=== PATIENT | male | born 1965 | race African-American/Black ===

== ENCOUNTER 2020-06-26 02:18 | Emergency (ER) | payer MEDICAID, SELFPAY ==
[2020-06-26 03:14] VITALS: BP 166/95; PULSE 70; RESP 17; TEMP 37.1; O2SAT 98; BMI 26.0
[2020-06-26 03:28] VITALS: BP 166/95; PULSE 70; RESP 17; TEMP 37.1; O2SAT 98
[2020-06-26 03:31] LABS: Amphetamine Screen Urine Not Detected (Not Detect); Barbiturates, Urine Not Detected (Not Detect); Benzodiazepines Screen Urine Not Detected (Not Detect); Cannabinoid Screen Urine POSITIVE (Not Detect); Cocaine Screen Urine POSITIVE (Not Detect); Opiate Screen Urine Not Detected (Not Detect); Phencyclidine Screen Urine Not Detected (Not Detect)
--- NOTE | 2020-06-26 05:47 | PC.NURSE ---
JONG faxed and called. JONG stated PT would be seen later this morning.
[2020-06-26 06:00] VITALS: RESP 16
--- NOTE | 2020-06-26 06:38 | ED_ITS ---
HPI - Psych General Chief Complaint: Psychiatric Symptoms Stated Complaint: SI/HI Time Seen by Provider: 06/26/20 05:25 Source: patient Mode of arrival: ambulatory History of Present Illness HPI Narrative: This is a 54-year-old male who presents with complaints of depression, polysubstance use, and generalize suicidal ideation with reported prior admissions for depression and made a suicide attempt approximately 4 years ago via substance overdose. Today he states he is very depressed about his current status as being homeless and dependent on drugs and is requesting detox. Related Data Home Medications Medication Instructions Recorded Confirmed gabapentin 800 mg PO TID 06/26/20 06/26/20 lurasidone [Latuda] 40 mg PO DAILY 06/26/20 06/26/20 naltrexone 50 mg PO DAILY 06/26/20 06/26/20 tamsulosin 0.8 mg PO BEDTIME 06/26/20 06/26/20 terbinafine HCl 250 mg PO DAILY 06/26/20 06/26/20 Allergies Allergy/AdvReac Type Severity Reaction Status Date / Time bee pollen [BEE STINGS] Allergy Unknown ANAPHYLAXIS Unverified 02/08/20 18:27 Review of Systems Review of Systems: Pertinent positives and negatives as stated in HPI and 10 point review of systems is otherwise negative. [facility] Past Medical History Source: nursing notes reviewed Social History Social History Alcohol intake: current Alcohol intake frequency: 3 or more drinks per day Alcohol type: hard liquor Smoking Status: Current every day smoker Smoked in Last 30 Days: Yes Use of substances other than those prescribed or required for medical reasons: Yes Substance Use Type: Crack/Cocaine and Marijuana Substance Use Frequency: Daily Last Used Substance: Hours (ago) Any prior treatment program specific to substance use: Yes Advance Directives: No Physical Exam Vital Signs: Vital Signs: Last Vital Signs Temp 98.8 F 06/26/20 03:28 Pulse 70 06/26/20 03:28 Resp 16 06/26/20 06:00 BP 166/95 H 06/26/20 03:28 Pulse Ox 98 06/26/20 03:28 Body Mass Index 26.0 VITAL SIGNS: Reviewed. GENERAL: Well developed, well nourished, in no acute distress. NECK: Supple, no adenopathy LUNGS: Normal breath sounds. No adventitious sounds or accessory muscle use. SpO2<98> CARDIOVASCULAR: Regular rate and rhythm without noted murmurs ABDOMEN: Soft, non-tender, non-distended with bowel sounds. NEUROLOGIC: Alert and oriented x 4. PSYCH: Depressed affect, logical thought process Course Course Course Narrative: This is a 54-year-old male with history and clinical presentation consistent with polysubstance use and depression with generalized suicidal ideation without plan. Patient is seeking detox. MDM - Psych Restraints Face to Face Assessment: Face to Face Assessment: Current Situation: After assessment of the patient, a review of the pertinent medical record and a discussion with nursing staff, I feel the patient requires a restrain intervention. Reaction To: [] Medical Condition: [] Behavioral State: [] Continued Need: [] Lab Data Labs: Lab Results 06/26/20 Range/Units 03:01 Urine Opiates Screen Not Detected (Not Detect) Ur Barbiturates Screen Not Detected (Not Detect) Ur Phencyclidine Scrn Not Detected (Not Detect) Ur Amphetamines Screen Not Detected (Not Detect) U Benzodiazepines Scrn Not Detected (Not Detect) Urine Cocaine Screen POSITIVE H (Not Detect) U Marijuana (THC) Screen POSITIVE H (Not Detect) Discharge Plan Discharge Prescriptions: No Action naltrexone 50 mg Tablet 50 mg PO DAILY RF: 0 terbinafine HCl 250 mg Tablet 250 mg PO DAILY RF: 0 tamsulosin 0.4 mg Capsule 0.8 mg PO BEDTIME RF: 0 gabapentin 800 mg Tablet 800 mg PO TID RF: 0 Latuda 40 mg Tablet 40 mg PO DAILY RF: 0
--- NOTE | 2020-06-26 08:00 | PC.NURSE ---
PT RESTING ON BED. AWAITING BHN CONSULT. REQUESTING MOTRIN FOR H/A
[2020-06-26] MEDS: Lurasidone HCl 40 MG TABLET PO (08:54)
[2020-06-26] MEDS: Naltrexone HCl 50 MG TABLET PO (08:54)
[2020-06-26] MEDS: Ibuprofen 600 MG TABLET PO (08:54)
[2020-06-26] MEDS: Gabapentin 400 MG CAPSULE 800 MG PO ×2 (08:54→14:34)
[2020-06-26 09:38] VITALS: BP 144/80; PULSE 64; TEMP 36.9; O2SAT 100
[2020-06-26 11:25] LABS: COVID-19 Test Negative (Negative)
--- NOTE | 2020-06-26 11:50 | MHC.RECOVSUP ---
Recovery Support note: This leader writer is assisting with EATS placement for this patient. Patient was discharged from [facility] on 06/20 and reports that he does not want to go there for treatment. Patient is requesting to go to [facility] in [place]. Patient information has been faxed to [phone] for review.
--- NOTE | 2020-06-26 12:29 | MHC.RECOVSUP ---
? Reason for consult: Continuity of Care o Current location: [facility] o Identified substance use concern: - Withdrawal - Seeking ATS (detox) - Support ? Intervention: o ATS bed search started/completed/in process o Harm reduction discussion ? Plan: o Bed search in progress to o Follow up tomorrow o Patient awaiting crisis evaluation o Patient to follow up with [facility] after discharge ? Additional information:Pt. seeking eats bed and waiting for exceptance into [facility].
[2020-06-26] MEDS: Acetaminophen 325 MG TABLET 650 MG PO (13:47)
--- NOTE | 2020-06-26 13:58 | MHC.CARE ---
Patient is a 54 year-old man who self-presented to [facility] ED at roughly 2:00 am, reported that he was seeking detox from alcohol and having suicidal thoughts. Today the CARE Team spoke with patient several times while he was in the Emergency Room to discuss his needs and concerns regarding his safety. He stated that he feels hopeless, at times suicidal due to his situation being chronically homeless, struggling with addiction and depression. 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 In terms of patient?s drinking pattern, he said a fifth of whiskey can last two to three days and he finished a bottle just before coming to the hospital. At this time patient denied having a plan or intention of ending his life, said he feels better knowing treatment is available today. He reported having no history of attempts to end his life though acknowledged that his behavior is self-destructive. Patient is determined to not need an inpatient psychiatric admission, is encouraged to engage in outpatient services for mental health and substance use treatment.
--- NOTE | 2020-06-26 14:59 | PC.NURSE ---
Report received. Pt sleeping in bed at current, no signs of distress, respirations even and unlabored.
--- NOTE | 2020-06-26 15:41 | MHC.RECOVSUP ---
Recovery Support note: Patient has been accepted to [facility] for EATS admission at 1999. CARE Team will arrange transportation for patient.
--- NOTE | 2020-06-26 15:56 | MHC.RECOVSUP ---
Transportation note: Taxi has been scheduled for 1899. Taxi voucher printed to pod and will be given to patient upon discharge. RN aware of plan.
--- NOTE | 2020-06-26 16:54 | PC.NURSE ---
Pt asleep at current. No signs of distress. Respirations even and unlabored.
== END 2020-06-26 19:03 | disposition home or self-care (01) ==
PROVIDERS: Emergency Provider Student in an Organized Health Care Education/Training Program; PCP Psychiatry & Neurology Neurology
DX: F19.10 Other psychoactive substance abuse, uncomplicated (principal); F32.9 Major depressive disorder, single episode, unspecified; R45.851 Suicidal ideations; Z20.822 Contact with and (suspected) exposure to COVID-19; F10.10 Alcohol abuse, uncomplicated; F17.200 Nicotine dependence, unspecified, uncomplicated; Z91.5 Personal history of self-harm; Z59.0 Homelessness
CPT/HCPCS: 36415; 80307; 87635; 99284

== ENCOUNTER 2020-08-17 14:40 | Emergency (ER) | payer MEDICAID, SELFPAY ==
--- NOTE | ~2020-08-17 | CT_ITS ---
EXAMINATION: CT ABDOMEN AND PELVIS WITH CONTRAST CLINICAL INFORMATION: Periumbilical pain COMPARISON: Scrotal ultrasound earlier the same day TECHNIQUE: Multidetector volumetric images were obtained from the superior aspect of the liver through the pubic symphysis following administration 85 mL of Omnipaque 350 intravenous contrast. Sagittal and coronal reformatted images were obtained on the technologist's workstation. Oral contrast: No This CT examination was performed using dose optimization techniques as appropriate, variously including the following: *Automated exposure control *Adjustment of mA and/or kV according to patient size (this includes techniques or standardized protocols for targeted exams where dose is matched to indication/reason for exam; i.e. extremities or head) *Use of iterative reconstruction technique DLP: 839 mGy-cm FINDINGS: LUNG BASES: Streaky opacity at the lung bases, likely atelectasis. There is an 8 mm soft tissue nodule in the epicardial fat adjacent the right heart border. LIVER, GALLBLADDER, AND BILIARY TREE: There is an ill-defined 9 mm lesion posteriorly in the right lobe of the liver. Portal veins enhance normally. Gallbladder collapsed. No biliary ductal dilatation. PANCREAS: Normal. SPLEEN: There is some heterogeneous enhancement but no focal lesion seen.. ADRENAL GLANDS: Unremarkable. KIDNEYS AND URETERS: The kidneys are normal in size, shape, and attenuation. No hydronephrosis, hydroureter, or calculi seen. No perinephric stranding. BLADDER: Unremarkable. GASTROINTESTINAL TRACT: The small and large bowel are unremarkable. The appendix is unremarkable. ABDOMINAL WALL: No significant hernia is appreciated. LYMPH NODES: Normal. VASCULAR: Unremarkable. PELVIC VISCERA: The prostate and seminal vesicles are unremarkable. OSSEOUS STRUCTURES: Degenerative changes of the thoracolumbar spine. No acute or suspicious osseous abnormality. CT/CT abdomen pelvis w con IMPRESSION: No acute CT findings. Normal appendix. There is an ill-defined 9 mm lesion posteriorly in the right lobe of liver of uncertain etiology or clinical significance. This does not have the expected appearance of a cyst. Consider definitive evaluation with contrast-enhanced liver MRI as clinically indicated, particularly if there is concern for metastatic disease, for example a known primary malignancy.
--- NOTE | ~2020-08-17 | US_ITS ---
EXAMINATION: US SCROTUM CLINICAL INFORMATION: Left testicular pain. COMPARISON: None TECHNIQUE: A sonogram of the scrotum was performed assessing beltran-scale appearance and color Doppler flow. Spectral Doppler analysis of the arterial and venous flow were performed in the testes bilaterally. FINDINGS: RIGHT: Right testicle measures 3.9 x 2.2 x 3.2 cm, volume 13.6 mL. No focal testicular parenchymal lesions are visualized. Spectral Doppler analysis of the arterial and venous flow is increased, but symmetric with the left, in the right testis. Right epididymal head is normal in size. Small cysts are present in the head of the right epididymis the largest measuring 4 x 4 by 5 mm. No right hydrocele or varicocele is seen. Right epididymal Doppler flow is normal. LEFT: Left testicle measures 3.4 x 1.8 x 2.7 cm, volume 8.7 mL. No focal testicular parenchymal lesions are visualized. Spectral Doppler analysis of the arterial and venous flow is increased, but symmetric with the right, in the left testis. Left epididymal head is normal in size. No left hydrocele is seen. A left varicocele is present with veins measuring up to 3 mm in size. Left epididymal Doppler flow is normal. US/US scrotum IMPRESSION: 1. Slightly increased symmetric flow in both testes of questionable significance. 2. Left-sided varicocele is present 3. Small cysts are noted in the head of the right epididymis
[2020-08-17 14:44] VITALS: BP 151/81; PULSE 75; RESP 18; TEMP 37; O2SAT 98; BMI 32.5
[2020-08-17 15:16] LABS: Glucose Urine UA NEG (NEG); Leukocyte Esterase Urine NEG (NEG); Nitrite Urine NEG (NEG); PH 5.5 (5.0-8.0); Specific Gravity - Urine >= 1.030 (1.005-1.025); Urine Blood NEG (NEG); Urine Ketones 5 MG/DL (NEG); Urine Protein NEG (NEG-TRACE)
[2020-08-17 15:22] LABS: Appearance Urine CLEAR; Color Urine YELLOW
--- NOTE | 2020-08-17 16:06 | ED_ITS ---
HPI - Male Genitourinary General Chief complaint: Abdominal Pain Stated complaint: pain from belly button to penis Time Seen by Provider: 08/17/20 15:51 Source: patient Mode of arrival: ambulatory Limitations: no limitations History of Present Illness HPI Narrative: Patient comes to the Emergency room complaining of left testicular pain. Patient states it started this morning. Patient denies trauma. Patient states that sometimes when he urinates he feels a pulling sensation from his umbilicus down to his left testicle. Patient states that 6 months to about a year ago he had epididymitis, and it is a similar pain that he is feeling now. Patient states that he does not have a sexual partner and therefore he is not concerned about having a sexually transmitted disease. Patient states that the discomfort in his abdomen is very minimal, most of the discomfort is in the left testicular area. Patient denies vomiting or diarrhea, no fever chills, no hematuria, no dysuria MD Complaint: testicle pain Related Data Home Medications Medication Instructions Recorded Confirmed gabapentin 800 mg PO TID 06/26/20 06/26/20 lurasidone [Latuda] 40 mg PO DAILY 06/26/20 06/26/20 naltrexone 50 mg PO DAILY 06/26/20 06/26/20 tamsulosin 0.8 mg PO BEDTIME 06/26/20 06/26/20 terbinafine HCl 250 mg PO DAILY 06/26/20 06/26/20 Allergies Allergy/AdvReac Type Severity Reaction Status Date / Time bee pollen [BEE STINGS] Allergy Unknown ANAPHYLAXIS Verified 08/17/20 14:43 Review of Systems Review of Systems: Constitutional : No Weight loss, No Fever, No Chills, No Night Sweats, No Fatigue, No Malaise ENT/Mouth : No Hearing loss, No Ear Pain, No Nasal Congestion, No Sinus Pain, No Hoarseness, No sore throat, No Rhinorrhea, No Swallowing Difficulty Eyes: No Eye Pain, No Swelling, No Redness, No Foreign Body, No Discharge, No Vision Changes Cardiovascular : No Chest Pain, No SOB, No Dyspnea on Exertion, No Orthopnea, No Edema, No Palpitations Respiratory : No Cough, No Sputum, No Wheezing, No Smoke Exposure, No Dyspnea Gastrointestinal : No Nausea, No Vomiting, No Diarrhea, No Constipation, No abdominal Pain, No Hematochezia, No Melena Genitourinary : No Dysuria, No Urinary Frequency, No Hematuria, No Urinary Incontinence, No Urgency, No Flank Pain, No Urinary Flow Changes, No Hesitancy, complaining of left testicular pain, worse with urination, has a pulling sensation from his umbilicus towards the left testicle, no flank pain Musculoskeletal : No joint pain, No Myalgias, No Joint Swelling Skin : No Skin Lesions, No rash Neuro : No Weakness, No Numbness, No Paresthesias, No Loss of Consciousness, No Dizziness, No Headache Psych : No Anxiety/Panic, No Depression, No SI/HI/AH/VH, No Social Issues, Heme/Lymph: No Bruising, No Bleeding,No Lymphadenopathy Endocrine : No Polyuria, No Polydipsia, No Temperature Intolerance PMFSH Past Medical History Medical History Epididymitis Social History Social History Alcohol intake: current Alcohol intake frequency: 3 or more drinks per day Alcohol type: hard liquor Smoking Status: Current every day smoker Substance Use Type: Crack/Cocaine and Marijuana Advance Directives: No Advance Directives Information Provided: No Physical Exam Vital Signs: Vital Signs: Last Vital Signs Temp 98.0 F 08/17/20 20:20 Pulse 50 08/17/20 20:20 Resp 19 08/17/20 20:20 BP 163/84 H 08/17/20 20:20 Pulse Ox 100 08/17/20 20:20 Body Mass Index 32.5 Appearance: Alert. Oriented X3. No acute distress. Eyes: Pupils equal, round and reactive to light. ENT: Pharynx normal. Neck: Normal inspection. Neck supple. No lymph nodes noted. No crepitus CVS: Normal heart rate and rhythm. Pulses normal. Normal S1 and S2 Respiratory: No respiratory distress. Breath sounds normal. No Wheezing. No ral es Abdomen: Soft and nontender. No rigidity. No distention. No periumbilical or suprapubic pain on deep palpation. : No penile discharge, pain to palpation on the left testicle, mild discomfort on the right testicle Skin: Skin warm and dry. Normal skin color. Normal skin turgor. Extremities: No lower extremity edema. No lower extremity edema. No Lacerations. No Rash Neuro: Oriented X 3. No motor deficit. No sensory deficit. Moving all extermities. No slurred speech. Course Course Course Narrative: I discussed the labs and imaging with the patient, patient aware of the varicocele diagnosis. Patient states that he is well aware that he has had a 1 cm mass in his liver, states it has been there for over 10 years. Patient instructed to follow-up with urology [facility] - Male Genitourinary Lab Data Result diagrams: 08/17/20 19:31 08/17/20 19:31 Labs: Lab Results 08/17/20 08/17/20 08/17/20 Range/Units 15:00 19:31 19:31 WBC 5.0 (4.8-10.8) X10*3/uL RBC 4.43 L (4.60-5.80) X10*6/uL Hgb 12.5 L (14.0-18.0) g/dl Hct 37.9 L (42-52) % MCV 85.6 (80-98) fL MCH 28.2 (27.0-33.0) pg MCHC 33.0 (31.0-36.0) g/dl RDW 15.5 (11.0-16.0) % Plt Count 220 (160-400) X10*3/uL MPV 9.1 L (9.4-12.4) fL Immature Gran % (Auto) 0.8 H (0.0-0.4) % Neut % (Auto) 38.4 L (45-73) % Lymph % (Auto) 51.4 H (20-40) % [place] % (Auto) 8.0 (2-11) % Eos % (Auto) 1.2 (0-4) % Baso % (Auto) 0.2 (0-2) % Lymph # (Auto) 2.6 (1.2-4.9) X10*3/uL [place] # (Auto) 0.4 (0.1-1.2) X10*3/uL Eos # (Auto) 0.1 (0.0-0.4) X10*3/uL Baso # (Auto) 0.0 (0.0-0.2) X10*3/uL Abs Immat Gran (auto) 0.04 H (0.00-0.03) X10*3/uL Absolute Neuts (auto) 1.9 L (2.0-8.3) X10*3/uL Absolute Nucleated RBC 0.000 (0.0-0.012) X10*3/uL Nucleated RBC % (auto) 0.0 (0.0-0.2) /100WBC Sodium 139 (135-145) mmol/L Potassium 3.8 (3.3-5.1) mmol/L Chloride 106 (96-108) mmol/L Carbon Dioxide 24 (22-29) mmol/L Anion Gap 13 (12-20) BUN 13 (9-16) mg/dL Creatinine 1.22 (0.5-1.4) mg/dL Estim Creat Clear Calc 88.2 Estimated GFR > 60 Random Glucose 88 (60-115) mg/dL Calcium 8.8 (8.4-10.2) mg/dL Urine Color YELLOW Urine Appearance CLEAR Urine pH 5.5 (5.0-8.0) Ur Specific [place] >= 1.030 H (1.005-1.025) Urine Protein NEG (NEG-TRACE) MG/DL Urine Glucose (UA) NEG (NEG) MG/DL Urine Ketones 5 (NEG) MG/DL Urine Blood NEG (NEG) Urine Nitrite NEG (NEG) Ur Leukocyte Esterase NEG (NEG) Imaging Data CT scan - abdomen: Radiologist's impression: FINDINGS: LUNG BASES: Streaky opacity at the lung bases, likely atelectasis. There is an 8 mm soft tissue nodule in the epicardial fat adjacent the right heart border. LIVER, GALLBLADDER, AND BILIARY TREE: There is an ill-defined 9 mm lesion posteriorly in the right lobe of the liver. Portal veins enhance normally. Gallbladder collapsed. No biliary ductal dilatation. PANCREAS: Normal. SPLEEN: There is some heterogeneous enhancement but no focal lesion seen.. ADRENAL GLANDS: Unremarkable. KIDNEYS AND URETERS: The kidneys are normal in size, shape, and attenuation. No hydronephrosis, hydroureter, or calculi seen. No perinephric stranding. BLADDER: Unremarkable. GASTROINTESTINAL TRACT: The small and large bowel are unremarkable. The appendix is unremarkable. ABDOMINAL WALL: No significant hernia is appreciated. LYMPH NODES: Normal. VASCULAR: Unremarkable. PELVIC VISCERA: The prostate and seminal vesicles are unremarkable. OSSEOUS STRUCTURES: Degenerative changes of the thoracolumbar spine. No acute or suspicious osseous abnormality. CT/CT abdomen pelvis w con IMPRESSION: No acute CT findings. Normal appendix. There is an ill-defined 9 mm lesion posteriorly in the right lobe of liver of uncertain etiology or clinical significance. This does not have the expected appearance of a cyst. Consider definitive evaluation with contrast-enhanced liver MRI as clinically indicated, particularly if there is concern for metastatic disease, for example a known primary malignancy. Scrotum ultrasound: Radiologist's impression: [address] [id number] ReportSigned Patient: Tea DominguezR#: [id number]: 1965Acct:[id number]/Sex: 54 / MADM Date: 08/17/20Loc: [address]: Ordering Physician: ISAAC JUAREZ MD Date of Service: 08/17/20 Procedure(s): US scrotum Accession Number(s): [id number] cc: ISAAC JUAREZ MD~ EXAMINATION: US SCROTUM CLINICAL INFORMATION: Left testicular pain. COMPARISON: None TECHNIQUE: A sonogram of the scrotum was performed assessing beltran-scale appearance and color Doppler flow. Spectral Doppler analysis of the arterial and venous flow were performed in the testes bilaterally. FINDINGS: RIGHT: Right testicle measures 3.9 x 2.2 x 3.2 cm, volume 13.6 mL. No focal testicular parenchymal lesions are visualized. Spectral Doppler analysis of the arterial and venous flow is increased, but symmetric with the left, in the right testis. Right epididymal head is normal in size. Small cysts are present in the head of the right epididymis the largest measuring 4 x 4 by 5 mm. No right hydrocele or varicocele is seen. Right epididymal Doppler flow is normal. LEFT: Left testicle measures 3.4 x 1.8 x 2.7 cm, volume 8.7 mL. No focal testicular parenchymal lesions are visualized. Spectral Doppler analysis of the arterial and venous flow is increased, but symmetric with the right, in the left testis. Left epididymal head is normal in size. No left hydrocele is seen. A left varicocele is present with veins measuring up to 3 mm in size. Left epididymal Doppler flow is normal. US/US scrotum IMPRESSION: 1. Slightly increased symmetric flow in both testes of questionable significance. 2. Left-sided varicocele is present 3. Small cysts are noted in the head of the right epididymis Discharge Plan Discharge Clinical Impression: Left varicocele Patient Disposition: Home, Self-Care Instructions: Testicle Pain (ED), Varicocele (ED) Additional Instructions: Please call Urology to schedule an appointment. Please follow-up with your primary care physician tomorrow. If you have any worsening or new symptoms, please return to the emergency room or call 911 Prescriptions: No Action naltrexone 50 mg Tablet 50 mg PO DAILY RF: 0 terbinafine HCl 250 mg Tablet 250 mg PO DAILY RF: 0 tamsulosin 0.4 mg Capsule 0.8 mg PO BEDTIME RF: 0 gabapentin 800 mg Tablet 800 mg PO TID RF: 0 Latuda 40 mg Tablet 40 mg PO DAILY RF: 0 Referrals: Surendra Young MD [Physician] - 2 days
--- NOTE | 2020-08-17 16:21 | PC.NURSE ---
u/s at bedside at this time
[2020-08-17 17:51] VITALS: BP 160/90; PULSE 65; RESP 16; O2SAT 98
[2020-08-17 19:35] LABS: MANUAL DIFF FLAG NO
--- NOTE | 2020-08-17 19:36 | PC.NURSE ---
IV INSERTED W/O DIFFICULTY, SITE INTACT. PT STATES LIOR BEEN WAITING FOR A LONG TIME . PT AWAITING FOR CT.
[2020-08-17 19:37] LABS: Basophils Percent Auto 0.2 % (0-2); Eosinophils Absolute Auto 0.1 X10*3/uL (0.0-0.4); Eosinophils Percent Auto 1.2 % (0-4); Hematocrit 37.9 % (42-52); Hemoglobin 12.5 g/dl (14.0-18.0); Imm Gran Abs Auto 0.04 X10*3/uL (0.00-0.03); Imm Gran Pct Auto 0.8 % (0.0-0.4); Lymphocytes Absolute Auto 2.6 X10*3/uL (1.2-4.9); Lymphocytes Percent Auto 51.4 % (20-40); Mean Corpuscular Hemoglobin 28.2 pg (27.0-33.0); Mean Corpuscular Volume 85.6 fL (80-98); Mean Platelet Volume 9.1 fL (9.4-12.4); Monocytes Absolute Auto 0.4 X10*3/uL (0.1-1.2); Neutrophils Absolute Auto 1.9 X10*3/uL (2.0-8.3); Neutrophils Percent Auto 38.4 % (45-73); Platelet Count 220 X10*3/uL (160-400); Red Blood Count 4.43 X10*6/uL (4.60-5.80); Red Cell Distribution Width 15.5 % (11.0-16.0)
[2020-08-17 19:59] LABS: Anion Gap 13 (12-20); Blood Urea Nitrogen 13 mg/dL (9-16); Calcium 8.8 mg/dL (8.4-10.2); Carbon Dioxide 24 mmol/L (22-29); Chloride 106 mmol/L (96-108); Creatinine Clr Calc Pharmacy 88.2; Estimated Glomerular Filt Rate > 60; Glucose Random 88 mg/dL (60-115); Potassium 3.8 mmol/L (3.3-5.1); Sodium 139 mmol/L (135-145)
[2020-08-17] MEDS: iohexoL 350 MG/ML 75 ML INFUS..BTL IV (20:14)
[2020-08-17 20:20] VITALS: BP 163/84; PULSE 50; RESP 19; TEMP 36.7; O2SAT 100
[2020-08-18 13:13] LABS: CT PCR NOT DETECTED (Not Detect.); NG PCR NOT DETECTED (Not Detect.)
== END 2020-08-17 21:36 | disposition home or self-care (01) ==
PROVIDERS: Emergency Provider Emergency Medicine
DX: I86.1 Scrotal varices (principal); N50.3 Cyst of epididymis; N50.812 Left testicular pain; F14.90 Cocaine use, unspecified, uncomplicated; F12.90 Cannabis use, unspecified, uncomplicated
CPT/HCPCS: 36415; 74177; 76870; 80048; 81003; 85025; 87491; 87591; 99284; Q9967

== ENCOUNTER 2021-01-09 12:07 | Emergency (ER) | payer MEDICAID, SELFPAY ==
[2021-01-09 12:16] VITALS: BP 148/82; BP 162/90; PULSE 61; PULSE 64; RESP 18; TEMP 36.2; O2SAT 97; O2SAT 98; BMI 30.5
--- NOTE | 2021-01-09 12:27 | ECG_ITS ---
Test Reason : MEDCLEARNCE Blood Pressure : / mmHG Vent. Rate : 057 BPM Atrial Rate : 057 BPM P-R Int : 180 ms QRS Dur : 118 ms QT Int : 456 ms P-R-T Axes : 062 074 044 degrees QTc Int : 443 ms Sinus bradycardia Left ventricular hypertrophy with QRS widening Abnormal ECG No previous ECGs available Referred By: Fawn Nassar Electronically Signed By:MARQUITA DYER
--- NOTE | 2021-01-09 13:04 | PHA.MEDREC ---
Pharmacy Consult ? Medication Reconciliation Pharmacy has completed the medication reconciliation. Patient kept falling asleep and not answering questions regarding home meds in ED, med rec done from claim history
[2021-01-09 13:08] LABS: MANUAL DIFF FLAG NO
[2021-01-09 13:09] LABS: Basophils Percent Auto 0.3 % (0-2); Eosinophils Percent Auto 0.5 % (0-4); Hematocrit 39.1 % (42-52); Imm Gran Abs Auto 0.06 X10*3/uL (0.00-0.03); Imm Gran Pct Auto 0.8 % (0.0-0.4); Lymphocytes Absolute Auto 2.5 X10*3/uL (1.2-4.9); Mean Corpuscular HGB Conc 33.2 g/dl (31.0-36.0); Mean Corpuscular Hemoglobin 28.9 pg (27.0-33.0); Mean Corpuscular Volume 86.9 fL (80-98); Mean Platelet Volume 9.3 fL (9.4-12.4); Monocytes Absolute Auto 0.6 X10*3/uL (0.1-1.2); Monocytes Percent Auto 7.6 % (2-11); Neutrophils Absolute Auto 4.3 X10*3/uL (2.0-8.3); Neutrophils Percent Auto 57.8 % (45-73); Platelet Count 331 X10*3/uL (160-400); Red Cell Distribution Width 14.8 % (11.0-16.0); White Blood Count 7.5 X10*3/uL (4.8-10.8)
[2021-01-09 13:17] LABS: INTERNATIONAL NORM RATIO 1.2 (0.9-1.1); Prothrombin Time 13.5 SEC (9.9-13.0)
[2021-01-09 13:17] LABS: Glucose Urine UA NEG (NEG); Leukocyte Esterase Urine NEG (NEG); Nitrite Urine NEG (NEG); Specific Gravity - Urine >= 1.030 (1.005-1.025); UACC Culture Trigger NO; Urine Blood NEG (NEG); Urine Ketones NEG (NEG); Urine Protein 1+ MG/DL (NEG-TRACE)
[2021-01-09 13:19] LABS: Appearance Urine HAZY; Color Urine YELLOW
[2021-01-09 13:31] LABS: COVID-19 Test Negative (Negative)
[2021-01-09 13:33] LABS: Squamous Epithelial Cell Urine 1+ /LPF
[2021-01-09 13:34] LABS: Amorphous Sediment Urine 1+ /LPF; Mucus Urine 1+ /LPF; Sperm Urine NOTED
[2021-01-09 13:37] LABS: Ethanol 55 mg/dL
[2021-01-09 13:39] LABS: Amphetamine Screen Urine Not Detected (Not Detect); Barbiturates, Urine Not Detected (Not Detect); Benzodiazepines Screen Urine Not Detected (Not Detect); Cannabinoid Screen Urine POSITIVE (Not Detect); Cocaine Screen Urine POSITIVE (Not Detect); Fentanyl, urine POSITIVE (Not Detect); Opiate Screen Urine Not Detected (Not Detect); Phencyclidine Screen Urine Not Detected (Not Detect)
[2021-01-09 13:42] LABS: Acetaminophen LAB < 1 mcg/mL (<30); Alanine Aminotransferase 33 U/L (0-40); Albumin Level 4.2 g/dL (3.5-5.0); Alkaline Phosphatase 78 U/L (39-117); Anion Gap 16 (12-20); Aspartate Amino Transferase 31 U/L (5-37); Blood Urea Nitrogen 13 mg/dL (9-16); Calcium 8.9 mg/dL (8.4-10.2); Carbon Dioxide 20 mmol/L (22-29); Chloride 107 mmol/L (96-108); Creatinine Clr Calc Pharmacy 99.2; Estimated Glomerular Filt Rate > 60; Glucose Random 72 mg/dL (60-115); Lipase 22 U/L (8-78); Potassium 3.7 mmol/L (3.3-5.1); Salicylate < 5.0 mg/dL (15-30); Sodium 139 mmol/L (135-145); Total Protein 7.6 g/dL (6.5-8.0)
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
--- NOTE | 2021-01-09 15:29 | ECG_ITS ---
Test Reason : QRS Blood Pressure : / mmHG Vent. Rate : 057 BPM Atrial Rate : 057 BPM P-R Int : 182 ms QRS Dur : 114 ms QT Int : 448 ms P-R-T Axes : 027 074 043 degrees QTc Int : 436 ms Sinus bradycardia Minimal voltage criteria for LVH, may be normal variant Borderline ECG When compared with ECG of 09-JAN-2021 15:01, No significant change was found Referred By: Fawn Nassar Electronically Signed By:MARQUITA DYER
[2021-01-09 16:00] VITALS: BP 158/92; PULSE 50; RESP 16; TEMP 36.5; O2SAT 98
[2021-01-09] MEDS: Sodium Bicarbonate 8.4% 50 MEQ/50 ML VIAL IVPUSH (17:01)
--- NOTE | 2021-01-09 18:10 | MHC.RECOVSUP ---
? Reason for consult Recovery Support o Current location: ED8 o Identified substance use concern: Alcohol - Withdrawal - Seeking ATS (detox) - Support ? Intervention: o Community resources provided o Harm reduction discussion ? Plan: o Patient to follow up with [facility] after discharge ? Additional information: Patient is looking to go to detox There was no beds at the present moment.. Patient will be held till the morning..
--- NOTE | 2021-01-09 18:28 | MHC.CARE ---
Pt with recovery team there is no detox beds currently available. Pt will remain in the ED until tomorrow to meet with the Recovery team.
--- NOTE | 2021-01-09 23:17 | MHC.CARE ---
Pt was evaluated by Mariah, disposition was for detox/ current providers. He is cleared by psych does not require crisis. He is seeking detox at this time.
[2021-01-10 05:06] VITALS: BP 153/99; PULSE 57; RESP 16; TEMP 36.2; O2SAT 99
--- NOTE | 2021-01-10 06:20 | PC.NURSE ---
Patient slept through the night, VS at baseline, alert and oriented x 4, out of room x 3 for bathroom use, hydrating well, appetite great, elimination intact, behavior appropriate, me d compliant, patient's disposition is detox bed search and recovery agent is working on it, will continue to monitor.
--- NOTE | 2021-01-10 08:05 | PC.NURSE ---
patient appears in no distress, awaits placement in detox today, appears to remain at rest
--- NOTE | 2021-01-10 08:40 | MHC.RECOVRN ---
T/w met with pt in [facility] to continue ATS bedsearch. Pt reports alcohol use 1/5 of whiskey daily as well as cocaine, IN and INH, $300-$400 daily x 4 days. Pt denies use of other substances, including opiates. Prior to this, last use in May 2020. Pt willing to go to any ATS other than [facility]. Pt states I almost there last summer. I was bleeding on the inside and they had me wait to go to the hospital. T/w will send referrals. Will continue to follow.
[2021-01-10 13:18] VITALS: BP 153/99; PULSE 57
[2021-01-10] MEDS: amLODIPine Besylate 5 MG TABLET PO (13:18)
[2021-01-10] MEDS: Lurasidone HCl 40 MG TABLET PO (13:18)
--- NOTE | 2021-01-10 13:32 | MHC.RECOVRN ---
Bedsearch exhausted. No beds available. Pt given phone numbers of ATS facilities to follow up regarding referrals. Pt not currently exhibiting withdrawal symptoms; pt states I'm not in withdrawal. Pt reported desire to go to respite, however, does not want to deal with [facility]. Pt requested and t/w provided [facility] phone number. Discussed with CARE Team.
[2021-01-10 14:43] VITALS: BP 153/53; PULSE 50; RESP 14; TEMP 36.6; O2SAT 96
[2021-01-10] MEDS: Nicotine Polacrilex 2 MG GUM BUCCAL (14:45)
[2021-01-10] MEDS: Gabapentin 400 MG CAPSULE 800 MG PO (14:45)
== END 2021-01-10 15:00 | disposition home or self-care (01) ==
PROVIDERS: Physician Assistant Medical; Emergency Provider Internal Medicine
DX: F43.20 Adjustment disorder, unspecified (principal); F32.9 Major depressive disorder, single episode, unspecified; F41.9 Anxiety disorder, unspecified; R00.1 Bradycardia, unspecified; F10.10 Alcohol abuse, uncomplicated; Y90.2 Blood alcohol level of 40-59 mg/100 ml; I10 Essential (primary) hypertension; Z20.822 Contact with and (suspected) exposure to COVID-19; F14.10 Cocaine abuse, uncomplicated; F12.10 Cannabis abuse, uncomplicated; F19.10 Other psychoactive substance abuse, uncomplicated; Z59.0 Homelessness
CPT/HCPCS: 36415; 80053; 80143; 80179; 80307; 81001; 82077; 82550; 83690; 83735; 85025; 85610; 87635; 93005; 99285

== ENCOUNTER 2021-03-02 16:05 | Emergency (ER) | payer MEDICAID, SELFPAY ==
[2021-03-02 16:08] VITALS: BP 140/78; O2SAT 98
[2021-03-02 16:12] VITALS: BP 146/74; PULSE 52; RESP 16; TEMP 36.6; O2SAT 99; BMI 24.4
--- NOTE | 2021-03-02 16:40 | ED_ITS ---
HPI - General Adult General Chief complaint: ETOH/Substance Use Stated complaint: ETOH AND DRUG USE 2 HOURS AGO PER EMS Time Seen by Provider: 03/02/21 16:29 Source: patient Mode of arrival: EMS Limitations: no limitations History of Present Illness HPI narrative: 55-year-old male who presents emergency department for evaluation for detox from cocaine use. Patient states that for the past 3 days he has been using cocaine. He states he has been using ED to 100 dollars per day. He states that he uses it intranasally and smokes crack cocaine as well. He states that he has been drinking alcohol as well. He drinks anywhere from 4-6 beers per day. He states that he last drank and last used cocaine just prior to coming to the emergency department. The patient states that he wants to get help with his substance use disorder. He denied fever, chills, chest pain, shortness of breath, nausea, vomiting, abdominal pain, changes bowel movements, frequency, urgency or dysuria. Related Data Home Medications Medication Instructions Recorded Confirmed amlodipine 5 mg tablet 1 tab PO DAILY 01/09/21 01/09/21 chlorthalidone 25 mg tablet 1 tab PO DAILY 01/09/21 01/09/21 gabapentin 400 mg capsule 2 cap PO TID 01/09/21 01/09/21 lurasidone 40 mg tablet (Latuda) 1 tab PO DAILY 01/09/21 01/09/21 melatonin 3 mg tablet 1 tab PO BEDTIME 01/09/21 01/09/21 mirtazapine 15 mg tablet 1 tab PO BEDTIME 01/09/21 01/09/21 pantoprazole 40 mg tablet,delayed 1 tab PO DAILY@0630 01/09/21 01/09/21 release tamsulosin 0.4 mg capsule 2 cap PO BEDTIME 01/09/21 01/09/21 Allergies Allergy/AdvReac Type Severity Reaction Status Date / Time bee pollen [BEE STINGS] Allergy Unknown ANAPHYLAXIS Verified 08/17/20 14:43 Review of Systems Review of Systems: Yes all other systems are reviewed and are negative [facility] Past Medical History [facility] Narrative: Past medical history: Epididymitis. Past surgical history: None. Social history: The patient does smoke 1 pack of cigarettes per day times many years. He states that he drinks alcohol daily, he last drank just prior to coming to the emergency department. The patient states that he has been bingeing on cocaine over the past 3 days, he smokes crack cocaine and uses intranasal cocaine. Medical History Epididymitis Social History Social History Alcohol intake: current Alcohol intake frequency: 3 or more drinks per day Alcohol type: hard liquor Use of substances other than those prescribed or required for medical reasons: Yes Substance Use Type: Crack/Cocaine Advance Directives: No Advance Directives Information Provided: Yes Physical Exam Vital Signs: Vital Signs: Last Vital Signs Temp 98.3 F 03/02/21 18:09 Pulse 48 L 03/02/21 18:09 Resp 16 03/02/21 18:09 BP 133/72 03/02/21 18:09 Pulse Ox 98 03/02/21 18:09 Body Mass Index 24.4 Const: Other: The patient is somnolent and arousable, he falls asleep if not sitting upright. Patient does answer questions appropriately. Orientation/consciousness: oriented to person HENMT: Head: Yes normal to inspection, Yes normocephalic and Yes atraumatic Ears: external ears normal General nose exam: Normal external nose present Face and sinus: Yes normal facial exam Mouth: Normal oral and palatal mucosa present Throat: Yes posterior oropharynx normal Eyes: General: appearance normal, both eyes and all related structures Pupils: Equal, round and reactive pupils present Neck: Neck: Yes normal visual inspection, Yes no lymphadenopathy, Yes trachea midline and Yes supple Chest: Chest palpation & inspection: normal inspection of the chest and normal palpation of entire chest wall Resp: Effort & Inspection: normal respiratory effort and able to speak in c omplete sentences Auscultation: clear to auscultation bilaterally Cardio: Rate: regular rate Rhythm: regular rhythm Heart sounds: S1 normal heart sound present, S2 normal heart sound present and no murmurs GI: Inspection: Yes normal to inspection Palpation (GI): Soft to palpation, nontender and no guarding Auscultation: normal bowel sounds : General: Yes no CVA tenderness Back/Spine/Pelvis: Back: no CVA tenderness Skin: General skin exam: no rashes or lesions noted Neuro: General: oriented to person Cranial nerves: Yes CN's II-XII intact bilaterally and Yes Equal, round and reactive pupils present Cognition (Neuro): normal cognition Motor exam (neuro): 5/5 motor strength present throughout Extrem: General: Yes normal to inspection Psych: Appearance: grossly normal Speech and movement: Normal speech and movement present Affect: normal affect Attitude: cooperative Thought process: Normal thought process present Thought content: Normal thought content present Course Course Course Narrative: 55-year-old male who presents emergency department requesting detox evaluation for cocaine and alcohol use disorder. Patient states he has been bingeing on intranasal and crack cocaine for 3 days. He has also been drinking alcohol. He states the last use crack cocaine and last drink alcohol just prior to coming to the emergency department. Patient denied being ill in any other way. On initial presentation is vital signs were stable. He is somnolent but he is able answer questions appropriately. A did order a l aboratory evaluation on the patient. The patient somnolence is most likely secondary to intoxication and lack of sleep from using cocaine for 3 days. 2114: Patient's laboratory evaluation was unremarkable. Alcohol is below detectable limits. The patient is not given us a urinalysis for tox screen. At this time, the patient is medically cleared for evaluation for placement into detox. We will consult the care team and a community living coach service to see if they can help the patient get in to a detox program. If these services are unavailable this evening the patient will be discharged with a list of detox is that he can contact. Medical Decision Making Lab Data Result diagrams: 03/02/21 17:41 03/02/21 17:41 Labs: Lab Results 03/02/21 03/02/21 03/02/21 Range/Units 17:41 17:41 17:41 WBC 7.0 (4.8-10.8) X10*3/uL RBC 5.09 (4.60-5.80) X10*6/uL Hgb 15.0 (14.0-18.0) g/dl Hct 44.5 (42-52) % MCV 87.4 (80-98) fL MCH 29.5 (27.0-33.0) pg MCHC 33.7 (31.0-36.0) g/dl RDW 13.9 (11.0-16.0) % Plt Count 338 (160-400) X10*3/uL MPV 8.8 L (9.4-12.4) fL Immature Gran % (Auto) 0.9 H (0.0-0.4) % Neut % (Auto) 55.5 (45-73) % Lymph % (Auto) 33.0 (20-40) % [place] % (Auto) 8.3 (2-11) % Eos % (Auto) 2.0 (0-4) % Baso % (Auto) 0.3 (0-2) % Lymph # (Auto) 2.3 (1.2-4.9) X10*3/uL [place] # (Auto) 0.6 (0.1-1.2) X10*3/uL Eos # (Auto) 0.1 (0.0-0.4) X10*3/uL Baso # (Auto) 0.0 (0.0-0.2) X10*3/uL Abs Immat Gran (auto) 0.06 H (0.00-0.03) X10*3/uL Absolute Neuts (auto) 3.9 (2.0-8.3) X10*3/uL Absolute Nucleated RBC 0.000 (0.0-0.012) X10*3/uL Nucleated RBC % (auto) 0.0 (0.0-0.2) /100WBC Sodium 140 (135-145) mmol/L Potassium 4.1 (3.3-5.1) mmol/L Chloride 103 (96-108) mmol/L Carbon Dioxide 29 (22-29) mmol/L Anion Gap 12 (12-20) BUN 13 (9-16) mg/dL Creatinine 1.14 (0.5-1.4) mg/dL Estim Creat Clear Calc 80.3 Estimated GFR > 60 Random Glucose 98 D (60-115) mg/dL Calcium 9.4 (8.4-10.2) mg/dL Total Bilirubin 0.8 (0.0-1.0) mg/dL AST 40 H (5-37) U/L ALT 31 (0-40) U/L Alkaline Phosphatase 77 (39-117) U/L Total Protein 7.7 (6.5-8.0) g/dL Albumin 4.3 (3.5-5.0) g/dL Ethyl Alcohol < 10 mg/dL Discharge Plan Discharge Clinical Impression: Cocaine use disorder Patient Disposition: Home, Self-Care Instructions: Cocaine Abuse (ED) Additional Instructions: Please contact the a detox programs on the list that we gave you to see if you get help with your cocaine use disorder. Prescriptions: No Action gabapentin 400 mg capsule 2 cap PO TID RF: 0 melatonin 3 mg tablet 1 tab PO BEDTIME RF: 0 chlorthalidone 25 mg tablet 1 tab PO DAILY RF: 0 amlodipine 5 mg tablet 1 tab PO DAILY RF: 0 pantoprazole 40 mg tablet,delayed release (DR/EC) 1 tab PO DAILY@0630 RF: 0 mirtazapine 15 mg tablet 1 tab PO BEDTIME RF: 0 Latuda 40 mg tablet 1 tab PO DAILY RF: 0 tamsulosin 0.4 mg capsule 2 cap PO BEDTIME RF: 0
[2021-03-02 17:49] LABS: MANUAL DIFF FLAG NO
[2021-03-02 17:54] LABS: Basophils Percent Auto 0.3 % (0-2); Eosinophils Absolute Auto 0.1 X10*3/uL (0.0-0.4); Hematocrit 44.5 % (42-52); Imm Gran Abs Auto 0.06 X10*3/uL (0.00-0.03); Imm Gran Pct Auto 0.9 % (0.0-0.4); Lymphocytes Absolute Auto 2.3 X10*3/uL (1.2-4.9); Mean Corpuscular HGB Conc 33.7 g/dl (31.0-36.0); Mean Corpuscular Hemoglobin 29.5 pg (27.0-33.0); Mean Corpuscular Volume 87.4 fL (80-98); Mean Platelet Volume 8.8 fL (9.4-12.4); Monocytes Absolute Auto 0.6 X10*3/uL (0.1-1.2); Monocytes Percent Auto 8.3 % (2-11); Neutrophils Absolute Auto 3.9 X10*3/uL (2.0-8.3); Neutrophils Percent Auto 55.5 % (45-73); Platelet Count 338 X10*3/uL (160-400); Red Blood Count 5.09 X10*6/uL (4.60-5.80); Red Cell Distribution Width 13.9 % (11.0-16.0)
[2021-03-02 18:09] VITALS: BP 133/72; PULSE 48; RESP 16; TEMP 36.8; O2SAT 98
[2021-03-02 18:10] LABS: Ethanol < 10 mg/dL
[2021-03-02 18:14] LABS: Alanine Aminotransferase 31 U/L (0-40); Albumin Level 4.3 g/dL (3.5-5.0); Alkaline Phosphatase 77 U/L (39-117); Anion Gap 12 (12-20); Aspartate Amino Transferase 40 U/L (5-37); Bilirubin Total 0.8 mg/dL (0.0-1.0); Blood Urea Nitrogen 13 mg/dL (9-16); Calcium 9.4 mg/dL (8.4-10.2); Carbon Dioxide 29 mmol/L (22-29); Chloride 103 mmol/L (96-108); Creatinine Clr Calc Pharmacy 80.3; Estimated Glomerular Filt Rate > 60; Glucose Random 98 mg/dL (60-115); Potassium 4.1 mmol/L (3.3-5.1); Sodium 140 mmol/L (135-145); Total Protein 7.7 g/dL (6.5-8.0)
--- NOTE | 2021-03-02 18:50 | MHC.RECOVSUP ---
? Reason for consult Recovery Support o Current location: [facility] o Identified substance use concern: alcohol - Seeking ATS (detox) - Support ? Intervention: <del>o</del> <del>ATS</del> <del>bed</del> <del>search</del> <del>started/completed/in</del> <del>process</del> <del>o</del> <del>MAT</del> <del>started</del> <del>or</del> <del>to</del> <del>be</del> <del>started</del> <del>o</del> <del>Community</del> <del>resources</del> <del>provided</del> <del>o</del> <del>Harm</del> <del>reduction</del> <del>discussion</del> ? Plan: <del>o</del> <del>Referral</del> <del>to</del> <del>[facility]</del> <del>o</del> <del>Bed</del> <del>search</del> <del>in</del> <del>progress</del> <del>to</del> <del>o</del> <del>Follow</del> <del>up</del> <del>tomorrow</del> <del>o</del> <del>Patient</del> <del>awaiting</del> <del>crisis</del> <del>evaluation</del> <del>o</del> <del>Patient</del> <del>to</del> <del>follow</del> <del>up</del> <del>with</del> <del>[facility]</del> <del>after</del> <del>discharge</del> ? Additional information: Could not get a word out of Patient
[2021-03-02 22:00] VITALS: BP 154/82; PULSE 65; RESP 18; TEMP 37; O2SAT 97
--- NOTE | 2021-03-02 22:45 | MHC.CARE ---
CARE team consult received. Attempted to meet with pt. He briefly opened his eyes, then closed them again and wouldn't respond to this marketing copywriter. List of detox facilities left on pt's lap.
--- NOTE | 2021-03-02 23:10 | PC.NURSE ---
pt has been sleeping and is arrousable. pt states he is homeless and has been [place] lot [place] the [place]. pt given a paper on shelters and detox programs. pt has also been given a sandwhich and offered his food to go with. pt has his belongings and states when he leaves he will call for a ambulance to bring him to another hospital. pt never mentioned s1 or h1 during his stay, once papers were given to the pt he then says he wants to see a doctor for feeling s1 due to sleeping in the park. dr cedillo made aware of this and pt is discharge on orders.
--- NOTE | 2021-03-02 23:17 | PC.NURSE ---
pt has been offered food on discharge. pt states he is homeless and has been sleeping in the park. pt doestn want to leave and is now states s1 and h1. provider made aware, pt has been seen by care team. this rn called and spoke with mann from the care team and she states pt is not s1 or h1, pt is homeless and needs to seek detox. pt has been given papers for homeless shelters, detox facilities. and food.
--- NOTE | 2021-03-03 09:20 | MHC.CARE ---
CARE Team requested to assist Pt in the waiting room who was cleared for discharge. Pt reporting he was told he would be provided transportation. Pt provided LYFT to [facility] as Pt reports limited bus availability in this area due to the holiday.
== END 2021-03-02 23:22 | disposition home or self-care (01) ==
PROVIDERS: Emergency Medicine Emergency Medical Services; Emergency Provider Emergency Medicine
DX: F14.90 Cocaine use, unspecified, uncomplicated (principal); F17.210 Nicotine dependence, cigarettes, uncomplicated; Z72.89 Other problems related to lifestyle
CPT/HCPCS: 36415; 80053; 82077; 85025; 99283; 99284

== ENCOUNTER 2021-03-03 09:48 | Emergency (ER) | payer MEDICAID, SELFPAY ==
[2021-03-03 09:53] VITALS: BP 160/103; PULSE 59; RESP 16; TEMP 37.1; O2SAT 100; BMI 24.4
[2021-03-03 10:39] LABS: MANUAL DIFF FLAG NO
--- NOTE | 2021-03-03 10:40 | ED.PSYCH ---
HPI - Psych General Chief Complaint: Psychiatric Symptoms Stated Complaint: crisis Time Seen by Provider: 03/03/21 10:00 Source: patient and EMS Mode of arrival: EMS Limitations: no limitations History of Present Illness HPI Narrative: 55-year-old male coming from [facility] with past medical history of bipolar disease, schizophrenia here with complaints of suicidal thoughts a plan to overdose on his medications. No physical complaints. Hearing voices telling him to kill himself. Occasionally drinks alcohol, uses cocaine and marijuana. Related Data Home Medications Medication Instructions Recorded Confirmed lurasidone 40 mg tablet (Latuda) 1 tab PO DAILY 01/09/21 03/03/21 mirtazapine 15 mg tablet 1 tab PO BEDTIME 01/09/21 03/03/21 gabapentin 800 mg tablet 1 tab PO TID 03/03/21 03/03/21 melatonin 5 mg tablet 1 tab PO BEDTIME 03/03/21 03/03/21 Allergies Allergy/AdvReac Type Severity Reaction Status Date / Time bee pollen [BEE STINGS] Allergy Unknown ANAPHYLAXIS Verified 08/17/20 14:43 Review of Systems Review of Systems: Yes all other systems are reviewed and are negative Constitutional: Constitutional: Reports no additional constitutional complaints, Denies body ache(s), Denies chills, Denies fever(s), Denies headache(s) and Denies weakness Eyes: Eyes: Reports no additional eye complaints and Denies change in vision ENT: Reports system reviewed and no additional complaints, except as documented, Denies dizziness, Denies headache(s), Denies nasal congestion, Denies nasal discharge and Denies neck pain Cardiovascular: Cardiovascular: Reports no additional cardiovascular complaints, Denies chest pain, Denies leg edema and Denies dyspnea Respiratory: Respiratory: Reports no additional respiratory complaints, Denies cough and Denies dyspnea Gastrointestinal: Gastrointestinal: Reports no additional gastrointestinal complaints, Denies abdominal pain, Denies diarrhea, Denies nausea and Denies vomiting Genitourinary: Genitourinary: Denies urinary incontinence Musculoskeletal: Musculoskeletal: Reports no additional musculoskeletal complaints, Denies back pain, Denies arthralgias, Denies joint swelling, Denies neck pain, Denies numbness and Denies tingling Integumentary/Breasts: Skin/Breast: Reports system reviewed and no additional complaints, except as docu and Denies rash Neurologic: Reports system reviewed and no additional complaints, except as documented, Denies Abnormal speech present, Denies dizziness, Denies headache(s), Denies numbness, Denies tingling and Denies weakness Psychiatric: Psychiatric: Denies anxiety, Denies depression, Denies homicidal ideation and Reports suicidal ideation Comments: +hearing voices [facility] Past Medical History Attestation statement: The following information was validated with the patient. Source: old records reviewed and nursing notes reviewed Medical History Epididymitis Social History Social History Alcohol intake: current Alcohol intake frequency: 3 or more drinks per day Alcohol type: hard liquor Patient Tobacco Use Status: Current someday Tobacco user Use of substances other than those prescribed or required for medical reasons: Yes Substance Use Type: Crack/Cocaine Advance Directives: No Advance Directives Information Provided: No Physical Exam Vital Signs: Vital Signs: Last Vital Signs Temp 98.7 F 03/03/21 09:53 Pulse 59 03/03/21 09:53 Resp 16 03/03/21 09:53 BP 160/103 H 03/03/21 09:53 Pulse Ox 100 03/03/21 09:53 Body Mass Index 24.4 Const: General: cooperative, healthy appearing, comfortable and no acute distress Orientation/consciousness: patient oriented x3 Limitations: no limitations HENMT: Head: Yes normal to inspection Ears: hearing grossly normal bilaterally General nose exam: Normal external nose present Face and sinus: Yes normal facial exam Mouth: Normal oral and palatal mucosa present Throat: Yes posterior oropharynx normal Eyes: General: appearance normal, both eyes and all related structures Pupils: Equal, round and reactive pupils present Neck: Neck: Yes normal visual inspection Chest: Chest palpation & inspection: normal inspection of the chest Resp: Effort & Inspection: normal respiratory effort Auscultation: clear to auscultation bilaterally Cardio: Rate: regular rate Rhythm: regular rhythm Peripheral pulses: Peripheral pulses 2+ throughout GI: Inspection: Yes normal to inspection Palpation (GI): Soft to palpation and nontender Auscultation: normal bowel sounds Back/Spine/Pelvis: Thoracic/Lumbar Spine: thoracic and lumbar spine normal to inspection Skin: General skin exam: no rashes or lesions noted Neuro: General: patient oriented x3, no focal motor deficits and normal sensation to monofilament Cranial nerves: Yes Equal, round and reactive pupils present Cognition (Neuro): normal cognition Speech: No Abnormal speech present Gait exam (Neuro): Normal gait present Motor exam (neuro): 5/5 motor strength present throughout Extrem: General: Yes normal to inspection, Yes no pedal edema and Yes no calf tenderness Course Course Course Narrative: 55-year-old male here with suicidal thoughts with plan to overdose on his medications. Will check labs, drug screen, .COVID screen No concern for acute ingestion or trauma.. Will need crisis evaluation. 1730-Seem by care team. Plan for Eats Bed Search MDM - Psych Medical Records Attestation: I reviewed the patient's medical records. Lab Data Attestation: I reviewed the patient's lab results. Result diagrams: 03/03/21 10:30 03/03/21 10:30 Labs: Lab Results 03/03/21 03/03/21 03/03/21 Range/Units 10:22 10:22 10:30 WBC 6.0 (4.8-10.8) X10*3/uL RBC 5.39 (4.60-5.80) X10*6/uL Hgb 15.8 (14.0-18.0) g/dl Hct 47.6 (42-52) % MCV 88.3 (80-98) fL MCH 29.3 (27.0-33.0) pg MCHC 33.2 (31.0-36.0) g/dl RDW 14.4 (11.0-16.0) % Plt Count 319 (160-400) X10*3/uL MPV 8.7 L (9.4-12.4) fL Immature Gran % (Auto) 1.2 H (0.0-0.4) % Neut % (Auto) 49.1 (45-73) % Lymph % (Auto) 41.2 H (20-40) % [place] % (Auto) 6.3 (2-11) % Eos % (Auto) 2.0 (0-4) % Baso % (Auto) 0.2 (0-2) % Lymph # (Auto) 2.5 (1.2-4.9) X10*3/uL [place] # (Auto) 0.4 (0.1-1.2) X10*3/uL Eos # (Auto) 0.1 (0.0-0.4) X10*3/uL Baso # (Auto) 0.0 (0.0-0.2) X10*3/uL Abs Immat Gran (auto) 0.07 H (0.00-0.03) X10*3/uL Absolute Neuts (auto) 2.9 (2.0-8.3) X10*3/uL Absolute Nucleated RBC 0.000 (0.0-0.012) X10*3/uL Nucleated RBC % (auto) 0.0 (0.0-0.2) /100WBC Sodium (135-145) mmol/L Potassium (3.3-5.1) mmol/L Chloride (96-108) mmol/L Carbon Dioxide (22-29) mmol/L Anion Gap (12-20) BUN (9-16) mg/dL Creatinine (0.5-1.4) mg/dL Estim Creat Clear Calc Estimated GFR Random Glucose (60-115) mg/dL Calcium (8.4-10.2) mg/dL Total Bilirubin (0.0-1.0) mg/dL Direct Bilirubin (0.0-0.5) mg/dL AST (5-37) U/L ALT (0-40) U/L Alkaline Phosphatase (39-117) U/L Total Protein (6.5-8.0) g/dL Albumin (3.5-5.0) g/dL Urine Opiates Screen Not Detected (Not Detect) Urine Fentanyl Screen Not Detected (Not Detect) Ur Barbiturates Screen Not Detected (Not Detect) Ur Phencyclidine Scrn Not Detected (Not Detect) Ur Amphetamines Screen Not Detected (Not Detect) U Benzodiazepines Scrn Not Detected (Not Detect) Urine Cocaine Screen POSITIVE H (Not Detect) U Marijuana (THC) Screen POSITIVE H (Not Detect) Ethyl Alcohol mg/dL COVID-19 ([place]) Negative (Negative) COVID-19 Clin Com See Note 03/03/21 03/03/21 Range/Units 10:30 10:30 WBC (4.8-10.8) X10*3/uL RBC (4.60-5.80) X10*6/uL Hgb (14.0-18.0) g/dl Hct (42-52) % MCV (80-98) fL MCH (27.0-33.0) pg MCHC (31.0-36.0) g/dl RDW (11.0-16.0) % Plt Count (160-400) X10*3/uL MPV (9.4-12.4) fL Immature Gran % (Auto) (0.0-0.4) % Neut % (Auto) (45-73) % Lymph % (Auto) (20-40) % [place] % (Auto) (2-11) % Eos % (Auto) (0-4) % Baso % (Auto) (0-2) % Lymph # (Auto) (1.2-4.9) X10*3/uL [place] # (Auto) (0.1-1.2) X10*3/uL Eos # (Auto) (0.0-0.4) X10*3/uL Baso # (Auto) (0.0-0.2) X10*3/uL Abs Immat Gran (auto) (0.00-0.03) X10*3/uL Absolute Neuts (auto) (2.0-8.3) X10*3/uL Absolute Nucleated RBC (0.0-0.012) X10*3/uL Nucleated RBC % (auto) (0.0-0.2) /100WBC Sodium 140 (135-145) mmol/L Potassium 4.9 (3.3-5.1) mmol/L Chloride 105 (96-108) mmol/L Carbon Dioxide 26 (22-29) mmol/L Anion Gap 14 (12-20) BUN 9 (9-16) mg/dL Creatinine 1.10 (0.5-1.4) mg/dL Estim Creat Clear Calc 83.2 Estimated GFR > 60 Random Glucose 94 (60-115) mg/dL Calcium 9.5 (8.4-10.2) mg/dL Total Bilirubin 1.3 H (0.0-1.0) mg/dL Direct Bilirubin 0.4 (0.0-0.5) mg/dL AST 37 (5-37) U/L ALT 34 (0-40) U/L Alkaline Phosphatase 79 (39-117) U/L Total Protein 8.4 H (6.5-8.0) g/dL Albumin 4.5 (3.5-5.0) g/dL Urine Opiates Screen (Not Detect) Urine Fentanyl Screen (Not Detect) Ur Barbiturates Screen (Not Detect) Ur Phencyclidine Scrn (Not Detect) Ur Amphetamines Screen (Not Detect) U Benzodiazepines Scrn (Not Detect) Urine Cocaine Screen (Not Detect) U Marijuana (THC) Screen (Not Detect) Ethyl Alcohol < 10 mg/dL COVID-19 ([place]) (Negative) COVID-19 Clin Com Discharge Plan Discharge Clinical Impression: Chronic schizophrenia, Alcohol abuse, Cocaine abuse Prescriptions: No Action mirtazapine 15 mg tablet 1 tab PO BEDTIME RF: 0 Latuda 40 mg tablet 1 tab PO DAILY RF: 0 gabapentin 800 mg tablet 1 tab PO TID RF: 0 melatonin 5 mg tablet 1 tab PO BEDTIME RF: 0
[2021-03-03 10:44] LABS: Basophils Percent Auto 0.2 % (0-2); Eosinophils Absolute Auto 0.1 X10*3/uL (0.0-0.4); Hematocrit 47.6 % (42-52); Hemoglobin 15.8 g/dl (14.0-18.0); Imm Gran Abs Auto 0.07 X10*3/uL (0.00-0.03); Imm Gran Pct Auto 1.2 % (0.0-0.4); Lymphocytes Absolute Auto 2.5 X10*3/uL (1.2-4.9); Lymphocytes Percent Auto 41.2 % (20-40); Mean Corpuscular HGB Conc 33.2 g/dl (31.0-36.0); Mean Corpuscular Hemoglobin 29.3 pg (27.0-33.0); Mean Corpuscular Volume 88.3 fL (80-98); Mean Platelet Volume 8.7 fL (9.4-12.4); Monocytes Absolute Auto 0.4 X10*3/uL (0.1-1.2); Monocytes Percent Auto 6.3 % (2-11); Neutrophils Absolute Auto 2.9 X10*3/uL (2.0-8.3); Neutrophils Percent Auto 49.1 % (45-73); Platelet Count 319 X10*3/uL (160-400); Red Blood Count 5.39 X10*6/uL (4.60-5.80); Red Cell Distribution Width 14.4 % (11.0-16.0)
[2021-03-03 10:57] LABS: COVID-19 Test Negative (Negative)
[2021-03-03 10:59] LABS: Ethanol < 10 mg/dL
[2021-03-03 11:02] LABS: Amphetamine Screen Urine Not Detected (Not Detect); Barbiturates, Urine Not Detected (Not Detect); Benzodiazepines Screen Urine Not Detected (Not Detect); Cannabinoid Screen Urine POSITIVE (Not Detect); Cocaine Screen Urine POSITIVE (Not Detect); Fentanyl, urine Not Detected (Not Detect); Opiate Screen Urine Not Detected (Not Detect); Phencyclidine Screen Urine Not Detected (Not Detect)
[2021-03-03 11:05] LABS: Alanine Aminotransferase 34 U/L (0-40); Albumin Level 4.5 g/dL (3.5-5.0); Alkaline Phosphatase 79 U/L (39-117); Anion Gap 14 (12-20); Aspartate Amino Transferase 37 U/L (5-37); Bilirubin Direct 0.4 mg/dL (0.0-0.5); Bilirubin Total 1.3 mg/dL (0.0-1.0); Blood Urea Nitrogen 9 mg/dL (9-16); Calcium 9.5 mg/dL (8.4-10.2); Carbon Dioxide 26 mmol/L (22-29); Chloride 105 mmol/L (96-108); Creatinine Clr Calc Pharmacy 83.2; Estimated Glomerular Filt Rate > 60; Glucose Random 94 mg/dL (60-115); Potassium 4.9 mmol/L (3.3-5.1); Sodium 140 mmol/L (135-145); Total Protein 8.4 g/dL (6.5-8.0)
--- NOTE | 2021-03-03 11:41 | PHA.MEDREC ---
Pharmacy Consult ? Medication Reconciliation Pharmacy has completed the medication reconciliation. Patient reports the only medications he takes is gabapentin, lutada, melatonin, and mirtazapine. Report he does not take BP medicaitons or pantoprazole. Amlodipine, chlorthalidone and pantoprazole were last filled on 01/21/2021. Billie Marin, ShiraD
--- NOTE | 2021-03-03 13:26 | PC.NURSE ---
pt ate all of lunch, ambulating to [facility] to return tray w steady gait, appears calm and cooepartive att.
[2021-03-03] MEDS: Acetaminophen 325 MG TABLET 650 MG PO (18:03)
[2021-03-03] MEDS: Cyclobenzaprine HCl 10 MG TABLET PO (18:03)
--- NOTE | 2021-03-03 18:16 | MHC.RECOVSUP ---
? Reason for consult:Recovery Support o?? Current location BH02? o?? Identified substance use concern ?Cocaine/Crack ?? Seeking ATS (detox) ? Intervention: o?? Community resources provided o?? Harm reduction discussion ? Plan: o?? Bed search in progress to o?? Follow up tomorrow? o?? Patient awaiting crisis evaluation o?? Patient to follow up with [facility] after discharge ? Additional information: Met with Pt. He stated that he wants to go to a dual diagnosis faculty.Feels that he needs to work on his mental health issues first.Spoke to the Care Team about what her wants.Care Team will start the process of seeking a dual diagnsis place. ?
--- NOTE | 2021-03-03 18:55 | MHC.CARE ---
CARE Team conducted an exhausted and unsuccessful dual-diagnosis bedsearch for pt calling the dual-diagnosis units at [facility], [facility], and [facility]. No dual diagnosis treatment beds were found. CARE Team will reassess in the morning.
[2021-03-03 19:30] VITALS: BP 111/75; PULSE 62; RESP 20; TEMP 36.9; O2SAT 99
[2021-03-03 23:39] VITALS: BP 140/74; PULSE 62; RESP 18; TEMP 36.5; O2SAT 99
[2021-03-04 05:39] VITALS: RESP 18
[2021-03-04] MEDS: Cyclobenzaprine HCl 10 MG TABLET PO ×2 (05:56→10:22)
--- NOTE | 2021-03-04 06:29 | PC.NURSE ---
Patient slept through the night, out of room 3 times, patient requested for flexril for muscle spasm, provider notified/ordered Flexril 10 mg/administered as ordered, VSS, behavior appropriate, medication compliant. patient got seen by care team no disposition at this time, patient revaluated by care team in the morning possible detox bed search, will continue to monitor.
--- NOTE | 2021-03-04 07:19 | PC.NURSE ---
patient appears to remain asleep at present with even unlabored breaths patient appears in no distress
[2021-03-04 08:27] VITALS: BP 163/90; PULSE 66; RESP 17; TEMP 36.7; O2SAT 99
[2021-03-04 10:23] VITALS: BP 163/90; PULSE 66
[2021-03-04] MEDS: Gabapentin 400 MG CAPSULE 800 MG PO (10:23)
[2021-03-04] MEDS: hydroCHLOROthiazide 25 MG TABLET PO (10:23)
[2021-03-04] MEDS: amLODIPine Besylate 5 MG TABLET PO (10:23)
[2021-03-04] MEDS: Lurasidone HCl 40 MG TABLET PO (10:55)
--- NOTE | 2021-03-04 13:17 | MHC.CARE ---
CARE Team meets with patient for follow up. Pt is known to this junior technical writer, and he has been utilizing this and other local EDs with increasing frequency. He identifies that this is because he is now homeless, having left the place he was staying due to disagreements with roommates. Pt states that for the past couple of weeks he has been staying on the streets, drinking daily and using cocaine and marijuana. Pt states that main issue he is currently having is housing. He also identifies that he would like to be in a terminal gauger supervisor substance use program. Pt denies SI/HI. He identifies that he has struggled in programs in the past due to disagreements with peers. Pt identifies that he would be safe in a detox program and at the living room. Pt has a hx of making SI statements that he later retracts. Pt states that he is taking psych meds and does not need any med changes. Pt does not meet criteria for inpt level of care, and he is not able to identify any goals for admission. There are no detox beds available today. CARE Team secures pt overnight at the living room in [place]. Pt agrees with this plan. Plan discussed with Dr. Richardson, who agrees to d/c pt to the living room.
== END 2021-03-04 14:32 | disposition other institution (70) ==
PROVIDERS: Nurse Practitioner Family; Emergency Provider Emergency Medicine; PCP Internal Medicine
DX: F20.9 Schizophrenia, unspecified (principal); F10.10 Alcohol abuse, uncomplicated; F14.10 Cocaine abuse, uncomplicated; Z79.899 Other long term (current) drug therapy; Z20.822 Contact with and (suspected) exposure to COVID-19
CPT/HCPCS: 36415; 80048; 80076; 80307; 82077; 85025; 87635; 99285

== ENCOUNTER 2021-03-18 03:15 | Emergency (ER) | payer MEDICAID, SELFPAY ==
--- NOTE | ~2021-03-18 | XR_ITS ---
EXAMINATION: XR CHEST CLINICAL INFORMATION: Cough COMPARISON: None TECHNIQUE: Frontal view of the chest was obtained. FINDINGS: The lungs are clear with no focal consolidation. No evidence of pneumothorax, pulmonary edema, or pleural effusions. The cardiomediastinal contour is unremarkable. No acute osseous findings are seen. XR/XR chest 1V IMPRESSION: No acute cardiopulmonary findings.
--- NOTE | ~2021-03-18 | XR_ITS ---
EXAMINATION: XR HIP, LEFT CLINICAL INFORMATION: Pain COMPARISON: None TECHNIQUE: Two views of the left hip. FINDINGS: Alignment across the hips is anatomic with mild degenerative change bilaterally. No acute fracture is seen. Sacroiliac joints and pubic symphysis are intact. XR/XR hip LT min 2V IMPRESSION: No acute findings identified.
[2021-03-18 03:23] VITALS: BP 150/82; BP 158/89; PULSE 69; PULSE 81; RESP 18; TEMP 37; O2SAT 96; O2SAT 98; BMI 37.0
--- NOTE | 2021-03-18 03:42 | ED_ITS ---
HPI - Back Pain/Injury General Chief Complaint: Back Pain/Injury Stated Complaint: lower back pain x3 days Time Seen by Provider: 03/18/21 03:33 Source: patient and EMS Mode of arrival: EMS Limitations: no limitations History of Present Illness HPI Narrative: Patient comes emergency room complaining of back pain that is worse with coughing. Patient denies fever chills. Patient also complaining of left hip pain. Patient states that he is homeless, has been using alcohol, cocaine and heroin. Patient states he snorts, does not do any IV drugs. Patient has been sleeping in hallways on the floor which have been exacerbating his back pain. Patient denies any fall, no injuries Related Data Home Medications Medication Instructions Recorded Confirmed lurasidone 40 mg tablet (Latuda) 1 tab PO DAILY 01/09/21 03/03/21 mirtazapine 15 mg tablet 1 tab PO BEDTIME 01/09/21 03/03/21 amlodipine 5 mg tablet 1 tab PO DAILY 03/03/21 03/03/21 chlorthalidone 25 mg tablet 1 tab PO DAILY 03/03/21 03/03/21 gabapentin 800 mg tablet 1 tab PO TID 03/03/21 03/03/21 melatonin 5 mg tablet 1 tab PO BEDTIME 03/03/21 03/03/21 methocarbamol 500 mg tablet 1.5 tab PO TID PRN 03/03/21 03/03/21 Allergies Allergy/AdvReac Type Severity Reaction Status Date / Time bee pollen [BEE STINGS] Allergy Unknown ANAPHYLAXIS Verified 03/18/21 03:22 Review of Systems Review of Systems: Constitutional : No Weight loss, No Fever, No Chills, No Night Sweats, No Fatigue, No Malaise ENT/Mouth : No Hearing loss, No Ear Pain, No Nasal Congestion, No Sinus Pain, No Hoarseness, No sore throat, No Rhinorrhea, No Swallowing Difficulty Eyes: No Eye Pain, No Swelling, No Redness, No Foreign Body, No Discharge, No Vision Changes Cardiovascular : No Chest Pain, No SOB, No Dyspnea on Exertion, No Orthopnea, No Edema, No Palpitations Respiratory : Complaining of cough with some sputum, No Wheezing, No Smoke Exposure, No Dyspnea Gastrointestinal : No Nausea, No Vomiting, No Diarrhea, No Constipation, No abdominal Pain, No Hematochezia, No Melena Genitourinary : no irregular bleeding, No Dysuria, No Urinary Frequency, No Hematuria, No Urinary Incontinence, No Urgency, No Flank Pain, No Urinary Flow Changes, No Hesitancy Musculoskeletal : Complaining of back pain, complaining of left hip pain, atraumatic Skin : No Skin Lesions, No rash Neuro : No Weakness, No Numbness, No Paresthesias, No Loss of Consciousness, No Dizziness, No Headache Psych : No Anxiety/Panic, No Depression, No SI/HI/AH/VH, No Social Issues, Heme/Lymph: No Bruising, No Bleeding,No Lymphadenopathy Endocrine : No Polyuria, No Polydipsia, No Temperature Intolerance PMFSH Past Medical History Medical History Epididymitis Social History Social History Alcohol intake: unknown Patient Tobacco Use Status: Current someday Tobacco user Use of substances other than those prescribed or required for medical reasons: Yes Substance Use Type: Crack/Cocaine and Marijuana Substance Use Frequency: Occasionally Advance Directives: No Advance Directives Information Provided: Yes Physical Exam Vital Signs: Vital Signs: Last Vital Signs Temp 98.6 F 03/18/21 03:23 Pulse 69 03/18/21 03:23 Resp 18 03/18/21 03:23 BP 150/82 H 03/18/21 03:23 Pulse Ox 96 03/18/21 03:23 Body Mass Index 37.0 Const: Other: Appearance: Alert. Oriented X3. No acute distress. Eyes: Pupils equal, round and reactive to light. ENT: Pharynx normal. Neck: Normal inspection. Neck supple. No lymph nodes noted. No crepitus CVS: Normal heart rate and rhythm. Pulses normal. Normal S1 and S2 Respiratory: No respiratory distress. Breath sounds normal. No Wheezing. No rales Abdomen: Soft and nontender. No rigidity. No distention. Skin: Skin warm and dry. Normal skin color. Normal skin turgor. Extremities: No lower extremity edema. Pain exacerbated by straight leg raise test on the left side, No Lacerations. No Rash, no hip pain, no swelling, no erythema, no increased warmth Neuro: Oriented X 3. No motor deficit. No sensory deficit. Moving all exterm ities. No slurred speech. Course Course Course Narrative: Patient is a hard stick. Nurses tried multiple times but were unsuccessful. Patient declined to be poked anymore, ultrasound-guided access was offered, patient declined. Chest x-ray and hip x-ray unremarkable. Septic joint is not suspected. likely having viral bronchitis. Antibiotic not recommended at this time. MDM - Back Pain/Injury Lab Data Labs: Lab Results 03/18/21 Range/Units 04:08 COVID-19 ([place]) Negative (Negative) COVID-19 Clin Com See Note Discharge Plan Discharge Clinical Impression: Acute viral bronchitis, Chronic hip pain Patient Disposition: Home, Self-Care Instructions: Acute Bronchitis (ED) Additional Instructions: Please follow-up with your primary care physician tomorrow. If you have any worsening or new symptoms, please return to the emergency room or call 911 Prescriptions: No Action mirtazapine 15 mg tablet 1 tab PO BEDTIME RF: 0 Latuda 40 mg tablet 1 tab PO DAILY RF: 0 gabapentin 800 mg tablet 1 tab PO TID RF: 0 melatonin 5 mg tablet 1 tab PO BEDTIME RF: 0 methocarbamol 500 mg tablet 1.5 tab PO TID PRN (Reason: muscle spasm) RF: 0 chlorthalidone 25 mg tablet 1 tab PO DAILY RF: 0 amlodipine 5 mg tablet 1 tab PO DAILY RF: 0
--- NOTE | 2021-03-18 04:09 | PC.NURSE ---
UNABLE TO GET PATIENT LABS PATIENT A DIFFICULT STICK ,THIS PCT OFFER TO HAVE ANOTHER STAFF TO DRAW LABS ,PATIENT REFUSED SAID WE DON'T NEED LABS ,AND HE DOES NOT WANT HIS BLOOD TO BE DRAWN MD ESPINOSA AND ISMAEL ROMERO AWARE .
[2021-03-18 04:31] LABS: COVID-19 Test Negative (Negative); IDNOW Serial# 9DD0AD1C
[2021-03-18] MEDS: Acetaminophen 325 MG TABLET 650 MG PO (05:55)
== END 2021-03-18 05:57 | disposition home or self-care (01) ==
PROVIDERS: Emergency Provider Emergency Medicine
DX: J20.8 Acute bronchitis due to other specified organisms (principal); G89.29 Other chronic pain; M25.552 Pain in left hip; Z59.02 Unsheltered homelessness; F17.200 Nicotine dependence, unspecified, uncomplicated
CPT/HCPCS: 36415; 71045; 73502; 87635; 99283; 99284

== ENCOUNTER 2021-08-14 07:41 | Emergency (ER) | payer MEDICAID, SELFPAY ==
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
[2021-08-14 07:47] VITALS: BP 135/85; PULSE 64; RESP 16; TEMP 36.7; O2SAT 98; BMI 30.7
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
[2021-08-14 09:26] LABS: MANUAL DIFF FLAG NO
[2021-08-14 09:27] VITALS: BP 154/81; PULSE 53; RESP 16; O2SAT 97
[2021-08-14 09:28] LABS: Basophils Percent Auto 0.4 % (0-2); Eosinophils Absolute Auto 0.3 X10*3/uL (0.0-0.4); Eosinophils Percent Auto 4.6 % (0-4); Hematocrit 40.3 % (42.0-52.0); Hemoglobin 13.3 g/dl (14.0-18.0); Imm Gran Abs Auto 0.04 X10*3/uL (0.00-0.03); Imm Gran Pct Auto 0.5 % (0.0-0.4); Lymphocytes Absolute Auto 2.2 X10*3/uL (1.2-4.9); Lymphocytes Percent Auto 29.7 % (20-40); Mean Corpuscular Hemoglobin 29.1 pg (27.0-33.0); Mean Corpuscular Volume 88.2 fL (80.0-98.0); Mean Platelet Volume 8.7 fL (9.4-12.4); Monocytes Absolute Auto 0.5 X10*3/uL (0.1-1.2); Monocytes Percent Auto 6.2 % (2-11); Neutrophils Absolute Auto 4.3 x10*3/uL (2.0-8.3); Neutrophils Percent Auto 58.6 % (45-73); Platelet Count 293 X10*3/uL (160-400); Red Blood Count 4.57 X10*6/uL (4.60-5.80); Red Cell Distribution Width 14.9 % (11.0-16.0); White Blood Count 7.4 X10*3/uL (4.8-10.8)
[2021-08-14 09:44] LABS: Ethanol < 10 mg/dL
[2021-08-14 09:45] LABS: Appearance Urine HAZY; Color Urine YELLOW; Glucose Urine UA NEG (NEG); Leukocyte Esterase Urine NEG (NEG); Nitrite Urine NEG (NEG); Specific Gravity - Urine >= 1.030 (1.005-1.025); UACC Culture Trigger NO; Urine Blood TRACE (NEG); Urine Ketones 40 MG/DL (NEG); Urine Protein 2+ MG/DL (NEG-TRACE)
[2021-08-14 09:50] LABS: Alanine Aminotransferase 39 U/L (0-40); Albumin Level 4.3 g/dL (3.5-5.0); Alkaline Phosphatase 81 U/L (39-117); Anion Gap 12 (12-20); Aspartate Amino Transferase 48 U/L (5-37); Bilirubin Direct 0.5 mg/dL (0.0-0.5); Bilirubin Total 1.3 mg/dL (0.0-1.0); Blood Urea Nitrogen 15 mg/dL (9-16); COVID-19 Test Negative (Negative); Calcium 9.6 mg/dL (8.4-10.2); Carbon Dioxide 28 mmol/L (22-29); Chloride 103 mmol/L (96-108); Creatinine Clr Calc Pharmacy 82.2; Estimated Glomerular Filt Rate 59; Glucose Random 69 mg/dL (60-115); Lipase 25 U/L (8-78); Potassium 3.3 mmol/L (3.3-5.1); Sodium 140 mmol/L (135-145); Total Protein 7.8 g/dL (6.5-8.0)
[2021-08-14 09:57] LABS: RBC Urine 0 /HPF (0); Squamous Epithelial Cell Urine 1+ /LPF
[2021-08-14 10:00] LABS: Amphetamine Screen Urine Not Detected (Not Detect); Barbiturates, Urine Not Detected (Not Detect); Benzodiazepines Screen Urine Not Detected (Not Detect); Cannabinoid Screen Urine POSITIVE (Not Detect); Cocaine Screen Urine POSITIVE (Not Detect); Fentanyl, urine Not Detected (Not Detect); Opiate Screen Urine Not Detected (Not Detect); Phencyclidine Screen Urine Not Detected (Not Detect)
[2021-08-14 10:01] LABS: Amorphous Sediment Urine 1+ /LPF; Mucus Urine 2+ /LPF
--- NOTE | 2021-08-14 11:08 | PC.NURSE ---
Pt cooperative with changeover at arrival. has had sitter since then as well. denies SI for this RN at arrival. no tremors. falls asleep shortly after interventions. meds held with MD varela.
[2021-08-14 12:16] VITALS: BP 150/98; PULSE 50; RESP 16; TEMP 36.6; O2SAT 96
--- NOTE | 2021-08-14 12:29 | PC.NURSE ---
awaits [facility] human capital consultant. Sleeping. sitter at bedside.
--- NOTE | 2021-08-14 13:41 | PC.NURSE ---
rn to rn with michael in POD.
[2021-08-14 16:54] VITALS: BP 148/80; PULSE 48; RESP 16; TEMP 36.9; O2SAT 95
--- NOTE | 2021-08-14 16:56 | PC.NURSE ---
Pt minimally able to participate in psych eval. Per CARE team staff, pt exceedingly sleepy. Pt rousable to speech. Plan for re-eval when pt is more alert.
[2021-08-15 04:51] VITALS: BP 181/97; PULSE 60; RESP 20; TEMP 37.3; O2SAT 95
--- NOTE | 2021-08-15 06:31 | PC.NURSE ---
Patient slept most part of night and whole evening, no distress observed/reported, BP 181/97 @ 0451, per patient he is off his medication for over three weeks including his amlodipine, med rec completed/pending provider's approval, patient was briefly assessed by care team pending disposition, behavior appropriate and non concerning at this time, will continue to monitor.
[2021-08-15] MEDS: chlordiazePOXIDE HCl 25 MG CAPSULE 50 MG PO (08:53)
[2021-08-15] MEDS: Ondansetron ODT 4 MG TAB.RAPDIS TRANSLINGU (08:53)
[2021-08-15 09:02] VITALS: BP 180/96; PULSE 53; RESP 16; O2SAT 97
--- NOTE | 2021-08-15 09:18 | PC.NURSE ---
Pt medicated with librium and zofran per jul. CI 4. Pt reports last drink 2 days ago. VSS.
--- NOTE | 2021-08-15 09:22 | PC.NURSE ---
Pt noted to be actively vomiting. Emesis bag provided.
[2021-08-15] MEDS: ondansetron HCL 4 MG/2 ML VIAL IVPUSH (09:42)
--- NOTE | 2021-08-15 09:42 | PC.NURSE ---
Pt medicated in right Vastus lateralus with zofran IM for persistent nausea/vomiting. This was done per Dr. Richardson as she could only order IV and not IM.
--- NOTE | 2021-08-15 09:59 | MHC.CARE ---
Pt assessed by the CARE Team - Pt is denying SI/AH/VH. Pt advocating for substance use treatment. Plan for Pt to meet with the recovery team for treatment options and recommendations.
--- NOTE | 2021-08-15 12:02 | MHC.RECOVSUP ---
Recovery Support note: Patient accepted to [facility] [place]. Medications sent to [facility]. [facility] approved override due to medications being lost. [facility] confirms that the override went through. Patient to be transported to [facility] and then to [facility] via [facility]. Discussed case with ED and CARE Team. Clothing for patient provided.
== END 2021-08-15 12:47 | disposition other institution (70) ==
PROVIDERS: Emergency Provider Emergency Medicine
DX: F32.A Depression, unspecified (principal); F14.10 Cocaine abuse, uncomplicated; Z20.822 Contact with and (suspected) exposure to COVID-19; R11.2 Nausea with vomiting, unspecified; F41.9 Anxiety disorder, unspecified; R45.851 Suicidal ideations; F17.200 Nicotine dependence, unspecified, uncomplicated; F12.90 Cannabis use, unspecified, uncomplicated; Z79.899 Other long term (current) drug therapy
CPT/HCPCS: 74176; 80048; 80076; 80307; 81001; 82077; 83690; 85025; 87086; 87635; 96374; 99285; J2405

== ENCOUNTER 2022-01-14 01:32 | Emergency (ER) | payer MEDICAID, SELFPAY ==
[2022-01-14 01:43] VITALS: BP 159/85; PULSE 68; RESP 17; TEMP 36.8; O2SAT 95; BMI 32.5
[2022-01-14 01:57] LABS: Hematocrit 38.2 % (42.0-52.0); Hemoglobin 12.9 g/dl (14.0-18.0); Mean Corpuscular HGB Conc 33.8 g/dl (31.0-36.0); Mean Corpuscular Hemoglobin 28.8 pg (27.0-33.0); Mean Corpuscular Volume 85.3 fL (80.0-98.0); Platelet Count 287 X10*3/uL (160-400); Red Blood Count 4.48 X10*6/uL (4.60-5.80); Red Cell Distribution Width 16.2 % (11.0-16.0); White Blood Count 6.9 X10*3/uL (4.8-10.8)
--- NOTE | 2022-01-14 02:08 | ED.PSYCH ---
HPI - Psych General Chief Complaint: Psychiatric Symptoms Stated Complaint: SI/HI Time Seen by Provider: 01/14/22 02:03 Source: patient Mode of arrival: ambulatory Limitations: no limitations History of Present Illness HPI Narrative: Patient comes to the emergency room complaining of suicidal ideation, substance abuse. Patient states that last week, patient used marijuana which was laced with fentanyl and overdosed accidentally. Patient states that he was clean for 5 months prior. Patient states that he is very upset about this recent relapse. Patient has vague suicidal ideation. No homicidal ideation. Patient states he [facility], now he is homeless Related Data Home Medications Medication Instructions Recorded Confirmed amlodipine 5 mg tablet 1 tab PO DAILY 01/14/22 01/14/22 chlorthalidone 25 mg tablet 1 tab PO DAILY 01/14/22 01/14/22 finasteride 5 mg tablet 1 tab PO DAILY 01/14/22 01/14/22 gabapentin 800 mg tablet 1 tab PO TID 01/14/22 01/14/22 hydroxyzine pamoate 50 mg capsule 1 cap PO TID 01/14/22 01/14/22 lurasidone 80 mg tablet (Latuda) 1 tab PO BEDTIME 01/14/22 01/14/22 mirtazapine 30 mg tablet 1 tab PO BEDTIME 01/14/22 01/14/22 nllgreqrnqsv-fyxsklvw-pviy 1 tab PO DAILY 01/14/22 01/14/22 fumarate 7.5 mg-folic acid 400 mcg tablet naltrexone 50 mg tablet 1 tab PO DAILY 01/14/22 01/14/22 tamsulosin 0.4 mg capsule 2 cap PO DAILY 01/14/22 01/14/22 Allergies Allergy/AdvReac Type Severity Reaction Status Date / Time bee pollen [BEE STINGS] Allergy Unknown ANAPHYLAXIS Verified 03/18/21 03:22 Review of Systems Review of Systems: Constitutional : No Weight loss, No Fever, No Chills, No Night Sweats, No Fatigue, No Malaise ENT/Mouth : No Hearing loss, No Ear Pain, No Nasal Congestion, No Sinus Pain, No Hoarseness, No sore throat, No Rhinorrhea, No Swallowing Difficulty Eyes: No Eye Pain, No Swelling, No Redness, No Foreign Body, No Discharge, No Vision Changes Cardiovascular : No Chest Pain, No SOB, No Dyspnea on Exertion, No Orthopnea, No Edema, No Palpitations Respiratory : No Cough, No Sputum, No Wheezing, No Smoke Exposure, No Dyspnea Gastrointestinal : No Nausea, No Vomiting, No Diarrhea, No Constipation, No abdominal Pain, No Hematochezia, No Melena Genitourinary : no irregular bleeding, No Dysuria, No Urinary Frequency, No Hematuria, No Urinary Incontinence, No Urgency, No Flank Pain, No Urinary Flow Changes, No Hesitancy Musculoskeletal : No joint pain, No Myalgias, No Joint Swelling Skin : No Skin Lesions, No rash Neuro : No Weakness, No Numbness, No Paresthesias, No Loss of Consciousness, No Dizziness, No Headache Psych : No Anxiety/Panic, complaining of depression, vague suicidal ideation, no homicidal ideation, complaining of substance abuse Heme/Lymph: No Bruising, No Bleeding,No Lymphadenopathy Endocrine : No Polyuria, No Polydipsia, No Temperature Intolerance PMFSH Past Medical History Medical History Depression Epididymitis Social History Social History (Updated 08/14/21 @ 09:07 by Nano Richardson DO) Alcohol intake: current Alcohol intake frequency: 3 or more drinks per day Alcohol type: hard liquor Patient Tobacco Use Status: Never used Tobacco Substance Use Type: Crack/Cocaine and Marijuana Advance Directives: No Advance Directives Information Provided: Yes Physical Exam Vital Signs: Vital Signs: Last Vital Signs Temp 98.3 F 01/14/22 01:43 Pulse 68 01/14/22 01:43 Resp 17 01/14/22 01:43 BP 159/85 H 01/14/22 01:43 Pulse Ox 95 01/14/22 01:43 O2 Del Method 01/14/22 01:43 BMI result Body Mass Index 32.5 Const: Other: Appearance: Alert. Oriented X3. No acute distress. Eyes: Pupils equal, round and reactive to light. ENT: Pharynx normal. Neck: Normal inspection. Neck supple. No lymph nodes noted. No crepitus CVS: Normal heart rate and rhythm. Pulses normal. Normal S1 and S2 Respiratory: No respiratory distress. Breath sounds normal. No Wheezing. No rales Abdomen: Soft and nontender. No rigidity. No distention. Skin: Skin warm and dry. Normal skin color. Normal skin turgor. Extremities: No lower extremity edema. No Lacerations. No Rash Neuro: Oriented X 3. No motor deficit. No sensory deficit. Moving all extremities. No slurred speech. CN 2 through 12 grossly intact Psych: calm, cooperative, normal affect Course Course Course Narrative: Labs pending, normal affect,, cooperative. [facility] consult pending Physician observation started that to a.m. 6 cm: No events overnight. Vital stable, urinalysis shows a small amount of leukocyte esterase, small amount of white blood cell count, urine has some squamous epithelial cells, likely contaminant. Patient has no UTI symptoms. At this time, antibiotics not indicated., [facility] consult pending [facility] - Psych Lab Data Result diagrams: 01/14/22 01:47 01/14/22 01:47 Labs: Lab Results 01/14/22 01/14/22 01/14/22 Range/Units 01:47 01:47 01:47 WBC 6.9 (4.8-10.8) X10*3/uL RBC 4.48 L (4.60-5.80) X10*6/uL Hgb 12.9 L (14.0-18.0) g/dl Hct 38.2 L (42.0-52.0) % MCV 85.3 (80.0-98.0) fL MCH 28.8 (27.0-33.0) pg MCHC 33.8 (31.0-36.0) g/dl RDW 16.2 H (11.0-16.0) % Plt Count 287 (160-400) X10*3/uL MPV 9.0 L (9.4-12.4) fL Absolute Nucleated RBC 0.000 (0.0-0.012) X10*3/uL Nucleated RBC % (auto) 0.0 (0.0-0.2) /100WBC Sodium 139 (135-145) mmol/L Potassium 4.2 D (3.3-5.1) mmol/L Chloride 107 (96-108) mmol/L Carbon Dioxide 23 (22-29) mmol/L Anion Gap 13 (12-20) BUN 14 (9-16) mg/dL Creatinine 1.15 (0.5-1.4) mg/dL Estim Creat Clear Calc 91.4 Estimated GFR > 60 Random Glucose 81 (60-115) mg/dL Calcium 8.7 D (8.4-10.2) mg/dL Total Bilirubin 0.5 (0.0-1.0) mg/dL AST 36 (5-37) U/L ALT 32 (0-40) U/L Alkaline Phosphatase 74 (39-117) U/L Total Protein 7.4 (6.5-8.0) g/dL Albumin 4.1 (3.5-5.0) g/dL Urine Color Urine Appearance Urine pH (5.0-8.0) Ur Specific [place] (1.005-1.025) Urine Protein (Neg-Trace) mg/dL Urine Glucose (UA) (Negative) mg/dL Urine Ketones (Negative) mg/dL Urine Blood (Negative) Urine Nitrite (Negative) Ur Leukocyte Esterase (Negative) Urine RBC (0-2) /HPF Urine WBC (0-5) /HPF Ur Squamous Epith Cells (0-2) /HPF Urine Bacteria (None Seen) Hyaline Casts (0-2) /LPF Urine Opiates Screen (Not Detect) Urine Fentanyl Screen (Not Detect) Ur Barbiturates Screen (Not Detect) Ur Phencyclidine Scrn (Not Detect) Ur Amphetamines Screen (Not Detect) U Benzodiazepines Scrn (Not Detect) Urine Cocaine Screen (Not Detect) U Marijuana (THC) Screen (Not Detect) COVID-19 ([place]) Negative (Negative) COVID-19 Clin Com See Note 01/14/22 01/14/22 Range/Units 02:08 02:08 WBC (4.8-10.8) X10*3/uL RBC (4.60-5.80) X10*6/uL Hgb (14.0-18.0) g/dl Hct (42.0-52.0) % MCV (80.0-98.0) fL MCH (27.0-33.0) pg MCHC (31.0-36.0) g/dl RDW (11.0-16.0) % Plt Count (160-400) X10*3/uL MPV (9.4-12.4) fL Absolute Nucleated RBC (0.0-0.012) X10*3/uL Nucleated RBC % (auto) (0.0-0.2) /100WBC Sodium (135-145) mmol/L Potassium (3.3-5.1) mmol/L Chloride (96-108) mmol/L Carbon Dioxide (22-29) mmol/L Anion Gap (12-20) BUN (9-16) mg/dL Creatinine (0.5-1.4) mg/dL Estim Creat Clear Calc Estimated GFR Random Glucose (60-115) mg/dL Calcium (8.4-10.2) mg/dL Total Bilirubin (0.0-1.0) mg/dL AST (5-37) U/L ALT (0-40) U/L Alkaline Phosphatase (39-117) U/L Total Protein (6.5-8.0) g/dL Albumin (3.5-5.0) g/dL Urine Color Yellow Urine Appearance Clear Urine pH 6.5 (5.0-8.0) Ur Specific [place] 1.020 (1.005-1.025) Urine Protein Trace (Neg-Trace) mg/dL Urine Glucose (UA) Negative (Negative) mg/dL Urine Ketones Trace (Negative) mg/dL Urine Blood Negative (Negative) Urine Nitrite Negative (Negative) Ur Leukocyte Esterase Small (1+) H (Negative) Urine RBC 0-2 (0-2) /HPF Urine WBC 11-20 H (0-5) /HPF Ur Squamous Epith Cells 3-5 (0-2) /HPF Urine Bacteria None Seen (None Seen) Hyaline Casts 0-2 (0-2) /LPF Urine Opiates Screen Not Detected (Not Detect) Urine Fentanyl Screen POSITIVE H (Not Detect) Ur Barbiturates Screen Not Detected (Not Detect) Ur Phencyclidine Scrn Not Detected (Not Detect) Ur Amphetamines Screen Not Detected (Not Detect) U Benzodiazepines Scrn Not Detected (Not Detect) Urine Cocaine Screen POSITIVE H (Not Detect) U Marijuana (THC) Screen POSITIVE H (Not Detect) COVID-19 ([place]) (Negative) COVID-19 Clin Com Discharge Plan Discharge Clinical Impression: Substance abuse, Suicidal ideation Patient Disposition: Still a Patient Prescriptions: No Action naltrexone 50 mg tablet 1 tab PO DAILY hydroxyzine pamoate 50 mg capsule 1 cap PO TID chlorthalidone 25 mg tablet 1 tab PO DAILY amlodipine 5 mg tablet 1 tab PO DAILY tamsulosin 0.4 mg capsule 2 cap PO DAILY gabapentin 800 mg tablet 1 tab PO TID mirtazapine 30 mg tablet 1 tab PO BEDTIME finasteride 5 mg tablet 1 tab PO DAILY gojezmnn-geu-sxxu fum-folic ac 7.5 mg iron-400 mcg tablet 1 tab PO DAILY Latuda 80 mg tablet 1 tab PO BEDTIME
[2022-01-14 02:15] LABS: Alanine Aminotransferase 32 U/L (0-40); Albumin Level 4.1 g/dL (3.5-5.0); Alkaline Phosphatase 74 U/L (39-117); Anion Gap 13 (12-20); Aspartate Amino Transferase 36 U/L (5-37); Bilirubin Total 0.5 mg/dL (0.0-1.0); Blood Urea Nitrogen 14 mg/dL (9-16); Calcium 8.7 mg/dL (8.4-10.2); Carbon Dioxide 23 mmol/L (22-29); Chloride 107 mmol/L (96-108); Creatinine Clr Calc Pharmacy 91.4; Estimated Glomerular Filt Rate > 60; Glucose Random 81 mg/dL (60-115); Potassium 4.2 mmol/L (3.3-5.1); Sodium 139 mmol/L (135-145); Total Protein 7.4 g/dL (6.5-8.0)
[2022-01-14 02:21] LABS: Appearance Urine Clear; Color Urine Yellow; Glucose Urine UA Negative (Negative); Leukocyte Esterase Urine Small (1+) (Negative); Nitrite Urine Negative (Negative); PH 6.5 (5.0-8.0); Urine Blood Negative (Negative); Urine Ketones Trace mg/dL (Negative); Urine Protein Trace mg/dL (Neg-Trace)
[2022-01-14 02:26] LABS: Bacteria Urine None Seen (None Seen); Hyaline Casts Urine 0-2 /LPF (0-2); RBC Urine 0-2 /HPF (0-2); UACC CULT YES; UACC Culture Trigger YES
[2022-01-14 02:28] LABS: COVID-19 Test Negative (Negative)
[2022-01-14 02:33] LABS: Amphetamine Screen Urine Not Detected (Not Detect); Barbiturates, Urine Not Detected (Not Detect); Benzodiazepines Screen Urine Not Detected (Not Detect); Cannabinoid Screen Urine POSITIVE (Not Detect); Cocaine Screen Urine POSITIVE (Not Detect); Fentanyl, urine POSITIVE (Not Detect); Opiate Screen Urine Not Detected (Not Detect); Phencyclidine Screen Urine Not Detected (Not Detect)
--- NOTE | 2022-01-14 06:32 | PC.NURSE ---
Patient slept through the night, no distress observed/reported, behavior appropriate, med rec completed/pending provider's approval, [facility] referral completed/confirmed/pending ETA, will continue to monitor.
--- NOTE | 2022-01-14 07:29 | PC.NURSE ---
patient appears to remain at rest at present respirations are even and unlabored patient appears in no distress.
[2022-01-14] MEDS: Tamsulosin HCL 0.4 MG CAPSULE 0.8 MG PO (10:16)
[2022-01-14] MEDS: hydroCHLOROthiazide 25 MG TABLET PO (10:16)
[2022-01-14] MEDS: hydrOXYzine HCL 50 MG TABLET PO (10:16)
[2022-01-14] MEDS: Finasteride 5 MG TABLET PO (10:16)
[2022-01-14] MEDS: amLODIPine Besylate 5 MG TABLET PO (10:16)
[2022-01-14] MEDS: Gabapentin 400 MG CAPSULE 800 MG PO (10:17)
[2022-01-14] MEDS: Multivitamin TABLET 1 TAB PO (10:17)
[2022-01-14 10:40] VITALS: BP 166/88; PULSE 54; RESP 16; TEMP 36.9; O2SAT 98
--- NOTE | 2022-01-14 12:44 | MHC.CARE ---
Pt is a 56 year old male who presents to [facility] stating that he recently relapsed. He states that he has been sober for 5 1/2 months and had the urge to use. Pt reports he has been out of his medications for two weeks because he left them in [place] and is homeless. Pt states he is looking for housing. Poor sleep, poor appetite. Pt states he hears voices, denies any commands. Denies SI. Pt is seeking detox at this time and will be a detox search.
== END 2022-01-14 15:45 | disposition home or self-care (01) ==
PROVIDERS: Emergency Provider Emergency Medicine
DX: F33.1 Major depressive disorder, recurrent, moderate (principal); R45.851 Suicidal ideations; R45.850 Homicidal ideations; F12.10 Cannabis abuse, uncomplicated; F14.10 Cocaine abuse, uncomplicated; Z20.822 Contact with and (suspected) exposure to COVID-19; Z79.899 Other long term (current) drug therapy
CPT/HCPCS: 36415; 80053; 80307; 81001; 85027; 87086; 87635; 99284

== ENCOUNTER 2022-05-12 22:00 | Inpatient (IN) | payer OTHER, SELFPAY ==
--- OUTSIDE RECORDS SUMMARY | 2022-05-12 22:03 | XMS_ITS | Continuity of Care Document ---
:1965 Author Organization [facility] Address [address] [place] [address]- Care Team Providers Name Role Phone Laith Ly MD Primary Care Physician Encounter [facility] Date(s): 05/15/20 - 05/15/[address] [address]- Discharge Disposition: A-D/C Home Attending Physician: Darling Edwards DO Admitting Physician: Darling Edwards DO Referring Physician: Not on Staff, Referring MD Allergies, Adverse Reactions, Alerts Substance Reaction Severity Status Bee Stings Active Pollen Active Lactose Active Immunizations Given and Recorded Vaccine Date Status Refusal Reason tetanus/diphtheria/pertussis, acel(Tdap) 04/20/14 Given hepatitis B adult vaccine 04/20/14 Given hepatitis B adult vaccine1 02/17/07 Given hepatitis B adult vaccine2 01/17/07 Given influenza virus vaccine, inactivated3 04/05/13 Given influenza virus vaccine, inactivated 02/03/12 Given tetanus-diphtheria toxoids (Td)4 05/05/10 Given Influenza Vaccine (oldterm)5 05/05/10 Given pneumococcal 23-valent vaccine 04/29/10 Given Hepatitis A Adult Vaccine6 02/25/09 Given Hepatitis A Adult Vaccine7 02/17/07 Given 1Admin Note: [id number] Note: [id number] Note: [id number] Note: vis Admin Note: at [id number] Note: [id number] Note: [facility] Medications cloNIDine 0.1 mg oral tablet 0.2 mg, 2, tablet, By Mouth, 2 times a day, # 120 tablet, Refills 0, Tot. Refills 0, Maintenance, 11/21/19 11:29:00 EDT, Do Not Route Start Date: 11/21/19 Status: Ordereddivalproex sodium 500 mg oral enteric coated tablet = 500 mg, By Mouth, 2 times a day, # 60 capsule, 1 Refills, Maintenance, 11/21/19 11:29:00 EDT, Tablet Start Date: 11/21/19 Status: Orderedfamotidine 20 mg oral tablet 20 mg, 1, tablet, By Mouth, Daily, PRN, # 30 tablet, Refills 1, Tot. Refills 1, Maintenance, Dyspepsia, 11/21/19 11:29:00 EDT, Do Not Route Start Date: 11/21/19 Status: OrderedFlomax 0.4 mg oral capsule 0.8 mg, 2, capsule, By Mouth, Daily at bedtime, Refills 0, Maintenance, 04/17/20 12:59:00 EST, Partial fill upon patient request Start Date: 04/17/20 Status: Orderedgabapentin 800 mg oral tablet TAKE 1 TABLET BY MOUTH THREE TIMES A DAY Start Date: 04/17/20 Status: OrderedhydrOXYzine pamoate 50 mg oral capsule = 50 mg, By Mouth, Every 6 hours, PRN Anxiety, # 60 capsule, 1 Refills, Maintenance, 11/21/19 11:30:00 EDT, Capsule Start Date: 11/21/19 Status: OrderedLatuda 40 mg oral tablet 1 tablet = 40 mg, By Mouth, Daily, 0 Refills, Maintenance, 04/17/20 12:58:00 EST, Partial fill upon patient request Start Date: 04/17/20 Status: OrderedlevoFLOXacin 500 mg oral tablet 1 tablet = 500 mg, By Mouth, Every 24 hours, for 10 days, # 10 tablet, 0 Refills, Acute 05/25/20 11:58:00 EST, 05/15/20 11:58:00 EST, Tablet, [facility], Partial fill upon patient requestif the prescription is for a schedule II opioid d... Start Date: 05/15/20 Stop Date: 05/25/20 Status: Orderedmelatonin 10 mg oral capsule 1 capsule = 10 mg, By Mouth, Daily at bedtime, # 30 capsule, 1 Refills, Maintenance, 11/21/19 11:29:00 EDT, Capsule Start Date: 11/21/19 Status: OrderedMorPHINE Inj 4 mg, Injection, IV Push Slowly, Every 15 minutes for 3 doses/times, PRN for Pain , Moderate, and SBP greater than 100, Routine, 05/15/20 9:12:00 EST, Stop date Limited # of times Start Date: 05/15/20 Stop Date: 05/15/20 Status: Discontinuedpantoprazole 40 mg oral delayed release tablet 1 tablet = 40 mg, By Mouth, 2 times a day, # 60 tablet, 0 Refills, Maintenance, 04/19/20 20:27:00 EST, CR Tablet Start Date: 04/19/20 Status: OrderedRisperDAL 1 mg oral tablet 1 mg, 1, tablet, By Mouth, Daily at bedtime, # 30 tablet, Refills 0, Tot. Refills 0, Maintenance, 11/21/19 11:30:00 EDT, Do Not Route Start Date: 11/21/19 Status: OrderedSuboxone 8 mg-2 mg sublingual film 2 film, Sublingual, Daily, dissolve under the tongue, 0 Refills, Maintenance, 04/19/20 20:26:00 EST,Film, Partial fill upon patient request Start Date: 04/19/20 Status: Ordered Problem List Condition Effective Dates Status Health Status Informant Callus right 1st plantar metatarsal Active area(Confirmed) GERD without esophagitis(Confirmed) Active Hepatic hemangioma(Confirmed)1 Active Hyperglycemia(Confirmed) Active HTN (hypertension)(Confirmed) Active Tobacco user(Confirmed) Active 1see multiple scans )MRI) from incarceration system Vital Signs Most recent to oldest 1 2 3 [Reference Range]: Height 183 cm 183 cm (05/15/20 9:43 AM) (05/15/20 9:24 AM) Weight 86 kg 86 kg 86 kg (05/15/20 9:43 AM) (05/15/20 9:24 AM) (05/15/20 8:38 AM) Oxygen Saturation [94-100 100 % %] (05/15/20 12:41 PM) Pulse Rate [55-90 bpm] 72 bpm 72 bpm (05/15/20 8:38 AM) (05/15/20 8:24 AM) Body Mass Index 25.68 [18.5-24.99] *H* (05/15/20 9:43 AM) Blood Pressure 133/72 mm Hg 128/75 mm Hg 118/79 mm Hg [90-138/55-84 mm Hg] (05/15/20 12:41 PM) (05/15/20 9:43 AM) ( 8:38 AM) Respiratory Rate [16-30 16 br/min 20 br/min 22 br/mi n br/min] (05/15/20 12:41 PM) (05/15/20 10:10 AM) ( 0 9:43 AM) Temperature [96.8-100.4 98.7 DegF 98.3 DegF DegF] (05/15/20 9:14 AM) (05/15/20 8:38 AM) Mode of Delivery (Oxygen) Room air Room air Room a ir (05/15/20 12:41 PM) (05/15/20 9:43 AM) (05/15/20 8:38 AM) Blood pressure sites Arm, left Arm, right (05/15/20 9:43 AM) (05/15/20 8:38 AM) Temperature Route Oral Oral Oral (05/15/20 9:43 AM) (05/15/20 9:14 AM) (05/15/20 8:38 AM) Dry Weight 86 kg 86 kg 86 kg (05/15/20 9:43 AM) (05/15/20 9:24 AM) (05/15/20 8:38 AM) Weight Obtained Via Standing scale (05/15/20 8:38 AM) Dry Weight Obtained Via Standing scale (05/15/20 8:38 AM) Social History Social History Type Response Smoking Status 10 or more cigarettes (1/2 p ack or more)/day in last 30 days entered on: 12/17/18 Sex Male
--- OUTSIDE RECORDS SUMMARY | 2022-05-12 22:03 | XMS_ITS | Continuity of Care Document ---
:1965 Author Organization [facility] Address [address] [place] [id number]- Care Team Providers Name Role Phone Laith Ly Primary Care Physician Encounter [facility] Date(s): 05/17/19 - 05/17/[address] [address]- [facility] Encounter Diagnosis Psychiatric complaint (Final) - 05/17/19 Behavior concern (Final) - 05/17/19 Discharge Disposition: A-D/C Home Attending Physician: Emmett Figueroa MD Admitting Physician: Emmett Figueroa MD Referring Physician: Not on Staff, Referring MD [...] A Adult Vaccine7 02/17/07 Given 1Admin Note: [id number] Note: [id number] Note: [id number] Note: vis Admin Note: at [id number] Note: [id number] Note: [facility] Medications buPROPion 100 mg/12 hours (SR) oral tablet, extended release = 100 mg, By Mouth, Daily, # 30 tablet, 0 Refills, Maintenance, 12/22/18 12:35:21 EDT, SR Tablet Start Date: 12/22/18 Stop Date: 01/21/19 Status: OrderedEpiPen 2-Mg 0.3 mg injectable kit = 0.3 mg, Intramuscular, Once, # 1 application, 0 Refills, Soft Stop, 07/10/14 22:40:43 Start Date: 07/10/14 Status: Orderedfamotidine 10 mg oral tablet 1 tablet = 10 mg, By Mouth, 2 times a day, # 60 tablet, 0 Refills, Maintenance, 11/07/18 21:25:25 EDT, Tablet Start Date: 11/07/18 Status: OrderedFlomax 0.4 mg oral capsule 0.4 mg, By Mouth, Daily at bedtime, # 30 capsule, Refills 0, Tot. Refills 0, Maintenance, 12/22/18 12:35:09 EDT, Print Requisition Start Date: 12/22/18 Stop Date: 01/21/19 Status: Orderedfolic acid 1 mg oral tablet 1 mg, By Mouth, Daily, # 30 tablet, Refills 1, Tot. Refills 1, Maintenance, 01/17/18 11:12:15 EDT, Route to Pharmacy Electronically, [id number], [facility] [id number] ([facility]) Start Date: 01/17/18 Stop Date: 03/18/18 Status: Orderedmultivitamin Multiple Vitamins oral tablet 1 tablet, By Mouth, Daily, # 30 tablet, 1 Refills, Maintenance, 01/17/18 11:12:22 EDT, Tablet, 1 tablet By Mouth Daily,x30 days Start Date: 01/17/18 Stop Date: 03/18/18 Status: OrderedNeurontin 800 mg oral tablet 1 tablet = 800 mg, By Mouth, 3 times a day, # 90 tablet, 1 Refills, Maintenance, 12/22/18 12:35:00 EDT, Tablet Start Date: 12/22/18 Stop Date: 02/20/19 Status: Ordered Problem List Condition Effective Dates Status Health Status Informant Callus right 1st plantar metatarsal Active area(Confirmed) Hepatic hemangioma(Confirmed)1 Active Hyperglycemia(Confirmed) Active Tobacco user(Confirmed) Active 1see multiple scans )MRI) from [facility] Vital Signs Most recent to oldest 1 2 3 [Reference Range]: Oxygen Saturation [94-100 %] 100 % 99 % 100 % (05/17/19 6:29 AM) (05/17/19 5:58 AM) (05/17/19 3:34 AM) Pulse Rate [55-90 bpm] 46 bpm 1 48 bpm 64 bpm *L* *L* (05/17/19 3:34 A M) (05/17/19 6:29 AM) (05/17/19 5:58 AM) Blood Pressure [90-138/55-84 127/68 mm Hg 107/58 mm Hg 94/ 46 mm Hg mm Hg] (05/17/19 6:29 AM) (05/17/19 5:58 AM) (05/17/19 3:34 AM) Respiratory Rate [16-30 16 br/min 16 br/min 16 br/mi n br/min] (05/17/19 6:29 AM) (05/17/19 5:58 AM) (05/17/19 3:34 AM) Temperature [96.8-100.4 97.4 DegF 97.5 DegF DegF] (05/17/19 6:29 AM) (05/17/19 3:34 AM) Mode of Delivery (Oxygen) Room air Room air Room a ir (05/17/19 6:29 AM) (05/17/19 5:58 AM) (05/17/19 3:34 AM) Blood pressure sites Arm, left Arm, left Arm, left (05/17/19 6:29 AM) (05/17/19 5:58 AM) (05/17/19 3:34 AM) Temperature Route Oral Oral (05/17/19 6:29 AM) (05/17/19 3:34 AM) 1Result Comment: pt normal HR runs low as well as his BP RN is aware Social History Social History Type Response Smoking Status 10 or more cigarettes (1/2 p ack or more)/day in last 30 days entered on: 12/17/18 Sex
--- OUTSIDE RECORDS SUMMARY | 2022-05-12 22:03 | XMS_ITS | Continuity of Care Document ---
:1965 Author Organization [facility] Address [address] [place] [address]- Care Team Providers Name Role Phone Not on Staff, PCP Primary Care Physician Unavailable [place] [facility] [place] 07/20/19 - 07/24/[address] [address]- [facility] Discharge Disposition: A-D/C Home Attending Physician: Priscilla MICHAEL, Julio Kaur Admitting Physician: Celso Nettles MD Referring Physician: Not on Staff, Referring [...] A Adult Vaccine7 02/17/07 Given 1Admin Note: [id number] Note: [id number] Note: [id number] Note: vis Admin Note: at [id number] Note: [id number] Note: [facility] Medications cloNIDine 0.2 mg oral tablet 0.2 mg, 1, tablet, By Mouth, 2 times a day, TAKE 1 TABLET BY MOUTH TWICE A DAY, # 60 tablet, Refills0, Tot. Refills 0, 05/28/19 19:14:00 EST, Route to Pharmacy Electronically, [facility]/pharmacy #[id number], 183,cm, 05/27/19 17:00:00 EST, Height, 90, kg, ... Start Date: 05/28/19 Status: Ordereddivalproex sodium 500 mg oral enteric coated tablet 1 tablet = 500 mg, By Mouth, 3 times a day, TAKE 1 TABLET BY MOUTH THREE TIMES A DAY, # 30 tablet, 0Refills, 05/28/19 19:12:00 EST, [facility]/pharmacy #[id number], 183, cm, 05/27/19 17:00:00 EST, Height, 90, kg, 05/27/19 17:00:00 EST, Dry Weight Start Date: 05/28/19 Status: OrderedEpiPen 2-Mg 0.3 mg injectable kit = 0.3 mg, Intramuscular, Once, # 1 application, 0 Refills, Soft Stop, 07/10/14 22:40:43 Start Date: 07/10/14 Status: Orderedfolic acid 1 mg oral tablet 1 mg, By Mouth, Daily, # 30 tablet, Refills 1, Tot. Refills 1, Maintenance, 01/17/18 11:12:15 EDT, Route to Pharmacy Electronically, [id number], [facility] [id number] ([facility] 82) Start Date: 01/17/18 Stop Date: 03/18/18 Status: Orderedgabapentin 800 mg oral tablet 1 tablet = 800 mg, By Mouth, 3 times a day, TAKE 1 TABLET BY MOUTH THREE TIMES A DAY, # 90 tablet, 0Refills, 05/28/19 19:13:00 EST, [facility]/pharmacy #[id number], 183, cm, 05/27/19 17:00:00 EST, Height, 90, kg, 05/27/19 17:00:00 EST, Dry Weight Start Date: 05/28/19 Status: OrderedLatuda 20 mg oral tablet 1 tablet = 20 mg, By Mouth, Daily, # 30 tablet, 0 Refills, Maintenance, 05/27/19 19:17:00 EST, Tablet, [facility]/pharmacy #[id number], 183, cm, 05/27/19 17:00:00 EST, Height, 90, kg, 05/27/19 17:00:00 EST, Dry Weight Start Date: 05/27/19 Status: Orderedlidocaine 4% topical film 1 patch, Topically, 3 times a day, # 15 each, 0 Refills, Maintenance, 06/23/19 21:05:00 EST, [facility]/pharmacy #[id number], 1 patch Topically 3 times a day, 183, cm, 05/27/19 17:00:00 EST, Height, 90, kg, 05/27/19 17:00:00 EST, Dry Weight Start Date: 06/23/19 Status: Orderedmultivitamin Multiple Vitamins oral tablet 1 tablet, By Mouth, Daily, # 30 tablet, 1 Refills, Maintenance, 01/17/18 11:12:22 EDT, Tablet, 1 tablet By Mouth Daily,x30 days Start Date: 01/17/18 Stop Date: 03/18/18 Status: OrderedProtonix 40 mg oral delayed release tablet 1 tablet = 40 mg, By Mouth, Daily, # 30 tablet, 0 Refills, Maintenance, 07/23/19 11:45:00 EST, CR Tablet, 190, cm, 07/23/19 10:51:00 EST, Height, 86.2, kg, 07/20/19 22:55:00 EST, Dry Weight Start Date: 07/23/19 Stop Date: 08/22/19 Status: OrderedSuboxone 8 mg-2 mg sublingual film 2 film, Sublingual, Daily, dissolve under the tongue MAssPAT reviewed, # 28 each, 0 Refills, Maintenance, 07/05/19 13:21:00 EST, Film, [id number], 07/06/19 Start Date: 07/05/19 Stop Date: 07/19/19 Status: Orderedtamsulosin 0.4 mg oral capsule 0.8 mg, 2, capsule, By Mouth, Daily at bedtime, TAKE 2 CAPSULES BY MOUTH AT BEDTIME, # 60 capsule, Refills 0, Tot. Refills 0, 05/28/19 19:14:00 EST, Route to Pharmacy Electronically, [facility]/pharmacy #[id number], 183, cm, 05/27/19 17:00:00 EST, Height, 90, kg,... Start Date: 05/28/19 Status: Orderedterbinafine 250 mg oral tablet 1 tablet = 250 mg, By Mouth, Daily, TAKE 1 TABLET BY MOUTH EVERY DAY, # 30 tablet, 0 Refills, 05/28/19 19:13:00 EST, [facility]/pharmacy #[id number], 183, cm, 05/27/19 17:00:00 EST, Height, 90, kg, 05/27/19 17:00:00 EST, Dry Weight Start Date: 05/28/19 Status: Ordered Problem List Condition Effective Dates Status Health Status Informant Callus right 1st plantar metatarsal Active area(Confirmed) Hepatic hemangioma(Confirmed)1 Active Hyperglycemia(Confirmed) Active Tobacco user(Confirmed) Active 1see multiple scans )MRI) from incarceration system Procedures Procedure Date Related Diagnosis Body Site Status Colonoscopy 07/22/19 Completed Results Radiology Reports Exam Date Time Procedure Performing Provider Status 07/22/19 4:25 PM XR Hip Comp 2 Views Right Yari Frye; Auth (Verified) Notes:(XR Hip Comp 2 Views Right) Reason For Exam: PainRESULT: Hip Comp 2 Views Right Hip Comp 2 Views Right Refer to EMR; Reason: Pain; Clinical Question(s): Arthritis; Hx of Present Illness: Pt was at Detox sent here reports he is having dark black stools x 2 days with epigastric pain and pain from upper part of his stomach. Pt was seen here last week , had an Endoscopy, was told he has bleeding ulcers.; Other Objective Findings: Pt is falling asleep during assessment in chair have to nick COMPARISON: 07/10/2014 and 06/13/2013. FINDINGS: No fracture or dislocation. Well preserved joint space. Normal femoral head contour without evidence of AVN. Normal soft tissues. IMPRESSION: Normal. WSN: [id number] Dictated By: Connie Blum MD Dictated Date/Time: 07/22/19 4:32 pm Reviewed By: Connie Blum MD Signed By: Connie Blum MD Signed Date/Time: 07/22/19 4:32 pm Transcribed By: CORBY Transcribed Date/Time: 07/22/19 4:32 pm Exam Date Time Procedure Performing Provider Status 07/20/19 5:58 PM Abdomen AP Rakel Lucas; Auth (Verified) Notes:(Abdomen AP) Reason For Exam: DistentionRESULT: XR Abdomen AP XR Abdomen AP Refer to EMR; Reason: Distention; Clinical Question(s): Obstruction; Free Air; Special Instructions:Upright; Hx of Present Illness: Pt was at Detox sent here reports he is having dark black stools x 2days with epigastric pain and pain from upper part of his stomach. Pt was seen here last week , had an Endoscopy, was told he has bleeding ulcers.; Other Objective Findings: Pt is fallin COMPARISON: 04/29/2010. FINDINGS: No free air. Normal bowel gas pattern. No abnormal stool retention. No abnormal calcifications. No acute bony abnormalities. IMPRESSION: Nonspecific nonobstructive bowel gas pattern. No free air. WSN: [id number] Dictated By: Herbert Hooks MD Dictated Date/Time: 07/20/19 6:04 pm Reviewed By: Herbert Hooks MD Signed By: Herbert Hooks MD Signed Date/Time: 07/20/19 6:04 pm Transcribed By: CORBY Transcribed Date/Time: 07/20/19 6:03 pm Vital Signs Most recent to oldest [Reference 1 2 3 Range]: Height 190 cm 190 cm 190 cm (07/24/19 11:10 AM) (07/24/19 6:54 AM) (07/24/19 3:14 AM) Weight 86.2 kg (07/20/19 10:55 PM) Oxygen Saturation [94-100 %] 100 % 100 % 99 % (07/24/19 11:10 AM) (07/24/19 6:54 AM) (07/24/19 3:14 AM) Pulse Rate [55-90 bpm] 50 bpm 50 bpm 51 bpm *L* *L* *L* (07/24/19 11:10 AM) (07/24/19 6:54 AM) (07/24/19 3:14 AM) Body Mass Index [18.5-24.99] 23.88 (07/20/19 10:55 PM) Blood Pressure [90-138/55-84 mm 93/50 mm Hg 109/69 mm Hg 118/57 mm Hg Hg] (07/24/19 11:10 AM) (07/24/19 6:54 AM) (07/24/19 3:14 AM) Respiratory Rate [16-30 br/min] 18 br/min 18 br/min 18 br/min (07/24/19 11:10 AM) (07/24/19 8:49 AM) (07/24/19 8:08 AM) Temperature [96.8-100.4 DegF] 97.6 DegF 97.8 DegF 98 .3 DegF (07/24/19 11:10 AM) (07/24/19 6:54 AM) (07/24/19 3:14 AM) Mode of Delivery (Oxygen) Room air Room air Room a ir (07/24/19 11:10 AM) (07/24/19 6:54 AM) (07/24/19 3:14 AM) Blood pressure sites Arm, right Arm, right Arm, left (07/24/19 11:10 AM) (07/24/19 6:54 AM) (07/24/19 3:14 AM) Temperature Route Oral Oral Oral (07/24/19 11:10 AM) (07/24/19 6:54 AM) (07/24/19 3:14 AM) Dry Weight 86.2 kg (07/20/19 10:55 PM) Social History Social History Type Response Smoking Status 10 or more cigarettes (1/2 p ack or more)/day in last 30 days entered on: 12/17/18 Sex
--- OUTSIDE RECORDS SUMMARY | 2022-05-12 22:03 | XMS_ITS | Continuity of Care Document ---
:1965 Author Organization [facility] Address [address] [place] [id number]- Care Team Providers Name Role Phone Aliyah MICHAEL, Laith Gillette Primary Care Physician Encounter [facility] Date(s): 11/26/19 - 11/27/[address] [address]- [facility] Encounter Diagnosis Opioid overdose (Final) - 11/26/19 Discharge Disposition: A-D/C Home Attending Physician: Yahir Encinas MD Admitting Physician: Yahir Encinas MD Referring Physician: Not on Staff, Referring [...] A Adult Vaccine7 02/17/07 Given 1Admin Note: [id number] Note: CFOF8Xrolv Note: [id number] Note: vis Admin Note: at [id number] Note: [id number] Note: [facility] Medications cloNIDine 0.1 mg oral [...] 11:29:00 EDT, Tablet Start Date: 11/21/19 Status: OrderedEpiPen 2-Mg 0.3 mg injectable kit = 0.3 mg, Intramuscular, Once, # 1 application, 0 Refills, Soft Stop, 07/10/14 22:40:43 Start Date: 07/10/14 Status: Orderedfamotidine 20 mg oral tablet 20 mg, 1, tablet, By Mouth, Daily, PRN, # 30 tablet, Refills 1, Tot. Refills 1, Maintenance, Dyspepsia, 11/21/19 11:29:00 EDT, Do Not Route Start Date: 11/21/19 Status: OrderedhydrOXYzine pamoate 50 mg oral capsule = 50 mg, By Mouth, Every 6 hours, PRN Anxiety, # 60 capsule, 1 Refills, Maintenance, 11/21/19 11:30:00 EDT, Capsule Start Date: 11/21/19 Status: Orderedmelatonin 10 mg oral capsule 1 capsule = 10 mg, By Mouth, Daily at bedtime, # 30 capsule, 1 Refills, Maintenance, 11/21/19 11:29:00 EDT, Capsule Start Date: 11/21/19 Status: Orderedmelatonin 3 mg oral tablet 3 tablet = 9 mg, By Mouth, Daily at bedtime, PRN for insomnia, for 14 days, # 42 tablet, 0 Refills, Acute 12/11/19 12:10:00 EDT, 11/27/19 12:10:00 EDT, Tablet, [facility] Start Date: 11/27/19 Stop Date: 12/11/19 Status: OrderedNarcan 4 mg/0.1 mL nasal spray = 4 mg, Nares, Both, Once, # 2 each, 0 Refills, Soft Stop, 11/26/19 16:31:00 EDT Start Date: 11/26/19 Status: OrderedRisperDAL 1 mg oral tablet 1 mg, 1, tablet, By Mouth, Daily, # 14 tablet, Refills 0, Tot. Refills 0, Maintenance, 11/27/19 12:09:00 EDT, Route to Pharmacy Electronically, [facility] Start Date: 11/27/19 Stop Date: 12/11/19 Status: OrderedRisperDAL 1 mg oral tablet 1 mg, 1, tablet, By Mouth, Daily at bedtime, # 30 tablet, Refills 0, Tot. Refills 0, Maintenance, 11/21/19 11:30:00 EDT, Do Not Route Start Date: 11/21/19 Status: OrderedSuboxone 8 mg-2 mg sublingual film 2 film, Sublingual, Daily, dissolve under the tongue MAssPAT reviewed, # 28 each, 0 Refills, Maintenance, 07/05/19 13:21:00 EST, Film, [id number], 07/06/19 Start Date: 07/05/19 Stop Date: 07/19/19 Status: OrderedVitamin D2 2000 intl units oral capsule 1 capsule = 2,000 International_Units, By Mouth, Daily, with food, # 60 capsule, 0 Refills, Maintenance, 11/13/19 1:45:00 EDT, Capsule Start Date: 11/13/19 Status: Ordered Problem List Condition Effective Dates Status Health Status Informant Callus right 1st plantar metatarsal Active area(Confirmed) GERD without esophagitis(Confirmed) Active Hepatic hemangioma(Confirmed)1 Active Hyperglycemia(Confirmed) Active HTN (hypertension)(Confirmed) Active Tobacco user(Confirmed) Active 1see multiple scans )MRI) from incarceration system Vital Signs Most recent to oldest [Reference 1 2 3 Range]: Oxygen Saturation [94-100 %] 100 % 98 % 99 % (11/27/19 9:37 AM) (11/27/19 12:17 AM) (11/26/19 9:50 PM) Pulse Rate [55-90 bpm] 59 bpm 88 bpm 64 bpm (11/27/19 9:37 AM) (11/27/19 12:17 AM) (11/26/19 9:50 PM) Blood Pressure [90-138/55-84 mm 145/91 mm Hg 130/72 mm Hg 153/90 mm Hg Hg] *H* (11/27/19 12:17 AM) *H* (11/27/19 9:37 AM) (11/26/19 9:50 PM ) Respiratory Rate [16-30 br/min] 17 br/min 22 br/min 20 br/min (11/27/19 12:17 AM) (11/26/19 9:50 PM) (11/26/19 3:03 PM) Temperature [96.8-100.4 DegF] 98.4 DegF 98.0 DegF 98 .4 DegF (11/27/19 9:37 AM) (11/26/19 9:50 PM) (11/26/19 6:15 A M) Mode of Delivery (Oxygen) Room air Room air Room a ir (11/27/19 9:37 AM) (11/26/19 9:50 PM) (11/26/19 3:03 P M) Blood pressure sites Arm, left Arm, right Arm, left (11/27/19 9:37 AM) (11/26/19 9:50 PM) (11/26/19 3:06 P M) Temperature Route Oral Oral Oral (11/27/19 9:37 AM) (11/26/19 9:50 PM) (11/26/19 6:15 A M) Social History Social History Type Response Smoking Status 10 or more cigarettes (1/2 p ack or more)/day in last 30 days entered on: 12/17/18 Sex
--- OUTSIDE RECORDS SUMMARY | 2022-05-12 22:03 | XMS_ITS | Continuity of Care Document ---
:1965 Author Organization [facility] Address [address] [place] [address]- Care Team Providers Name Role Phone Aliyah MICHAEL, Laith Gillette Primary Care Physician Encounter [facility] [place] Date(s): 07/26/21 - 07/30/[address] [address]- Encounter Diagnosis Cocaine use (Final) - 07/26/21 Suicidal ideation (Final) - 07/26/21 Homicidal ideation (Final) - 07/26/21 Alcohol use (Final) - 07/26/21 Marijuana use (Final) - 07/26/21 Abnormal EKG (Final) - 07/26/21 Discharge Disposition: Disch/Trans to IP Rehab or unit w/in Hos Attending Physician: Gabbi Colbert MD Admitting Physician: Chucho Mahan MD Referring Physician: Not on Staff, Referring MD Allergies, Adverse Reactions, Alerts Substance Reaction Severity Status Bee Stings Active Pollen Active Lactose Active Immunizations Given and Recorded Vaccine Date Status Refusal Reason SARS-CoV-2 (COVID-19) Ad26 vaccine 08/22/20 Recorded tetanus/diphtheria/pertussis, acel(Tdap) 04/20/14 Given hepatitis B adult vaccine 04/20/14 Given hepatitis B adult vaccine1 02/17/07 Given hepatitis B adult vaccine2 01/17/07 Given influenza virus vaccine, inactivated3 04/05/13 Given influenza virus vaccine, inactivated 02/03/12 Given tetanus-diphtheria toxoids (Td)4 05/05/10 Given Influenza Vaccine (oldterm)5 05/05/10 Given pneumococcal 23-valent vaccine 04/29/10 Given Hepatitis A Adult Vaccine6 02/25/09 Given Hepatitis A Adult Vaccine7 9/27/07 Given 1Admin Note: [id number] Note: [id number] Note: QAHL1Bmngl Note: vis Admin Note: at [id number] Note: [id number] Note: [facility] Medications amLODIPine 5 mg oral tablet 1 tablet = 5 mg, By Mouth, Daily, # 30 tablet, 0 Refills, Maintenance, 07/29/21 15:13:00 EST, Tablet, [facility], Partial fill upon patient request if the prescription is for a schedule II opioid drug., 188, cm, 07/29/21 14:26:00 EST, He... Start Date: 07/29/21 Status: OrderedFlomax 0.4 mg oral capsule 0.8 mg, 2, capsule, By Mouth, Daily at bedtime, # 60 capsule, Refills 0, Tot. Refills 0, Maintenance, 07/29/21 15:25:00 EST, Route to Pharmacy Electronically, [facility], Partial fill upon patient request if the prescription is for a denice... Start Date: 07/29/21 Stop Date: 08/28/21 Status: Orderedfolic acid 1 mg oral tablet 1 mg, 1, tablet, By Mouth, Daily, # 30 tablet, Refills 0, Tot. Refills 0, Maintenance, 07/29/21 15:14:00 EST, Route to Pharmacy Electronically, [facility], Partial fill upon patient request if the prescription is for a schedule II opioid... Start Date: 07/29/21 Status: Orderedgabapentin 400 mg oral capsule 800 mg, Capsule, By Mouth, 07/29/21 21:00:00 EST Start Date: 07/29/21 Stop Date: 07/29/21 Status: Completedgabapentin 400 mg oral capsule 400 mg, 1, capsule, By Mouth, 3 times a day, # 90 capsule, Refills 0, Tot. Refills 0, Maintenance, 07/30/21 16:04:00 EST, [id number] Partial fill upon patientrequest if the prescription is for a schedule II... Start Date: 07/30/21 Stop Date: 08/29/21 Status: Orderedgabapentin 400 mg oral capsule 800 mg, Capsule, By Mouth, 07/30/21 9:00:00 EST Start Date: 07/30/21 Stop Date: 07/30/21 Status: Completedgabapentin 400 mg oral capsule 800 mg, 2, capsule, By Mouth, 3 times a day, # 180 capsule, Refills 0, Tot. Refills 0, Maintenance, 07/30/21 9:59:00 EST, Route to Pharmacy Electronically, [facility], Partial fill upon patient request if the prescription is for a schedu... Start Date: 07/30/21 Stop Date: 08/29/21 Status: OrderedhydrOXYzine pamoate 50 mg oral capsule 1 capsule = 50 mg, By Mouth, 3 times a day, PRN for anxiety, for 30 days, # 30 capsule, 0 Refills, Acute 08/28/21 15:12:00 EDT, 07/29/21 15:12:00 EST, Capsule, [facility], Partial fill upon patient request if the prescription is for a sc... Start Date: 07/29/21 Stop Date: 08/28/21 Status: OrderedLatuda 40 mg oral tablet 1 tablet = 40 mg, By Mouth, Daily, # 30 tablet, 0 Refills, Maintenance, 07/29/21 15:13:00 EST, Tablet, [facility], Partial fill upon patient request if the prescription is for a schedule II opioid drug., 188, cm, 07/29/21 14:26:00 EST, H... Start Date: 07/29/21 Stop Date: 08/28/21 Status: Orderedmelatonin 5 mg oral tablet 1 tablet = 5 mg, By Mouth, Daily at bedtime, PRN for insomnia, for 30 days, # 30 tablet, 0 Refills, Acute 08/28/21 15:13:00 EDT, 07/29/21 15:13:00 EST, Tablet, [facility], Partial fill upon patient request if the prescription is for a sc... Start Date: 07/29/21 Stop Date: 08/28/21 Status: Orderedmirtazapine 15 mg oral tablet 1 tablet = 15 mg, By Mouth, Daily at bedtime, # 30 tablet, 0 Refills, Maintenance, 07/29/21 15:13:00EST, Tablet, [facility], Partial fill upon patient request if the prescription is for a schedule II opioid drug., 188, cm, 07/29/21 14:2... Start Date: 07/29/21 Status: Orderedmultivitamin Multiple Vitamins oral tablet 1 tablet, By Mouth, Daily, # 30 tablet, 0 Refills, Maintenance, 07/29/21 15:14:00 EST, Tablet, [facility], Partial fill upon patient request if the prescription is for a schedule II opioid drug., 1 tablet By Mouth Daily,x30 days, 188, cm... Start Date: 07/29/21 Stop Date: 08/28/21 Status: Orderednicotine 14 mg/24 hr transdermal film, extended release 1 patch, Topically, Daily, for 30 days, # 30 patch, 0 Refills, Acute 08/28/21 15:14:00 EDT, 07/29/2214:14:00 EST, Patch, [facility], Partial fill upon patient request if the prescriptionis for a schedule II opioid drug., 1 patch Topica... Start Date: 07/29/21 Stop Date: 08/28/21 Status: Orderedpantoprazole 40 mg oral delayed release tablet 1 tablet = 40 mg, By Mouth, Daily, # 60 tablet, 0 Refills, Maintenance, 04/19/20 20:27:00 EST, CR Tablet Start Date: 04/19/20 Status: Orderedprazosin 1 mg oral capsule 1 mg, 1, capsule, By Mouth, Daily at bedtime, # 30 capsule, Refills 0, Tot. Refills 0, Maintenance, 07/29/21 15:25:00 EST, Route to Pharmacy Electronically, [facility], Partial fill upon patient request if the prescription is for a sched... Start Date: 07/29/21 Status: Orderedthiamine 100 mg oral tablet 100 mg, 1, tablet, By Mouth, Daily, for 30 days, # 30 tablet, Refills 0, Tot. Refills 0, Acute 08/28/21 15:14:00 EDT, 07/29/21 15:14:00 EST, Route to Pharmacy Electronically, [facility], Partial fill upon patient request if the prescript... Start Date: 07/29/21 Stop Date: 08/28/21 Status: Ordered Problem List Condition Effective Dates Status Health Status Informant Callus right 1st plantar metatarsal Active area(Confirmed) GERD without esophagitis(Confirmed) Active Hepatic hemangioma(Confirmed)1 Active Hyperglycemia(Confirmed) Active HTN (hypertension)(Confirmed) Active Tobacco user(Confirmed) Active 1see multiple scans )MRI) from incarceration system Results Radiology Reports Exam Date Time Procedure Performing Provider Status 07/26/21 6:16 PM Chest 2 Views Frontal and Lat Horacio Lopez; Au th (Verified) Notes:(Chest 2 Views Frontal and Lat) Reason For Exam: Shortness of Breath, Fever;Other:RESULT: Chest 2 Views Frontal and Lat Chest 2 Views Frontal and Lat INDICATION: Hx of Present Illness: SI w plan, AVH, polysubstance abuse; Reason: Other:; Shortness ofBreath, Fever; Clinical Question(s): Pneumonia COMPARISON: None. FINDINGS: Clear lungs. No pneumothorax or effusion. Normal size heart. IMPRESSION: No acute abnormality. WSN: [id number] Ordering Physician: Gale Henderson Dictated By: Lizzie Riddle MD Dictated Date/Time: 07/26/21 6:20 pm Reviewed By: Lizzie Riddle MD Signed By: Lizzie Riddle MD Signed Date/Time: 07/26/21 6:20 pm Transcribed By: CORBY Transcribed Date/Time: 07/26/21 6:20 pm Vital Signs Most recent to oldest [Reference 1 2 3 Range]: Height 188 cm 188 cm 188 cm (07/30/21 2:39 AM) (07/29/21 9:20 PM) (07/29/21 2:26 P M) Weight 102.7 kg 97.7 kg 97.7 kg (07/26/21 11:19 PM) (07/26/21 5:40 PM) (07/26/21 5:27 PM) Oxygen Saturation [94-100 %] 97 % 97 % 99 % (07/30/21 2:39 AM) (07/29/21 9:20 PM) (07/29/21 2:26 P M) Pulse Rate [55-90 bpm] 67 bpm 63 bpm 61 bpm (07/30/21 2:39 AM) (07/29/21 9:20 PM) (07/29/21 2:26 P M) Body Mass Index [18.5-24.99] 29.06 27.64 *H* *H* (07/26/21 11:19 PM) (07/26/21 5:27 PM) Blood Pressure [90-138/55-84 mm 145/86 mm Hg 145/86 mm Hg 151/85 mm Hg Hg] *H* *H* *H* (07/30/21 2:39 AM) (07/29/21 9:20 PM) (07/29/21 2:26 P M) Respiratory Rate [16-30 br/min] 18 br/min 18 br/min 18 br/min (07/30/21 9:56 AM) (07/30/21 2:39 AM) (07/29/21 9:45 P M) Temperature [96.8-100.4 DegF] 97.8 DegF 97.8 DegF 97 .8 DegF (07/30/21 2:39 AM) (07/29/21 9:20 PM) (07/29/21 2:26 P M) Mode of Delivery (Oxygen) Room air Room air Room a ir (07/29/21 9:20 PM) (07/29/21 2:26 PM) (07/29/21 5:21 A M) Blood pressure sites Arm, right Arm, right Arm, left (07/30/21 2:39 AM) (07/29/21 9:20 PM) (07/29/21 2:26 P M) Temperature Route Oral Oral Oral (07/30/21 2:39 AM) (07/29/21 9:20 PM) (07/29/21 2:26 P M) Dry Weight 102.7 kg 97.7 kg 97.7 kg (07/26/21 11:19 PM) (07/26/21 5:40 PM) (07/26/21 5:27 PM) Weight Obtained Via Bed scale (07/26/21 11:19 PM) Dry Weight Obtained Via Bed scale (07/26/21 11:19 PM) Social History Social History Type Response Smoking Status 10 or more cigarettes (1/2 p ack or more)/day in last 30 days entered on: 12/17/18 Sex Male
--- OUTSIDE RECORDS SUMMARY | 2022-05-12 22:03 | XMS_ITS | Continuity of Care Document ---
:1965 Author Organization [facility] Address [address] [place] [address]- Care Team Providers Name Role Phone Aliyah MICHAEL, Laith Gillette Primary Care Physician Encounter [facility] Date(s): 01/09/22 - 01/09/[address] [address]- Discharge Disposition: A-D/C Home Attending Physician: Diaz Puente MD Admitting Physician: Diaz Puente MD Referring Physician: Not on Staff, Referring [...] A Adult Vaccine7 02/17/07 Given 1Admin Note: [id number] Note: TSYX3Wdrka Note: [id number] Note: vis Admin Note: at wnwolcy3Wbzbo Note: [id number] Note: [facility] Medications amLODIPine 5 mg oral tablet 1 tablet = 5 mg, By Mouth, Daily, # 30 tablet, 0 Refills, Maintenance, 07/29/21 15:13:00 EST, Tablet, [facility], Partial fill upon patient request if the prescription is for a schedule II opioid drug., 188, cm, 07/29/21 14:26:00 EST, He... Start Date: 07/29/21 Status: OrderedFlomax 0.4 mg oral capsule 0.8 mg, 2, capsule, By Mouth, Daily at bedtime, # 60 capsule, Refills 0, Tot. Refills 0, Maintenance, 07/29/21 15:25:00 EST, Route to Pharmacy Electronically, [facility], Partial fill upon patient request if the prescription is for a denice... Start Date: 07/29/21 Stop Date: 08/28/21 Status: Orderedfolic acid 1 mg oral tablet 1 mg, 1, tablet, By Mouth, Daily, # 30 tablet, Refills 0, Tot. Refills 0, Maintenance, 07/29/21 15:14:00 EST, Route to Pharmacy Electronically, [facility], Partial fill upon patient request if the prescription is for a schedule II opioid... Start Date: 07/29/21 Status: Orderedgabapentin 400 mg oral capsule 400 mg, 1, capsule, By Mouth, 3 times a day, # 90 capsule, Refills 0, Tot. Refills 0, Maintenance, 07/30/21 16:04:00 EST, [id number] Partial fill upon patientrequest if the prescription is for a schedule II... Start Date: 07/30/21 Stop Date: 08/29/21 Status: Orderedgabapentin 400 mg oral capsule 800 mg, Capsule, By Mouth, 01/09/22 9:00:00 EDT Start Date: 01/09/22 Stop Date: 01/09/22 Status: Completedgabapentin 400 mg oral capsule 800 mg, 2, capsule, By Mouth, 3 times a day, # 180 capsule, Refills 0, Tot. Refills 0, Maintenance, 07/30/21 9:59:00 EST, Route to Pharmacy Electronically, [facility], Partial fill upon patient request if the prescription is for a schedu... Start Date: 07/30/21 Stop Date: 08/29/21 Status: OrderedLatuda 40 mg oral tablet 1 tablet = 40 mg, By Mouth, Daily, # 30 tablet, 0 Refills, Maintenance, 07/29/21 15:13:00 EST, Tablet, [facility], Partial fill upon patient request if the prescription is for a schedule II opioid drug., 188, cm, 07/29/21 14:26:00 EST, H... Start Date: 07/29/21 Stop Date: 08/28/21 Status: Orderedmirtazapine 15 mg oral tablet 1 tablet = 15 mg, By Mouth, Daily at bedtime, # 30 tablet, 0 Refills, Maintenance, 07/29/21 15:13:00EST, Tablet, [facility], Partial fill upon patient request if the prescription is for a schedule II opioid drug., 188, cm, 07/29/21 14:2... Start Date: 07/29/21 Status: Orderedmultivitamin Multiple Vitamins oral tablet 1 tablet, By Mouth, Daily, # 30 tablet, 0 Refills, Maintenance, 07/29/21 15:14:00 EST, Tablet, [facility], Partial fill upon patient [...] 07/29/21 15:25:00 EST, Route to Pharmacy Electronically, [facility], Partial fill upon patient request if the prescription is for a sched... Start Date: 07/29/21 Status: Ordered Problem List Condition Effective Dates Status Health Status Informant Callus right 1st plantar metatarsal Active area(Confirmed) GERD without esophagitis(Confirmed) Active Hepatic hemangioma(Confirmed)1 Active Hyperglycemia(Confirmed) Active HTN (hypertension)(Confirmed) Active Tobacco user(Confirmed) Active 1see multiple scans )MRI) from [facility] Vital Signs Most recent to oldest 1 2 3 [Reference Range]: Height 183 cm (01/09/22 4:06 AM) Weight 118 kg (01/09/22 4:06 AM) Oxygen Saturation [94-100 %] 98 % 97 % 94 % (01/09/22 9:59 AM) (01/09/22 6:09 AM) (01/09/22 4:0 6 AM) Pulse Rate [55-90 bpm] 51 bpm 55 bpm 61 bpm *L* (01/09/22 6:09 AM) (01/09/22 4:06 AM) (01/09/22 9:59 AM) Blood Pressure [90-138/55-84 133/80 mm Hg 125/70 mm Hg 149 /79 mm Hg mm Hg] (01/09/22 9:59 AM) (01/09/22 6:09 AM) *H* (01/09/22 4:06 AM ) Respiratory Rate [16-30 15 br/min 15 br/min 17 br/mi n br/min] *L* *L* (01/09/22 6:09 AM ) (01/09/22 10:02 AM) (01/09/22 9:59 AM) Temperature [96.8-100.4 DegF] 97.5 DegF 97.8 DegF (01/09/22 9:59 AM) (01/09/22 4:06 AM) Mode of Delivery (Oxygen) Room air Room air Room a ir (01/09/22 9:59 AM) (01/09/22 6:09 AM) (01/09/22 4:0 6 AM) Blood pressure sites Arm, left Arm, left (01/09/22 9:59 AM) (01/09/22 4:06 AM) Temperature Route Oral Oral (01/09/22 9:59 AM) (01/09/22 4:06 AM) Dry Weight 118 kg (01/09/22 4:06 AM) Social History Social History Type Response Smoking Status 10 or more cigarettes (1/2 p ack or more)/day in last 30 days entered on: 12/17/18 Sex Male
--- OUTSIDE RECORDS SUMMARY | 2022-05-12 22:03 | XMS_ITS | Continuity of Care Document ---
:1965 Author Organization [facility] Address [address] [place] [address]- Care Team Providers Name Role Phone Laith Ly MD Primary Care Physician Encounter [facility] Date(s): 12/25/19 - 12/25/[address] [address]- [facility] Encounter Diagnosis Substance use disorder (Final) - 12/25/19 Discharge Disposition: A-D/C Home Attending Physician: Andreina Wallis MD Admitting Physician: Andreina Wallis MD Referring Physician: Not on Staff, Referring [...] A Adult Vaccine7 02/17/07 Given 1Admin Note: [id number] Note: ZOYD1Brkaw Note: YYRF6Abydn Note: vis Admin Note: at pxzsajb5Ilavv Note: WDJK3Gunec Note: [facility] Medications cloNIDine 0.1 mg oral [...] EDT, Tablet Start Date: 11/21/19 Status: OrderedEpiPen 2-Gm 0.3 mg injectable kit = 0.3 mg, [...] 11:29:00 EDT, Capsule Start Date: 11/21/19 Status: OrderedNarcan 4 mg/0.1 mL nasal spray = 4 mg, Nares, Both, Once, # 2 each, 0 Refills, Soft Stop, 11/26/19 16:31:00 EDT Start Date: 11/26/19 Status: OrderedRisperDAL 1 mg oral tablet 1 mg, 1, tablet, By Mouth, Daily, # 14 tablet, Refills 0, Tot. Refills 0, Maintenance, 11/27/19 12:09:00 EDT, Route to Pharmacy Electronically, [facility] 3 Start Date: 11/27/19 Stop Date: 12/11/19 [...] 0 Refills, Maintenance, 07/05/19 13:21:00 EST, Film, [id number], 07/06/19 Start Date: 07/05/19 Stop Date: 07/19/19 [...] Vital Signs Most recent to oldest [Reference Range]: 1 2 Oxygen Saturation [94-100 %] 100 % 100 % (12/25/19 9:30 AM) (12/25/19 7:42 AM) Pulse Rate [55-90 bpm] 56 bpm 45 bpm (12/25/19 9:30 AM) *L* (12/25/19 7:42 AM) Blood Pressure [90-138/55-84 mm Hg] 163/71 mm Hg 198/ 84 mm Hg *H* *H* (12/25/19 9:30 AM) (12/25/19 7:42 AM) Respiratory Rate [16-30 br/min] 18 br/min 18 br/mi n (12/25/19 9:30 AM) (12/25/19 7:42 AM) Temperature [96.8-100.4 DegF] 98.5 DegF (12/25/19 7:42 AM) Mode of Delivery (Oxygen) Room air Room air (12/25/19 9:30 AM) (12/25/19 7:42 AM) Blood pressure sites Arm, left Arm, left (12/25/19 9:30 AM) (12/25/19 7:42 AM) Temperature Route Oral (12/25/19 7:42 AM) Social History Social History Type Response Smoking Status 10 or more cigarettes (1/2 p ack or more)/day in last 30 days entered on: 12/17/18 Sex Male
--- OUTSIDE RECORDS SUMMARY | 2022-05-12 22:03 | XMS_ITS | Continuity of Care Document ---
:1965 Author Organization [facility] Address [address] [place] [address]- Care Team Providers Name Role Phone Not on Staff, PCP Primary Care Physician Unavailable Encounter [facility] Date(s): 02/28/22 - 02/28/[address] [address]- Encounter Diagnosis Crack cocaine use (Final) - 02/28/22 Discharge Disposition: A-D/C Home Attending Physician: Yahir Thornton DO Admitting Physician: Yahir Thornton DO Referring Physician: Not on Staff, Referring [...] A Adult Vaccine7 02/17/07 Given 1Admin Note: CLEC6Uielu Note: AMHX4Suxst Note: MBAL6Aptxy Note: vis Admin Note: at eqgsxfn6Fckyj Note: [id number] Note: [facility] Medications amLODIPine 5 mg oral tablet 1 tablet = 5 mg, By Mouth, Daily, # 30 tablet, 0 Refills, Maintenance, 07/29/21 15:13:00 EST, Tablet, [facility], Partial fill upon patient request if the prescription is for a schedule II opioid drug., 188, cm, 07/29/21 14:26:00 EST, He... Start Date: 07/29/21 Status: OrderedFlomax 0.4 mg oral capsule 0.8 mg, 2, capsule, By Mouth, Daily at bedtime, # 60 capsule, Refills 0, Tot. Refills 0, Maintenance, 07/29/21 15:25:00 EST, Route to Pharmacy Electronically, [facility], Partial fill upon patient request if the prescription is for a denice... Start Date: 07/29/21 Stop Date: 08/28/21 Status: Orderedfolic acid 1 mg oral tablet 1 mg, 1, tablet, By Mouth, Daily, # 30 tablet, Refills 0, Tot. Refills 0, Maintenance, 07/29/21 15:14:00 EST, Route to Pharmacy Electronically, [facility], Partial fill upon patient request if the prescription is for a schedule II opioid... Start Date: 07/29/21 Status: Orderedgabapentin 400 mg oral capsule 400 mg, 1, capsule, By Mouth, 3 times a day, # 90 capsule, Refills 0, Tot. Refills 0, Maintenance, 07/30/21 16:04:00 EST, [id number], [facility] fill upon patientrequest if the prescription is for a schedule II... Start Date: 07/30/21 Stop Date: 08/29/21 Status: Orderedgabapentin 400 mg oral capsule 800 mg, 2, capsule, By Mouth, 3 times a day, # 180 capsule, Refills 0, Tot. Refills 0, Maintenance, 07/30/21 9:59:00 EST, Route to Pharmacy Electronically, [facility], Partial fill upon patient request if the prescription is for a schedu... Start Date: 07/30/21 Stop Date: 08/29/21 Status: OrderedLatuda 40 mg oral tablet 1 tablet = 40 mg, By Mouth, Daily, # 30 tablet, 0 Refills, Maintenance, 07/29/21 15:13:00 EST, [facility], [facility] fill upon patient request if the prescription is for a schedule II opioid drug., 188, cm, 07/29/21 14:26:00 EST, H... Start Date: 07/29/21 Stop Date: 08/28/21 Status: Orderedmirtazapine 15 mg oral tablet 1 tablet = 15 mg, By Mouth, Daily at bedtime, # 30 tablet, 0 Refills, Maintenance, 07/29/21 15:13:00EST, Tablet, [facility], Partial fill upon patient request if the prescription is for a schedule II opioid drug., 188, cm, 07/29/21 14:2... Start Date: 07/29/21 Status: Orderedmultivitamin Multiple Vitamins oral tablet 1 tablet, By Mouth, Daily, # 30 tablet, 0 Refills, Maintenance, 07/29/21 15:14:00 EST, Tablet, [facility], Partial fill upon patient request if [...] 07/29/21 15:25:00 EST, Route to Pharmacy Electronically, [facility], Partial fill upon patient request if the prescription is for a sched... Start Date: 07/29/21 Status: Ordered Problem List Condition Confirmation Course Effective Dates Status Health I nformant Status Callus right 1st Confirmed Active plantar metatarsal area GERD without Confirmed Active esophagitis Hepatic hemangioma1 Confirmed Active Hyperglycemia Confirmed Active HTN (hypertension) Confirmed Active Tobacco user Confirmed Active 1see multiple scans )MRI) from [facility] Vital Signs Most recent to oldest 1 2 3 [Reference Range]: Oxygen Saturation [94-100 %] 97 % 99 % 98 % (02/28/22 3:55 PM) (02/28/22 12:03 PM) (02/28/22 4: 00 AM) Pulse Rate [55-90 bpm] 51 bpm 50 bpm 54 bpm *L* *L* *L* (02/28/22 4:37 PM) (02/28/22 3:55 PM) (02/28/22 12: 36 PM) Blood Pressure [90-138/55-84 140/80 mm Hg 140/80 mm Hg 155 /86 mm Hg mm Hg] *H* *H* *H* (02/28/22 4:37 PM) (02/28/22 3:55 PM) (02/28/22 12: 36 PM) Respiratory Rate [16-30 18 br/min 24 br/min 18 br/mi n br/min] (02/28/22 4:37 PM) (02/28/22 3:55 PM) (02/28/22 12: 36 PM) Temperature [96.8-100.4 DegF] 98.2 DegF (02/28/22 4:00 AM) Mode of Delivery (Oxygen) Room air Room air Room a ir (02/28/22 3:55 PM) (02/28/22 12:03 PM) (02/28/22 4: 00 AM) Blood pressure sites Arm, right Arm, left (02/28/22 3:55 PM) (02/28/22 12:03 PM) Temperature Route Oral (02/28/22 4:00 AM) Social History Social History Type Response Smoking Status 10 or more cigarettes (1/2 p ack or more)/day in last 30 days entered on: 12/17/18 Sex Male Patient Care team information PersonnelName: Not on Staff, PCP
--- OUTSIDE RECORDS SUMMARY | 2022-05-12 22:03 | XMS_ITS | Continuity of Care Document ---
:1965 Author Organization [facility] Address [address] [place] [address]- Care Team Providers Name Role Phone Laith Ly Primary Care Physician Encounter [facility] Date(s): 05/22/19 - 05/22/[address] [address]- [facility] Discharge Disposition: A-D/C Home Attending Physician: Jerilyn Enrique MD Admitting Physician: Jerilyn Enrique MD Referring Physician: Not on Staff, Referring [...] A Adult Vaccine7 02/17/07 Given 1Admin Note: [id number] Note: OLHE3Ijijs Note: ANHI6Vqgfx Note: vis Admin Note: at twipqiq4Natdw Note: [id number] Note: [facility] Medications buPROPion 100 mg/12 hours [...] 01/17/18 11:12:15 EDT, Route to Pharmacy Electronically, [id number], [facility] [address] ([facility]) Start Date: 01/17/18 Stop Date: 03/18/18 [...] user(Confirmed) Active 1see multiple scans )MRI) from [facility] Vital Signs Most recent to oldest 1 2 3 [Reference Range]: Oxygen Saturation [94-100 100 % 99 % 100 % %] (05/22/19 11:51 AM) (05/22/19 6:02 AM) (05/22/19 1:57 AM) Pulse Rate [55-90 bpm] 56 bpm 59 bpm 62 bpm (05/22/19 11:51 AM) (05/22/19 6:02 AM) (05/22/19 1:57 AM) Blood Pressure 139/81 mm Hg 159/85 mm Hg 162/93 mm Hg [90-138/55-84 mm Hg] *H* *H* *H* (05/22/19 11:51 AM) (05/22/19 6:02 AM) (05/22/19 1:57 AM) Respiratory Rate [16-30 18 br/min 16 br/min 16 br/mi n br/min] (05/22/19 11:51 AM) (05/22/19 6:02 AM) (05/22/19 1:57 AM) Temperature [96.8-100.4 97.6 DegF 97.6 DegF 98.1 Deg F DegF] (05/22/19 11:51 AM) (05/22/19 6:02 AM) (05/22/19 1:57 AM) Mode of Delivery (Oxygen) Room air Room air Room a ir (05/22/19 11:51 AM) (05/22/19 6:02 AM) (05/22/19 1:57 AM) Blood pressure sites Arm, left Arm, left Arm, left (05/22/19 11:51 AM) (05/22/19 6:02 AM) (05/22/19 1:57 AM) Temperature Route Oral Oral Oral (05/22/19 11:51 AM) (05/22/19 6:02 AM) (05/22/19 1:57 AM) Social History Social History Type Response Smoking Status 10 or more cigarettes (1/2 p ack or more)/day in last 30 days entered on: 12/17/18 Sex
--- OUTSIDE RECORDS SUMMARY | 2022-05-12 22:04 | XMS_ITS | Continuity of Care Document ---
:1965 Author Organization [facility] Address [address] [place] [address]- Care Team Providers Name Role Phone Aliyah MICHAEL, Laith Gillette Primary Care Physician Encounter [facility] Date(s): 02/05/20 - 02/06/[address] [address]- [facility] Encounter Diagnosis Altered mental state (Final) - 02/06/20 Discharge Disposition: A-D/C Home Attending Physician: Omar Szymanski MD Admitting Physician: Omar Szymanski MD Referring Physician: Not on Staff, Referring [...] A Adult Vaccine7 02/17/07 Given 1Admin Note: TFBT3Vruqt Note: XNZO8Hyphm Note: WJXN9Hvpia Note: vis Admin Note: at bvnxqfy6Qfifm Note: GKAE2Ubbje Note: [facility] Medications cloNIDine 0.1 mg oral [...] 11/27/19 12:09:00 EDT, Route to Pharmacy Electronically, [facility] 3 Start Date: 11/27/19 Stop Date: 12/11/19 [...] 0 Refills, Maintenance, 07/05/19 13:21:00 EST, Film, [id number], 07/06/19 Start Date: 07/05/19 Stop Date: 07/19/19 [...] 3 [Reference Range]: Oxygen Saturation [94-100 %] 98 % 99 % 98 % (02/06/20 6:34 AM) (02/06/20 4:15 AM) (02/05/20 10: 09 PM) Pulse Rate [55-90 bpm] 64 bpm 55 bpm 116 bpm (02/06/20 6:34 AM) (02/06/20 4:15 AM) *H* (02/05/20 10:09 P M) Blood Pressure [90-138/55-84 141/72 mm Hg 145/84 mm Hg 153 /95 mm Hg mm Hg] *H* *H* *H* (02/06/20 6:34 AM) (02/06/20 4:15 AM) (02/05/20 10: 09 PM) Respiratory Rate [16-30 18 br/min 20 br/min 21 br/mi n br/min] (02/06/20 6:34 AM) (02/06/20 4:15 AM) (02/05/20 10: 09 PM) Temperature [96.8-100.4 DegF] 98.3 DegF 98.5 DegF 98 .2 DegF (02/06/20 6:34 AM) (02/06/20 4:15 AM) (02/05/20 10: 09 PM) Mode of Delivery (Oxygen) Room air Room air Room a ir (02/06/20 6:34 AM) (02/06/20 4:15 AM) (02/05/20 10: 09 PM) Blood pressure sites Arm, left Arm, right Arm, left (02/06/20 6:34 AM) (02/06/20 4:15 AM) (02/05/20 10: 09 PM) Temperature Route Oral Axillary Axillary (02/06/20 6:34 AM) (02/06/20 4:15 AM) (02/05/20 10: 09 PM) Social History Social History Type Response Smoking Status 10 or more cigarettes (1/2 p ack or more)/day in last 30 days entered on: 12/17/18 Sex Male
--- OUTSIDE RECORDS SUMMARY | 2022-05-12 22:04 | XMS_ITS | Continuity of Care Document ---
:1965 Author Organization [facility] Address [address] [place] [address]- Care Team Providers Name Role Phone Not on Staff, PCP Primary Care Physician Unavailable Encounter [facility] Date(s): 01/27/22 - 03/04/[address] [address] Attending Physician: Laith Ly MD Admitting Physician: Laith Ly MD Referring Physician: Laith Ly MD Allergies, Adverse Reactions, Alerts Substance Reaction [...] A Adult Vaccine7 02/17/07 Given 1Admin Note: QTYL4Fwrbs Note: AKRH9Ttuqx Note: VHIU5Wsiyu Note: vis Admin Note: at qwoguqb5Dkgpm Note: YSVG2Namyy Note: [facility] Medications amLODIPine 5 mg oral tablet 1 tablet = 5 mg, By Mouth, Daily, # 30 tablet, 0 Refills, Maintenance, 07/29/21 15:13:00 EST, Tablet, [facility], Partial fill upon patient request if the prescription is for a schedule II opioid drug., 188, cm, 07/29/21 14:26:00 EST, He... Start Date: 07/29/21 Status: OrderedFlomax 0.4 mg oral capsule 0.8 mg, 2, capsule, By Mouth, Daily at bedtime, # 60 capsule, Refills 0, Tot. Refills 0, Maintenance, 07/29/21 15:25:00 EST, [facility] fill upon patient request if the prescription is for a denice... Start Date: 07/29/21 Stop Date: 08/28/21 Status: Orderedfolic acid 1 mg oral tablet 1 mg, 1, tablet, By Mouth, Daily, # 30 tablet, Refills 0, Tot. Refills 0, Maintenance, 07/29/21 15:14:00 EST, Route to Pharmacy Electronically, [facility], Partial fill upon patient request if the prescription is for a schedule II opioid... Start Date: 07/29/21 Status: Orderedgabapentin 400 mg oral capsule 400 mg, 1, capsule, By Mouth, 3 times a day, # 90 capsule, Refills 0, Tot. Refills 0, Maintenance, 07/30/21 16:04:00 EST, [id number] fill upon patientrequest if the prescription is for a schedule II... Start Date: 07/30/21 Stop Date: 08/29/21 Status: Orderedgabapentin 400 mg oral capsule 800 mg, 2, capsule, By Mouth, 3 times a day, # 180 capsule, Refills 0, Tot. Refills 0, Maintenance, 07/30/21 9:59:00 EST, Route to Pharmacy Electronically, [facility], Partial fill upon patient request if the prescription is for a schedu... Start Date: 07/30/21 Stop Date: 08/29/21 Status: OrderedLatuda 40 mg oral tablet 1 tablet = 40 mg, By Mouth, Daily, # 30 tablet, 0 Refills, Maintenance, 07/29/21 15:13:00 EST, [facility], [facility] fill upon patient request if the prescription is for a schedule II opioid drug., 188, cm, 07/29/21 14:26:00 EST, H... Start Date: 07/29/21 Stop Date: 08/28/21 Status: Orderedmirtazapine 15 mg oral tablet 1 tablet = 15 mg, By Mouth, Daily at bedtime, # 30 tablet, 0 Refills, Maintenance, 07/29/21 15:13:00EST, Tablet, [facility], Partial fill upon patient request if the prescription is for a schedule II opioid drug., 188, cm, 07/29/21 14:2... Start Date: 07/29/21 Status: Orderedmultivitamin Multiple Vitamins oral tablet 1 tablet, By Mouth, Daily, # 30 tablet, 0 Refills, Maintenance, 07/29/21 15:14:00 EST, Tablet, [facility], Partial fill upon patient request [...] 07/29/21 15:25:00 EST, Route to Pharmacy Electronically, [facility], Partial fill upon patient request if the prescription is for a sched... Start Date: 07/29/21 Status: Ordered Problem List Condition Confirmation Course Effective Dates Status Health I nformant Status Callus right 1st Confirmed Active plantar metatarsal area GERD without Confirmed Active esophagitis Hepatic hemangioma1 Confirmed Active Hyperglycemia Confirmed Active HTN (hypertension) Confirmed Active Tobacco user Confirmed Active 1see multiple scans )MRI) from [facility] Social History Social History Type Response Smoking Status 10 or more cigarettes (1/2 p ack or more)/day in last 30 days entered on: 12/17/18 Sex Male Patient Care team information PersonnelName: Not on Staff, PCP
--- OUTSIDE RECORDS SUMMARY | 2022-05-12 22:04 | XMS_ITS | Continuity of Care Document ---
:1965 Author Organization [facility] Address [address] [place] [address]- Care Team Providers Name Role Phone Aliyah MICHAEL, Laith Gillette Primary Care Physician Encounter [facility] [place] Date(s): 11/12/19 - 11/14/[address] [address]- [facility] Encounter Diagnosis Alcohol use (Final) - 11/12/19 Alcohol abuse (Final) - 11/12/19 Duodenitis (Final) - 11/12/19 Depression (Final) - 11/12/19 Suicidal ideation (Final) - 11/12/19 Discharge Disposition: Transfer to Psych Facility Attending Physician: Ronda Baker MD Admitting Physician: Ronda Baker MD Referring Physician: Not on Staff, Referring [...] A Adult Vaccine7 02/17/07 Given 1Admin Note: [id number] Note: [id number] Note: [id number] Note: vis Admin Note: at [id number] Note: [id number] Note: [facility] Medications cloNIDine 0.2 mg oral tablet 0.2 mg, 1, tablet, By Mouth, 2 times a day, TAKE 1 TABLET BY MOUTH TWICE A DAY, # 60 tablet, Refills0, Tot. Refills 0, 05/28/19 19:14:00 EST, [id number] 183,cm, 05/27/19 17:00:00 EST, Height, 90, kg, ... Start Date: 05/28/19 Status: Ordereddivalproex sodium 500 mg oral enteric coated tablet 1 tablet = 500 mg, By Mouth, 3 times a day, TAKE 1 TABLET BY MOUTH THREE TIMES A DAY, # 30 tablet, 0Refills, 05/28/19 19:12:00 EST, [facility]/pharmacy #[id number], 183, cm, 05/27/19 17:00:00 EST, Height, 90, kg, 05/27/19 17:00:00 EST, Dry Weight Start Date: 05/28/19 Status: OrderedEpiPen 2-Mg 0.3 mg injectable kit = 0.3 mg, Intramuscular, Once, # 1 application, 0 Refills, Soft Stop, 07/10/14 22:40:43 Start Date: 07/10/14 Status: Orderedgabapentin 800 mg oral tablet 1 tablet = 800 mg, By Mouth, 3 times a day, TAKE 1 TABLET BY MOUTH THREE TIMES A DAY, # 90 tablet, 0Refills, 05/28/19 19:13:00 EST, [facility]/pharmacy #[id number], 183, cm, 05/27/19 17:00:00 EST, Height, 90, kg, 05/27/19 17:00:00 EST, Dry Weight Start Date: 05/28/19 Status: OrderedLatuda 20 mg oral tablet 2 tablet = 40 mg, By Mouth, Daily, # 30 tablet, 0 Refills, Maintenance, 05/27/19 19:17:00 EST, Tablet, [facility]/pharmacy #[id number], 183, cm, 05/27/19 17:00:00 EST, Height, 90, kg, 05/27/19 17:00:00 EST, Dry Weight Start Date: 05/27/19 Status: Orderedmelatonin 3 mg oral tablet 3 tablet = 9 mg, By Mouth, Daily at bedtime, PRN for insomnia, # 60 tablet, 0 Refills, Maintenance, 11/13/19 1:44:00 EDT, Tablet Start Date: 11/13/19 Status: OrderedProtonix 40 mg oral delayed release [...] 0 Refills, Maintenance, 07/05/19 13:21:00 EST, Film, [id number], 07/06/19 Start Date: 07/05/19 Stop Date: 07/19/19 Status: Orderedtamsulosin 0.4 mg oral capsule 0.8 mg, 2, capsule, By Mouth, Daily at bedtime, TAKE 2 CAPSULES BY MOUTH AT BEDTIME, # 60 capsule, Refills 0, Tot. Refills 0, 05/28/19 19:14:00 EST, Route to Pharmacy Electronically, [facility]/pharmacy #[id number], 183, cm, 05/27/19 17:00:00 EST, Height, 90, kg,... Start Date: 05/28/19 Status: OrderedVitamin D2 2000 intl units oral [...] Range]: Oxygen Saturation [94-100 %] 97 % 96 % 98 % (11/14/19 11:26 AM) (11/14/19 6:41 AM) (11/13/19 10 :23 PM) Pulse Rate [55-90 bpm] 51 bpm 54 bpm 60 bpm *L* *L* (11/13/19 10:23 P M) (11/14/19 11:26 AM) (11/14/19 6:41 AM) Blood Pressure [90-138/55-84 112/68 mm Hg 116/48 mm Hg 122 /84 mm Hg mm Hg] (11/14/19 11:26 AM) (11/14/19 6:41 AM) (11/13/19 10 :23 PM) Respiratory Rate [16-30 18 br/min 18 br/min 20 br/mi n br/min] (11/14/19 11:26 AM) (11/14/19 8:42 AM) (11/14/19 6: 41 AM) Temperature [96.8-100.4 DegF] 97.9 DegF 97.5 DegF 98 .2 DegF (11/14/19 11:26 AM) (11/14/19 6:41 AM) (11/13/19 10 :23 PM) Mode of Delivery (Oxygen) Room air Room air Room a ir (11/14/19 11:26 AM) (11/14/19 6:41 AM) (11/13/19 10 :23 PM) Blood pressure sites Arm, right Arm, right Arm, left (11/14/19 11:26 AM) (11/14/19 6:41 AM) (11/13/19 5: 14 PM) Temperature Route Oral Oral Oral (11/14/19 11:26 AM) (11/14/19 6:41 AM) (11/13/19 10 :23 PM) Social History Social History Type Response Smoking Status 10 or more cigarettes (1/2 p ack or more)/day in last 30 days entered on: 12/17/18 Sex
--- OUTSIDE RECORDS SUMMARY | 2022-05-12 22:04 | XMS_ITS | Continuity of Care Document ---
:1965 Author Organization [facility] nter Address [address] [place] [address]- Care Team Providers Name Role Phone Laith Ly MD Primary Care Physician [place] [facility] [place](s[place] 04/01/21 - 04/01/[address] [address]- Encounter Diagnosis Visit for suture removal (Final) - 04/01/21 Discharge Disposition: A-D/C Home Attending Physician: Omar Turcios MD Admitting Physician: Omar Turcios MD Referring Physician: Not on Staff, Referring [...] A Adult Vaccine7 02/17/07 Given 1Admin Note: [id number] Note: [id number] Note: [id number] Note: vis Admin Note: at [id number] Note: [id number] Note: [facility] Medications cloNIDine 0.1 mg oral tablet 0.1 mg, 1, tablet, By Mouth, 2 times a day, # 180 tablet, Refills 0, Maintenance, 06/10/20 6:28:00 EST, Partial fill upon patient request if the prescription is for a schedule II opioid drug. Start Date: 06/10/20 Status: OrderedcloNIDine 0.1 mg oral tablet 0.2 mg, 2, [...] upon patient request Start Date: 04/17/20 Status: Orderedmelatonin 10 mg oral capsule 1 capsule = 10 mg, By Mouth, Daily at bedtime, # 30 capsule, 1 Refills, Maintenance, 11/21/19 11:29:00 EDT, Capsule Start Date: 11/21/19 Status: OrderedMelatonin 3 mg oral tablet 1 tablet = 3 mg, By Mouth, Daily at bedtime, PRN for insomnia, # 60 tablet, 0 Refills, Maintenance, 06/10/20 6:28:00 EST, Tablet, Partial fill upon patient request if the prescription is for a scheduleII opioid drug. Start Date: 06/10/20 Status: Orderedmirtazapine 7.5 mg oral tablet 2 tablet = 15 mg, By Mouth, Daily at bedtime, # 180 tablet, 0 Refills, Maintenance, 06/10/20 6:28:00EST, Tablet, Partial fill upon patient request if the prescription is for a schedule II opioid drug. Start Date: 06/10/20 Status: Orderedpantoprazole 40 mg oral delayed release [...] user(Confirmed) Active 1see multiple scans )MRI) from [facility] Vital Signs Most recent to oldest [Reference Range]: 1 Height 182 cm (04/01/21 3:56 PM) Weight 91.9 kg (04/01/21 3:56 PM) Oxygen Saturation [94-100 %] 98 % (04/01/21 3:56 PM) Pulse Rate [55-90 bpm] 56 bpm (04/01/21 3:56 PM) Blood Pressure [90-138/55-84 mm Hg] 117/72 mm Hg (04/01/21 3:56 PM) Respiratory Rate [16-30 br/min] 18 br/min (04/01/21 3:56 PM) Temperature [96.8-100.4 DegF] 98.7 DegF (04/01/21 3:56 PM) Mode of Delivery (Oxygen) Room air (04/01/21 3:56 PM) Temperature Route Oral (04/01/21 3:56 PM) Dry Weight 91.9 kg (04/01/21 3:56 PM) Weight Obtained Via Standing scale (04/01/21 3:56 PM) Social History Social History Type Response Smoking Status 10 or more cigarettes (1/2 p ack or more)/day in last 30 days entered on: 12/17/18 Sex Male
--- OUTSIDE RECORDS SUMMARY | 2022-05-12 22:04 | XMS_ITS | Continuity of Care Document ---
:1965 Author Organization [facility] nter Address [address] [place] [id number]- Care Team Providers Name Role Phone Laith Ly Primary Care Physician [place] [facility] [place] 05/27/[address] [address] [phone] Encounter Diagnosis Drug withdrawal (Final) - 05/27/19 Depression (Final) - 05/27/19 Discharge Disposition: Discharge to Hospice Med. Facility (Resp Attending Physician: Zay Huang DO Admitting Physician: Zay Huang DO Referring Physician: Not on Staff, Referring [...] A Adult Vaccine7 02/17/07 Given 1Admin Note: [id number] Note: [id number] Note: FCLY3Mnqff Note: vis Admin Note: at [id number] Note: [id number] Note: [facility] Medications buPROPion 100 mg/12 hours (SR) oral tablet, extended release = 100 mg, By Mouth, Daily, # 30 tablet, 0 Refills, Maintenance, 12/22/18 12:35:21 EDT, SR Tablet Start Date: 12/22/18 Stop Date: 01/21/19 Status: OrderedcloNIDine 0.2 mg oral tablet 0.2 mg, 1, tablet, By Mouth, 2 times a day, TAKE 1 TABLET BY MOUTH TWICE A DAY, # 60 tablet, Refills0, Tot. Refills 0, 05/28/19 19:14:00 EST, Route to Pharmacy Electronically, [facility]/pharmacy #[id number], 183,cm, 05/27/19 17:00:00 EST, Height, 90, kg, ... Start Date: 05/28/19 Status: Ordereddivalproex sodium 500 mg oral enteric coated tablet 1 tablet = 500 mg, By Mouth, 3 times a day, TAKE 1 TABLET BY MOUTH THREE TIMES A DAY, # 30 tablet, 0Refills, 05/28/19 19:12:00 EST, [facility]/pharmacy #[id number], 183, cm, 05/27/19 17:00:00 EST, Height, [...] 21:25:25 EDT, Tablet Start Date: 11/07/18 Status: Orderedfamotidine 20 mg oral tablet 20 mg, 1, tablet, By Mouth, 2 times a day, TAKE 1 TABLET BY MOUTH TWICE A DAY, # 60 tablet, Refills 0, Tot. Refills 0, 05/28/19 19:13:00 EST, [id number], cm, 05/27/19 17:00:00 EST, Height, 90, kg, 2... Start Date: 05/28/19 Status: OrderedFlomax 0.4 mg oral capsule 0.4 mg, By Mouth, Daily at bedtime, # 30 capsule, Refills 0, Tot. Refills 0, Maintenance, 12/22/18 12:35:09 EDT, Print Requisition Start Date: 12/22/18 Stop Date: 01/21/19 Status: Orderedfolic acid 1 mg oral tablet 1 mg, By Mouth, Daily, # 30 tablet, Refills 1, Tot. Refills 1, Maintenance, 01/17/18 11:12:15 EDT, Route to Pharmacy Electronically, [id number], [place] [id number] ([facility] 827) Start Date: 01/17/18 Stop Date: 03/18/18 Status: Orderedgabapentin 800 mg oral tablet 1 tablet = 800 mg, By Mouth, 3 times a day, TAKE 1 TABLET BY MOUTH THREE TIMES A DAY, # 90 tablet, 0Refills, 05/28/19 19:13:00 EST, [facility]/pharmacy #[id number], 183, cm, 05/27/19 17:00:00 EST, Height, 90, kg, 05/27/19 17:00:00 EST, Dry Weight Start Date: 05/28/19 Status: OrderedLatuda 20 mg oral tablet 1 tablet = 20 mg, By Mouth, Daily, # 30 tablet, 0 Refills, Maintenance, 05/27/19 19:17:00 EST, Tablet, [facility]/pharmacy #[id number], 183, cm, 05/27/19 17:00:00 EST, Height, 90, kg, 05/27/19 17:00:00 EST, Dry Weight Start Date: 05/27/19 Status: OrderedMelatonin 5 mg oral tablet 1 tablet = 5 mg, By Mouth, Daily at bedtime, PRN for insomnia, # 60 tablet, 0 Refills, Acute 05/28/19 19:15:00 EST, 05/27/19 19:15:00 EST, Tablet, [facility]/pharmacy #[id number], 183, cm, 05/27/19 17:00:00 EST, Height, 90, kg, 05/27/19 17:00:00 EST, Dry Weight Start Date: 05/27/19 Stop Date: 05/28/19 Status: Orderedmultivitamin Multiple Vitamins oral tablet 1 [...] Start Date: 12/22/18 Stop Date: 02/20/19 Status: Orderedtamsulosin 0.4 mg oral capsule 0.8 mg, 2, capsule, By Mouth, Daily at bedtime, TAKE 2 CAPSULES BY MOUTH AT BEDTIME, # 60 capsule, Refills 0, Tot. Refills 0, 05/28/19 19:14:00 EST, Route to Pharmacy Electronically, [facility]/pharmacy #[id number], 183, cm, 05/27/19 17:00:00 EST, Height, 90, kg,... Start Date: 05/28/19 Status: Orderedterbinafine 250 mg oral tablet 1 tablet = 250 mg, By Mouth, Daily, TAKE 1 TABLET BY MOUTH EVERY DAY, # 30 tablet, 0 Refills, 05/28/19 19:13:00 EST, [facility]/pharmacy #[id number], 183, cm, 05/27/19 17:00:00 EST, Height, 90, kg, 05/27/19 17:00:00 EST, Dry Weight Start Date: 05/28/19 Status: Ordered Problem List Condition Effective Dates Status Health Status Informant Callus right 1st plantar metatarsal Active area(Confirmed) Hepatic hemangioma(Confirmed)1 Active Hyperglycemia(Confirmed) Active Tobacco user(Confirmed) Active 1see multiple scans )MRI) from [facility] Vital Signs Most recent to oldest [Reference Range]: 1 Height 183 cm (05/27/19 5:00 PM) Weight 90 kg (05/27/19 5:00 PM) Oxygen Saturation [94-100 %] 99 % (05/27/19 5:00 PM) Pulse Rate [55-90 bpm] 73 bpm (05/27/19 5:00 PM) Blood Pressure [90-138/55-84 mm Hg] 139/89 mm Hg *H* (05/27/19 5:00 PM) Respiratory Rate [16-30 br/min] 20 br/min (05/27/19 5:00 PM) Temperature [96.8-100.4 DegF] 97.4 DegF (05/27/19 5:00 PM) Mode of Delivery (Oxygen) Room air (05/27/19 5:00 PM) Temperature Route Oral (05/27/19 5:00 PM) Dry Weight 90 kg (05/27/19 5:00 PM) Social History Social History Type Response Smoking Status 10 or more cigarettes (1/2 p ack or more)/day in last 30 days entered on: 12/17/18 Sex
--- OUTSIDE RECORDS SUMMARY | 2022-05-12 22:04 | XMS_ITS | Continuity of Care Document ---
:1965 Author Organization [facility] Address [address] [place] [id number]- Care Team Providers Name Role Phone Laith Ly Primary Care Physician Encounter [facility] Date(s): 06/23/19 - 06/23/[address] [address]- [facility] Encounter Diagnosis Neck pain (Final) - 06/23/19 Discharge Disposition: A-D/C Home Attending Physician: Damion Tarango DO Admitting Physician: Damion Tarango DO Referring Physician: Not on Staff, Referring [...] A Adult Vaccine7 02/17/07 Given 1Admin Note: [id number] Note: [id number] Note: GZBQ0Kixus Note: vis Admin Note: at zytldsh5Sranx Note: [id number] Note: [facility] Medications buPROPion 100 mg/12 hours [...] 05/28/19 19:14:00 EST, [id number],cm, 05/27/19 17:00:00 EST, Height, 90, kg, ... Start Date: 05/28/19 Status: Ordereddivalproex sodium 500 mg oral enteric coated tablet 1 tablet = 500 mg, By Mouth, 3 times a day, TAKE 1 TABLET BY MOUTH THREE TIMES A DAY, # 30 tablet, 0Refills, 05/28/19 19:12:00 EST, [facility]/pharmacy #[id number], 183, cm, 05/27/19 17:00:00 [...] 05/28/19 19:13:00 EST, Route to Pharmacy Electronically, [facility]/pharmacy #[id number], 183, cm, 05/27/19 17:00:00 [...] 01/17/18 11:12:15 EDT, Route to Pharmacy Electronically, [id number], [place] [address] ([facility] 827) Start Date: 01/17/18 Stop Date: 03/18/18 Status: Orderedgabapentin 800 mg oral tablet 1 tablet = 800 mg, By Mouth, 3 times a day, TAKE 1 TABLET BY MOUTH THREE TIMES A DAY, # 90 tablet, 0Refills, 05/28/19 19:13:00 EST, [facility]/pharmacy #[id number], 183, cm, 05/27/19 17:00:00 EST, Height, 90, kg, 05/27/19 17:00:00 EST, Dry Weight Start Date: 05/28/19 Status: Orderedibuprofen 400 mg oral tablet 400 mg, 1, tablet, By Mouth, Every 6 hours, PRN, # 60 tablet, Refills 0, Tot. Refills 0, Maintenance, for fever, 06/23/19 21:05:00 EST, Route to Pharmacy Electronically, [facility]/pharmacy #[id number], 183, cm, 05/27/19 17:00:00 EST, Height, 90, kg, 05/27/19 17:0... Start Date: 06/23/19 Status: OrderedLatuda 20 mg oral tablet 1 tablet = 20 mg, By Mouth, Daily, # 30 tablet, 0 Refills, Maintenance, 05/27/19 19:17:00 EST, Tablet, [facility]/pharmacy #[id number], 183, cm, 05/27/19 17:00:00 EST, Height, 90, kg, 05/27/19 17:00:00 EST, Dry Weight Start Date: 05/27/19 Status: Orderedlidocaine 4% topical film 1 patch, Topically, 3 times a day, # 15 each, 0 Refills, Maintenance, 06/23/19 21:05:00 EST, [facility]/pharmacy #[id number], 1 patch Topically 3 times a [...] 05/28/19 19:14:00 EST, Route to Pharmacy Electronically, [facility]/pharmacy #[id number], 183, cm, 05/27/19 17:00:00 EST, Height, 90, kg,... Start Date: 05/28/19 Status: Orderedterbinafine 250 mg oral tablet 1 tablet = 250 mg, By Mouth, Daily, TAKE 1 TABLET BY MOUTH EVERY DAY, # 30 tablet, 0 Refills, 05/28/19 19:13:00 EST, [facility]/pharmacy #[id number], 183, cm, 05/27/19 17:00:00 EST, Height, 90, kg, 05/27/19 17:00:00 EST, Dry Weight Start Date: 05/28/19 Status: OrderedTylenol 325 mg oral capsule 2 capsule = 650 mg, By Mouth, Every 6 hours, PRN as needed for fever, # 90 capsule, 0 Refills, Maintenance, 06/23/19 21:05:00 EST, Capsule, [facility]/pharmacy #[id number], 183, cm, 05/27/19 17:00:00 EST, Height, 90, kg, 05/27/19 17:00:00 EST, Dry Weight Start Date: 06/23/19 Status: Ordered Problem List Condition Effective Dates Status Health Status Informant Callus right 1st plantar metatarsal Active area(Confirmed) Hepatic hemangioma(Confirmed)1 Active Hyperglycemia(Confirmed) Active Tobacco user(Confirmed) Active 1see multiple scans )[facility] Results Radiology Reports Exam Date Time Procedure Performing Provider Status 06/23/19 8:30 PM Thoracic Spine 3 Views Stupak , Ethan; Auth (Sia ified) Notes:(Thoracic Spine 3 Views) Reason For Exam: With Pain;TraumaRESULT: Thoracic Spine 3 Views Thoracic Spine 3 Views Reason: Trauma; With Pain; Clinical Question(s): Fracture Dislocation; COMPARISON: None. FINDINGS: No acute fracture. Normal alignment. Intact vertebral heights. Normal soft tissues. IMPRESSION: No acute abnormality. WSN: [id number] Dictated By: Paddy Crowley MD Dictated Date/Time: 06/23/19 9:47 pm Reviewed By: Paddy Crowley MD Signed By: Paddy Crowley MD Signed Date/Time: 06/23/19 9:47 pm Transcribed By: CORBY Transcribed Date/Time: 06/23/19 9:46 pm Exam Date Time Procedure Performing Provider Status 06/23/19 8:30 PM Lumbar Spine 2 or 3 Views Stupak , Ethan; Auth ( Verified) Notes:(Lumbar Spine 2 or 3 Views) Reason For Exam: with Pain;TraumaRESULT: Lumbar Spine 2 or 3 Views Lumbar Spine 2 or 3 Views Indication: Back pain after trauma. COMPARISON: None. FINDINGS: Normal alignment. Intact vertebral heights. No acute fracture. IMPRESSION: No evidence of acute fracture or subluxation. WSN: [id number] Dictated By: Paddy Crowley MD Dictated Date/Time: 06/23/19 8:48 pm Reviewed By: Paddy Crowley MD Signed By: Paddy Crowley MD Signed Date/Time: 06/23/19 8:48 pm Transcribed By: CORBY Transcribed Date/Time: 06/23/19 8:47 pm Vital Signs Most recent to oldest 1 2 3 [Reference Range]: Oxygen Saturation [94-100 %] 100 % 100 % 100 % (06/23/19 7:13 PM) (06/23/19 3:52 PM) (06/23/19 2:0 2 PM) Pulse Rate [55-90 bpm] 54 bpm 62 bpm 52 bpm *L* (06/23/19 3:52 PM) *L* (06/23/19 7:13 PM) (06/23/19 2:02 PM) Blood Pressure [90-138/55-84 mm 167/62 mm Hg 156/90 mm Hg 149/95 mm Hg Hg] *H* *H* *H* (06/23/19 7:13 PM) (06/23/19 3:52 PM) (06/23/19 2:0 2 PM) Respiratory Rate [16-30 br/min] 18 br/min 18 br/min 18 br/min (06/23/19 7:13 PM) (06/23/19 3:52 PM) (06/23/19 2:0 2 PM) Temperature [96.8-100.4 DegF] 98.7 DegF 98.4 DegF (06/23/19 7:13 PM) (06/23/19 2:02 PM) Mode of Delivery (Oxygen) Room air Room air Room a ir (06/23/19 7:13 PM) (06/23/19 3:52 PM) (06/23/19 2:0 2 PM) Blood pressure sites Arm, left Arm, left Arm, left (06/23/19 7:13 PM) (06/23/19 3:52 PM) (06/23/19 2:0 2 PM) Temperature Route Oral Oral (06/23/19 7:13 PM) (06/23/19 2:02 PM) Social History Social History Type Response Smoking Status 10 or more cigarettes (1/2 p ack or more)/day in last 30 days entered on: 12/17/18 Sex
--- OUTSIDE RECORDS SUMMARY | 2022-05-12 22:04 | XMS_ITS | Continuity of Care Document ---
:1965 Author Organization [facility] Address [address] [place] [id number]- Care Team Providers Name Role Phone Laith Ly Primary Care Physician [place] [facility] [place] 07/06/[address] [address] [facility] Encounter Diagnosis Abdominal pain (Final) - 07/05/19 Discharge Disposition: A-D/C Home Attending Physician: Vladimir Auguste MD Admitting Physician: Lexus Rivera MD Referring Physician: Not on Staff, Referring [...] A Adult Vaccine7 02/17/07 Given 1Admin Note: [id number] Note: MPUR6Ztebz Note: LXFL5Zqdsj Note: vis Admin Note: at meghbzf6Lhzem Note: HCLL1Talqc Note: [facility] Medications cloNIDine 0.2 mg oral tablet 0.2 mg, 1, tablet, By Mouth, 2 times a day, TAKE 1 TABLET BY MOUTH TWICE A DAY, # 60 tablet, Refills0, Tot. Refills 0, 01/05/20 19:14:00 EST, Route to Pharmacy Electronically, [facility]/pharmacy #[id number], 183,cm, 05/27/19 17:00:00 EST, Height, 90, kg, ... Start Date: 05/28/19 Status: Ordereddivalproex sodium 500 mg oral enteric coated tablet 1 tablet = 500 mg, By Mouth, 3 times a day, TAKE 1 TABLET BY MOUTH THREE TIMES A DAY, # 30 tablet, 0Refills, 05/28/19 19:12:00 EST, [facility]/pharmacy #[id number], 183, cm, 05/27/19 17:00:00 EST, Height, [...] 05/28/19 19:13:00 EST, Route to Pharmacy Electronically, [facility]/pharmacy #[id number], 183, cm, 05/27/19 17:00:00 EST, Height, 90, kg, 2... Start Date: 05/28/19 Status: Orderedfolic acid 1 mg oral tablet 1 mg, By Mouth, Daily, # 30 tablet, Refills 1, Tot. Refills 1, Maintenance, 01/17/18 11:12:15 EDT, Route to Pharmacy Electronically, [id number], [facility] [address] ([facility] 827) Start Date: 01/17/18 Stop Date: 03/18/18 Status: Orderedgabapentin 800 mg oral tablet 1 tablet = 800 mg, By Mouth, 3 times a day, TAKE 1 TABLET BY MOUTH THREE TIMES A DAY, # 90 tablet, 0Refills, 05/28/19 19:13:00 EST, [facility]/pharmacy #[id number], 183, cm, 05/27/19 17:00:00 EST, Height, 90, kg, 05/27/19 17:00:00 EST, Dry Weight Start Date: 05/28/19 Status: Orderedibuprofen 400 mg oral tablet 400 mg, 1, tablet, By Mouth, Every 6 hours, PRN, # 60 tablet, Refills 0, Tot. Refills 0, Maintenance, for fever, 06/23/19 21:05:00 EST, [id number], cm, 05/27/19 17:00:00 EST, Height, 90, kg, 05/27/19 17:0... Start Date: 06/23/19 Status: OrderedLatuda 20 mg oral tablet 1 tablet = 20 mg, By Mouth, Daily, # 30 tablet, 0 Refills, Maintenance, 05/27/19 19:17:00 EST, [id number], 183, cm, 05/27/19 17:00:00 EST, Height, 90, kg, 05/27/19 17:00:00 EST, Dry Weight Start Date: 05/27/19 Status: Orderedlidocaine 4% topical film 1 patch, Topically, 3 times a day, # 15 each, 0 Refills, Maintenance, 06/23/19 21:05:00 EST, [facility]/pharmacy #[id number], 1 patch Topically 3 times a day, 183, cm, 05/27/19 17:00:00 EST, Height, 90, kg, 05/27/19 17:00:00 EST, Dry Weight Start Date: 06/23/19 Status: Orderedmultivitamin Multiple Vitamins oral tablet 1 tablet, By Mouth, Daily, # 30 tablet, 1 Refills, Maintenance, 01/17/18 11:12:22 EDT, Tablet, 1 tablet By Mouth Daily,x30 days Start Date: 01/17/18 Stop Date: 03/18/18 Status: Orderedomeprazole 20 mg oral enteric coated capsule 1 capsule = 20 mg, By Mouth, Daily Start Date: 07/05/19 Status: OrderedSuboxone 8 mg-2 mg sublingual film 2 film, Sublingual, Daily, dissolve under the tongue MAssPAT reviewed, # 28 each, 0 Refills, Maintenance, 07/05/19 13:21:00 EST, Film, [id number], 07/06/19 Start Date: 07/05/19 Stop Date: 07/19/19 Status: Orderedtamsulosin 0.4 mg oral capsule 0.8 mg, 2, capsule, By Mouth, Daily at bedtime, TAKE 2 CAPSULES BY MOUTH AT BEDTIME, # 60 capsule, Refills 0, Tot. Refills 0, 05/28/19 19:14:00 EST, Route to Pharmacy Electronically, [facility]/pharmacy #[id number], 183, cm, 05/27/19 17:00:00 EST, Height, 90, kg,... Start Date: 05/28/19 Status: Orderedterbinafine 250 mg oral tablet 1 tablet = 250 mg, By Mouth, Daily, TAKE 1 TABLET BY MOUTH EVERY DAY, # 30 tablet, 0 Refills, 05/28/19 19:13:00 EST, [facility]/pharmacy #[id number], 183, cm, 05/27/19 17:00:00 EST, Height, 90, kg, 05/27/19 17:00:00 EST, Dry Weight Start Date: 05/28/19 Status: Ordered Problem List Condition Effective Dates Status Health Status Informant Callus right 1st plantar metatarsal Active area(Confirmed) Hepatic hemangioma(Confirmed)1 Active Hyperglycemia(Confirmed) Active Tobacco user(Confirmed) Active 1see multiple scans )MRI) from incarceration system Procedures Procedure Date Related Diagnosis Body Site Status Upper gastrointestinal endoscopy 07/06/19 Completed Vital Signs Most recent to oldest 1 2 3 [Reference Range]: Height 183 cm 183 cm 183 cm (07/06/19 12:26 PM) (07/06/19 10:38 AM) (07/06/19 4 :52 AM) Weight 90 kg 90 kg 90 kg (07/06/19 10:38 AM) (07/04/19 9:45 PM) (07/04/19 9: 41 PM) Oxygen Saturation [94-100 %] 99 % 99 % 99 % (07/06/19 12:26 PM) (07/06/19 12:01 PM) (07/06/19 1 1:47 AM) Pulse Rate [55-90 bpm] 46 bpm 44 bpm 51 bpm *L* *L* *L* (07/06/19 12:26 PM) (07/06/19 10:38 AM) (07/06/19 4 :52 AM) Body Mass Index [18.5-24.99] 26.87 26.87 *H* *H* (07/06/19 10:38 AM) (07/04/19 9:41 PM) Blood Pressure [90-138/55-84 112/59 mm Hg 107/75 mm Hg 102 /72 mm Hg mm Hg] (07/06/19 12:26 PM) (07/06/19 12:01 PM) (07/06/19 1 1:47 AM) Respiratory Rate [16-30 20 br/min 18 br/min 18 br/mi n br/min] (07/06/19 12:26 PM) (07/06/19 11:47 AM) (07/06/19 1:42 AM) Temperature [96.8-100.4 97.3 DegF 97 DegF 98.2 Deg F DegF] (07/06/19 12:26 PM) (07/06/19 10:38 AM) (07/06/19 7 :00 AM) Mode of Delivery (Oxygen) Room air Room air Room a ir (07/06/19 12:26 PM) (07/06/19 12:01 PM) (07/06/19 1:47 AM) Blood pressure sites Arm, right Arm, right Arm, right (07/06/19 12:26 PM) (07/06/19 11:47 AM) (07/06/19 1:42 AM) Temperature Route Oral Temporal Oral (07/06/19 12:26 PM) (07/06/19 10:38 AM) (07/06/19 7 :00 AM) Dry Weight 90 kg (07/04/19 9:41 PM) Weight Obtained Via Bed scale (07/04/19 9:45 PM) Social History Social History Type Response Smoking Status 10 or more cigarettes (1/2 p ack or more)/day in last 30 days entered on: 12/17/18 Sex
--- OUTSIDE RECORDS SUMMARY | 2022-05-12 22:04 | XMS_ITS | Continuity of Care Document ---
:1965 Author Organization [facility] Address [address] [place] [id number]- Care Team Providers Name Role Phone Laith Ly Primary Care Physician Encounter [facility] [place] Date(s): 07/03/19 - 07/04/[address] [address]- [facility] Encounter Diagnosis Vomiting (Final) - 07/04/19 Discharge Disposition: A-D/C Home Attending Physician: Raúl Islas MD Admitting Physician: Raúl Islas MD Referring Physician: Not on Staff, Referring [...] A Adult Vaccine7 02/17/07 Given 1Admin Note: [id number] Note: FDNS5Xgxxa Note: XNDO1Bazla Note: vis Admin Note: at brrpjkp1Wmoxq Note: FVBP5Qxbey Note: [facility] Medications buPROPion 100 mg/12 hours [...] 05/28/19 19:14:00 EST, Route to Pharmacy Electronically, [facility]/pharmacy #[id number], 183,cm, 05/27/19 17:00:00 EST, Height, 90, kg, ... Start Date: 05/28/19 Status: Ordereddivalproex sodium 500 mg oral enteric coated tablet 1 tablet = 500 mg, By Mouth, 3 times a day, TAKE 1 TABLET BY MOUTH THREE TIMES A DAY, # 30 tablet, 0Refills, 05/28/19 19:12:00 EST, [facility]/pharmacy #[id number], 183, cm, 05/27/19 17:00:00 [...] 05/28/19 19:13:00 EST, Route to Pharmacy Electronically, [facility]/pharmacy #[id number], 183, cm, 05/27/19 17:00:00 [...] 01/17/18 11:12:15 EDT, Route to Pharmacy Electronically, [id number], [facility] [address] ([facility] 827) Start Date: 01/17/18 Stop Date: 03/18/18 Status: Orderedgabapentin 800 mg oral tablet 1 tablet = 800 mg, By Mouth, 3 times a day, TAKE 1 TABLET BY MOUTH THREE TIMES A DAY, # 90 tablet, 0Refills, 05/28/19 19:13:00 EST, [facility]/pharmacy #[id number], 183, cm, 05/27/19 17:00:00 EST, Height, 90, kg, 05/27/19 17:00:00 EST, Dry Weight Start Date: 05/28/19 Status: Orderedibuprofen 400 mg oral tablet 400 mg, 1, tablet, By Mouth, Every 6 hours, PRN, # 60 tablet, Refills 0, Tot. Refills 0, Maintenance, for fever, 06/23/19 21:05:00 EST, Route to Pharmacy Electronically, [facility]/pharmacy #[id number], 183, cm, 05/27/19 17:00:00 EST, Height, 90, kg, 05/27/19 17:0... Start Date: 06/23/19 Status: OrderedLatuda 20 mg oral tablet 1 tablet = 20 mg, By Mouth, Daily, # 30 tablet, 0 Refills, Maintenance, 05/27/19 19:17:00 EST, Tablet, [facility]/pharmacy #[id number], 183, cm, 05/27/19 17:00:00 EST, Height, 90, kg, 05/27/19 17:00:00 EST, Dry Weight Start Date: 05/27/19 Status: Orderedlidocaine 4% topical film 1 patch, Topically, 3 times a day, # 15 each, 0 Refills, Maintenance, 06/23/19 21:05:00 EST, [facility]/pharmacy #[id number], 1 patch Topically 3 times a [...] 05/28/19 19:14:00 EST, Route to Pharmacy Electronically, [facility]/pharmacy #[id number], 183, cm, 05/27/19 17:00:00 EST, Height, 90, kg,... Start Date: 05/28/19 Status: Orderedterbinafine 250 mg oral tablet 1 tablet = 250 mg, By Mouth, Daily, TAKE 1 TABLET BY MOUTH EVERY DAY, # 30 tablet, 0 Refills, 05/28/19 19:13:00 EST, [facility]/pharmacy #[id number], 183, cm, 05/27/19 17:00:00 EST, Height, 90, kg, 05/27/19 17:00:00 EST, Dry Weight Start Date: 05/28/19 Status: OrderedTylenol 325 mg oral capsule 2 capsule = 650 mg, By Mouth, Every 6 hours, PRN as needed for fever, # 90 capsule, 0 Refills, Maintenance, 06/23/19 21:05:00 EST, Capsule, [facility]/pharmacy #[id number], 183, cm, 05/27/19 17:00:00 EST, Height, 90, kg, 05/27/19 17:00:00 EST, Dry Weight Start Date: 06/23/19 Status: OrderedZofran ODT 4 mg oral tablet, disintegrating 1 tablet = 4 mg, By Mouth, Every 8 hours, PRN Nausea & Vomiting, # 10 tablet, 0 Refills, Maintenance, 07/04/19 0:28:00 EST, Tablet, [facility] #[id number], 183, cm, 05/27/19 17:00:00 EST, Height, 90, kg, 05/27/19 17:00:00 EST, Dry Weight Start Date: 07/04/19 Status: Ordered Problem List Condition Effective Dates Status Health Status Informant Callus right 1st plantar metatarsal Active area(Confirmed) Hepatic hemangioma(Confirmed)1 Active Hyperglycemia(Confirmed) Active Tobacco user(Confirmed) Active 1see multiple scans )MRI) from incarceration system Vital Signs Most recent to oldest 1 2 3 [Reference Range]: Oxygen Saturation [94-100 %] 99 % 100 % 100 % (07/04/19 6:49 AM) (07/03/19 9:45 PM) (07/03/19 4:2 1 PM) Pulse Rate [55-90 bpm] 62 bpm 61 bpm 65 bpm (07/04/19 6:49 AM) (07/03/19 9:45 PM) (07/03/19 4:2 1 PM) Blood Pressure [90-138/55-84 mm 165/81 mm Hg 178/93 mm Hg 168/87 mm Hg Hg] *H* *H* *H* (07/04/19 6:49 AM) (07/03/19 9:45 PM) (07/03/19 4:2 1 PM) Respiratory Rate [16-30 br/min] 16 br/min 16 br/min 18 br/min (07/04/19 6:49 AM) (07/04/19 5:19 AM) (07/03/19 9:4 5 PM) Temperature [96.8-100.4 DegF] 97.9 DegF 98.4 DegF 98 .2 DegF (07/04/19 6:49 AM) (07/03/19 9:45 PM) (07/03/19 4:2 1 PM) Mode of Delivery (Oxygen) Room air Room air Room a ir (07/04/19 6:49 AM) (07/03/19 9:45 PM) (07/03/19 4:2 1 PM) Blood pressure sites Arm, left Arm, right Arm, right (07/04/19 6:49 AM) (07/03/19 9:45 PM) (07/03/19 4:2 1 PM) Temperature Route Oral Oral Oral (07/04/19 6:49 AM) (07/03/19 9:45 PM) (07/03/19 4:2 1 PM) Social History Social History Type Response Smoking Status 10 or more cigarettes (1/2 p ack or more)/day in last 30 days entered on: 12/17/18 Sex
--- OUTSIDE RECORDS SUMMARY | 2022-05-12 22:04 | XMS_ITS | Continuity of Care Document ---
:1965 Author Organization [facility] Address [address] [place] [id number]- Care Team Providers Name Role Phone Laith Ly Primary Care Physician Encounter [facility] Date(s): 05/22/19 - 05/22/[address] [address]- [facility] Encounter Diagnosis Medical clearance for psychiatric admission (Final) - 05/22/19 Alcohol abuse (Final) - 05/22/19 Discharge Disposition: A-D/C Home Attending Physician: Jerilyn [...] A Adult Vaccine7 02/17/07 Given 1Admin Note: QSAN7Tylam Note: UTWP2Szcqp Note: DWLW5Pusqb Note: vis Admin Note: at kgnbczi2Wmweu Note: OIPI8Vixvq Note: HCC[facility] Medications buPROPion 100 mg/12 hours [...] 01/17/18 11:12:15 EDT, Route to Pharmacy Electronically, [id number], [facility] [address] ([facility] 827) Start Date: 01/17/18 Stop Date: [...] user(Confirmed) Active 1see multiple scans )MRI) from [facility] Vital Signs Most recent to oldest [Reference Range]: 1 Oxygen Saturation [94-100 %] 100 % (05/22/19 3:05 PM) Pulse Rate [55-90 bpm] 68 bpm (05/22/19 3:05 PM) Blood Pressure [90-138/55-84 mm Hg] 98/55 mm Hg (05/22/19 3:05 PM) Respiratory Rate [16-30 br/min] 16 br/min (05/22/19 3:05 PM) Temperature [96.8-100.4 DegF] 98.0 DegF (05/22/19 3:05 PM) Mode of Delivery (Oxygen) Room air (05/22/19 3:05 PM) Blood pressure sites Arm, right (05/22/19 3:05 PM) Social History Social History Type Response Smoking Status 10 or more cigarettes (1/2 p ack or more)/day in last 30 days entered on: 12/17/18 Sex
--- OUTSIDE RECORDS SUMMARY | 2022-05-12 22:04 | XMS_ITS | Continuity of Care Document ---
:1965 Author Organization [facility] Address [address] [place] [address]- Care Team Providers Name Role Phone Laith Ly MD Primary Care Physician [place] [facility] [place] - 06/10/[address] [address]- Discharge Disposition: A-D/C Home Attending Physician: Samuel MICHAEL, Ronda Olmedo Admitting Physician: Ronda Baker MD Referring Physician: [...] A Adult Vaccine7 02/17/07 Given 1Admin Note: [id number] Note: NRAN2Maomz Note: DHCC3Pupxv Note: vis Admin Note: at llzxrts2Wbxik Note: XRIU8Rwqwh Note: [facility] Medications cloNIDine 0.1 mg oral tablet 0.1 [...] user(Confirmed) Active 1see multiple scans )MRI) from [facility] Vital Signs Most recent to oldest [Reference Range]: 1 2 Oxygen Saturation [94-100 %] 100 % 100 % (06/10/20 7:44 AM) (06/10/20 2:15 AM) Pulse Rate [55-90 bpm] 63 bpm 60 bpm (06/10/20 7:44 AM) (06/10/20 2:15 AM) Blood Pressure [90-138/55-84 mm Hg] 140/78 mm Hg 164/ 96 mm Hg *H* *H* (06/10/20 7:44 AM) (06/10/20 2:15 AM) Respiratory Rate [16-30 br/min] 17 br/min 18 br/mi n (06/10/20 7:44 AM) (06/10/20 2:15 AM) Temperature [96.8-100.4 DegF] 98.1 DegF 97.5 DegF (06/10/20 7:44 AM) (06/10/20 2:15 AM) Mode of Delivery (Oxygen) Room air Room air (06/10/20 7:44 AM) (06/10/20 2:15 AM) Blood pressure sites Arm, right (06/10/20 7:44 AM) Temperature Route Oral Oral (06/10/20 7:44 AM) (06/10/20 2:15 AM) Social History Social History Type Response Smoking Status 10 or more cigarettes (1/2 p ack or more)/day in last 30 days entered on: 12/17/18 Sex Male
--- OUTSIDE RECORDS SUMMARY | 2022-05-12 22:04 | XMS_ITS | Continuity of Care Document ---
:1965 Author Organization [facility] Address [address] [place] [address]- Care Team Providers Name Role Phone Laith Ly MD Primary Care Physician Encounter [facility] [place] Date(s): 01/03/20 - 02/02/[address] [address]- [facility] Allergies, Adverse Reactions, Alerts Substance Reaction Severity [...] A Adult Vaccine7 02/17/07 Given 1Admin Note: HUIJ5Tldue Note: PRLH7Mdfug Note: QDTH1Dzzee Note: vis Admin Note: at mtfaull3Nlgxm Note: QTWB9Vwfbj Note: [facility] Medications cloNIDine 0.1 mg oral tablet 0.2 [...] 11/27/19 12:09:00 EDT, Route to Pharmacy Electronically, [facility] 3 Start Date: 11/27/19 Stop Date: [...] 0 Refills, Maintenance, 07/05/19 13:21:00 EST, Film, [id number], 07/06/19 Start Date: 07/05/19 Stop Date: 07/19/19 [...] 1see multiple scans )MRI) from incarceration system Social History Social History Type Response Smoking Status 10 or more cigarettes (1/2 p ack or more)/day in last 30 days entered on: 12/17/18 Sex Male
--- OUTSIDE RECORDS SUMMARY | 2022-05-12 22:04 | XMS_ITS ---
:1965 Author Care Team Providers Name Role Phone [facility] Primary Care Provider Unavailable Allergies None recorded. Medications Name Status Start Date Stop Date ? ? amlodipine 5 mg tablet Active ? Not avail able TAKE ONE TABLET BY MOUTH DAILY chlorthalidone 25 mg tablet Active ? Not available TAKE ONE TABLET BY MOUTH DAILY clonidine HCl 0.1 mg tablet Active ? Not available Daily-Kayla (with folic acid) 400 mcg tablet Active ? Not available TAKE 1 TABLET BY MOUTH EVERY DAY famotidine 20 mg tablet Active ? Not avai lable finasteride 5 mg tablet Active ? Not avai lable TAKE ONE TABLET BY MOUTH DAILY folic acid 1 mg tablet Active ? Not avail able TAKE 1 TABLET BY MOUTH EVERY DAY gabapentin 400 mg capsule Active ? Not av ailable TAKE 2 CAPSULES BY MOUTH 3 TIMES A DAY gabapentin 800 mg tablet Active ? Not fidel ilable TAKE ONE TABLET BY MOUTH THREE TIMES DAILY hydroxyzine HCl 50 mg tablet Active ? Not available TAKE 1 TABLET BY MOUTH THREE TIMES A DAY NEEDED FOR ANXIETY hydroxyzine pamoate 50 mg capsule Active ? Not available TAKE ONE CAPSULE BY MOUTH THREE TIMES DAILY ibuprofen 600 mg tablet Active ? Not avai lable TAKE 1 TABLET BY MOUTH THREE TIMES A DAY NEEDED FOR PAIN ibuprofen 800 mg tablet Active ? Not avai lable TAKE 1 TABLET BY MOUTH EVERY 8 HOURS NEEDED FOR MILD PAIN, S JOE 1-3 Latuda 40 mg tablet Active ? Not availabl e TAKE 1 TABLET BY MOUTH EVERY DAY WITH FOOD (AT LEAST 350 CALORI ES) Latuda 80 mg tablet Active ? Not availabl e TAKE ONE TABLET BY MOUTH DAILY levofloxacin 500 mg tablet Active ? Not a vailable TAKE 1 TABLET BY MOUTH EVERY DAY FOR 5 DAYS URINARY TRACT INFEC TION melatonin 3 mg tablet Active ? Not availa ble TAKE 1 TABLET BY MOUTH AT BEDTIME melatonin 5 mg tablet Active ? Not availa ble TAKE 1 TABLET BY MOUTH ONCE DAILY AT BEDTIME. melatonin 5 mg tabs Active ? Not availabl e TAKE 1 TABLET BY MOUTH EVERY DAY AT BEDTIME NEEDED FOR INSOM DESTINY methocarbamol 500 mg tablet Active ? Not available TAKE 1&1/2 TABLETS BY MOUTH THREE TIMES A DAY NEEDED FOR MUS ZONIA SPASM mirtazapine 15 mg tablet Active ? Not fidel ilable TAKE ONE TABLET BY MOUTH AT BEDTIME mupirocin 2 % topical ointment Active ? N ot available APPLY TOPICALLY TO THE AFFECTED AREA TWICE DAILY naltrexone 50 mg tablet Active ? Not avai lable Take 1 tablet every day by oral route as directed for 7 days. naproxen 500 mg tablet Active ? Not avail able nicotine 14 mg/24 hr daily transdermal patch Active ? Not available APPLY 1 PATCH TOPICALLY EVERY DAY. REMOVE OLD PATCH BEFORE APPL MIGUEL NEW ONE. pantoprazole 40 mg tablet,delayed release Active ? Not available prazosin 1 mg capsule Active ? Not availa ble TAKE 1 CAPSULE BY MOUTH EVERYDAY AT BEDTIME Tab-A-Kayla Multivitamin w-iron 15 mg iron-400 mcg tablet Active ? Not available TAKE 1 TABLET BY MOUTH EVERY DAY tamsulosin 0.4 mg capsule Active ? Not av ailable TAKE TWO CAPSULES BY MOUTH AT BEDTIME vitamin b-1 100 mg tabs Active ? Not avai lable TAKE 1 TABLET BY MOUTH EVERY DAY Vivitrol 380 mg intramuscular suspension,extended release Active ? Not available Inject 4 mL every 4 weeks by intramuscular route as directed fo r 1 day. Problems None recorded. Procedures None recorded. Results Lab Results Date Name Specimen Result Interpretation Description Value Range Status Address ? 2021 Drug of UR ? Heroin <0.55 <10 Final [facility] Abuse Panel, negative NG/mL Cl inic, Urine NG/mL [place] [address], [place] ? ? UR ? Alco 0.00 <50.00 Final [facility] negative mg/dL Clinic, mg/dL [place] [address], [place] ? ? UR ? Amph 224.00 <500.0 Final [facility] negative 0 Clinic, NG/mL NG/mL [place] [address], [place] ? ? UR High Benzo 565.00 <200.0 Final [facility] positive 0 Clinic, NG/mL NG/mL [place] [address], [place] ? ? UR ? Bupren <0.3 <5 Final [facility] negative NG/mL Clinic, NG/mL [place] [address], [place] ? ? UR ? Metha <0.50 <300 Final [facility] negative NG/mL Clinic, NG/mL L [facility], [place] ? ? UR ? Opiate 0.00 <300 Final [place] [place] negative NG/mL Clinic, NG/mL L [facility] 1, [place] ? ? UR ? Oxyco <2.50 <100 Final [facility] negative NG/mL Clinic, NG/mL L [facility] 1, [place] ? ? UR ? Coca 30.00 <100.0 Final [facility] negative 0 Clinic, NG/mL NG/mL L [facility] 1, [place] ? ? UR High Thc 86.00 <50.00 Final [facility] positive NG/mL Clinic, NG/mL [place] [address], [place] 2021 Additional Urine ? Amphetamine 0.00 <125.0 Fin al [facility] Order Codes negative 0 Cli mc, NG/mL NG/mL L [facility] 1, [place] ? ? Urine ? Metamphetamine 0.00 <125.0 Final [facility] negative 0 Clinic, NG/mL NG/mL L [facility] [place] [address], [place] ? ? Urine ? Ritalinic Acid 0.00 <125.0 Final [facility] negative 0 Clinic, NG/mL NG/mL L [facility] 1, [place] ? ? Urine ? Benzoylecgonine 0.00 <31.25 Final [facility] negative NG/mL Clinic, NG/mL L [facility] 1, [place] ? ? Urine ? Alprazolam 0.00 <31.25 Final [place] negative NG/mL Clinic, NG/mL L [facility] 1, [place] ? ? Urine ? Oekwa-dz-iywcnqc 0.00 <31.25 Final [facility] arnold negative NG/mL Clinic, NG/mL L [facility] 1, [place] ? ? Urine ? Clonazepam 0.00 <31.25 Final [place] [place] negative NG/mL Clinic, NG/mL L [facility] 1, [place] ? ? Urine ? 7-Aminoclonazepa 0.00 <31.25 Final [facility] m negative NG/mL Clinic, NG/mL L [facility] 1, [place] ? ? Urine High Oxazepam 1733.10 <31.25 Final [facility] cutoff-oxaze NG/mL Clin ic, valdo present, L consistent [facility] diazepam; 1, nordiazepam; Leyla cy temnazepam or oxazepam use NG/mL ? ? Urine ? Lorazepam 0.00 <31.25 Final [facility] negative NG/mL Clinic, NG/mL L [facility], [place] ? ? Urine ? Chlordiazepoxide 0.00 <31.25 Final [facility] negative NG/mL Clinic, NG/mL L [facility], [place] ? ? Urine ? Diazepam 3.50 <31.25 Final [facility] negative NG/mL Clinic, NG/mL L [facility], [place] ? ? Urine ? Nordiazepam 2.60 <31.26 Final [facility] negative NG/mL Clinic, NG/mL L [facility] 1, [place] ? ? Urine ? Temazepam 7.70 <31.25 Final [place] negative NG/mL Clinic, NG/mL L [facility], [place] ? ? Urine ? Morphine 0.00 <31.25 Final [place] [place] [facility] negative NG/mL Clinic, NG/mL L [facility] 1, [place] ? ? Urine ? Codeine 0.00 <31.25 Final [facility] negative NG/mL Clinic, NG/mL L [facility] 1, [place] ? ? Urine ? Hydrocodone 0.00 <31.25 Final [facility] [place] negative NG/mL Clinic, NG/mL L [facility], [place] ? ? Urine ? Hydromorphone 0.00 <31.25 Final [facility] negative NG/mL Clinic, NG/mL L [facility] 1, [place] ? ? Urine ? 6-Acetymorphine 0.00 <31.25 Final [facility] negative NG/mL Clinic, NG/mL L [facility] 1, [place] ? ? Urine ? Buprenorphine 0.00 NG/mL <31.25 Final [facility] NG/mL Clinic, L [facility] 1, [place] ? ? Urine ? Norbuprenorphine 0.00 <31.25 Final [facility] negative NG/mL Clinic, NG/mL L [facility], [place] ? ? Urine ? Methadone 0.00 <31.25 Final [place] negative NG/mL Clinic, NG/mL L [facility] 1, [place] ? ? Urine ? Eddp 0.00 <62.50 Final [facility] negative NG/mL Clinic, NG/mL L [facility] 1, [place] ? ? Urine ? Oxycodone 0.00 <31.25 Final [place] [place] negative NG/mL Clinic, NG/mL L [facility] 1, [place] ? ? Urine ? Oxymorphone 0.00 <31.25 Final [facility] negative NG/mL Clinic, NG/mL L [facility] 1, [place] ? ? Urine High Fentanyl 20 <6 Final [facility] positive-fen NG/mL Clin ic, tanyl L present, School consistent [facility] with 1, fentanyl use Leyla cy NG/mL ? ? Urine High Norfentanyl 111.80 <6.13 Final [facility] >cutoff- NG/mL Clinic, norfentanyl L present, School consistent [facility] with 1, fentanyl use Leyla cy NG/mL ? ? Urine ? Naltrexone 0.00 <62.50 Final [place] [place] negative NG/mL Clinic, NG/mL [place] [address], [place] ? ? Urine ? Naloxone 0.00 <31.25 Final [place] [place] negative NG/mL Clinic, NG/mL [place] [address], [place] Past Encounters Encounter Date Diagnosis Provider 09/08/2021 Opioid Dependence Sharifa Lim, [employer] DEVELOPER: [address] [place] [phone], Ph. 2021 Opioid Dependence Can Weiss MD: [address] [place] [phone], Ph. Social History None recorded. Vaccine List None recorded. Plan of Care Reminders Provider Appointments None recorded. ? ? Lab None recorded. ? ? Referral None recorded. ? ? Procedures None recorded. ? ? Surgeries None recorded. ? ? Imaging None recorded. ? ? Vitals 09/08/2021 01:30PM TELE FOLLOW-UP Height 6 ft 2021 10:00AM TELE INTAKE Height Weight BMI Blood Pressure 6 ft 232 lbs 31.5 kg/m2 157/90 mm[Hg]
--- OUTSIDE RECORDS SUMMARY | 2022-05-12 22:04 | XMS_ITS | Continuity of Care Document ---
:1965 Author Organization [facility] Address [address] [place] [address] Phone Care Team Providers Name Role Phone MD Omar Dotson Emergency Provider [phone] Laiht Ly Primary Care Provider Chief Complaint and Reason for Visit Chief Complaint abd pain Allergies, Adverse Reactions, Alerts Allergen Type Severity Reaction Last Updated Verified Status amoxicillin Allergy Unknown August 29, 2021 4:34pm Yes Active Penicillins Allergy Unknown August 29, 2021 4:34pm Yes Active Social History Smoking Status Status Start Date End Date Date of Observat ion Smokes tobacco daily (finding) A pril 2021 4:38pm Observation Status Observation Response Date of Response Living Situation Sober House August 29, 2021 4:38 pm Additional Data Assigned Sex Male Problems Active Problems Medical Problem Onset Date Status Abdominal pain Active Medications Medication Status Dose Units Route Directions Qty Days Start End Ins tructions Date Date Ibuprofen Active 600 MG PO THREE TIMES 15 August 7:06pm Procedures Procedure Date Performed Status CT abdomen pelvis w con August 29, 2021 4:35pm completed Relevant Diagnostic Tests and/or Laboratory Data Laboratory Results Test Date/Time Result Interpretation Reference Result Perfo rming Range Comment Site White Blood Count August 29, 5.7 X10 4.5-11.0 [facility] 2021 4:25pm 3/uL [address] [facility] Red Blood Count August 29, 4.70 X10 4.00-5.50 [facility] 2021 4:25pm 6/uL [address] [facility] Hemoglobin August 29, 13.7 g/dl 12.0-17.0 [facility] 2021 4:25pm [address] [facility] [address] Hematocrit August 29, 41.2 % 35.0-50.0 [facility] 2021 4:25pm [address] [facility] [address] Mean Corpuscular August 29, 87.7 fl 80.0-100.0 [facility] Volume 2021 4:25pm 2099 [facility] Mean Corpuscular August 29, 29.1 pg 27.0-34.0 [facility] Hemoglobin 2021 4:25pm [facility] [address] Mean Corpuscular August 29, 33.3 g/dl 31.0-36.0 [facility] Lab Hemoglobin Concent 2021 4:25pm 2099 [facility] [address] Red Cell August 29, 14.3 % 11.5-15.0 [facility] spital Lab Distribution Width 2021 4:25pm 2099 [facility] [address] Platelet Count August 29, 309 X10 150-400 [facility] Lab 2021 4:25pm 3/uL 2099 [facility] [address] Immature August 29, 0.9 % [facility] Granulocyte % 2021 4:25pm 2099 [facility] (Auto) [facility] [address] Neutrophils (%) August 29, 36.9 % [facility] (Auto) 2021 4:25pm 2099 [facility] [address] Lymphocytes (%) August 29, 48.0 % [facility] (Auto) 2021 4:25pm 2099 [facility] [address] Monocytes (%) August 29, 8.6 % [facility] (Auto) 2021 4:25pm 2099 [facility] [address] Eosinophils (%) August 29, 5.1 % [facility] (Auto) 2021 4:25pm 2099 [facility] [address] Basophils (%) August 29, 0.5 % [facility] (Auto) 2021 4:25pm 2099 [facility] [address] Immature August 29, 0.05 X10 0.00-0.09 [facility] Granulocyte # 2021 4:25pm 3/uL [address] (Auto) [facility] [address] Neutrophils # August 29, 2.1 X10 1.5-7.8 [facility] (Auto) 2021 4:25pm 3/uL [address] [facility] [address] Lymphocytes # August 29, 2.7 X10 1.0-4.8 [facility] (Auto) 2021 4:25pm 3/uL [address] [facility] [address] Monocytes # (Auto) August 29, 0.5 X10 0.0-0.8 [facility] 2021 4:25pm 3/uL [address] [facility] [address] Eosinophils # August 29, 0.3 X10 0.0-0.5 [facility] (Auto) 2021 4:25pm 3/uL [address] [facility] [address] Basophils # (Auto) August 29, 0.0 X10 0.0-0.2 [facility] 2021 4:25pm 3/uL [address] [facility] [address] Nucleated Red August 29, 0.0 /100 0.0-0.0 [facility] Blood Cells % 2021 4:25pm WBC [facility] [facility] [address] Urine Color August 29, Yellow Yellow [facility] 2021 5:30pm [address] [facility] [address] Urine Clarity August 29, Clear Clear [facility] 2021 5:30pm [address] [facility] [address] Urine pH August 29, 5.0 5.0-8.0 [facility] Lab 2021 5:30pm [address] [facility] [address] Urine Specific August 29, 1.029 1.005-1.03 [facility] [place] 2021 5:30pm [address] [facility] [address] Urine Blood August 29, Negative Negative [facility] 2021 5:30pm mg/dL [address] [facility] [address] Urine Protein August 29, Negative Negative [facility] 2021 5:30pm mg/dL [address] [facility] [address] Urine Glucose (UA) August 29, Negative Negative [facility] 2021 5:30pm mg/dl [address] [facility] [address] Urine Ketones August 29, Negative Negative [facility] 2021 5:30pm mg/dL [address] [facility] [address] Urine Nitrate August 29, Negative Negative [facility] 2021 5:30pm [address] [facility] [address] Urine Bilirubin August 29, Negative Negative [facility] 2021 5:30pm mg/dL [address] [facility] [address] Urine Urobilinogen August 29, 0.2 Normal [facility] 2021 5:30pm E.U./dL [address] [facility] [address] Urine Leukocyte August 29, Negative Negative [facility] Esterase 2021 5:30pm mg/dL [address] [facility] [address] Sodium Level August 29, 134 mmol/L 137-146 [facility] 2021 4:25pm [address] [facility] [address] Potassium Level August 29, 5.1 mmol/L 3.5-5.3 Specimen [facility] 2021 4:25pm hemolyzed, [address] [facility] [address] affected Chloride Level August 29, 99 mmol/L 98-107 [facility] Lab 2021 4:25pm [address] [facility] [address] Carbon Dioxide August 29, 23 mmol/L 23-32 [facility] Level 2021 4:25pm [address] [facility] [address] Anion Gap August 29, 12 mmol/L 5-15 [facility] Lab 2021 4:25pm [address] [facility] [address] Blood Urea August 29, 13 mg/dl 5-25 [facility] ospital Lab Nitrogen 2021 4:25pm [address] [facility] [address] Creatinine August 29, 1.2 mg/dL 0.6-1.4 [facility] ospital Lab 2021 4:25pm [address] 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 [address] and/or Wt missing Estimated GFR August 29, 78 >60 [facility] () 2021 4:25pm [address] [facility] [address] Estimated GFR August 29, 67 >60 [facility] Lab (Non- 2021 4:25pm [address] [facility] [address] BUN/Creatinine August 29, 10.8 10.0-20.0 [facility] Ratio 2021 4:25pm [address] [facility] [address] Glucose Level August 29, 97 mg/dL 70-100 [facility] 2021 4:25pm [address] [facility] [address] Lactic Acid Level August 29, 1.2 mmol/L >0.5 [facility] 2021 4:25pm 2[address] [facility] [address] Calcium Level August 29, 9.3 mg/dl 8.6-10.3 [facility] 2021 4:25pm [address] [facility] [facility] [address] Total Bilirubin August 29, 0.4 mg/dl <1.1 [facility] 2021 4:25pm [address] [facility] [address] Aspartate Amino August 29, 48 U/L 15-41 Specimen [facility] Transf (AST/SGOT) 2021 4:25pm hemolyzed, [address] [facility] [address] affected, evaluate with caution. Alanine August 29, 70 U/L 14-63 [facility] Aminotransferase 2021 4:25pm hemolysis, [address] (ALT/SGPT) evaluate [facility] [place] [address] with caution Total Protein August 29, 8.2 g/dL 6.4-8.3 [facility] 2021 4:25pm [address] [facility] [address] Albumin August 29, 4.5 g/dl 4.0-5.0 [facility] 2021 4:25pm [address] [facility] [address] Albumin/Globulin August 29, 1.2 1.0-2.6 [facility] Ratio 2021 4:25pm [address] [facility] [address] Alkaline August 29, 80 U/L 40-129 [facility] Phosphatase 2021 4:25pm [address] [facility] [address] Lipase August 29, 37 U/L 13-60 [facility] Lab 2021 4:25pm [address] [facility] [address] Diagnostic Imaging Reports Report Dictated Date/Time Dictated By Status Radiology Report August 29, 2021 6:09pm Bret Li MD compl eted [facility] [address] [place] [address] Patient Name: Deneen Dominguez Medical Rec ord#: [id number] Address: [address] [place] [address] Account#: [id number] City/State/Zip: [place] [address]: Baltazar Dotson MD Insurance: [facility] Re quired /Age/Sex: 1965/56/M Self Pay Admit/Reg Date: 08/29/[address]: Peng Carter, PAC Location: ED.[facility]/ PCP: Pcp-Non StaffMd Date of Service: 08/29/21 Order (s): CT abdomen pelvis w con CPT Code: 69575 Report Number: [id number] Reason for Exam: periumbilical pain, mariah n with urination Clinical history: Periumbilical pain. Pa in with urination. COMPARISON: None. CT abdomen pelvis w con The examination includes sagittal and c oronal reformatted images. TECHNIQUE: CT scan of the abdomen and pelvis. Oral contrast: None. Intravenous contrast: Omnipaque This CT exam was performed with one or more of the following dose reduction techniques: automated exposure control, adjustment of the mA and/or kV according to patient size, use of iterative reconstruction te chnique. FINDINGS: Lower Chest: Minimal bibasilar atelecta sis. Liver: Mild hepatic steatosis. Indeterm inate 2 cm enhancing lesion in the left hepatic lobe segment 3. Some features agrawal ggest hemangioma. However, this diagnosis cannot be confidently confirme d. Biliary: The gall bladder is unremarkab le. There is no intra- or extra-hepatic biliary dilatation. Pancreas: Normal. Spleen: Normal. Adrenal Glands: Normal. Kidneys: No hydronephrosis or urinary s tones. Bowel: No wall thickening or dilatation . The appendix and terminal ileum are normal. Mesentery, Omentum, and Peritoneum: Nor mal. Pelvic Organs: Mild urinary bladder wal l thickening and perivesical stranding concerning for cystitis. Bones and Soft Tissues: Degenerative ch anges. No compression fracture. IMPRESSION: 1. Mild cystitis. 2. Mild hepatic steatosis. 3. Indeterminate lesion in the left hep atic lobe has some features of hemangioma. It can be better evaluated w ith dedicated MRI. 4. Normal appendix and terminal ileum. Dictated By: Bret Li MD 08/29/211808 Signed By: Bret Li MD 08/29/21 182 9 TD/TT: 08/29/211808Tech: [id number] cc: HERNAN; CHICHO; SOLIS* Laith Ly; Nidia Carter, PAC; Omar Dotson MD Vital Signs Vital Reading Result Reference Range Collection Date/ Time Body Temperature 97.8 [degF] 97.6-99.6 August 29, 2021 4:34pm Heart Rate 66 /min 60-90 August 29, 2021 4:34pm Respiratory rate 18 /min 12-24 August 29, 2021 4:34pm Oxygen saturation by Pulse 99 % 95-100 August 29, 2021 4:34pm oximetry BP Systolic 135 mm[Hg] 90-140 August 29, 2021 4:34pm BP Diastolic 86 mm[Hg] 60-90 August 29, 2021 4:34pm Advance Directives Advance Directive Response Recorded Date/Time Advance Directives No August 29, 2021 3:59 pm Health Care Proxy No August 29, 2021 3:59 pm Insurance Providers Guarantor Deneen Dominguez Address [address] [place] [address] Contact Info. Home Phone: Payer Policy Id Coverage Id Subscriber's Subscriber Id Effective E xpiration Name Date Date [facility] [id number] Deneen Castillo [id number] [facility] Self Pay Self N/A Encounters Encounter Location(s) Arrival/Admit Date Discharge/Depart Date Provider(s) Departed Gurinder August 29, 2021 August 29, 2021 [facility] 3:58pm 9:00pm y Plan of Treatment Future Tests Future scheduled test information is unavailable Pending Tests Pending diagnostic test information is unavailable Future Visits Future appointment information is unavailable Referrals to Other Providers Reason for Referral Start Provider Provider Contact Provider Address Referral Date Information Laith Ly Work Phone: [address] [place] [address] Future Procedures Future procedure information is unavailable Future Medications Future medication information is unavailable Patient Instructions ED ABDOMINAL PAIN-Unknown Cause-Mal Goals Acute Goals Rest, drink plenty of fluids. Please fol low up with your doctor. Return to ER as needed.
--- OUTSIDE RECORDS SUMMARY | 2022-05-12 22:05 | XMS_ITS ---
:1965 Author Care Team Providers Name Role Phone [facility] Primary Care Provider Unavailable Allergies None recorded. [...] negative NG/mL Cl inic, Urine NG/mL [place] [address], [place] ? ? UR ? Alco 0.00 <50.00 Final [facility] [place] negative mg/dL Clinic, mg/dL [place] [address], [place] ? ? UR ? Amph 224.00 <500.0 Final [place] negative 0 Clinic, NG/mL NG/mL [place] [address], [place] ? ? UR High Benzo 565.00 <200.0 Final [place] positive 0 Clinic, NG/mL NG/mL [place] [address], [place] ? ? UR ? Bupren <0.3 <5 Final [place] negative NG/mL Clinic, NG/mL [place] [address], [place] ? ? UR ? Metha <0.50 <300 Final [place] negative NG/mL Clinic, NG/mL L [facility] 1, [place] ? ? UR ? Opiate 0.00 <300 Final [place] negative NG/mL Clinic, NG/mL L [facility] 1, [place] ? ? UR ? Oxyco <2.50 <100 Final [place] negative NG/mL Clinic, NG/mL L [facility] 1, [place] ? ? UR ? Coca 30.00 <100.0 Final [place] negative 0 Clinic, NG/mL NG/mL L [facility] 1, [place] ? ? UR High Thc 86.00 <50.00 Final [place] positive NG/mL Clinic, NG/mL [place] [address], [place] 2021 Additional Urine ? Amphetamine 0.00 <125.0 Fin al [facility] Order Codes negative 0 Cli mc, NG/mL NG/mL L [facility] 1, [place] ? ? Urine ? Metamphetamine 0.00 <125.0 Final [facility] [place] negative 0 Clinic, NG/mL NG/mL L [facility] [place] [address], [place] ? ? Urine ? Ritalinic Acid 0.00 <125.0 Final [facility] [place] negative 0 Clinic, NG/mL NG/mL L [facility] 1, [place] ? ? Urine ? Benzoylecgonine 0.00 <31.25 Final [place] negative NG/mL Clinic, NG/mL L [facility] 1, [place] ? ? Urine ? Alprazolam 0.00 <31.25 Final [place] [place] negative NG/mL Clinic, NG/mL L [facility] 1, [place] ? ? Urine ? Tmzjp-qw-xtpdrkl 0.00 <31.25 Final [place] arnold negative NG/mL Clinic, NG/mL L [facility] 1, [place] ? ? Urine ? Clonazepam 0.00 <31.25 Final [place] [place] negative NG/mL Clinic, NG/mL L [facility] 1, [place] ? ? Urine ? 7-Aminoclonazepa 0.00 <31.25 Final [place] m negative NG/mL Clinic, NG/mL L [facility] 1, [place] ? ? Urine High [...] ee negative NG/mL Clinic, NG/mL L [facility] 1, [place] ? ? Urine ? Eddp 0.00 <62.50 Final [place] negative NG/mL Clinic, NG/mL L [facility] 1, [place] ? ? Urine ? Oxycodone 0.00 <31.[address] [place] negative NG/mL Clinic, NG/mL L [facility] 1, [place] ? ? Urine ? Oxymorphone 0.00 <31.25 Final [place] negative NG/mL Clinic, NG/mL L [facility] 1, [place] ? ? Urine High Fentanyl 20 <6 Final [place] [facility] positive-fen NG/mL Clin ic, tanyl L present, School consistent [facility] with 1, fentanyl use Leyla cy NG/mL ? ? Urine High Norfentanyl 111.80 <6.13 Final [place] >cutoff- NG/mL Clinic, norfentanyl L present, School consistent [facility] with 1, fentanyl use Leyla cy NG/mL ? ? Urine ? Naltrexone 0.00 <62.50 Final [place] [place] negative NG/mL Clinic, NG/mL [place] [address], [place] ? ? Urine ? Naloxone 0.00 <31.25 Final [place] [place] negative NG/mL Clinic, NG/mL [place] [address], [place] Past Encounters Encounter Date Diagnosis Provider 09/08/2021 Opioid Dependence Sharifa Lim, TELEPATHIST: [address] [place] [address] [phone], Ph. 2021 Opioid Dependence Can Weiss MD: [address] [place] [phone], Ph. [phone] Social History None recorded. Vaccine List None [...]
[2022-05-12 22:41] VITALS: BMI 28.5
[2022-05-12] MEDS: Melatonin 3 MG TABLET PO (23:04)
[2022-05-12] MEDS: Lurasidone HCl 80 MG TABLET PO (23:04)
[2022-05-12] MEDS: Mirtazapine 15 MG TABLET PO (23:04)
[2022-05-12] MEDS: Gabapentin 400 MG CAPSULE 800 MG PO (23:04)
[2022-05-12 23:44] VITALS: BP 120/71; PULSE 58; RESP 18; TEMP 36.6; O2SAT 97
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
[2022-05-13] MEDS: Famotidine 20 MG TABLET PO (08:09)
[2022-05-13] MEDS: Gabapentin 400 MG CAPSULE 800 MG PO ×3 (08:09→21:16)
[2022-05-13] MEDS: hydroCHLOROthiazide 25 MG TABLET PO (08:09)
[2022-05-13] MEDS: amLODIPine Besylate 5 MG TABLET PO (08:09)
[2022-05-13 08:21] VITALS: BP 158/76; PULSE 56; RESP 15; TEMP 36.4; O2SAT 99
[2022-05-13 09:38] LABS: Estimated Average Glucose 114 mg/dL; Hemoglobin A1c % 5.6 %
[2022-05-13 10:17] LABS: Alanine Aminotransferase 37 U/L (0-40); Alkaline Phosphatase 73 U/L (39-117); Anion Gap 12 (12-20); Aspartate Amino Transferase 21 U/L (5-37); Bilirubin Total 0.5 mg/dL (0.0-1.0); Blood Urea Nitrogen 17 mg/dL (9-16); Calcium 9.1 mg/dL (8.4-10.2); Carbon Dioxide 27 mmol/L (22-29); Chloride 105 mmol/L (96-108); Cholesterol 196 mg/dL; Estimated Glomerular Filt Rate > 60; Glucose Fasting 112 mg/dL (60-99); HDL Cholesterol 56 mg/dL; LDL Cholesterol Calculated 114 mg/dl; Potassium 3.8 mmol/L (3.3-5.1); Sodium 140 mmol/L (135-145); Thyroid Stimulating Hormone 0.96 uIU/mL (0.32-4.0); Total Protein 7.1 g/dL (6.5-8.0); Triglycerides 130 mg/dL
[2022-05-13 10:27] LABS: Folate 10.4 ng/mL (> or = 4.0); Vitamin B12 322 pg/mL (200-900)
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
[2022-05-13 21:12] VITALS: BP 141/78; PULSE 75; TEMP 36.6; O2SAT 98
[2022-05-13] MEDS: Mirtazapine 15 MG TABLET PO (21:17)
[2022-05-13] MEDS: Melatonin 3 MG TABLET 9 MG PO (21:17)
[2022-05-13] MEDS: Tamsulosin HCL 0.4 MG CAPSULE 0.8 MG PO (21:17)
[2022-05-13] MEDS: Lurasidone HCl 80 MG TABLET PO (21:17)
[2022-05-13] MEDS: LORazepam 1 MG TABLET PO (21:25)
[2022-05-14 07:00] VITALS: BMI 28.5
[2022-05-14 08:25] VITALS: BP 123/62; PULSE 80; TEMP 36.6; O2SAT 94
[2022-05-14] MEDS: Gabapentin 400 MG CAPSULE 800 MG PO ×3 (08:28→20:29)
[2022-05-14] MEDS: amLODIPine Besylate 5 MG TABLET PO (08:28)
[2022-05-14] MEDS: Famotidine 20 MG TABLET PO (08:28)
[2022-05-14] MEDS: hydroCHLOROthiazide 25 MG TABLET PO (08:28)
--- NOTE | 2022-05-14 16:05 | HO.PSYCHPN ---
Subjective Subjective Date of Service: 05/14/22 Reason For Visit: Major Depressive Disorder Interim History: calm, cooperative. no complaints or requests. states he is feeling fine at the moment, working with SW on programs and case mgmt outpt. per staff, quiet, withdrawn. eating well, pleasant. anx 4, dep 7. improved from admission. c/o LOVETT, right foot pain. CIWA eves 8, not scoring overnight. Mental Status Exam Mental Status Exam Narrative: adequately dressed and groomed in street clothes. cooperative. less somnolent but not alert. no PMA/PMR. speech nml rate. decr amount, loudness and rate. flattened tone. thoughts linear and logical. affect constricted, hypo-intense, non-labile. mood OK. denies SI/SIBI. no HI/AVH expressed. Diagnostics Vital Signs (24Hr): Vital Signs - 24 hr 05/13/22 21:12 05/14/22 08:25 Temperature 97.9 F 97.9 F Pulse Rate 75 80 Blood Pressure 141/78 H 123/62 Pulse Oximetry 98 94 Oxygen Delivery Method Room Air Room Air BMI result Body Mass Index 28.5 Labs Results: 05/13/22 09:03 Labs: Laboratory Results - last 48 hr 05/13/22 05/13/22 05/13/22 09:03 09:03 09:03 Sodium 140 Potassium 3.8 Chloride 105 Carbon Dioxide 27 Anion Gap 12 BUN 17 H Creatinine 1.19 Estim Creat Clear Calc 83.0 Estimated GFR > 60 Fasting Glucose 112 H Estimat Average Glucose 114 Hemoglobin A1c % 5.6 Calcium 9.1 Total Bilirubin 0.5 AST 21 ALT 37 Alkaline Phosphatase 73 Total Protein 7.1 Albumin 4.0 Triglycerides 130 Cholesterol 196 LDL Cholesterol, Calc 114 HDL Cholesterol 56 Vitamin B12 322 Folate 10.4 TSH 0.96 Medications Medications Current Medications Acetaminophen (Acetaminophen 325 Mg Tablet) 650 mg PO Q6H PRN PRN Reason: Headache/Pain Mild Scale (1-3) Al Hydroxide/Mg Hydroxide (Magnesium Hydrox/Alum Hydrox 30 Ml Oral.Susp) 30 ml PO Q6H PRN PRN Reason: Heartburn/Nausea Amlodipine Besylate (Amlodipine Besylate 5 Mg Tablet) 5 mg PO DAILY [facility]; Protocol Last Admin: 05/14/22 08:28 Dose: 5 mg Famotidine (Famotidine 20 Mg Tablet) 20 mg PO DAILY [facility] Last Admin: 05/14/22 08:28 Dose: 20 mg Gabapentin (Gabapentin 400 Mg Capsule) 800 mg PO TID [facility] Last Admin: 05/14/22 14:42 Dose: 800 mg Hydrochlorothiazide (Hydrochlorothiazide 25 Mg Tablet) 25 mg PO DAILY [facility] Last Admin: 05/14/22 08:28 Dose: 25 mg Hydroxyzine HCl (Hydroxyzine Hcl 25 Mg Tablet) 25 mg PO Q6H PRN PRN Reason: Anxiety Lorazepam (Lorazepam 1 Mg Tablet) 2 mg PO Q2H PRN PRN Reason: CIWA 12-15 Lorazepam (Lorazepam 1 Mg Tablet) 3 mg PO Q2H PRN PRN Reason: CIWA > 15, and call MD Lorazepam (Lorazepam 1 Mg Tablet) 1 mg PO Q2H PRN PRN Reason: CIWA 8-11 Last Admin: 05/13/22 21:25 Dose: 1 mg Lurasidone HCl (Lurasidone Hcl 80 Mg Tablet) 80 mg PO BEDTIME [facility] Last Admin: 05/13/22 21:17 Dose: 80 mg Magnesium Hydroxide (Milk Of Magnesia 30 Ml Oral.Susp) 30 ml PO DAILY PRN PRN Reason: Constipation Melatonin (Melatonin 3 Mg Tablet) 9 mg PO BEDTIME [facility] Last Admin: 05/13/22 21:17 Dose: 9 mg Mirtazapine (Mirtazapine 15 Mg Tablet) 15 mg PO BEDTIME [facility] Last Admin: 05/13/22 21:17 Dose: 15 mg Nicotine Polacrilex (Nicotine Polacrilex 2 Mg Gum) 4 mg BUCCAL Q2H PRN PRN Reason: Nicotine Cravings Tamsulosin HCl (Tamsulosin Hcl 0.4 Mg Capsule) 0.8 mg PO BEDTIME [facility] Last Admin: 05/13/22 21:17 Dose: 0.8 mg Trazodone HCl (Trazodone Hcl 50 Mg Tablet) 50 mg PO BEDTIME PRN PRN Reason: Insomnia Allergies Allergies Allergy/AdvReac Type Severity Reaction Status Date / Time bee pollen [BEE STINGS] Allergy Unknown ANAPHYLAXIS Verified 03/18/21 03:22 Assessment & Plan Assessment & Plan (1) Alcohol use disorder: Status: Acute Code(s): F19.90 - Other psychoactive substance use, unspecified, uncomplicated (2) Cocaine use disorder: Status: Acute Code(s): F14.10 - Cocaine abuse, uncomplicated (3) Tobacco dependence: Status: Acute Code(s): F17.200 - Nicotine dependence, unspecified, uncomplicated (4) Suicidal ideation: Status: Acute Code(s): R45.851 - Suicidal ideations Plan restart home meds. ativan per [facility] protocol for etoh. supportive care for cocaine withdrawal. referrals for support for housing and mental health and substance abuse care. 05/14: continue current mgmt. appears more alert than yesterday. Reason for contiued inpatient stay Substantial Risk for: inability to function and rapid decompensation Time Spent With Patient Time: Total time managing care of this patient today __20__ minutes.
--- NOTE | 2022-05-14 19:16 | HO.PM.IMCN ---
History of Present Illness Data of Consult Service Date: 05/14/22 Primary Care Provider: Unknown Physician HPI Reason for consult: Admission H&P Patient is a 56-year-old male with a past medical history significant for HTN, GERD, and cocaine abuse who is being seen for an admission history and physical. Last took cocaine 3 days ago. Pt complains of right great toe pain, which is a chronic condition being treated by his PCP. The pt has had a painful callus under his right great toe for years ; claims his pcp shaves it down, which helps relieve the pain. Pt has no other acute complaints. Denies chest pain/pressure, SOB. No F/C, N/V, abdominal pain. Review of Systems Review of Systems: Right great toe pain No chest pain/pressure No SOB Denies abdominal pain PMFSH Medical History Depression Epididymitis Social History (Updated 08/14/21 @ 09:07 by Nano Richardson DO) Household Members: None Housing: Homeless Do you presently have visiting nurse or other home services: No Alcohol intake: current Alcohol intake frequency: 3 or more drinks per day Alcohol type: hard liquor Patient Tobacco Use Status: Current everyday Tobacco user Tobacco use type: Cigarette Cigarette Packs Per Day: 0.5 Cigarettes Per Day: 10.0 Smoked in Last 30 Days: Yes e-Cigarette/Vaping Use: Never Used Patient Interested in Nicotine Replacement: No Patient Given Instructions on How to Stop Smoking: No Second Hand Smoke Exposure: No Use of substances other than those prescribed or required for medical reasons: Yes Substance Use Type: Crack/Cocaine Substance Use Frequency: Chronic Longstanding Last Used Substance: Days (ago) Currently Displaying Signs/Symptoms of Drug Intoxication Withdrawal: No Any prior treatment program specific to substance use: Yes Have you been hit, kicked, punched, or otherwise hurt by someone within the past year? If so, by whom?: No Do you feel safe in your current relationship?: No Current Relationship Is there a partner from a previous relationship who is making you feel unsafe now?: No Are you made to feel afraid or neglected: No Advance Directives: No Advance Directives Information Provided: No Do you have thoughts of harming others: None Do you have a plan to hurt others: No Plan Recently lost weight without trying: No Eating poorly because of decreased appetite: No Nutrition Risks: No Nutritional Risk Poor oral hygiene: No service: No Sexual orientation: Straight/Heterosexual Meds Allergies Allergy/AdvReac Type Severity Reaction Status Date / Time bee pollen [BEE STINGS] Allergy Unknown ANAPHYLAXIS Verified 03/18/21 03:22 Active Medications: Current Medications Acetaminophen (Acetaminophen 325 Mg Tablet) 650 mg PO Q6H PRN PRN Reason: Headache/Pain Mild Scale (1-3) Al Hydroxide/Mg Hydroxide (Magnesium Hydrox/Alum Hydrox 30 Ml Oral.Susp) 30 ml PO Q6H PRN PRN Reason: Heartburn/Nausea Amlodipine Besylate (Amlodipine Besylate 5 Mg Tablet) 5 mg PO DAILY [facility]; Protocol Last Admin: 05/14/22 08:28 Dose: 5 mg Famotidine (Famotidine 20 Mg Tablet) 20 mg PO DAILY [facility] Last Admin: 05/14/22 08:28 Dose: 20 mg Gabapentin (Gabapentin 400 Mg Capsule) 800 mg PO TID [facility] Last Admin: 05/14/22 14:42 Dose: 800 mg Hydrochlorothiazide (Hydrochlorothiazide 25 Mg Tablet) 25 mg PO DAILY [facility] Last Admin: 05/14/22 08:28 Dose: 25 mg Hydroxyzine HCl (Hydroxyzine Hcl 25 Mg Tablet) 25 mg PO Q6H PRN PRN Reason: Anxiety Lorazepam (Lorazepam 1 Mg Tablet) 2 mg PO Q2H PRN PRN Reason: CIWA 12-15 Lorazepam (Lorazepam 1 Mg Tablet) 3 mg PO Q2H PRN PRN Reason: CIWA > 15, and call Lorazepam (Lorazepam 1 Mg Tablet) 1 mg PO Q2H PRN PRN Reason: CIWA 8-11 Last Admin: 05/13/22 21:25 Dose: 1 mg Lurasidone HCl (Lurasidone Hcl 80 Mg Tablet) 80 mg PO BEDTIME [facility] Last Admin: 05/13/22 21:17 Dose: 80 mg Magnesium Hydroxide (Milk Of Magnesia 30 Ml Oral.Susp) 30 ml PO DAILY PRN PRN Reason: Constipation Melatonin (Melatonin 3 Mg Tablet) 9 mg PO BEDTIME [facility] Last Admin: 05/13/22 21:17 Dose: 9 mg Mirtazapine (Mirtazapine 15 Mg Tablet) 15 mg PO BEDTIME [facility] Last Admin: 05/13/22 21:17 Dose: 15 mg Nicotine Polacrilex (Nicotine Polacrilex 2 Mg Gum) 4 mg BUCCAL Q2H PRN PRN Reason: Nicotine Cravings Tamsulosin HCl (Tamsulosin Hcl 0.4 Mg Capsule) 0.8 mg PO BEDTIME [facility] Last Admin: 05/13/22 21:17 Dose: 0.8 mg Trazodone HCl (Trazodone Hcl 50 Mg Tablet) 50 mg PO BEDTIME PRN PRN Reason: Insomnia Home Medications Medication Instructions Recorded Confirmed Last Taken Type amlodipine 5 mg tablet 1 tab PO DAILY 01/14/22 05/12/22 Unknown History chlorthalidone 25 mg tablet 1 tab PO DAILY 01/14/22 05/12/22 Unknown History gabapentin 800 mg tablet 1 tab PO TID 01/14/22 05/12/22 Unknown History lurasidone 80 mg tablet (Latuda) 1 tab PO BEDTIME 01/14/22 05/12/22 Unknown History tamsulosin 0.4 mg capsule 2 cap PO DAILY 01/14/22 05/12/22 Unknown History famotidine 20 mg tablet (Pepcid) 20 mg PO DAILY 05/12/22 05/12/22 Unknown History melatonin 3 mg tablet 3 mg PO BEDTIME PRN Sleep 05/12/22 05/12/22 Unknown History mirtazapine 15 mg tablet 1 tab PO BEDTIME 05/12/22 05/12/22 Unknown History Physical Exam Vital Signs and Narrative: Vital Signs: Last Vital Signs Temp 97.9 F 05/14/22 08:25 Pulse 80 05/14/22 08:25 Resp 15 05/13/22 08:21 BP 123/62 05/14/22 08:25 Pulse Ox 94 05/14/22 08:25 O2 Del Method 05/14/22 08:25 BMI result Body Mass Index 28.5 Constitutional: Slightly somnolent, in no acute distress. Mental Status: Oriented to person, place and time. Eyes: Pupils are equal, round, and reactive to light. Ear, Nose, and Throat: Oropharynx clear, mucous membranes moist. Ears and nose without deformities. Trachea midline. Respiratory: Clear to auscultation bilaterally. No wheezing, rales, or rhonchi. Cardiovascular: S1, S2 regular. No murmurs, rubs, or gallops. Gastrointestinal: Abdomen soft, non-tender, non-distended. NOrmal bowel sounds. Neurologic: Cranial nerves II-XI are grossly intact. NO focal neurological deficits. Moves all extremities spontaneously. Skin: No rashes of lesions. Musculoskeletal: No cyanosis or clubbing. Extremities: No edema. Psychiatric: Flattened affect. Results Labs CBC and Chem 7: 05/13/22 09:03 Assessment and Plan (1) Cocaine use disorder: Status: Acute (2) Physical exam: Status: Acute Plan Patient is a 56-year-old male with a past medical history significant for HTN, GERD, and cocaine abuse who is being seen for an admission history and physical. Last took cocaine 3 days ago. Pt complains of right great toe pain, which is a chronic condition being treated by his PCP. # chronic callus of right great toe -- callus under MTP joint, no signs of infection or ulceration -- pt claims has apt with PCP on 06/25/22 -- Tylenol for pain -- f/u with pcp # HTN -- continue amlodipine, chorthalidone # GERD -- continue famotidine Thank you for allowing me to participate in the care of this patient. Signing off at this time. Please let me know if there are any medical questions in the future. Time Spent With Patient Time: Total time managing care of this patient today ____ minutes.
[2022-05-14 20:20] VITALS: BP 134/86; PULSE 67; TEMP 36.6; O2SAT 97
[2022-05-14] MEDS: Lurasidone HCl 80 MG TABLET PO (20:29)
[2022-05-14] MEDS: Mirtazapine 15 MG TABLET PO (20:30)
[2022-05-14] MEDS: Tamsulosin HCL 0.4 MG CAPSULE 0.8 MG PO (20:30)
[2022-05-14] MEDS: Melatonin 3 MG TABLET 9 MG PO (20:30)
[2022-05-14] MEDS: hydrOXYzine HCL 25 MG TABLET PO (20:38)
[2022-05-14] MEDS: Magnesium Hydrox/Alum Hydrox 30 ML ORAL.SUSP PO (21:08)
[2022-05-15] MEDS: hydrOXYzine HCL 25 MG TABLET PO (04:01)
[2022-05-15 09:50] VITALS: BP 138/76; PULSE 74; TEMP 36.6; O2SAT 97
[2022-05-15] MEDS: Gabapentin 400 MG CAPSULE 800 MG PO (09:56)
[2022-05-15] MEDS: Famotidine 20 MG TABLET PO ×2 (09:57→20:42)
[2022-05-15] MEDS: hydroCHLOROthiazide 25 MG TABLET PO (09:57)
[2022-05-15] MEDS: amLODIPine Besylate 5 MG TABLET PO (09:57)
[2022-05-15] MEDS: Gabapentin 300 MG CAPSULE 900 MG PO ×2 (14:43→20:43)
--- NOTE | 2022-05-15 14:45 | HO.PSYCHPN ---
Subjective Subjective Date of Service: 05/15/22 Reason For Visit: Major Depressive Disorder Interim History: calm, cooperative. c/o LOVETT and GERD. pepcid increased to 20 BID. c/o peripheral neuropathy, gabapentin increase to 900 TID. will work with SW on dispo planning. per staff, feels mellow. isolative, resting. denies SI/HI/AVH. not attending groups. flat, guarded. wanted to clear my thoughts as goal for admission, which he feels he is making progress on. not scoring on CIWA. Mental Status Exam Mental Status Exam Narrative: adequately dressed and groomed in street clothes. cooperative. alert. no PMA/PMR. speech nml rate. decr amount, loudness and rate. flattened tone. thoughts linear and logical. affect constricted, hypo-intense, non-labile. no SI/HI/AVH expressed. Diagnostics Vital Signs (24Hr): Vital Signs - 24 hr 05/14/22 20:20 05/15/22 09:50 Temperature 97.9 F 97.8 F Pulse Rate 67 74 Blood Pressure 134/86 138/76 Pulse Oximetry 97 97 Oxygen Delivery Method Room Air Room Air BMI result Body Mass Index 28.5 Labs Results: 05/13/22 09:03 Medications Medications Current Medications Acetaminophen (Acetaminophen 325 Mg Tablet) 650 mg PO Q6H PRN PRN Reason: Headache/Pain Mild Scale (1-3) Al Hydroxide/Mg Hydroxide (Magnesium Hydrox/Alum Hydrox 30 Ml Oral.Susp) 30 ml PO Q6H PRN PRN Reason: Heartburn/Nausea Last Admin: 05/14/22 21:08 Dose: 30 ml Amlodipine Besylate (Amlodipine Besylate 5 Mg Tablet) 5 mg PO DAILY [facility]; Protocol Last Admin: 05/15/22 09:57 Dose: 5 mg Famotidine (Famotidine 20 Mg Tablet) 20 mg PO BID [facility] Gabapentin (Gabapentin 300 Mg Capsule) 900 mg PO TID [facility] Last Admin: 05/15/22 14:43 Dose: 900 mg Hydrochlorothiazide (Hydrochlorothiazide 25 Mg Tablet) 25 mg PO DAILY [facility] Last Admin: 05/15/22 09:57 Dose: 25 mg Hydroxyzine HCl (Hydroxyzine Hcl 25 Mg Tablet) 25 mg PO Q6H PRN PRN Reason: Anxiety Last Admin: 05/15/22 04:01 Dose: 25 mg Lurasidone HCl (Lurasidone Hcl 80 Mg Tablet) 80 mg PO BEDTIME [facility] Last Admin: 05/14/22 20:29 Dose: 80 mg Magnesium Hydroxide (Milk Of Magnesia 30 Ml Oral.Susp) 30 ml PO DAILY PRN PRN Reason: Constipation Melatonin (Melatonin 3 Mg Tablet) 9 mg PO BEDTIME [facility] Last Admin: 05/14/22 20:30 Dose: 9 mg Mirtazapine (Mirtazapine 15 Mg Tablet) 15 mg PO BEDTIME [facility] Last Admin: 05/14/22 20:30 Dose: 15 mg Nicotine Polacrilex (Nicotine Polacrilex 2 Mg Gum) 4 mg BUCCAL Q2H PRN PRN Reason: Nicotine Cravings Tamsulosin HCl (Tamsulosin Hcl 0.4 Mg Capsule) 0.8 mg PO BEDTIME [facility] Last Admin: 05/14/22 20:30 Dose: 0.8 mg Trazodone HCl (Trazodone Hcl 50 Mg Tablet) 50 mg PO BEDTIME PRN PRN Reason: Insomnia Allergies Allergies Allergy/AdvReac Type Severity Reaction Status Date / Time bee pollen [BEE STINGS] Allergy Unknown ANAPHYLAXIS Verified 03/18/21 03:22 Assessment & Plan Assessment & Plan (1) Cocaine use disorder: Status: Acute Code(s): F14.10 - Cocaine abuse, uncomplicated (2) Physical exam: Status: Acute Code(s): Z00.00 - Encounter for general adult medical examination without abnormal findings Assessment and Plan: plan: 05/13: restart home meds. ativan per CIWA protocol for etoh. supportive care for cocaine withdrawal. referrals for support for housing and mental health and substance abuse care. 05/14: continue current mgmt.? appears more alert than yesterday. 05/15: nml level of consciousness. not scoring on CIWA so protocol DCed. pepcid increased to 20 BID for GERD. gabapentin increased to 900 TID for neuropathic pain. working with SW on dispo referrals. Reason for contiued inpatient stay Substantial Risk for: inability to function and rapid decompensation Time Spent With Patient Time: Total time managing care of this patient today __25__ minutes.
[2022-05-15 20:30] VITALS: BP 133/75; PULSE 79; RESP 18; TEMP 36.6; O2SAT 97
[2022-05-15] MEDS: Melatonin 3 MG TABLET 9 MG PO (20:43)
[2022-05-15] MEDS: Lurasidone HCl 80 MG TABLET PO (20:43)
[2022-05-15] MEDS: Tamsulosin HCL 0.4 MG CAPSULE 0.8 MG PO (20:43)
[2022-05-15] MEDS: Mirtazapine 15 MG TABLET PO (20:43)
[2022-05-15] MEDS: Acetaminophen 325 MG TABLET 650 MG PO (20:46)
[2022-05-16 08:55] VITALS: BP 123/78; PULSE 63; RESP 20; TEMP 36.8; O2SAT 96
[2022-05-16] MEDS: hydroCHLOROthiazide 25 MG TABLET PO (09:09)
[2022-05-16] MEDS: amLODIPine Besylate 5 MG TABLET PO (09:09)
[2022-05-16] MEDS: Famotidine 20 MG TABLET PO ×2 (09:09→19:43)
[2022-05-16] MEDS: Gabapentin 300 MG CAPSULE 900 MG PO ×3 (09:09→21:22)
--- NOTE | 2022-05-16 12:43 | HO.PSYCHPN ---
Subjective Subjective Date of Service: 05/16/22 Reason For Visit: Major Depressive Disorder Interim History: Discussed with team, pt completed his CIWA. I spoke with pt, says he is doing okay, slept pretty good. Appreciates pepcid increase, denies GI distress. Says the increase in gabapentin helped. No questions or concerns. Says he is feeling safe. Mental Status Exam Mental Status Exam Narrative: adequately dressed and groomed in street clothes.? cooperative.? alert.? no PMA/PMR.? speech nml rate.? decr amount, loudness and rate.? flattened tone.? thoughts linear and logical.? affect constricted, hypo-intense, non-labile.? no SI/HI/AVH expressed. Diagnostics Vital Signs (24Hr): Vital Signs - 24 hr 05/15/22 20:30 05/16/22 08:55 Temperature 97.8 F 98.2 F Pulse Rate 79 63 Respiratory Rate 18 20 Blood Pressure 133/75 123/78 Pulse Oximetry 97 96 Oxygen Delivery Method Room Air Room Air BMI result Body Mass Index 28.5 Labs Results: 05/13/22 09:03 Medications Medications Current Medications Acetaminophen (Acetaminophen 325 Mg Tablet) 650 mg PO Q6H PRN PRN Reason: Headache/Pain Mild Scale (1-3) Last Admin: 05/15/22 20:46 Dose: 650 mg Al Hydroxide/Mg Hydroxide (Magnesium Hydrox/Alum Hydrox 30 Ml Oral.Susp) 30 ml PO Q6H PRN PRN Reason: Heartburn/Nausea Last Admin: 05/14/22 21:08 Dose: 30 ml Amlodipine Besylate (Amlodipine Besylate 5 Mg Tablet) 5 mg PO DAILY [facility]; Protocol Last Admin: 05/16/22 09:09 Dose: 5 mg Famotidine (Famotidine 20 Mg Tablet) 20 mg PO BID [facility] Last Admin: 05/16/22 09:09 Dose: 20 mg Gabapentin (Gabapentin 300 Mg Capsule) 900 mg PO TID [facility] Last Admin: 05/16/22 09:09 Dose: 900 mg Hydrochlorothiazide (Hydrochlorothiazide 25 Mg Tablet) 25 mg PO DAILY [facility] Last Admin: 05/16/22 09:09 Dose: 25 mg Hydroxyzine HCl (Hydroxyzine Hcl 25 Mg Tablet) 25 mg PO Q6H PRN PRN Reason: Anxiety Last Admin: 05/15/22 04:01 Dose: 25 mg Lurasidone HCl (Lurasidone Hcl 80 Mg Tablet) 80 mg PO BEDTIME [facility] Last Admin: 05/15/22 20:43 Dose: 80 mg Magnesium Hydroxide (Milk Of Magnesia 30 Ml Oral.Susp) 30 ml PO DAILY PRN PRN Reason: Constipation Melatonin (Melatonin 3 Mg Tablet) 9 mg PO BEDTIME [facility] Last Admin: 05/15/22 20:43 Dose: 9 mg Mirtazapine (Mirtazapine 15 Mg Tablet) 15 mg PO BEDTIME [facility] Last Admin: 05/15/22 20:43 Dose: 15 mg Nicotine Polacrilex (Nicotine Polacrilex 2 Mg Gum) 4 mg BUCCAL Q2H PRN PRN Reason: Nicotine Cravings Simethicone (Simethicone 80 Mg Tab.Chew) 80 mg PO QIDWMHS PRN PRN Reason: Gas Last Admin: 05/15/22 21:06 Dose: 80 mg Tamsulosin HCl (Tamsulosin Hcl 0.4 Mg Capsule) 0.8 mg PO BEDTIME [facility] Last Admin: 05/15/22 20:43 Dose: 0.8 mg Trazodone HCl (Trazodone Hcl 50 Mg Tablet) 50 mg PO BEDTIME PRN PRN Reason: Insomnia Allergies Allergies Allergy/AdvReac Type Severity Reaction Status Date / Time bee pollen [BEE STINGS] Allergy Unknown ANAPHYLAXIS Verified 03/18/21 03:22 Assessment & Plan Assessment & Plan (1) Cocaine use disorder: Status: Acute Code(s): F14.10 - Cocaine abuse, uncomplicated (2) Physical exam: Status: Acute Code(s): Z00.00 - Encounter for general adult medical examination without abnormal findings Assessment and Plan: plan: 05/13: restart home meds. ativan per CIWA protocol for etoh. supportive care for cocaine withdrawal. referrals for support for housing and mental health and substance abuse care. 05/14: continue current mgmt.? appears more alert than yesterday. 05/15: nml level of consciousness. not scoring on CIWA so protocol DCed. pepcid increased to 20 BID for GERD. gabapentin increased to 900 TID for neuropathic pain. working with SW on dispo referrals. 05/16: reports benefit on meds, no changes Patient educated on: therapeutic strategies Reason for contiued inpatient stay Substantial Risk for: med/psych decompensation Time Spent With Patient Time: Total time managing care of this patient today ____ minutes.
[2022-05-16 20:44] VITALS: BP 125/74; PULSE 71; RESP 16; TEMP 36.6; O2SAT 95
[2022-05-16] MEDS: Melatonin 3 MG TABLET 9 MG PO (21:21)
[2022-05-16] MEDS: Lurasidone HCl 80 MG TABLET PO (21:22)
[2022-05-16] MEDS: Mirtazapine 15 MG TABLET PO (21:22)
[2022-05-16] MEDS: Tamsulosin HCL 0.4 MG CAPSULE 0.8 MG PO (21:22)
[2022-05-16] MEDS: Acetaminophen 325 MG TABLET 650 MG PO (21:23)
[2022-05-17 09:08] VITALS: BP 106/83; PULSE 75; TEMP 36.6; O2SAT 98
[2022-05-17] MEDS: Gabapentin 300 MG CAPSULE 900 MG PO ×3 (09:10→22:05)
[2022-05-17] MEDS: hydroCHLOROthiazide 25 MG TABLET PO (09:11)
[2022-05-17] MEDS: Famotidine 20 MG TABLET PO ×2 (09:11→21:21)
[2022-05-17] MEDS: amLODIPine Besylate 5 MG TABLET PO (09:11)
--- NOTE | 2022-05-17 11:19 | HO.PSYCHPN ---
Subjective Subjective Date of Service: 05/17/22 Reason For Visit: Major Depressive Disorder Interim History: Discussed with team. Spoke with pt. Says his flomax is not really helping, woke up a lot last night. Says it is like that the last couple of nights. He is feeling alright. Says he has got a lot of thoughts about what im gonna do when i get out of here, has no where to go if he cant get into respite and and is requesting an agency that helps with housing. 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 [facility]? Mental Status Exam Mental Status Exam Narrative: adequately dressed and groomed in street clothes.? cooperative.? alert.? no PMA/PMR.? speech nml rate.? decr amount, loudness and rate.? flattened tone.? thoughts linear and logical.? affect constricted, hypo-intense, non-labile.? no SI/HI/AVH expressed. Diagnostics Vital Signs (24Hr): Vital Signs - 24 hr 05/16/22 20:44 05/17/22 09:08 Temperature 97.8 F 97.9 F Pulse Rate 71 75 Respiratory Rate 16 Blood Pressure 125/74 106/83 Pulse Oximetry 95 98 Oxygen Delivery Method Room Air Room Air BMI result Body Mass Index 28.5 Labs Results: 05/13/22 09:03 Medications Medications Current Medications Acetaminophen (Acetaminophen 325 Mg Tablet) 650 mg PO Q6H PRN PRN Reason: Headache/Pain Mild Scale (1-3) Last Admin: 05/16/22 21:23 Dose: 650 mg Al Hydroxide/Mg Hydroxide (Magnesium Hydrox/Alum Hydrox 30 Ml Oral.Susp) 30 ml PO Q6H PRN PRN Reason: Heartburn/Nausea Last Admin: 05/14/22 21:08 Dose: 30 ml Amlodipine Besylate (Amlodipine Besylate 5 Mg Tablet) 5 mg PO DAILY [facility] BEDS AT [facility]; Protocol Last Admin: 05/17/22 09:11 Dose: 5 mg Benzocaine (Throat Lozenge, Medicated Lozenge) 1 lozenge MUCOUS MEM Q2H PRN PRN Reason: Sore Throat Famotidine (Famotidine 20 Mg Tablet) 20 mg PO BID [facility]S [facility]CLUDE 234 BEDS AT THE [facility] Last Admin: 05/17/22 09:11 Dose: 20 mg Gabapentin (Gabapentin 300 Mg Capsule) 900 mg PO TID [facility]S [facility]CLUDE 234 BEDS AT THE [facility] Last Admin: 05/17/22 09:10 Dose: 900 mg Hydrochlorothiazide (Hydrochlorothiazide 25 Mg Tablet) 25 mg PO DAILY [facility]CLUDE 234 BEDS AT THE [facility] Last Admin: 05/17/22 09:11 Dose: 25 mg Hydroxyzine HCl (Hydroxyzine Hcl 25 Mg Tablet) 25 mg PO Q6H PRN PRN Reason: Anxiety Last Admin: 05/15/22 04:01 Dose: 25 mg Lurasidone HCl (Lurasidone Hcl 80 Mg Tablet) 80 mg PO BEDTIME [facility] Last Admin: 05/16/22 21:22 Dose: 80 mg Magnesium Hydroxide (Milk Of Magnesia 30 Ml Oral.Susp) 30 ml PO DAILY PRN PRN Reason: Constipation Melatonin (Melatonin 3 Mg Tablet) 9 mg PO BEDTIME [facility]S [facility]CLUDE 234 BEDS AT [facility] Last Admin: 05/16/22 21:21 Dose: 9 mg Mirtazapine (Mirtazapine 15 Mg Tablet) 15 mg PO BEDTIME [facility]S [facility]CLUDE 234 BEDS AT [facility] Last Admin: 05/16/22 21:22 Dose: 15 mg Nicotine Polacrilex (Nicotine Polacrilex 2 Mg Gum) 4 mg BUCCAL Q2H PRN PRN Reason: Nicotine Cravings Simethicone (Simethicone 80 Mg Tab.Chew) 80 mg PO QIDWMHS PRN PRN Reason: Gas Last Admin: 05/17/22 09:11 Dose: 80 mg Tamsulosin HCl (Tamsulosin Hcl 0.4 Mg Capsule) 0.8 mg PO BEDTIME [facility]S [facility]CLUDE 234 BEDS AT [facility] Last Admin: 05/16/22 21:22 Dose: 0.8 mg Trazodone HCl (Trazodone Hcl 50 Mg Tablet) 50 mg PO BEDTIME PRN PRN Reason: Insomnia Allergies Allergies Allergy/AdvReac Type Severity Reaction Status Date / Time bee pollen [BEE STINGS] Allergy Unknown ANAPHYLAXIS Verified 03/18/21 03:22 Assessment & Plan Assessment & Plan (1) Cocaine use disorder: Status: Acute Code(s): F14.10 - Cocaine abuse, uncomplicated (2) Physical exam: Status: Acute Code(s): Z00.00 - Encounter for general adult medical examination without abnormal findings Assessment and Plan: plan: 05/13: restart home meds. ativan per [facility] protocol for etoh. supportive care for cocaine withdrawal. referrals for support for housing and mental health and substance abuse care. 05/14: continue current mgmt.? appears more alert than yesterday. 05/15: nml level of consciousness. not scoring on CIWA so protocol DCed. pepcid increased to 20 BID for GERD. gabapentin increased to 900 TID for neuropathic pain. working with SW on dispo referrals. 05/16: reports benefit on meds, no changes 05/17: no changes to current tx plan Patient educated on: medication risk/benefits and therapeutic strategies Reason for contiued inpatient stay Substantial Risk for: med/psych decompensation Time Spent With Patient Time: Total time managing care of this patient today ____ minutes.
[2022-05-17 20:07] VITALS: BP 123/72; PULSE 77; RESP 16; TEMP 36.7; O2SAT 97
[2022-05-17] MEDS: Melatonin 3 MG TABLET 9 MG PO (22:04)
[2022-05-17] MEDS: Lurasidone HCl 80 MG TABLET PO (22:04)
[2022-05-17] MEDS: Tamsulosin HCL 0.4 MG CAPSULE 0.8 MG PO (22:05)
[2022-05-17] MEDS: Mirtazapine 15 MG TABLET PO (22:06)
[2022-05-18 09:45] VITALS: BP 136/84; PULSE 70; TEMP 36.6; O2SAT 97
[2022-05-18] MEDS: Gabapentin 300 MG CAPSULE 900 MG PO ×3 (09:56→21:22)
[2022-05-18] MEDS: Famotidine 20 MG TABLET PO ×2 (09:57→21:22)
[2022-05-18] MEDS: hydroCHLOROthiazide 25 MG TABLET PO (09:57)
[2022-05-18] MEDS: amLODIPine Besylate 5 MG TABLET PO (09:57)
--- NOTE | 2022-05-18 13:21 | HO.PSYCHPN ---
Subjective Subjective Date of Service: 05/18/22 Reason For Visit: Major Depressive Disorder Interim History: Discussed with team. Spoke with pt. Says he is thinking about leaving tomorrow, would go to a friend's house. Gave info about [facility]. Mood is good. No questions or concerns. Feels safe. Mental Status Exam Mental Status Exam Narrative: adequately dressed and groomed in street clothes.? cooperative.? alert.? no PMA/PMR.? speech nml rate.? decr amount, loudness and rate.? flattened tone.? thoughts linear and logical.? affect constricted, hypo-intense, non-labile.? no SI/HI/AVH expressed. Diagnostics Vital Signs (24Hr): Vital Signs - 24 hr 05/17/22 20:07 05/18/22 09:45 Temperature 98.1 F 97.9 F Pulse Rate 77 70 Respiratory Rate 16 Blood Pressure 123/72 136/84 Pulse Oximetry 97 97 Oxygen Delivery Method Room Air Room Air BMI result Body Mass Index 28.5 Labs Results: 05/13/22 09:03 Medications Medications Current Medications Acetaminophen (Acetaminophen 325 Mg Tablet) 650 mg PO Q6H PRN PRN Reason: Headache/Pain Mild Scale (1-3) Last Admin: 05/16/22 21:23 Dose: 650 mg Al Hydroxide/Mg Hydroxide (Magnesium Hydrox/Alum Hydrox 30 Ml Oral.Susp) 30 ml PO Q6H PRN PRN Reason: Heartburn/Nausea Last Admin: 05/14/22 21:08 Dose: 30 ml Amlodipine Besylate (Amlodipine Besylate 5 Mg Tablet) 5 mg PO DAILY [facility]; Protocol Last Admin: 05/18/22 09:57 Dose: 5 mg Benzocaine (Throat Lozenge, Medicated Lozenge) 1 lozenge MUCOUS MEM Q2H PRN PRN Reason: Sore Throat Last Admin: 05/17/22 15:29 Dose: 1 lozenge Famotidine (Famotidine 20 Mg Tablet) 20 mg PO BID [facility] Last Admin: 05/18/22 09:57 Dose: 20 mg Gabapentin (Gabapentin 300 Mg Capsule) 900 mg PO TID [facility] Last Admin: 05/18/22 09:56 Dose: 900 mg Hydrochlorothiazide (Hydrochlorothiazide 25 Mg Tablet) 25 mg PO DAILY [facility] Last Admin: 05/18/22 09:57 Dose: 25 mg Hydroxyzine HCl (Hydroxyzine Hcl 25 Mg Tablet) 25 mg PO Q6H PRN PRN Reason: Anxiety Last Admin: 05/15/22 04:01 Dose: 25 mg Lurasidone HCl (Lurasidone Hcl 80 Mg Tablet) 80 mg PO BEDTIME [facility] Last Admin: 05/17/22 22:04 Dose: 80 mg Magnesium Hydroxide (Milk Of Magnesia 30 Ml Oral.Susp) 30 ml PO DAILY PRN PRN Reason: Constipation Melatonin (Melatonin 3 Mg Tablet) 9 mg PO BEDTIME [facility] Last Admin: 05/17/22 22:04 Dose: 9 mg Mirtazapine (Mirtazapine 15 Mg Tablet) 15 mg PO BEDTIME [facility] Last Admin: 05/17/22 22:06 Dose: 15 mg Nicotine Polacrilex (Nicotine Polacrilex 2 Mg Gum) 4 mg BUCCAL Q2H PRN PRN Reason: Nicotine Cravings Simethicone (Simethicone 80 Mg Tab.Chew) 80 mg PO QIDWMHS PRN PRN Reason: Gas Last Admin: 05/17/22 21:21 Dose: 80 mg Tamsulosin HCl (Tamsulosin Hcl 0.4 Mg Capsule) 0.8 mg PO BEDTIME [facility] Last Admin: 05/17/22 22:05 Dose: 0.8 mg Trazodone HCl (Trazodone Hcl 50 Mg Tablet) 50 mg PO BEDTIME PRN PRN Reason: Insomnia Allergies Allergies Allergy/AdvReac Type Severity Reaction Status Date / Time bee pollen [BEE STINGS] Allergy Unknown ANAPHYLAXIS Verified 03/18/21 03:22 Assessment & Plan Assessment & Plan (1) Cocaine use disorder: Status: Acute Code(s): F14.10 - Cocaine abuse, uncomplicated (2) Physical exam: Status: Acute Code(s): Z00.00 - Encounter for general adult medical examination without abnormal findings Assessment and Plan: plan: 05/13: restart home meds. ativan per CIWA protocol for etoh. supportive care for cocaine withdrawal. referrals for support for housing and mental health and substance abuse care. 05/14: continue current mgmt.? appears more alert than yesterday. 05/15: nml level of consciousness. not scoring on CIWA so protocol DCed. pepcid increased to 20 BID for GERD. gabapentin increased to 900 TID for neuropathic pain. working with SW on dispo referrals. 05/16: reports benefit on meds, no changes 05/17: no changes to current tx plan 05/18: no changes to current tx plan Patient educated on: therapeutic strategies Reason for contiued inpatient stay Substantial Risk for: med/psych decompensation Time Spent With Patient Time: Total time managing care of this patient today ____ minutes.
[2022-05-18 21:15] VITALS: BP 135/75; PULSE 81; RESP 18; TEMP 36.8; O2SAT 99
[2022-05-18] MEDS: Melatonin 3 MG TABLET 9 MG PO (21:22)
[2022-05-18] MEDS: Mirtazapine 15 MG TABLET PO (21:22)
[2022-05-18] MEDS: Tamsulosin HCL 0.4 MG CAPSULE 0.8 MG PO (21:22)
[2022-05-18] MEDS: Lurasidone HCl 80 MG TABLET PO (21:23)
[2022-05-18] MEDS: Acetaminophen 325 MG TABLET 650 MG PO (21:23)
[2022-05-19 09:40] VITALS: BP 127/78; PULSE 79; TEMP 36.7; O2SAT 99
[2022-05-19] MEDS: Gabapentin 300 MG CAPSULE 900 MG PO (09:44)
[2022-05-19] MEDS: hydroCHLOROthiazide 25 MG TABLET PO (09:45)
[2022-05-19] MEDS: Famotidine 20 MG TABLET PO (09:45)
[2022-05-19] MEDS: amLODIPine Besylate 5 MG TABLET PO (09:45)
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
--- NOTE | 2022-05-19 12:34 | PC.NURSE ---
Discharge note : Patient is A & Ox4. Patient denies SI/HI/AH/VH. Patient reports an understanding and agreement of discharge instructions. Patient denies acute physical complaints at this time.
== END 2022-05-19 12:55 | disposition home or self-care (01) | DRG 754 ==
PROVIDERS: Admitting Provider Psychiatry & Neurology Psychiatry; Visit Provider Psychiatry & Neurology Psychiatry
DX: F32.9 Major depressive disorder, single episode, unspecified (principal); R45.851 Suicidal ideations; F10.10 Alcohol abuse, uncomplicated; K21.9 Gastro-esophageal reflux disease without esophagitis; L84 Corns and callosities; I10 Essential (primary) hypertension; F14.10 Cocaine abuse, uncomplicated; F17.210 Nicotine dependence, cigarettes, uncomplicated; Z59.02 Unsheltered homelessness; Z71.6 Tobacco abuse counseling; Z79.899 Other long term (current) drug therapy
CPT/HCPCS: 36415; 80053; 80061; 82607; 82746; 83036; 84443

== ENCOUNTER 2022-06-08 16:26 | Emergency (ER) | payer OTHER, MEDICAID, SELFPAY ==
[2022-06-08 16:40] VITALS: BP 111/66; BP 130/78; PULSE 61; PULSE 72; RESP 18; TEMP 36.6; O2SAT 97; O2SAT 98; BMI 29.8
--- NOTE | 2022-06-08 16:45 | MHC.EDTECH ---
this pct assumed care of patient at 1645 ,patient was change room attendant into [facility] ,blood drawn and covid swab done and send to lab ,this pct is on a 1:1 with patient .
--- NOTE | 2022-06-08 17:09 | ED_ITS ---
HPI - Psych General Chief Complaint: Psychiatric Symptoms <Miryam Domínguez CNP - Last Filed: 06/09/22 01:04> Stated Complaint: Crisis <Miryam Domínguez CNP - Last Filed: 06/09/22 01:04> Time Seen by Provider: 06/08/22 16:37 <Miryam Domínguez ALBINA - Last Filed: 06/09/22 01:04> Source: patient <Miryam Domínguez ALBINA - Last Filed: 06/09/22 01:04> Mode of arrival: EMS <Miryam Domínguez ALBINA - Last Filed: 06/09/22 01:04> Limitations: no limitations <Miryam Domínguez ALBINA - Last Filed: 06/09/22 01:04> History of Present Illness HPI Narrative: patient is a 56-year-old male who presents to the emergency department seeking detox and also expressing vague SI/HI. patient reports that he was at [facility] all day today awaiting a bed, he made some vague statements they are surrounding SI/HI which prompted detox facility to contact EMS for transport to the emergency department so psych evaluation could be pursued prior to admission for detox. Patient states he has been increasingly depressed over the past 3 days, he has had suicidal thoughts without any specific plan. When asked whether this is situational as he has been trying to get into detox over the past 3 days, he states he is unsure, but even if he or accepted to detox he is not sure whether this would resolve his suicidality. He also expresses fru stration towards people he has been recently staying with, they have not been good friends to me and reports homicidal ideations without any specific plan. He states he is drinking 1/5 of charmaine daily, last drink at 09:00 today, snorting 3 bags of heroin, last used 2 days ago, is also using crack cocaine. Denies any history of alcohol withdrawal seizures. States he was in detox at [facility] 2 months ago, stating patient for 8 days. <Miryam DomínguezALBINA - Last Filed: 06/09/22 01:04> Related Data Home Medications: Home Medications Medication Instructions Recorded Confirmed amlodipine 5 mg tablet 1 tab PO DAILY 01/14/22 06/08/22 chlorthalidone 25 mg tablet 1 tab PO DAILY 01/14/22 06/08/22 gabapentin 800 mg tablet 1 tab PO TID 01/14/22 06/08/22 lurasidone 80 mg tablet (Latuda) 1 tab PO BEDTIME 01/14/22 06/08/22 tamsulosin 0.4 mg capsule 2 cap PO DAILY 01/14/22 06/08/22 mirtazapine 15 mg tablet 1 tab PO BEDTIME 05/12/22 06/08/22 gabapentin 400 mg capsule 1 cap PO TID 06/08/22 06/08/22 Previous Rx's Medication Instructions Recorded famotidine 20 mg tablet 20 mg PO BID 30 days #60 tabs 05/19/22 melatonin 3 mg tablet 3 mg PO BEDTIME PRN Sleep 30 days 05/19/22 #30 tabs simethicone 80 mg chewable tablet 80 mg PO QIDWMHS PRN Gas 30 days 05/19/22 (Gas Relief (simethicone)) #120 tabs <Miryam Domínguez CNP - Last Filed: 06/09/22 01:04> Allergies/Adverse Reactions: Allergies Allergy/AdvReac Type Severity Reaction Status Date / Time bee pollen [BEE STINGS] Allergy Unknown ANAPHYLAXIS Verified 03/18/21 03:22 <Miryam Domínguez CNP - Last Filed: 06/09/22 01:04> Review of Systems Review of Systems: Constitutional : No Fever, No Chills ENT/Mouth : No Ear Pain, No Nasal Congestion, No sore throat Eyes: No Eye Pain, No Swelling, No Redness Cardiovascular : No Chest Pain, No SOB Respiratory : No Cough, No Sputum, No Dyspnea Gastrointestinal : No Nausea, No Vomiting, No Diarrhea, No Hematochezia, No Melena Genitourinary : No Dysuria, No Urinary Frequency, No Hematuria Musculoskeletal : No Myalgias Skin : No Skin Lesions, No rash Neuro : No Weakness, No Numbness, No Paresthesias, No Dizziness, No Headache Psych : No Anxiety, positive Depression, positive SI/HI Heme/Lymph: No Lymphadenopathy Endocrine : No Polyuria, No Polydipsia <Miryam Domínguez CNP - Last Filed: 06/09/22 01:04> Yes all other systems are reviewed and are negative <Miryam Domínguez CNP - Last Filed: 06/09/22 01:04> ON LICENSE OF [facility] Past Medical History Attestation statement: The following information was validated with the patient. <Miryam Domínguez CNP - Last Filed: 06/09/22 01:04> Source: old records reviewed <Miryam Domínguez CNP - Last Filed: 06/09/22 01:04> Medical History: Medical History Depression Epididymitis Physical exam <Miryam Domínguez CNP - Last Filed: 06/09/22 01:04> Social History Social History: Social History (Updated 08/14/21 @ 09:07 by Nano Richardson DO) Household Members: None Housing: Homeless Do you presently have visiting nurse or other home services: No Alcohol intake: current Alcohol intake frequency: 3 or more drinks per day Alcohol type: hard liquor Patient Tobacco Use Status: Current everyday Tobacco user Tobacco use type: Cigarette Cigarette Packs Per Day: 0.5 Cigarettes Per Day: 10.0 e-Cigarette/Vaping Use: Never Used Second Hand Smoke Exposure: No Substance Use Type: Crack/Cocaine Advance Directives: No Advance Directives Information Provided: No Healthcare Proxy: No Guardian: No service: No Sexual orientation: Straight/Heterosexual <Miryam Domínguez CNP - Last Filed: 06/09/22 01:04> Physical Exam Vital Signs: Vital Signs: Last Vital Signs Temp 97.4 F 06/09/22 05:57 Pulse 63 06/09/22 05:57 Resp 16 06/09/22 05:57 BP 114/63 06/09/22 05:57 Pulse Ox 96 06/09/22 05:57 O2 Del Method 06/09/22 05:57 BMI result Body Mass Index 29.8 <Miryam Domínguez CNP - Last Filed: 06/09/22 01:04> Vital Signs: Last Vital Signs Temp 97.4 F 06/09/22 05:57 Pulse 63 06/09/22 05:57 Resp 16 06/09/22 05:57 BP 114/63 06/09/22 05:57 Pulse Ox 96 06/09/22 05:57 O2 Del Method 06/09/22 05:57 BMI result Body Mass Index 29.8 <Tyrone Martinez MD - Last Filed: 06/09/22 07:28> Appearance: Alert.?Oriented to person, place and time. No acute distress.?Normal affect. Eyes: Pupils equal, round and reactive to light.? ENT: Pharynx normal.?? Neck: Normal inspection.? Neck supple.?? CVS: Heart sounds normal. Normal heart rate and rhythm.? Pulses normal.?? Respiratory: No respiratory distress.? Lung sounds clear to auscultation bilaterally?? Abdomen: Soft and non-tender. Normoactive bowel sounds. ? Skin: Skin warm and dry.? Normal skin color.? Extremities: No lower extremity edema.? Neuro: Moves all extremities spontaneously. Sensation intact bilaterally. CN II- XII intact. No focal neuro deficits. Ambulates with normal steady gait. <Miryam Domínguez CNP - Last Filed: 06/09/22 01:04> Course Reevaluation(s) Reevaluation #1: CBC is overall unremarkable, mild normocytic anemia which appears consistent with baseline. BMP overall normal. Urinalysis/ drug abuse screen pending at this time. Patient evaluated by care team, determination that at this time no indication for inpatient psychiatric services. 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 At this time he was placed in physician observation to assist with tox placement. He is calm and cooperative. No physical complaints. Vital signs stable. No apparent distress. <Miryam Domínguez CNP - Last Filed: 06/09/22 01:04> Time: 20:41 <Miryam Domínguez CNP - Last Filed: 06/09/22 01:04> Reevaluation #2: Seen by care team arranged bed to detox,no SI nnow,I personally examed the pty no SI no HI,care team arremnged trasportation to detox <Tyrone Martinez MD - Last Filed: 06/09/22 07:28> Medications Administered Generic Name Dose Route Start Last Admin Trade Name Freq PRN Reason Stop Dose Admin Gabapentin 800 mg 06/08/22 22:45 06/08/22 22:51 Gabapentin 400 Mg Capsule PO 800 mg TID PHILIP Administration Lurasidone HCl 80 mg 06/08/22 22:45 06/08/22 23:04 Lurasidone Hcl 80 Mg Tablet PO 80 mg BEDTIME PHILIP Administration Melatonin 3 mg 06/08/22 22:33 06/08/22 22:51 Melatonin 3 Mg Tablet PO 3 mg BEDTIME PRN Administration Sleep Mirtazapine 15 mg 06/08/22 22:45 06/08/22 22:51 Mirtazapine 15 Mg Tablet PO 15 mg BEDTIME PHILIP Administration <Miryam Domínguez CNP - Last Filed: 06/09/22 01:04> Medications Administered Generic Name Dose Route Start Last Admin Trade Name Freq PRN Reason Stop Dose Admin Gabapentin 800 mg 06/08/22 22:45 06/08/22 22:51 Gabapentin 400 Mg Capsule PO 800 mg TID PHILIP Administration Lurasidone HCl 80 mg 06/08/22 22:45 06/08/22 23:04 Lurasidone Hcl 80 Mg Tablet PO 80 mg BEDTIME PHILIP Administration Melatonin 3 mg 06/08/22 22:33 06/08/22 22:51 Melatonin 3 Mg Tablet PO 3 mg BEDTIME PRN Administration Sleep Mirtazapine 15 mg 06/08/22 22:45 06/08/22 22:51 Mirtazapine 15 Mg Tablet PO 15 mg BEDTIME PHILIP Administration <Tyrone Martinez MD - Last Filed: 06/09/22 07:28> Medical Decision Making Medical Decision Making MDM Narrative: patient is a 56-year-old male with a past medical history of polysubstance abuse presenting to emergency department requesting detox but also expressing vague suicidal ideations and homicidal ideations without any specific plan. He is calm and cooperative, without any physical complaints. Physical examination is benign. Discussed plan of care with patient, will obtain basic labs, drug of abuse screen, ethanol level, COVID- 19 testing. Care team to be consult did for evaluation; determination as to whether inpatient psychiatric services are required at this time, in addition to assistance with potential placement detox. Patient currently with 1:1 observation safety checks in the main emergency department. All questions answered. Patient agreeable with plan of care. <Miryam Domínguez CNP - Last Filed: 06/09/22 01:04> Admission/Observation Consideration of admission/observation: Escalation of care including admission/observation considered ( Physician observation as noted in course) <Miryam Domínguez EMBEDDED LINUX ENGINEER - Last Filed: 06/09/22 01:04> Lab Data [facility] Lab Attestation statement: I reviewed the patient's lab results. <Miryam RaiALBINA reddy - Last Filed: 06/09/22 01:04> Result Diagrams: 06/08/22 17:29 06/08/22 17:29 <Miryam Jeffrey ALBINA Domínguez - Last Filed: 06/09/22 01:04> Labs: Lab Results 06/08/22 06/08/22 06/08/22 Range/Units 17:29 17:29 17:29 WBC 6.4 (4.8-10.8) X10*3/uL RBC 4.57 L (4.60-5.80) X10*6/uL Hgb 13.3 L (14.0-18.0) g/dl Hct 38.8 L (42.0-52.0) % MCV 84.9 (80.0-98.0) fL MCH 29.1 (27.0-33.0) pg MCHC 34.3 (31.0-36.0) g/dl RDW 15.0 (11.0-16.0) % Plt Count 266 (160-400) X10*3/uL MPV 9.0 L (9.4-12.4) fL Absolute Nucleated RBC 0.000 (0.0-0.012) X10*3/uL Nucleated RBC % (auto) 0.0 (0.0-0.2) /100WBC Sodium 139 (135-145) mmol/L Potassium 3.7 (3.3-5.1) mmol/L Chloride 106 (96-108) mmol/L Carbon Dioxide 24 (22-29) mmol/L Anion Gap 13 (12-20) BUN 21 H (9-16) mg/dL Creatinine 1.20 (0.5-1.4) mg/dL Estim Creat Clear Calc 84.0 Estimated GFR > 60 Random Glucose 87 (60-115) mg/dL Calcium 9.0 (8.4-10.2) mg/dL Urine Color Urine Appearance Urine pH (5.0-9.0) Ur Specific [place] (1.005-1.025) Urine Protein (Neg-Trace) mg/dL Urine Glucose (UA) (Negative) mg/dL Urine Ketones (Negative) mg/dL Urine Blood (Negative) Urine Nitrite (Negative) Ur Leukocyte Esterase (Negative) Urine RBC (0-2) /HPF Urine WBC (0-5) /HPF Ur Squamous Epith Cells (0-2) /HPF Urine Bacteria (None Seen) Hyaline Casts (0-2) /LPF Urine Opiates Screen (Not Detect) Urine Fentanyl Screen (Not Detect) Ur Barbiturates Screen (Not Detect) Ur Phencyclidine Scrn (Not Detect) Ur Amphetamines Screen (Not Detect) U Benzodiazepines Scrn (Not Detect) Urine Cocaine Screen (Not Detect) U Marijuana (THC) Screen (Not Detect) Ethyl Alcohol < 10 mg/dL COVID-19 ([place]) Negative (Negative) COVID-19 Clin Com See Note 06/08/22 06/08/22 Range/Units 21:53 21:53 WBC (4.8-10.8) X10*3/uL RBC (4.60-5.80) X10*6/uL Hgb (14.0-18.0) g/dl Hct (42.0-52.0) % MCV (80.0-98.0) fL MCH (27.0-33.0) pg MCHC (31.0-36.0) g/dl RDW (11.0-16.0) % Plt Count (160-400) X10*3/uL MPV (9.4-12.4) fL Absolute Nucleated RBC (0.0-0.012) X10*3/uL Nucleated RBC % (auto) (0.0-0.2) /100WBC Sodium (135-145) mmol/L Potassium (3.3-5.1) mmol/L Chloride (96-108) mmol/L Carbon Dioxide (22-29) mmol/L Anion Gap (12-20) BUN (9-16) mg/dL Creatinine (0.5-1.4) mg/dL Estim Creat Clear Calc Estimated GFR Random Glucose (60-115) mg/dL Calcium (8.4-10.2) mg/dL Urine Color Yellow Urine Appearance Clear Urine pH 6.0 (5.0-9.0) Ur Specific [place] 1.025 (1.005-1.025) Urine Protein Negative (Neg-Trace) mg/dL Urine Glucose (UA) Negative (Negative) mg/dL Urine Ketones Trace (Negative) mg/dL Urine Blood Negative (Negative) Urine Nitrite Negative (Negative) Ur Leukocyte Esterase Small (1+) H (Negative) Urine RBC 0-2 (0-2) /HPF Urine WBC 6-10 H (0-5) /HPF Ur Squamous Epith Cells 0-2 (0-2) /HPF Urine Bacteria None Seen (None Seen) Hyaline Casts 0-2 (0-2) /LPF Urine Opiates Screen Not Detected (Not Detect) Urine Fentanyl Screen POSITIVE H (Not Detect) Ur Barbiturates Screen Not Detected (Not Detect) Ur Phencyclidine Scrn Not Detected (Not Detect) Ur Amphetamines Screen Not Detected (Not Detect) U Benzodiazepines Scrn Not Detected (Not Detect) Urine Cocaine Screen POSITIVE H (Not Detect) U Marijuana (THC) Screen POSITIVE H (Not Detect) Ethyl Alcohol mg/dL COVID-19 ([place]) (Negative) COVID-19 Clin Com <Miryam Domínguez CNP - Last Filed: 06/09/22 01:04> Lab Results 06/08/22 06/08/22 06/08/22 Range/Units 17:29 17:29 17:29 WBC 6.4 (4.8-10.8) X10*3/uL RBC 4.57 L (4.60-5.80) X10*6/uL Hgb 13.3 L (14.0-18.0) g/dl Hct 38.8 L (42.0-52.0) % MCV 84.9 (80.0-98.0) fL MCH 29.1 (27.0-33.0) pg MCHC 34.3 (31.0-36.0) g/dl RDW 15.0 (11.0-16.0) % Plt Count 266 (160-400) X10*3/uL MPV 9.0 L (9.4-12.4) fL Absolute Nucleated RBC 0.000 (0.0-0.012) X10*3/uL Nucleated RBC % (auto) 0.0 (0.0-0.2) /100WBC Sodium 139 (135-145) mmol/L Potassium 3.7 (3.3-5.1) mmol/L Chloride 106 (96-108) mmol/L Carbon Dioxide 24 (22-29) mmol/L Anion Gap 13 (12-20) BUN 21 H (9-16) mg/dL Creatinine 1.20 (0.5-1.4) mg/dL Estim Creat Clear Calc 84.0 Estimated GFR > 60 Random Glucose 87 (60-115) mg/dL Calcium 9.0 (8.4-10.2) mg/dL Urine Color Urine Appearance Urine pH (5.0-9.0) Ur Specific [place] (1.005-1.025) Urine Protein (Neg-Trace) mg/dL Urine Glucose (UA) (Negative) mg/dL Urine Ketones (Negative) mg/dL Urine Blood (Negative) Urine Nitrite (Negative) Ur Leukocyte Esterase (Negative) Urine RBC (0-2) /HPF Urine WBC (0-5) /HPF Ur Squamous Epith Cells (0-2) /HPF Urine Bacteria (None Seen) Hyaline Casts (0-2) /LPF Urine Opiates Screen (Not Detect) Urine Fentanyl Screen (Not Detect) Ur Barbiturates Screen (Not Detect) Ur Phencyclidine Scrn (Not Detect) Ur Amphetamines Screen (Not Detect) U Benzodiazepines Scrn (Not Detect) Urine Cocaine Screen (Not Detect) U Marijuana (THC) Screen (Not Detect) Ethyl Alcohol < 10 mg/dL COVID-19 ([place]) Negative (Negative) COVID-19 Clin Com See Note 06/08/22 06/08/22 Range/Units 21:53 21:53 WBC (4.8-10.8) X10*3/uL RBC (4.60-5.80) X10*6/uL Hgb (14.0-18.0) g/dl Hct (42.0-52.0) % MCV (80.0-98.0) fL MCH (27.0-33.0) pg MCHC (31.0-36.0) g/dl RDW (11.0-16.0) % Plt Count (160-400) X10*3/uL MPV (9.4-12.4) fL Absolute Nucleated RBC (0.0-0.012) X10*3/uL Nucleated RBC % (auto) (0.0-0.2) /100WBC Sodium (135-145) mmol/L Potassium (3.3-5.1) mmol/L Chloride (96-108) mmol/L Carbon Dioxide (22-29) mmol/L Anion Gap (12-20) BUN (9-16) mg/dL Creatinine (0.5-1.4) mg/dL Estim Creat Clear Calc Estimated GFR Random Glucose (60-115) mg/dL Calcium (8.4-10.2) mg/dL Urine Color Yellow Urine Appearance Clear Urine pH 6.0 (5.0-9.0) Ur Specific [place] 1.025 (1.005-1.025) Urine Protein Negative (Neg-Trace) mg/dL Urine Glucose (UA) Negative (Negative) mg/dL Urine Ketones Trace (Negative) mg/dL Urine Blood Negative (Negative) Urine Nitrite Negative (Negative) Ur Leukocyte Esterase Small (1+) H (Negative) Urine RBC 0-2 (0-2) /HPF Urine WBC 6-10 H (0-5) /HPF Ur Squamous Epith Cells 0-2 (0-2) /HPF Urine Bacteria None Seen (None Seen) Hyaline Casts 0-2 (0-2) /LPF Urine Opiates Screen Not Detected (Not Detect) Urine Fentanyl Screen POSITIVE H (Not Detect) Ur Barbiturates Screen Not Detected (Not Detect) Ur Phencyclidine Scrn Not Detected (Not Detect) Ur Amphetamines Screen Not Detected (Not Detect) U Benzodiazepines Scrn Not Detected (Not Detect) Urine Cocaine Screen POSITIVE H (Not Detect) U Marijuana (THC) Screen POSITIVE H (Not Detect) Ethyl Alcohol mg/dL COVID-19 ([place]) (Negative) COVID-19 Clin Com <Tyrone Martinez MD - Last Filed: 06/09/22 07:28> Discharge Plan Discharge Clinical Impression: Polysubstance abuse, Suicidal ideation <Miryam Domínguez CNP - Last Filed: 06/09/22 01:04> Patient Disposition: Still a Patient <Miryam Domínguez CNP - Last Filed: 06/09/22 01:04> Prescriptions: No Action chlorthalidone 25 mg tablet 1 tab PO DAILY amlodipine 5 mg tablet 1 tab PO DAILY tamsulosin 0.4 mg capsule 2 cap PO DAILY gabapentin 800 mg tablet 1 tab PO TID Latuda 80 mg tablet 1 tab PO BEDTIME gabapentin 400 mg capsule 1 cap PO TID mirtazapine 15 mg tablet 1 tab PO BEDTIME famotidine 20 mg Tablet 20 mg PO BID 30 Days Qty: 60 0RF simethicone [Gas Relief (simethicone)] 80 mg Tablet,Chewable 80 mg PO QIDWMHS PRN (Reason: Gas) 30 Days Qty: 120 0RF melatonin 3 mg Tablet 3 mg PO BEDTIME PRN (Reason: Sleep) 30 Days Qty: 30 0RF <Miryam Domínguez CNP - Last Filed: 06/09/22 01:04> Interventions: [place]-Suicide Risk Severity Scale Last Done: 06/08/22 23:16 <Miryam Domínguez CNP - Last Filed: 06/09/22 01:04>
--- NOTE | 2022-06-08 17:13 | MHC.RECOVSUP ---
? Reason for consult Recovery Support o Current location: [facility] o Identified substance use concern: Alcohol - Seeking ATS (detox) - Support ? Intervention: o ATS bed search started 5PM/in process o Community resources provided o Harm reduction discussion ? Plan: o Follow up tomorrow o Patient awaiting crisis evaluation o Patient to follow up with [facility] after discharge ? Additional information: met with Patient and he stated that he wants to go to detox.. Stated that He was at [facility] All day waiting for a bed.. I called [facility] and they stated that Patient was there all day but that he started say Threatening statements.. [facility] Stated that Patient would need a psych eval.. The care team was informed
[2022-06-08 17:35] LABS: Hematocrit 38.8 % (42.0-52.0); Hemoglobin 13.3 g/dl (14.0-18.0); Mean Corpuscular HGB Conc 34.3 g/dl (31.0-36.0); Mean Corpuscular Hemoglobin 29.1 pg (27.0-33.0); Mean Corpuscular Volume 84.9 fL (80.0-98.0); Platelet Count 266 X10*3/uL (160-400); Red Blood Count 4.57 X10*6/uL (4.60-5.80); White Blood Count 6.4 X10*3/uL (4.8-10.8)
[2022-06-08 17:48] LABS: COVID-19 Test Negative (Negative); IDNOW Serial# 16C4AD1C
[2022-06-08 18:13] LABS: Anion Gap 13 (12-20); Blood Urea Nitrogen 21 mg/dL (9-16); Carbon Dioxide 24 mmol/L (22-29); Chloride 106 mmol/L (96-108); Estimated Glomerular Filt Rate > 60; Ethanol < 10 mg/dL; Glucose Random 87 mg/dL (60-115); Potassium 3.7 mmol/L (3.3-5.1); Sodium 139 mmol/L (135-145)
[2022-06-08 19:11] VITALS: BP 114/70; PULSE 74; RESP 16; TEMP 36.8; O2SAT 98
--- NOTE | 2022-06-08 19:12 | MHC.EDTECH ---
patient was given dinner ,ate 100 % of meal ,drank 480 ml fluids .
[2022-06-08 20:00] VITALS: BP 125/63; PULSE 54; RESP 16; TEMP 36.3; O2SAT 98
--- NOTE | 2022-06-08 20:03 | MHC.EDTECH ---
2000 vitals sign done ,patient had a tuna fish sandwich and orange juice ,vitals sign taken .
--- NOTE | 2022-06-08 21:23 | MHC.EDTECH ---
Pt made aware that urine sample needed. Pt states he is unable to void at the time and needs liquids. Pt given ice water. Selma Kapoor made aware
[2022-06-08 21:51] VITALS: BP 115/70; PULSE 57; RESP 16; TEMP 36.9; O2SAT 98
[2022-06-08 22:00] LABS: Appearance Urine Clear; Color Urine Yellow; Glucose Urine UA Negative (Negative); Leukocyte Esterase Urine Small (1+) (Negative); Nitrite Urine Negative (Negative); Specific Gravity - Urine 1.025 (1.005-1.025); UMIC TRIGGER UACC YES; Urine Blood Negative (Negative); Urine Ketones Trace mg/dL (Negative); Urine Protein Negative (Neg-Trace)
[2022-06-08 22:05] LABS: Bacteria Urine None Seen (None Seen); Hyaline Casts Urine 0-2 /LPF (0-2); RBC Urine 0-2 /HPF (0-2); Squamous Epithelial Cell Urine 0-2 /HPF (0-2); UACC Culture Trigger YES
[2022-06-08 22:12] LABS: Amphetamine Screen Urine Not Detected (Not Detect); Barbiturates, Urine Not Detected (Not Detect); Benzodiazepines Screen Urine Not Detected (Not Detect); Cannabinoid Screen Urine POSITIVE (Not Detect); Cocaine Screen Urine POSITIVE (Not Detect); Fentanyl, urine POSITIVE (Not Detect); Opiate Screen Urine Not Detected (Not Detect); Phencyclidine Screen Urine Not Detected (Not Detect)
[2022-06-08] MEDS: Melatonin 3 MG TABLET PO (22:51)
[2022-06-08] MEDS: Gabapentin 400 MG CAPSULE 800 MG PO (22:51)
[2022-06-08] MEDS: Mirtazapine 15 MG TABLET PO (22:51)
[2022-06-08] MEDS: Lurasidone HCl 80 MG TABLET PO (23:04)
[2022-06-09 05:57] VITALS: BP 114/63; PULSE 63; RESP 16; TEMP 36.3; O2SAT 96
--- NOTE | 2022-06-09 06:00 | PC.NURSE ---
Assumed care of pt. at 1900. Pt. sitting in a recliner chair at that time. Pt requested food and drink. Provided pt. with 2 chicken sandwiches and some gingerale. Pt. requested his night time sleep medications. Let provider know that med rec was complete. Medications were administered per JUL. Pt. moved to a bed and has been asleep throughout the night. Pt. currently sleeping, snoring with respirations even and unlabored. Will continue to monitor.
[2022-06-09] MEDS: Famotidine 20 MG TABLET PO (07:30)
[2022-06-09] MEDS: amLODIPine Besylate 5 MG TABLET PO (07:30)
[2022-06-09] MEDS: hydroCHLOROthiazide 25 MG TABLET PO (07:30)
[2022-06-09] MEDS: Gabapentin 400 MG CAPSULE 800 MG PO (07:30)
[2022-06-09] MEDS: Tamsulosin HCL 0.4 MG CAPSULE 0.8 MG PO (07:31)
--- NOTE | 2022-06-09 07:37 | PC.NURSE ---
report taken from overnight rn pt here w request of detox and vague si/hi. pt cleared by care team, has bed at [facility] detox available this morning, has lyft ride coming at 0800. pt given dc paperwork and belongings, ambulating to waiting room to await ride w steady gait.
--- NOTE | 2022-06-09 08:00 | MHC.CARE ---
Pt has been provided a Lyft to [facility]. CARE Team has contacted [facility] per pass along and advised them that he has been cleared by CARE Team and is in route.
== END 2022-06-09 07:53 | disposition home or self-care (01) ==
PROVIDERS: Emergency Medicine Emergency Medical Services; Emergency Provider Emergency Medicine
DX: F19.10 Other psychoactive substance abuse, uncomplicated (principal); R45.851 Suicidal ideations; F32.A Depression, unspecified; R45.850 Homicidal ideations; F17.210 Nicotine dependence, cigarettes, uncomplicated; Z79.899 Other long term (current) drug therapy; Z20.822 Contact with and (suspected) exposure to COVID-19
CPT/HCPCS: 80048; 80307; 81001; 81003; 82077; 85027; 87086; 87088; 87186; 87635; 99284; 99285; S9485

== ENCOUNTER 2023-02-09 23:21 | Emergency (ER) | payer MEDICAID, SELFPAY ==
[2023-02-09 23:27] VITALS: BP 222/89; PULSE 52; RESP 14; TEMP 36.6; O2SAT 99; BMI 31.2
[2023-02-09 23:44] LABS: MANUAL DIFF FLAG NO
[2023-02-09] MEDS: amLODIPine Besylate 5 MG TABLET PO (23:46)
[2023-02-09] MEDS: LORazepam 1 MG TABLET 2 MG PO (23:46)
--- NOTE | 2023-02-09 23:46 | MHC.EDTECH ---
belongings placed in locker #1 in pod.
--- NOTE | 2023-02-09 23:46 | MHC.EDTECH ---
labs drawn, awaiting urine sample.
[2023-02-10 00:05] LABS: Alanine Aminotransferase 35 U/L (0-40); Albumin Level 4.6 g/dL (3.5-5.0); Alkaline Phosphatase 79 U/L (39-117); Anion Gap 17 (12-20); Aspartate Amino Transferase 49 U/L (5-37); Bilirubin Total 1.2 mg/dL (0.0-1.0); Blood Urea Nitrogen 11 mg/dL (9-16); Calcium 8.9 mg/dL (8.4-10.2); Carbon Dioxide 24 mmol/L (22-29); Chloride 104 mmol/L (96-108); Creatinine Clr Calc Pharmacy 115.6; Estimated Glomerular Filt Rate > 60; Ethanol < 10 mg/dL; Glucose Random 73 mg/dL (60-115); Magnesium 2.1 mg/dL (1.6-2.6); Potassium 3.9 mmol/L (3.3-5.1); Sodium 141 mmol/L (135-145); Total Protein 8.7 g/dL (6.5-8.0)
[2023-02-10 00:22] LABS: Basophils Percent Auto 0.3 % (0-2); Eosinophils Absolute Auto 0.2 X10*3/uL (0.0-0.4); Eosinophils Percent Auto 2.4 % (0-4); Hematocrit 48.5 % (42.0-52.0); Hemoglobin 15.5 g/dl (14.0-18.0); Imm Gran Abs Auto 0.05 X10*3/uL (0.00-0.03); Imm Gran Pct Auto 0.6 % (0.0-0.4); Lymphocytes Absolute Auto 3.4 X10*3/uL (1.2-4.9); Lymphocytes Percent Auto 37.8 % (20-40); Mean Corpuscular Hemoglobin 28.1 pg (27.0-33.0); Mean Corpuscular Volume 87.9 fL (80.0-98.0); Monocytes Absolute Auto 0.8 X10*3/uL (0.1-1.2); Monocytes Percent Auto 8.7 % (2-11); Neutrophils Absolute Auto 4.5 x10*3/uL (2.0-8.3); Neutrophils Percent Auto 50.2 % (45-73); Platelet Count 361 X10*3/uL (160-400); Red Blood Count 5.52 X10*6/uL (4.60-5.80); White Blood Count 8.9 X10*3/uL (4.8-10.8)
[2023-02-10 00:37] VITALS: BP 155/76; PULSE 55; RESP 16; O2SAT 97
--- NOTE | 2023-02-10 01:49 | ED.PSYCH ---
HPI - Psych General Chief Complaint: Psychiatric Symptoms Stated Complaint: etoh Time Seen by Provider: 02/09/23 23:36 Source: patient Mode of arrival: ambulatory Limitations: no limitations History of Present Illness HPI Narrative: Previous alcohol, cocaine and fentanyl abuse , history of depression feeling increasingly depressed homeless with suicidal feeling not taking his medication on arrival patient's blood pressure was 222/89 no hallucination or delusion Related Data Home Medications Medication Instructions Recorded Confirmed amlodipine 5 mg tablet 1 tab PO DAILY 01/14/22 02/09/23 chlorthalidone 25 mg tablet 1 tab PO DAILY 01/14/22 02/09/23 finasteride 5 mg tablet 5 mg PO DAILY 02/09/23 02/09/23 gabapentin 800 mg tablet 800 mg PO TID 02/09/23 02/09/23 tamsulosin 0.4 mg capsule 0.8 mg PO BEDTIME 02/09/23 02/09/23 Allergies Allergy/AdvReac Type Severity Reaction Status Date / Time bee pollen [BEE STINGS] Allergy Unknown ANAPHYLAXIS Verified 03/18/21 03:22 Review of Systems Review of Systems: Yes all other systems are reviewed and are negative PMFSH Past Medical History Medical History Physical exam Depression Epididymitis Social History Social History Household Members: None Housing: Homeless Do you presently have visiting nurse or other home services: No Alcohol intake: current Alcohol intake frequency: 3 or more drinks per day Alcohol type: hard liquor Patient Tobacco Use Status: Current everyday Tobacco user Tobacco use type: Cigarette Cigarette Packs Per Day: 0.5 Cigarettes Per Day: 10.0 e-Cigarette/Vaping Use: Never Used Second Hand Smoke Exposure: No Substance Use Type: Crack/Cocaine service: No Sexual orientation: Straight/Heterosexual Physical Exam Vital Signs: Vital Signs: Last Vital Signs Temp 97.8 F 02/09/23 23:27 Pulse 55 02/10/23 00:37 Resp 16 02/10/23 00:37 BP 155/76 H 02/10/23 00:37 Pulse Ox 97 02/10/23 00:37 O2 Del Method Room Air 02/10/23 00:37 BMI result Body Mass Index 31.2 Appearance: Alert. Oriented X3. No acute distress. ETOH+ Eyes: PERRLA, No Nystagmus ENT: Pharynx normal. Oral Mucosa moist Neck: Normal inspection. Neck supple. CVS: Normal heart rate and rhythm. Pulses normal. Respiratory: No respiratory distress. Equal air entry bilateral, no wheezing/rales/rhonchi Abdomen: Soft and nontender. Bowel sounds are present, no mass palpable, no CVA tenderness Skin: Skin warm and dry. Normal skin color. Normal skin turgor. Extremities: No lower extremity edema. No calf tenderness psych: Feel depressed SI no plan no hallucination or delusion Neuro: Oriented X 3. No motor deficit. No sensory deficit.No cerebellar signs , cranial nerves II-XII intact Medications Administered Discontinued Medications Generic Name Dose Route Start Last Admin Trade Name Freq PRN Reason Stop Dose Admin Amlodipine Besylate 5 mg 02/09/23 23:36 02/09/23 23:46 Amlodipine Besylate 5 Mg Tablet PO 02/09/23 23:37 5 mg ONCE ONE Administration Protocol Lorazepam 2 mg 02/09/23 23:43 02/09/23 23:46 Lorazepam 1 Mg Tablet PO 02/09/23 23:44 2 mg ONCE ONE Administration Medical Decision Making Medical Decision Making [facility] Narrative: Patient with depression with SI with polysubstance abuse will consult care team for evaluation for possible placement Lab Data [facility] Lab Attestation statement: I reviewed the patient's lab results. 02/09/23 23:40 02/09/23 23:40 Labs: Lab Results 02/09/23 Range/Units 23:40 WBC 8.9 (4.8-10.8) X10*3/uL RBC 5.52 D (4.60-5.80) X10*6/uL Hgb 15.5 (14.0-18.0) g/dl Hct 48.5 D (42.0-52.0) % MCV 87.9 (80.0-98.0) fL MCH 28.1 (27.0-33.0) pg MCHC 32.0 (31.0-36.0) g/dl RDW 16.0 (11.0-16.0) % Plt Count 361 D (160-400) X10*3/uL MPV 9.0 L (9.4-12.4) fL Immature Gran % (Auto) 0.6 H (0.0-0.4) % Neut % (Auto) 50.2 (45-73) % Lymph % (Auto) 37.8 (20-40) % [place] % (Auto) 8.7 (2-11) % Eos % (Auto) 2.4 (0-4) % Baso % (Auto) 0.3 (0-2) % Lymph # (Auto) 3.4 (1.2-4.9) X10*3/uL [place] # (Auto) 0.8 (0.1-1.2) X10*3/uL Eos # (Auto) 0.2 (0.0-0.4) X10*3/uL Baso # (Auto) 0.0 (0.0-0.2) X10*3/uL Abs Immat Gran (auto) 0.05 H (0.00-0.03) X10*3/uL Absolute Neuts (auto) 4.5 (2.0-8.3) x10*3/uL Absolute Nucleated RBC 0.000 (0.0-0.012) X10*3/uL Nucleated RBC % (auto) 0.0 (0.0-0.2) /100WBC Sodium 141 (135-145) mmol/L Potassium 3.9 (3.3-5.1) mmol/L Chloride 104 (96-108) mmol/L Carbon Dioxide 24 (22-29) mmol/L Anion Gap 17 (12-20) BUN 11 (9-16) mg/dL Creatinine 0.88 (0.5-1.4) mg/dL Estim Creat Clear Calc 115.6 Estimated GFR > 60 Random Glucose 73 (60-115) mg/dL Calcium 8.9 (8.4-10.2) mg/dL Magnesium 2.1 (1.6-2.6) mg/dL Total Bilirubin 1.2 H (0.0-1.0) mg/dL AST 49 H (5-37) U/L ALT 35 (0-40) U/L Alkaline Phosphatase 79 (39-117) U/L Total Protein 8.7 H (6.5-8.0) g/dL Albumin 4.6 (3.5-5.0) g/dL Ethyl Alcohol < 10 mg/dL Discharge Plan Discharge Clinical Impression: Suicidal ideation, Depression, Polysubstance abuse Patient Disposition: Still a Patient Prescriptions: No Action chlorthalidone 25 mg tablet 1 tab PO DAILY amlodipine 5 mg tablet 1 tab PO DAILY gabapentin 800 mg tablet 800 mg PO TID finasteride 5 mg tablet 5 mg PO DAILY tamsulosin 0.4 mg capsule 0.8 mg PO BEDTIME Interventions: [place]-Suicide Risk Severity Scale Last Done: 02/09/23 23:41
--- NOTE | 2023-02-10 05:42 | PC.NURSE ---
Patient slept through the night, no distress observed/reported, BP at time of arrival 222/89 Amlodipine 5 mg po and Ativan 2 mg po administered 236, follow up BP at 0037 was 155/76, med rec completed/pending provider's approval, off his [place], care consult ordered/pending evaluation, labs completed/resulted, VSS, will continue to monitor.
--- NOTE | 2023-02-10 07:17 | PC.NURSE ---
client appears to remain asleep at present respirations are even and unlabored patient appears in no distress
--- NOTE | 2023-02-10 07:40 | PHA.MEDREC ---
Pharmacy Consult ? Medication Reconciliation Pharmacy has completed the medication reconciliation. Reviewed med rec done by nursing
[2023-02-10 09:01] VITALS: BP 164/77; PULSE 52; RESP 12; TEMP 36.6; O2SAT 99
[2023-02-10 09:02] LABS: Appearance Urine Clear; Color Urine Yellow; Glucose Urine UA Negative (Negative); Leukocyte Esterase Urine Negative (Negative); Nitrite Urine Negative (Negative); UMIC TRIGGER UA YES; Urine Blood Negative (Negative); Urine Ketones Trace mg/dL (Negative); Urine Protein 30 (1+) mg/dL (Neg-Trace)
[2023-02-10 09:05] LABS: Amphetamine Screen Urine Not Detected (Not Detect); Barbiturates, Urine Not Detected (Not Detect); Benzodiazepines Screen Urine Not Detected (Not Detect); Cannabinoid Screen Urine POSITIVE (Not Detect); Cocaine Screen Urine POSITIVE (Not Detect); Fentanyl, urine Not Detected (Not Detect); Opiate Screen Urine Not Detected (Not Detect); Phencyclidine Screen Urine Not Detected (Not Detect)
[2023-02-10 09:07] LABS: Bacteria Urine None Seen (None Seen); Hyaline Casts Urine 0-2 /LPF (0-2); RBC Urine 0-2 /HPF (0-2); Squamous Epithelial Cell Urine 0-2 /HPF (0-2); WBC Urine 0-5 /HPF (0-5)
[2023-02-10] MEDS: amLODIPine Besylate 5 MG TABLET PO (10:19)
[2023-02-10] MEDS: Gabapentin 400 MG CAPSULE 800 MG PO ×2 (10:19→15:07)
[2023-02-10] MEDS: hydroCHLOROthiazide 25 MG TABLET PO (10:19)
[2023-02-10] MEDS: Finasteride 5 MG TABLET PO (10:19)
[2023-02-10] MEDS: Acetaminophen 325 MG TABLET 975 MG PO (10:20)
[2023-02-10 18:05] VITALS: BP 164/91; PULSE 63; RESP 18; TEMP 36.7; O2SAT 100
--- NOTE | 2023-02-10 19:25 | PC.NURSE ---
pt sitting in common room. gave rn med list for md romero however pt not know doses or all the names of meds. alert. no distress noted.
--- NOTE | 2023-02-10 19:42 | PC.NURSE ---
orin care team and other care [employer] team member came to get pt- pt aox4, walking well, with belongings. pt declined to change into home clothes- stayed in safe hospital gown. +[facility]. no distress noted. per md kulkarni meds sent to pharmacy
== END 2023-02-10 19:40 | disposition other institution (70) ==
PROVIDERS: Internal Medicine; Emergency Provider Emergency Medicine Emergency Medical Services
DX: F33.1 Major depressive disorder, recurrent, moderate (principal); R45.851 Suicidal ideations; F14.10 Cocaine abuse, uncomplicated; F10.10 Alcohol abuse, uncomplicated; Y90.9 Presence of alcohol in blood, level not specified; Z79.899 Other long term (current) drug therapy
CPT/HCPCS: 36415; 80053; 80307; 81001; 81003; 83735; 85025; 99284; S9485

== ENCOUNTER 2023-03-10 03:07 | Emergency (ER) | payer MEDICAID, OTHER, SELFPAY ==
[2023-03-10 03:16] VITALS: BMI 28.5
[2023-03-10 03:33] VITALS: BP 148/92; PULSE 63; RESP 16; TEMP 36.8; O2SAT 99
[2023-03-10 03:55] LABS: MANUAL DIFF FLAG NO
[2023-03-10 03:56] LABS: Basophils Percent Auto 0.4 % (0-2); Eosinophils Absolute Auto 0.1 X10*3/uL (0.0-0.4); Eosinophils Percent Auto 0.9 % (0-4); Hematocrit 43.7 % (42.0-52.0); Hemoglobin 14.8 g/dl (14.0-18.0); Imm Gran Abs Auto 0.04 X10*3/uL (0.00-0.03); Imm Gran Pct Auto 0.5 % (0.0-0.4); Lymphocytes Absolute Auto 2.5 X10*3/uL (1.2-4.9); Lymphocytes Percent Auto 32.2 % (20-40); Mean Corpuscular HGB Conc 33.9 g/dl (31.0-36.0); Mean Corpuscular Hemoglobin 28.8 pg (27.0-33.0); Mean Platelet Volume 8.6 fL (9.4-12.4); Monocytes Absolute Auto 0.7 X10*3/uL (0.1-1.2); Monocytes Percent Auto 8.5 % (2-11); Neutrophils Absolute Auto 4.4 x10*3/uL (2.0-8.3); Neutrophils Percent Auto 57.5 % (45-73); Platelet Count 303 X10*3/uL (160-400); Red Blood Count 5.14 X10*6/uL (4.60-5.80); Red Cell Distribution Width 15.7 % (11.0-16.0); White Blood Count 7.7 X10*3/uL (4.8-10.8)
[2023-03-10 04:06] LABS: Ethanol 18 mg/dL
[2023-03-10 04:10] LABS: Alanine Aminotransferase 28 U/L (0-40); Albumin Level 4.2 g/dL (3.5-5.0); Alkaline Phosphatase 83 U/L (39-117); Anion Gap 17 (12-20); Aspartate Amino Transferase 39 U/L (5-37); Bilirubin Total 1.1 mg/dL (0.0-1.0); Blood Urea Nitrogen 9 mg/dL (9-16); Calcium 9.4 mg/dL (8.4-10.2); Carbon Dioxide 21 mmol/L (22-29); Chloride 105 mmol/L (96-108); Creatinine Clr Calc Pharmacy 102.7; Estimated Glomerular Filt Rate > 60; Glucose Random 80 mg/dL (60-115); Potassium 3.5 mmol/L (3.3-5.1); Sodium 139 mmol/L (135-145); Total Protein 7.8 g/dL (6.5-8.0)
--- NOTE | 2023-03-10 04:29 | ED_ITS ---
HPI - Psych General Chief Complaint: Psychiatric Symptoms Stated Complaint: etoh,drug use Time Seen by Provider: 03/10/23 04:02 Source: patient and old records reviewed Mode of arrival: EMS Limitations: no limitations History of Present Illness HPI Narrative: 57 yo male with hx of substance abuse, HTN, homelessness presents with SI. He has been drinking jazzy MICHAEL complaint: suicidal ideation and feels depressed Onset (ago): day(s) Duration: getting worse History of same: Yes Relieving factors: none Exacerbating factors: alcohol and drug use Context: recent alcohol abuse and recent drug abuse Associated psychiatric symptoms: depression and suicidal ideation Associated symptoms: denies other symptoms Treatments prior to arrival: none If self harm: admits thoughts of self harm Related Data Home Medications Medication Instructions Recorded Confirmed amlodipine 5 mg tablet 5 mg PO DAILY 03/10/23 03/10/23 chlorthalidone 25 mg tablet 25 mg PO DAILY 03/10/23 03/10/23 finasteride 5 mg tablet 5 mg PO DAILY 03/10/23 03/10/23 gabapentin 800 mg tablet 800 mg PO TID 03/10/23 03/10/23 mirtazapine 15 mg tablet 15 mg PO BEDTIME 03/10/23 03/10/23 tamsulosin 0.4 mg capsule 0.8 mg PO BEDTIME 03/10/23 03/10/23 Allergies Allergy/AdvReac Type Severity Reaction Status Date / Time bee pollen [BEE STINGS] Allergy Unknown ANAPHYLAXIS Verified 03/18/21 03:22 Review of Systems 2 Review of Systems: Constitutional : No Fever, No Chills ENT/Mouth : No Ear Pain, No Nasal Congestion, No sore throat Eyes: No Eye Pain, No Swelling, No Redness Cardiovascular : No Chest Pain, No SOB Respiratory : No Cough, No Sputum, No Dyspnea Gastrointestinal : No Nausea, No Vomiting, No Diarrhea, No Hematochezia, No Melena Genitourinary : No Dysuria, No Urinary Frequency, No Hematuria Musculoskeletal : No Myalgias Skin : No Skin Lesions, No rash Neuro : No Weakness, No Numbness, No Paresthesias, No Dizziness, No Headache Psych : positive Anxiety, positive Depression, positive SI no HI Heme/Lymph: No Lymphadenopathy Endocrine : No Polyuria, No Polydipsia All other systems reviewed and are negative PMFSH Past Medical History Attestation statement: The following information was validated with the patient. Source: old records reviewed Medical History Physical exam Depression Epididymitis Social History Social History Household Members: None Housing: Homeless Do you presently have visiting nurse or other home services: No Alcohol intake: current Alcohol intake frequency: 3 or more drinks per day Alcohol type: hard liquor Patient Tobacco Use Status: Current everyday Tobacco user Tobacco use type: Cigarette Cigarette Packs Per Day: 0.5 Cigarettes Per Day: 10.0 e-Cigarette/Vaping Use: Never Used Second Hand Smoke Exposure: No Substance Use Type: Crack/Cocaine Advance Directives: No Advance Directives Information Provided: No service: No Sexual orientation: Straight/Heterosexual Physical Exam 2 Vital Signs: Vital Signs: Last Vital Signs Temp 98.2 F 03/10/23 03:33 Pulse 63 03/10/23 03:33 Resp 16 03/10/23 03:33 BP 148/92 H 03/10/23 03:33 Pulse Ox 99 03/10/23 03:33 O2 Del Method Room Air 03/10/23 03:33 BMI result Body Mass Index 28.5 Appearance: resting comfortable Oriented X3. No acute distress. Eyes: Pupils equal, round and reactive to light. ENT: Pharynx normal. Neck: Normal inspection. Neck supple. CVS: Normal heart rate and rhythm. Pulses normal. Respiratory: No respiratory distress. Breath sounds normal. Abdomen: Soft and nontender. Skin: Skin warm and dry. Normal skin color. Extremities: No lower extremity edema. Neuro: Oriented X 3. No motor deficit. No sensory deficit. CN2-12 intact Course Course Course Narrative: Physician observation started at 432am Patient placed in physician observation because the patient needed more time for CARE team to assess the need for psych admission. At the time observation was started the patient's vitals were stable, patient is sleeping. Neuro: nonfocal, CV RRR, Lungs clear Medical Decision Making Medical Decision Making [facility] Narrative: 57 yo male with hx of substance abuse, HTN, homelessness here with SI and substance abuse - at this time labs and CARE team consult ordered Differential Diagnosis Differential Diagnoses: The differential diagnosis associated with the presentation includes substance abuse, SI Admission/Observation Consideration of admission/observation: Escalation of care including admission/observation considered observe until CARE team sees patient Lab Data MDM Lab Attestation statement: I reviewed the patient's lab results. 03/10/23 03:49 03/10/23 03:49 Labs: Lab Results 03/10/23 03/10/23 Range/Units 03:49 05:03 WBC 7.7 (4.8-10.8) X10*3/uL RBC 5.14 (4.60-5.80) X10*6/uL Hgb 14.8 (14.0-18.0) g/dl Hct 43.7 (42.0-52.0) % MCV 85.0 (80.0-98.0) fL MCH 28.8 (27.0-33.0) pg MCHC 33.9 (31.0-36.0) g/dl RDW 15.7 (11.0-16.0) % Plt Count 303 (160-400) X10*3/uL MPV 8.6 L (9.4-12.4) fL Immature Gran % (Auto) 0.5 H (0.0-0.4) % Neut % (Auto) 57.5 (45-73) % Lymph % (Auto) 32.2 (20-40) % [place] % (Auto) 8.5 (2-11) % Eos % (Auto) 0.9 (0-4) % Baso % (Auto) 0.4 (0-2) % Lymph # (Auto) 2.5 (1.2-4.9) X10*3/uL [place] # (Auto) 0.7 (0.1-1.2) X10*3/uL Eos # (Auto) 0.1 (0.0-0.4) X10*3/uL Baso # (Auto) 0.0 (0.0-0.2) X10*3/uL Abs Immat Gran (auto) 0.04 H (0.00-0.03) X10*3/uL Absolute Neuts (auto) 4.4 (2.0-8.3) x10*3/uL Absolute Nucleated RBC 0.000 (0.0-0.012) X10*3/uL Nucleated RBC % (auto) 0.0 (0.0-0.2) /100WBC Sodium 139 (135-145) mmol/L Potassium 3.5 (3.3-5.1) mmol/L Chloride 105 (96-108) mmol/L Carbon Dioxide 21 L (22-29) mmol/L Anion Gap 17 (12-20) BUN 9 (9-16) mg/dL Creatinine 0.95 (0.5-1.4) mg/dL Estim Creat Clear Calc 102.7 Estimated GFR > 60 Random Glucose 80 (60-115) mg/dL Calcium 9.4 (8.4-10.2) mg/dL Total Bilirubin 1.1 H (0.0-1.0) mg/dL AST 39 H (5-37) U/L ALT 28 (0-40) U/L Alkaline Phosphatase 83 (39-117) U/L Total Protein 7.8 (6.5-8.0) g/dL Albumin 4.2 (3.5-5.0) g/dL Ethyl Alcohol 18 mg/dL COVID-19 ([place]) Negative (Negative) COVID-19 Clin Com See Note Independent Historian Clinical information obtained from an independent historian. History obtained from or confirmed by: EMS External Record Review External record reviewed: Inpatient record Social Determinants Patient?s care significantly limited by Social Determinants of Health including: Inadequate housing, Low income, Alcoholism and drug addiction in family, Problems related to primary support group and Unemployment Discharge Plan Discharge Clinical Impression: Suicidal ideation Patient Disposition: Still a Patient Prescriptions: No Action gabapentin 800 mg tablet 800 mg PO TID mirtazapine 15 mg tablet 15 mg PO BEDTIME finasteride 5 mg tablet 5 mg PO DAILY chlorthalidone 25 mg tablet 25 mg PO DAILY amlodipine 5 mg tablet 5 mg PO DAILY tamsulosin 0.4 mg capsule 0.8 mg PO BEDTIME
[2023-03-10 05:23] LABS: COVID-19 Test Negative (Negative); IDNOW Serial# BCCEAD1C
--- NOTE | 2023-03-10 07:22 | PC.NURSE ---
patient appears to remain asleep at present respirations are even and unlabored patient appears in no distress
--- NOTE | 2023-03-10 08:53 | PHA.MEDREC ---
Pharmacy Consult ? Medication Reconciliation Pharmacy has completed the medication reconciliation. pharmacy has reviewed med rec done by Mateo
--- NOTE | 2023-03-10 10:55 | MHC.CARE ---
Pt was seen and cleared by CARE team, pt denies any suicidal or homicidal ideation plan or intent and is requesting detox level of care.referral was made to hospital recovery team.
[2023-03-10] MEDS: Finasteride 5 MG TABLET PO (10:58)
[2023-03-10] MEDS: Gabapentin 400 MG CAPSULE 800 MG PO (10:58)
[2023-03-10 11:02] LABS: Amphetamine Screen Urine Not Detected (Not Detect); Barbiturates, Urine Not Detected (Not Detect); Benzodiazepines Screen Urine Not Detected (Not Detect); Cannabinoid Screen Urine POSITIVE (Not Detect); Cocaine Screen Urine POSITIVE (Not Detect); Fentanyl, urine Not Detected (Not Detect); Opiate Screen Urine Not Detected (Not Detect); Phencyclidine Screen Urine Not Detected (Not Detect)
[2023-03-10 11:10] LABS: Appearance Urine Clear; Color Urine Yellow; Glucose Urine UA Negative (Negative); Leukocyte Esterase Urine Moderate (2+) (Negative); Nitrite Urine Negative (Negative); Specific Gravity - Urine 1.015 (1.005-1.025); UMIC TRIGGER UA YES; Urine Blood Negative (Negative); Urine Ketones 15 mg/dL (Negative); Urine Protein Trace mg/dL (Neg-Trace)
[2023-03-10 11:12] LABS: Bacteria Urine 1+ (None Seen); Hyaline Casts Urine 0-2 /LPF (0-2); RBC Urine 0-2 /HPF (0-2); WBC Urine >50 /HPF (0-5)
--- NOTE | 2023-03-10 12:07 | MHC.RECOVSUP ---
Addendum entered by Herbert Lees 03/10/23 12:10: No ATS beds available for pt at this time. Care Team aware. Original Note: Met with pt in [facility] who is here for psychiatric needs. Pt informs he has been using an undisclosed amount of cocaine and alcohol every day and does not remember his last ATS stay. At this time pt is interested in ATS and a bed search is in process.
== END 2023-03-10 13:35 | disposition home or self-care (01) ==
PROVIDERS: Emergency Medicine; Emergency Provider Emergency Medicine Emergency Medical Services
DX: F33.1 Major depressive disorder, recurrent, moderate (principal); R45.851 Suicidal ideations; F17.210 Nicotine dependence, cigarettes, uncomplicated; F14.10 Cocaine abuse, uncomplicated; Z11.52 Encounter for screening for COVID-19; Z20.822 Contact with and (suspected) exposure to COVID-19; Z79.899 Other long term (current) drug therapy; Z71.6 Tobacco abuse counseling
CPT/HCPCS: 36415; 80053; 80307; 81001; 81003; 85025; 87635; 99284; S9485

== ENCOUNTER 2024-01-16 13:45 | Emergency (ER) | payer MEDICAID, SELFPAY ==
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
[2024-01-16 13:57] VITALS: BP 108/46; PULSE 63; RESP 18; TEMP 36.7; O2SAT 98; BMI 26.5
[2024-01-16 14:00] VITALS: RESP 16
[2024-01-16 14:41] LABS: Appearance Urine Clear; Color Urine Yellow; Glucose Urine UA Negative (Negative); Leukocyte Esterase Urine Negative (Negative); Nitrite Urine Negative (Negative); PH 5.5 (5.0-9.0); Specific Gravity - Urine 1.015 (1.005-1.025); Urine Blood Negative (Negative); Urine Ketones Negative (Negative); Urine Protein Negative (Neg-Trace)
[2024-01-16 14:48] LABS: MANUAL DIFF FLAG NO
[2024-01-16 14:51] LABS: Amphetamine Screen Urine Not Detected (Not Detect); Barbiturates, Urine Not Detected (Not Detect); Benzodiazepines Screen Urine Not Detected (Not Detect); Buprenorphine Scr Not Detected (Not Detect); Cannabinoid Screen Urine POSITIVE (Not Detect); Cocaine Screen Urine POSITIVE (Not Detect); Fentanyl, urine POSITIVE (Not Detect); Methadone Screen, Urine Not Detected (Not Detect); Opiate Screen Urine Not Detected (Not Detect); Oxycodone Screen Urine Not Detected (Not Detect); Phencyclidine Screen Urine Not Detected (Not Detect)
[2024-01-16 14:55] LABS: Basophils Percent Auto 0.4 % (0-2); Eosinophils Absolute Auto 0.1 X10*3/uL (0.0-0.4); Eosinophils Percent Auto 1.1 % (0-4); Hematocrit 38.1 % (42.0-52.0); Hemoglobin 12.9 g/dl (14.0-18.0); Imm Gran Abs Auto 0.07 X10*3/uL (0.00-0.03); Imm Gran Pct Auto 1.2 % (0.0-0.4); Lymphocytes Absolute Auto 2.3 X10*3/uL (1.2-4.9); Lymphocytes Percent Auto 39.5 % (20-40); Mean Corpuscular HGB Conc 33.9 g/dl (31.0-36.0); Mean Corpuscular Hemoglobin 28.8 pg (27.0-33.0); Mean Platelet Volume 8.7 fL (9.4-12.4); Monocytes Absolute Auto 0.7 X10*3/uL (0.1-1.2); Monocytes Percent Auto 11.9 % (2-11); Neutrophils Absolute Auto 2.6 x10*3/uL (2.0-8.3); Neutrophils Percent Auto 45.9 % (45-73); Platelet Count 286 X10*3/uL (160-400); Red Blood Count 4.48 X10*6/uL (4.60-5.80); Red Cell Distribution Width 15.3 % (11.0-16.0); White Blood Count 5.7 X10*3/uL (4.8-10.8)
[2024-01-16 15:11] LABS: Alanine Aminotransferase 33 U/L (0-40); Albumin Level 4.1 g/dL (3.5-5.0); Alkaline Phosphatase 70 U/L (39-117); Anion Gap 16 (12-20); Aspartate Amino Transferase 22 U/L (5-37); Bilirubin Total 0.6 mg/dL (0.0-1.0); Blood Urea Nitrogen 13 mg/dL (9-16); Calcium 9.4 mg/dL (8.4-10.2); Carbon Dioxide 23 mmol/L (22-29); Chloride 107 mmol/L (96-108); Creatinine Clr Calc Pharmacy 89.2; Estimated Glomerular Filt Rate > 60; Ethanol < 10 mg/dL; Glucose Random 98 mg/dL (60-115); Potassium 3.6 mmol/L (3.3-5.1); Sodium 142 mmol/L (135-145); Total Protein 7.6 g/dL (6.5-8.0)
--- NOTE | 2024-01-16 15:48 | PC.NURSE ---
Patient appears to be sleeping, respirations even and unlabored, no apparent distress at this time
--- NOTE | 2024-01-16 19:05 | PC.NURSE ---
patient appears to remain at rest at present respirations are even and unlabored patient appears in no distress.
[2024-01-16 19:43] VITALS: BP 127/77; PULSE 61; RESP 16; TEMP 37.1; O2SAT 97
[2024-01-16 20:00] VITALS: BP 127/77
[2024-01-16] MEDS: busPIRone HCl 5 MG TABLET 15 MG PO (20:00)
[2024-01-16] MEDS: cephALEXin 500 MG CAPSULE PO (20:00)
[2024-01-16] MEDS: hydroCHLOROthiazide 25 MG TABLET PO (20:00)
[2024-01-16] MEDS: Amoxicillin 500 MG CAPSULE PO (20:00)
[2024-01-16] MEDS: Mirtazapine 15 MG TABLET PO (20:00)
[2024-01-17 05:11] VITALS: BP 145/93; PULSE 62; RESP 16; TEMP 36.9; O2SAT 100
--- NOTE | 2024-01-17 08:30 | MHC.CARE ---
Pt was accepted to [facility] by Omar (admission coor.) today 01/17/24. ETA is 12pm/1pm. The accepting provider is Dr. Smith and the address is [address] [place], [place] [id number]. No nurse to nurse is required by accepting facility. Pod RN Dc and CARE team were notified of placement.
[2024-01-17] MEDS: busPIRone HCl 5 MG TABLET 15 MG PO (09:24)
[2024-01-17] MEDS: hydroCHLOROthiazide 25 MG TABLET PO (09:24)
[2024-01-17] MEDS: Amoxicillin 500 MG CAPSULE PO (09:24)
[2024-01-17] MEDS: cephALEXin 500 MG CAPSULE PO (09:24)
[2024-01-17 12:09] VITALS: BP 126/78; PULSE 60; RESP 16; TEMP 36.4; O2SAT 99
--- NOTE | 2024-01-17 12:23 | PC.NURSE ---
MEDS RECEIVED FROM PHARMACY PT IS DUE TO BE PICKED UP SHORTLY. HE DID NOT RECEIVE ABX GTTS FOR EAR INFECTION THIS MORNING, ADMINISTERED PRIOR TO DEPARTURE. PT IS IN NAD, AWARE OF PLAN FOR TRANSPORT.
[2024-01-17 12:43] VITALS: BP 126/78; PULSE 60; RESP 16; TEMP 36.4; O2SAT 99
== END 2024-01-17 12:44 ==
PROVIDERS: Registered Nurse Emergency; Emergency Provider Emergency Medicine; PCP Internal Medicine
DX: F14.10 Cocaine abuse, uncomplicated (principal); H66.93 Otitis media, unspecified, bilateral; F12.10 Cannabis abuse, uncomplicated; R45.851 Suicidal ideations; F17.210 Nicotine dependence, cigarettes, uncomplicated; Z79.899 Other long term (current) drug therapy
CPT/HCPCS: 36415; 80053; 80307; 81003; 85025; 99285; S9485

== ENCOUNTER 2024-02-24 02:44 | Emergency (ER) | payer MEDICAID, SELFPAY ==
--- NOTE | ~2024-02-24 | XR_ITS ---
EXAMINATION: XR FOOT, RIGHT CLINICAL INFORMATION: Pain. COMPARISON: None available. TECHNIQUE: AP, lateral, and oblique views of the right foot. FINDINGS: A mild hallux valgus deformity is noted. Well-corticated ossific bodies are noted adjacent to medial aspect of the first metatarsal phalangeal joint and interphalangeal joint and appear chronic. No fractures or soft tissue inflammatory changes noted. The subtalar joints are normal in appearance. A 3 mm well-corticated chronic-appearing ossific body is noted along the posterior aspect of the talar dome. No soft tissue emphysematous changes noted. XR/XR foot RT min 3V IMPRESSION: No acute abnormalities identified. Electronically signed by: Carlso Gan MD 02/24/2024 03:46 AM EDT
[2024-02-24 02:50] VITALS: BP 143/82; PULSE 72; RESP 18; TEMP 36.6; O2SAT 97; BMI 28.5
--- NOTE | 2024-02-24 02:50 | ED_ITS ---
HPI - Psych General Chief Complaint: Psychiatric Symptoms Stated Complaint: Crisis, he doesn't feel safe Time Seen by Provider: 02/24/24 02:48 Source: patient Mode of arrival: ambulatory Limitations: no limitations History of Present Illness ED Provider: KRAIG ADAMS Narrative: 58 yo male with PMH of HTN, polysubstance abuse who presents with c/o wanting to get back into dual dx in . No SI/HI. He used THC and cocaine today. He has a headache, R lower toothache and his R great toe hurts from old bone spur surgery 15 years ago denies new trauma. MD complaint: substance abuse Onset (ago): week(s) Duration: intermittent History of same: Yes Relieving factors: none Exacerbating factors: drug use Context: recent drug abuse Associated psychiatric symptoms: depression Associated symptoms: other (headache, toothache, toe pain) Treatments prior to arrival: none Related Data Home Medications ?Medication ?Instructions ?Recorded ?Confirmed No Known Home Meds 02/24/24 02/24/24 Allergies Allergy/AdvReac Type Severity Reaction Status Date / Time bee pollen [BEE STINGS] Allergy Severe ANAPHYLAXIS Verified 02/24/24 02:51 lactose Allergy Intermediate Stomach Verified 02/24/24 02:51 Upset Review of Systems 2 Review of Systems: Constitutional : No Fever, No Chills ENT/Mouth : No Ear Pain, No Nasal Congestion, No sore throat Eyes: No Eye Pain, No Swelling, No Redness Cardiovascular : No Chest Pain, No SOB Respiratory : No Cough, No Sputum, No Dyspnea Gastrointestinal : No Nausea, No Vomiting, No Diarrhea, No Hematochezia, No Melena Genitourinary : No Dysuria, No Urinary Frequency, No Hematuria Musculoskeletal : No Myalgias, pos foot pain Skin : No Skin Lesions, No rash Neuro : No Weakness, No Numbness, No Paresthesias, No Dizziness, pos Headache Psych : positive Anxiety, positive Depression, no SI/HI All other systems reviewed and are negative PMFSH Past Medical History Attestation statement: The following information was validated with the patient. Source: old records reviewed Medical History Physical exam Depression Epididymitis Social History Social History Household Members: None Housing: Homeless Do you presently have visiting nurse or other home services: No Unable to assess alcohol history related to: Refusing to respond Alcohol intake: current Alcohol intake frequency: 3 or more drinks per day Alcohol type: hard liquor Patient Tobacco Use Status: Current everyday Tobacco user Tobacco use type: Cigarette Cigarette Packs Per Day: 0.5 Cigarettes Per Day: 10.0 e-Cigarette/Vaping Use: Never Used Second Hand Smoke Exposure: No Substance Use Type: Crack/Cocaine Advance Directives: No Advance Directives Information Provided: Yes service: No Sexual orientation: Straight/Heterosexual Physical Exam 2 Vital Signs: Vital Signs: Last Vital Signs Temp 97.9 F 02/24/24 02:50 Pulse 72 02/24/24 02:50 Resp 18 02/24/24 02:50 BP 143/82 H 02/24/24 02:50 Pulse Ox 97 02/24/24 02:50 O2 Del Method Room Air 02/24/24 02:50 BMI result Body Mass Index 28.5 Appearance: Alert. Oriented X3. No acute distress. Eyes: Pupils equal, round and reactive to light. ENT: Pharynx normal. R lower molar impacted mild induration of gingiva poor dentitition no jaw swelling no abscess noted Neck: Normal inspection. Neck supple. CVS: Normal heart rate and rhythm. Pulses normal. Respiratory: No respiratory distress. Breath sounds normal. Abdomen: Soft and nontender. Skin: Skin warm and dry. Normal skin color. Normal skin turgor. Extremities: No lower extremity edema. R great toe on plantar surface is a calloused hard area that he reports is painful no signs of redness/swelling/fluctuance Neuro: Oriented X 3. No motor deficit. No sensory deficit. CN2-12 intact Medications Administered Generic Name Dose Route Start Last Admin Trade Name Freq PRN Reason Stop Dose Admin Amoxicillin/Clavulanate Potassium 875 mg 02/24/24 02:55 02/24/24 03:26 Amoxicillin/Potassium Clav 875 Mg Tablet PO 03/02/24 02:54 875 mg BID PHILIP Administration Discontinued Medications Generic Name Dose Route Start Last Admin Trade Name Freq PRN Reason Stop Dose Admin Acetaminophen 975 mg 02/24/24 02:56 02/24/24 03:20 Acetaminophen 325 Mg Tablet PO 02/24/24 02:57 975 mg ONCE ONE Administration Medical Decision Making Medical Decision Making MDM Narrative: 58 yo male with PMH of HTN, polysubstance abuse who presents with c/o drug use and wanting to go to dual dx at this time he has tooth ache and mild headache on same side as toothache there is no signs of abscess or swelling submandibular he is not toxic appearing and has no focal appearance his BP are not high I do not suspect SAH. At this time he also c/o foot pain - xray ordered and will start on augmentin and refer to CARE team Differential Diagnosis Differential Diagnoses: The differential diagnosis associated with the presentation includes depression, drug abuse, toothache, bone spur Admission/Observation Consideration of admission/observation: Escalation of care including admission/observation considered physician observation started at 3am pending CARE team Lab Data MDM Lab Attestation statement: I reviewed the patient's lab results. 02/24/24 03:05 02/24/24 03:05 Labs: Lab Results 02/24/24 02/24/24 Range/Units 03:05 03:17 WBC 6.7 (4.8-10.8) X10*3/uL RBC 4.71 (4.60-5.80) X10*6/uL Hgb 13.5 L (14.0-18.0) g/dl Hct 38.9 L (42.0-52.0) % MCV 82.6 (80.0-98.0) fL MCH 28.7 (27.0-33.0) pg MCHC 34.7 (31.0-36.0) g/dl RDW 14.0 (11.0-16.0) % Plt Count 280 (160-400) X10*3/uL MPV 8.9 L (9.4-12.4) fL Immature Gran % (Auto) 0.4 (0.0-0.4) % Neut % (Auto) 50.3 (45-73) % Lymph % (Auto) 40.1 H (20-40) % [place] % (Auto) 8.0 (2-11) % Eos % (Auto) 0.6 (0-4) % Baso % (Auto) 0.6 (0-2) % Lymph # (Auto) 2.7 (1.2-4.9) X10*3/uL [place] # (Auto) 0.5 (0.1-1.2) X10*3/uL Eos # (Auto) 0.0 (0.0-0.4) X10*3/uL Baso # (Auto) 0.0 (0.0-0.2) X10*3/uL Abs Immat Gran (auto) 0.03 (0.00-0.03) X10*3/uL Absolute Neuts (auto) 3.4 (2.0-8.3) x10*3/uL Absolute Nucleated RBC 0.000 (0.0-0.012) X10*3/uL Nucleated RBC % (auto) 0.0 (0.0-0.2) /100WBC Smear Tech's Comments VERIFIED Sodium 137 (135-145) mmol/L Potassium 3.9 (3.3-5.1) mmol/L Chloride 104 (96-108) mmol/L Carbon Dioxide 23 (22-29) mmol/L Anion Gap 14 (12-20) BUN 16 (9-16) mg/dL Creatinine 1.05 (0.5-1.4) mg/dL Estim Creat Clear Calc 91.8 Estimated GFR > 60 Random Glucose 81 (60-115) mg/dL Calcium 9.3 (8.4-10.2) mg/dL Magnesium 1.9 (1.6-2.6) mg/dL Total Bilirubin 0.4 (0.0-1.0) mg/dL Direct Bilirubin 0.2 (0.0-0.5) mg/dL AST 62 H (5-37) U/L ALT 36 (0-40) U/L Alkaline Phosphatase 75 (39-117) U/L Total Protein 8.0 (6.5-8.0) g/dL Albumin 4.2 (3.5-5.0) g/dL Urine Opiates Screen Not Detected (Not Detect) Ur Buprenorphine Scrn Not Detected (Not Detect) ng/mL Ur Oxycodone Screen Not Detected (Not Detect) ng/mL Urine Methadone Screen Not Detected (Not Detect) ng/mL Urine Fentanyl Screen Not Detected (Not Detect) Ur Barbiturates Screen Not Detected (Not Detect) Ur Phencyclidine Scrn Not Detected (Not Detect) Ur Amphetamines Screen Not Detected (Not Detect) U Benzodiazepines Scrn Not Detected (Not Detect) Urine Cocaine Screen POSITIVE H (Not Detect) U Marijuana (THC) Screen POSITIVE H (Not Detect) Ethyl Alcohol < 10 mg/dL Independent Interpretation I performed an independent interpretation of an: Plain X-Ray Radiology Impression Discussion of test interpretation with radiology: I have reviewed the radiologist's reading. External Record Review External record reviewed: Inpatient record Social Determinants Patient?s care significantly limited by Social Determinants of Health including: Problems related to primary support group Discharge Plan Discharge Clinical Impression: Cocaine use disorder, Tooth ache Patient Disposition: Still a Patient Instructions: Polysubstance Abuse (ED), Toothache (ED) Prescriptions: No Action No Known Home Meds Interventions: [place]-Suicide Risk Severity Scale Last Done: 02/24/24 03:09 Print Language: Beninese
[2024-02-24] MEDS: Acetaminophen 325 MG TABLET 975 MG PO (03:20)
[2024-02-24 03:21] LABS: Basophils Percent Auto 0.6 % (0-2); Eosinophils Percent Auto 0.6 % (0-4); Hematocrit 38.9 % (42.0-52.0); Hemoglobin 13.5 g/dl (14.0-18.0); Imm Gran Abs Auto 0.03 X10*3/uL (0.00-0.03); Imm Gran Pct Auto 0.4 % (0.0-0.4); Lymphocytes Absolute Auto 2.7 X10*3/uL (1.2-4.9); Lymphocytes Percent Auto 40.1 % (20-40); MANUAL DIFF FLAG SCAN; Mean Corpuscular HGB Conc 34.7 g/dl (31.0-36.0); Mean Corpuscular Hemoglobin 28.7 pg (27.0-33.0); Mean Corpuscular Volume 82.6 fL (80.0-98.0); Mean Platelet Volume 8.9 fL (9.4-12.4); Monocytes Absolute Auto 0.5 X10*3/uL (0.1-1.2); Neutrophils Absolute Auto 3.4 x10*3/uL (2.0-8.3); Neutrophils Percent Auto 50.3 % (45-73); Platelet Count 280 X10*3/uL (160-400); Red Blood Count 4.71 X10*6/uL (4.60-5.80); SCAN SMEAR FLAG 1; White Blood Count 6.7 X10*3/uL (4.8-10.8)
[2024-02-24] MEDS: Amoxicillin/Potassium Clav 875 MG TABLET PO ×2 (03:26→09:57)
[2024-02-24 03:32] LABS: Alanine Aminotransferase 36 U/L (0-40); Albumin Level 4.2 g/dL (3.5-5.0); Alkaline Phosphatase 75 U/L (39-117); Anion Gap 14 (12-20); Aspartate Amino Transferase 62 U/L (5-37); Bilirubin Direct 0.2 mg/dL (0.0-0.5); Bilirubin Total 0.4 mg/dL (0.0-1.0); Blood Urea Nitrogen 16 mg/dL (9-16); Calcium 9.3 mg/dL (8.4-10.2); Carbon Dioxide 23 mmol/L (22-29); Chloride 104 mmol/L (96-108); Creatinine Clr Calc Pharmacy 91.8; Estimated Glomerular Filt Rate > 60; Ethanol < 10 mg/dL; Glucose Random 81 mg/dL (60-115); Magnesium 1.9 mg/dL (1.6-2.6); Potassium 3.9 mmol/L (3.3-5.1); Sodium 137 mmol/L (135-145)
[2024-02-24 03:33] LABS: Amphetamine Screen Urine Not Detected (Not Detect); Barbiturates, Urine Not Detected (Not Detect); Benzodiazepines Screen Urine Not Detected (Not Detect); Buprenorphine Scr Not Detected (Not Detect); Cannabinoid Screen Urine POSITIVE (Not Detect); Cocaine Screen Urine POSITIVE (Not Detect); Fentanyl, urine Not Detected (Not Detect); Methadone Screen, Urine Not Detected (Not Detect); Opiate Screen Urine Not Detected (Not Detect); Oxycodone Screen Urine Not Detected (Not Detect); Phencyclidine Screen Urine Not Detected (Not Detect)
[2024-02-24 03:44] LABS: SLIDE REVIEW VERIFIED
--- NOTE | 2024-02-24 07:20 | PC.NURSE ---
Assumed care of patient at 0645. At this time the patient is observed resting quietly in their bed. No signs of distress observed. Breathing is even and unlabored.
--- NOTE | 2024-02-24 09:00 | MHC.CARE ---
Dual bed search was completed this morning. Pt was accepted to [facility] . Dr Maritza Wilkes is the accepting doctor. ETA is 11:00AM. Care Team and Pod nurse informed of placement. ED RN will arrange transportation.
== END 2024-02-24 10:15 ==
PROVIDERS: Emergency Provider Emergency Medicine; PCP Internal Medicine
DX: R51.9 Headache, unspecified (principal); F14.10 Cocaine abuse, uncomplicated; M79.674 Pain in right toe(s); K08.89 Other specified disorders of teeth and supporting structures; F17.210 Nicotine dependence, cigarettes, uncomplicated; Z51.81 Encounter for therapeutic drug level monitoring; Z79.899 Other long term (current) drug therapy
CPT/HCPCS: 36415; 73630; 80048; 80076; 80307; 83735; 85025; 99284; S9485

== ENCOUNTER 2024-06-10 19:33 | Inpatient (IN) | payer OTHER, SELFPAY ==
[2024-06-10 19:55] VITALS: BP 102/56; PULSE 75; TEMP 37.3; O2SAT 97
[2024-06-10 23:29] VITALS: BMI 31.0
[2024-06-10] MEDS: Acetaminophen 325 MG TABLET 650 MG PO (23:34)
[2024-06-10] MEDS: Gabapentin 400 MG CAPSULE 800 MG PO (23:35)
[2024-06-10] MEDS: hydrOXYzine HCL 25 MG TABLET PO (23:36)
--- NOTE | 2024-06-11 06:28 | PC.ADMIT ---
An -Kyrgyz, single, Italian-speaking male, aged 58 years [facility] as a section 12B from [facility] ED. Pt self-presented to [facility] ED for SI with a plan on 06/08 following self-presenting 3 times in a 24 hour period. Pt reported a plan to O/D on prescription medications. Pt reports lengthy history of IPLOC and substance admissions. Pt c/o left knee and hip arthritis pain 6-11/30 upon arrival helped by PRN Tylenol and prescribed gabapentin. Pt participated in admission process. Pt reported anxiety and depression 7-12/31. Pt denies SI/HI. Pt reported no current SI as he feels safe in a hospital setting and says can seek out staff if needed. Pt reports pevious diagnosis of PTSD and trauma history. Pt reports being homeless at this time. Pt reports obstructive sleep apnea but denies use of CPAP. Pt reports no current therapist or psychiatric medication provider, but said providers may be lined up by [facility]. Pt stated is interested in help with accessing housing and is interested in a CSS program. Pt is a daily smoker but declines nicotine replacement. Pt received Flu shot this year already. Pt reports Etoh use several days during week consuming about 5 drinks. Pt reports regular use of marijuana and cocaine. Pt denies withdrawal symptoms at this time. Pt reports poor sleep with frequent awakening to use bathroom up to every two hours. Pt appeared to sleep through the night with medication. Pt is pleasant on 1:1 and was social with peers.
[2024-06-11 08:00] VITALS: BP 147/81; PULSE 56; RESP 18; TEMP 36; O2SAT 98
[2024-06-11] MEDS: Gabapentin 400 MG CAPSULE 800 MG PO ×3 (08:00→23:17)
[2024-06-11] MEDS: hydrOXYzine HCL 25 MG TABLET PO ×2 (08:06→18:21)
[2024-06-11 08:23] LABS: Cholesterol 249 mg/dL (<200); HDL Cholesterol 52 mg/dL (>40); LDL Cholesterol Calculated 156 mg/dL (<100); Triglycerides 205 mg/dL (<150)
[2024-06-11 08:26] LABS: Alanine Aminotransferase 65 U/L (0-40); Albumin Level 3.9 g/dL (3.5-5.0); Alkaline Phosphatase 69 U/L (39-117); Anion Gap 13 (12-20); Aspartate Amino Transferase 71 U/L (5-37); Bilirubin Total 0.5 mg/dL (0.0-1.0); Blood Urea Nitrogen 22 mg/dL (9-16); Calcium 8.7 mg/dL (8.4-10.2); Carbon Dioxide 24 mmol/L (22-29); Chloride 107 mmol/L (96-108); Creatinine Clr Calc Pharmacy 106.6; Estimated Glomerular Filt Rate > 60; Glucose Random 151 mg/dL (60-115); Potassium 4.2 mmol/L (3.3-5.1); Sodium 140 mmol/L (135-145); Total Protein 7.8 g/dL (6.5-8.0)
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
[2024-06-11] MEDS: Lidocaine 4 % Patch ADH..PATCH 2 PATCH TRANSDERMA (11:13)
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
[2024-06-11] MEDS: Acetaminophen 325 MG TABLET 650 MG PO (18:22)
[2024-06-11] MEDS: Ibuprofen 600 MG TABLET PO (18:30)
[2024-06-11 20:00] VITALS: BP 150/79; PULSE 68; RESP 16; TEMP 36.9; O2SAT 99
[2024-06-11] MEDS: Melatonin 3 MG TABLET 9 MG PO (23:17)
[2024-06-11] MEDS: Mirtazapine 15 MG TABLET PO (23:17)
--- NOTE | 2024-06-11 23:22 | PC.NURSE ---
Patient was irritated that his Remeron and Melatonin were not prescribed. Patient said he is not able to take Trazadone. Dr. Martinez notified and orders were received for one time doses of Melatonin 9 mg po and Remeron 15 mg po. His Ibuprofen dose was increased to 800 mg po q 6 hours prn pain.
[2024-06-12] MEDS: Lidocaine 4 % Patch ADH..PATCH 2 PATCH TRANSDERMA (09:07)
[2024-06-12 09:09] VITALS: BP 137/75; PULSE 63; RESP 18; TEMP 37.4; O2SAT 98
[2024-06-12] MEDS: lisinopriL 10 MG TABLET PO (09:09)
[2024-06-12] MEDS: Gabapentin 400 MG CAPSULE 800 MG PO ×3 (09:09→20:58)
[2024-06-12] MEDS: Ibuprofen 800 MG TABLET PO (11:09)
--- NOTE | 2024-06-12 13:16 | HO.PSYCHPN ---
Subjective Subjective Date of Service: 06/12/24 Reason For Visit: F31.0 Bipolar Disorder, unspecified Subjective Notes: Conditional Voluntary Healthcare Proxy: No Guardianship: No Medical Problems Affecting Mental Status: No Interim History: Re-established dosages of Mirtazapine and Melatonin with pt Pt does reports L knee hip pain-hx arthritis. Asks if we could try pain meds. Will trial low dose celebrex to see if this offers relief to replace ibuprofen. Pt also reports dry skin, Dermacin ordered and reports he is unable to use Trazodone which was discontinued. Pt signed CV with Radha Mobley [facility]. He asks for no other changes at this time. He is settling into the milieu and is visable with peers. Medication Compliance: Yes Side effects from medications: No Attending Groups: Intermittent Review of Systems Acute medical concerns: No Medical Review of Systems: unchanged Review of Systems Review of Systems Denies Mental Status Exam Mental Status Exam Patient Appearance: Appropriate Patient Orientation: Person, Place, Time and Situation Level of Consciousness: Alert Patient Behavior: Appropriate, Talkative, Cooperative and Good Eye Contact Mood Description: Appropriate and Constricted Affect Description: Constricted Patient Cognition Impaired: No Ability to Follow Directions: Good Speech Pattern: Spontaneous Speech Memory Description: Intact Hallucinations: None Delusions: Not Present Thought Process: Distracted Thought Content: positive for Circumstantial, positive for Goal Oriented and positive for Perseveration Judgement: Fair Diagnostics Vital Signs (24Hr): Vital Signs - 24 hr 06/11/24 20:00 06/12/24 09:09 06/12/24 09:09 Temperature 98.4 F 99.3 F Pulse Rate 68 63 Respiratory Rate 16 18 Blood Pressure 150/79 H 137/75 137/75 Pulse Oximetry 99 98 Oxygen Delivery Method Room Air Room Air BMI result Body Mass Index 31.0 Labs 06/11/24 07:52 Labs: Laboratory Results - last 48 hr 06/11/24 07:52 Sodium 140 Potassium 4.2 Chloride 107 Carbon Dioxide 24 Anion Gap 13 BUN 22 H Creatinine 0.94 Estim Creat Clear Calc 106.6 Estimated GFR > 60 Random Glucose 151 H Calcium 8.7 D Total Bilirubin 0.5 AST 71 H ALT 65 H Alkaline Phosphatase 69 Total Protein 7.8 Albumin 3.9 Triglycerides 205 H Cholesterol 249 H LDL Cholesterol, Calc 156 H HDL Cholesterol 52 Medications Medications Current Medications Acetaminophen (Acetaminophen 325 Mg Tablet) 650 mg PO Q6H PRN PRN Reason: Headache/Pain Mild Scale (1-3) Last Admin: 06/11/24 18:22 Dose: 650 mg Al Hydroxide/Mg Hydroxide (Magnesium Hydrox/Alum Hydrox 30 Ml Oral.Susp) 30 ml PO Q6H PRN PRN Reason: Heartburn/Nausea Gabapentin (Gabapentin 400 Mg Capsule) 800 mg PO TID [facility] Last Admin: 06/12/24 09:09 Dose: 800 mg Hydroxyzine HCl (Hydroxyzine Hcl 25 Mg Tablet) 25 mg PO Q6H PRN PRN Reason: Anxiety Last Admin: 06/11/24 18:21 Dose: 25 mg Ibuprofen (Ibuprofen 800 Mg Tablet) 800 mg PO Q6H PRN PRN Reason: Pain, Moderate(Pain Scale 4-6) Last Admin: 06/12/24 11:09 Dose: 800 mg Lidocaine (Lidocaine 4 % Patch Adh..Patch) 2 patch TRANSDERMA DAILY [facility]; Protocol Last Admin: 06/12/24 09:07 Dose: 2 patch Lisinopril (Lisinopril 10 Mg Tablet) 10 mg PO DAILY [facility]; Protocol Last Admin: 06/12/24 09:09 Dose: 10 mg Magnesium Hydroxide (Milk Of Magnesia 30 Ml Oral.Susp) 30 ml PO DAILY PRN PRN Reason: Constipation Nicotine (Nicotine 21 Mg Patch.Td24) 21 mg TRANSDERMA DAILY PRN PRN Reason: Nicotine Cravings Nicotine Polacrilex (Nicotine Polacrilex 2 Mg Gum) 2 mg BUCCAL Q2H PRN PRN Reason: Nicotine Cravings Allergies Allergies Allergy/AdvReac Type Severity Reaction Status Date / Time bee pollen [BEE STINGS] Allergy Severe ANAPHYLAXIS Verified 02/24/24 02:51 trazodone AdvReac Unknown Verified 06/12/24 09:22 Assessment & Plan Assessment & Plan (1) Bipolar 1 disorder: Status: Acute Code(s): F31.9 - Bipolar disorder, unspecified (2) Cocaine use disorder: Status: Acute Code(s): F14.10 - Cocaine abuse, uncomplicated (3) Alcohol use disorder: Status: Acute Code(s): F19.90 - Other psychoactive substance use, unspecified, uncomplicated (4) Tobacco dependence: Status: Acute Code(s): F17.200 - Nicotine dependence, unspecified, uncomplicated Plan Pt is a 58-year-old male with a PMH significant for?HTN, chronic left hip and knee pain, insomnia, depression, and schizophrenia who is admitted to M5 psychiatry unit for increasing depression and SI. Medical consult for admission H&P. Mood disorder Plan as per psychiatry Chronic left hip and knee pain At baseline Conservative treatment with p.o. analgesics Onychomyosis Pt reports began weeks-long treatment with both oral and topical agents at [facility] in [place] Seems very insistent to continue treatment even though do not have on formulary Would suggest getting records from [place] Consider getting medications from outside hospital if possible Thank you for allowing us to participate in the care of this patient. Signing off at this time. Please re-consult if any acute complaints or issues arise. 06/12/24: Mirtazapine 15 mg HS Melatonin 9 mg HS Dermacin cream prn for dry skin Reason for continued inpatient stay Substantial Risk for: rapid decompensation Time Spent With Patient Time: Total time managing care of this patient today ____ minutes.
[2024-06-12 20:00] VITALS: BP 161/85; PULSE 67; RESP 18; TEMP 36.9; O2SAT 99
[2024-06-12] MEDS: Melatonin 3 MG TABLET 9 MG PO (20:58)
[2024-06-12] MEDS: Mirtazapine 15 MG TABLET PO (21:00)
[2024-06-12] MEDS: Mineral Oil/Petrolatum,White 106 GM Tube 1 APPL TOPICAL (21:02)
[2024-06-12] MEDS: Celecoxib 100 MG CAPSULE PO (21:18)
[2024-06-13 08:32] VITALS: BP 169/87; PULSE 59; RESP 16; TEMP 36.5; O2SAT 100
[2024-06-13] MEDS: Gabapentin 400 MG CAPSULE 800 MG PO ×3 (09:02→21:54)
[2024-06-13] MEDS: lisinopriL 10 MG TABLET PO (09:02)
[2024-06-13] MEDS: Celecoxib 100 MG CAPSULE PO ×2 (09:02→22:04)
[2024-06-13] MEDS: Lidocaine 4 % Patch ADH..PATCH 2 PATCH TRANSDERMA (09:04)
[2024-06-13] MEDS: Mineral Oil/Petrolatum,White 106 GM Tube 1 APPL TOPICAL ×2 (10:27→22:04)
--- NOTE | 2024-06-13 10:37 | P.PNPSI_ITS ---
Subjective Subjective Date of Service: 06/13/24 Reason For Visit: F31.0 Bipolar Disorder, unspecified Interim History: Pt slept through the night. Pt reports feeling better in terms of depression. He denies SI/HI. NO psychosis or delusions. He is interested in referrals for [facility] programs. [facility] [place] [facility] [place] [facility] [place] [facility] He was given phone number for [facility] dual dx programs. No behavioral concerns. He is taking medications as prescribed. Medication Compliance: Yes Review of Systems Review of Systems Denies Yes all other systems are reviewed and are negative Mental Status Exam Mental Status Exam Narrative: Patient was seen the morning after his admission. He is alert, oriented and pleasant. Normal speech, good eye contact. Affect is appropriate and varied. No acute signs of psychosis. No delusions. He denies any current suicidal ideations but states that he did have that prior to coming in. Cognitively he is intact. Judgment is intact Patient Appearance: Appropriate Patient Orientation: Person, Place, Time and Situation Level of Consciousness: Alert Patient Behavior: Appropriate, Talkative, Cooperative and Good Eye Contact Mood Description: Appropriate and Constricted Affect Description: Constricted Patient Cognition Impaired: No Ability to Follow Directions: Good Speech Pattern: Spontaneous Speech Memory Description: Intact Diagnostics Vital Signs (24Hr): Vital Signs - 24 hr 06/12/24 20:00 06/13/24 08:32 Temperature 98.4 F 97.7 F Pulse Rate 67 59 Respiratory Rate 18 16 Blood Pressure 161/85 H 169/87 H Pulse Oximetry 99 100 Oxygen Delivery Method Room Air Room Air BMI result Body Mass Index 31.0 Labs 06/11/24 07:52 Medications Medications Current Medications Acetaminophen (Acetaminophen 325 Mg Tablet) 650 mg PO Q6H PRN PRN Reason: Headache/Pain Mild Scale (1-3) Last Admin: 06/11/24 18:22 Dose: 650 mg Al Hydroxide/Mg Hydroxide (Magnesium Hydrox/Alum Hydrox 30 Ml Oral.Susp) 30 ml PO Q6H PRN PRN Reason: Heartburn/Nausea Celecoxib (Celecoxib 100 Mg Capsule) 100 mg PO BID [facility] Last Admin: 06/13/24 09:02 Dose: 100 mg Gabapentin (Gabapentin 400 Mg Capsule) 800 mg PO TID [facility] Last Admin: 06/13/24 09:02 Dose: 800 mg Hydroxyzine HCl (Hydroxyzine Hcl 25 Mg Tablet) 25 mg PO Q6H PRN PRN Reason: Anxiety Last Admin: 06/11/24 18:21 Dose: 25 mg Lidocaine (Lidocaine 4 % Patch Adh..Patch) 2 patch TRANSDERMA DAILY [facility]; Protocol Last Admin: 06/13/24 09:04 Dose: 2 patch Lisinopril (Lisinopril 10 Mg Tablet) 10 mg PO DAILY [facility]; Protocol Last Admin: 06/13/24 09:02 Dose: 10 mg Magnesium Hydroxide (Milk Of Magnesia 30 Ml Oral.Susp) 30 ml PO DAILY PRN PRN Reason: Constipation Melatonin (Melatonin 3 Mg Tablet) 9 mg PO BEDTIME [facility] Last Admin: 06/12/24 20:58 Dose: 9 mg Mirtazapine (Mirtazapine 15 Mg Tablet) 15 mg PO BEDTIME [facility] Last Admin: 06/12/24 21:00 Dose: 15 mg Multi-Ingred Cream/Lotion/Oil/Oint (Mineral Oil/Petrolatum,White 106 Gm Tube) 1 appl TOPICAL BID [facility]; Protocol Last Admin: 06/13/24 10:27 Dose: 1 appl Nicotine (Nicotine 21 Mg Patch.Td24) 21 mg TRANSDERMA DAILY PRN PRN Reason: Nicotine Cravings Nicotine Polacrilex (Nicotine Polacrilex 2 Mg Gum) 2 mg BUCCAL Q2H PRN PRN Reason: Nicotine Cravings Allergies Allergies Allergy/AdvReac Type Severity Reaction Status Date / Time bee pollen [BEE STINGS] Allergy Severe ANAPHYLAXIS Verified 02/24/24 02:51 trazodone AdvReac Unknown Verified 06/12/24 09:22 Assessment & Plan Assessment & Plan (1) Bipolar 1 disorder: Status: Acute Code(s): F31.9 - Bipolar disorder, unspecified (2) Cocaine use disorder: Status: Acute Code(s): F14.10 - Cocaine abuse, uncomplicated (3) Alcohol use disorder: Status: Acute Code(s): F19.90 - Other psychoactive substance use, unspecified, uncomplicated (4) Tobacco dependence: Status: Acute Code(s): F17.200 - Nicotine dependence, unspecified, uncomplicated Plan Pt is a 58-year-old male with a PMH significant for?HTN, chronic left hip and knee pain, insomnia, depression, and schizophrenia who is admitted to psychiatry unit for increasing depression and SI. Medical consult for admission H&P. Mood disorder Plan as per psychiatry Chronic left hip and knee pain At baseline Conservative treatment with p.o. analgesics Onychomyosis Pt reports began weeks-long treatment with both oral and topical agents at [facility] in [place] Seems very insistent to continue treatment even though do not have on formulary Would suggest getting records from [place] Consider getting medications from outside hospital if possible Thank you for allowing us to participate in the care of this patient. Signing off at this time. Please re-consult if any acute complaints or issues arise. 06/12/24: Mirtazapine 15 mg HS Melatonin 9 mg HS Dermacin cream prn for dry skin 06/13 continue tx. Reason for continued inpatient stay Substantial Risk for: harm to self Time Spent With Patient Time: Total time managing care of this patient today ____ minutes.
[2024-06-13 20:00] VITALS: BP 152/82; PULSE 63; RESP 16; TEMP 36.7; O2SAT 95
[2024-06-13 21:30] LABS: Glucose, Whole Blood 109 mg/dL (60-115)
[2024-06-13] MEDS: Melatonin 3 MG TABLET 9 MG PO (21:56)
[2024-06-13] MEDS: Mirtazapine 15 MG TABLET PO (22:08)
[2024-06-14] MEDS: Gabapentin 400 MG CAPSULE 800 MG PO ×3 (07:59→22:38)
[2024-06-14] MEDS: Lidocaine 4 % Patch ADH..PATCH 2 PATCH TRANSDERMA (07:59)
[2024-06-14] MEDS: lisinopriL 10 MG TABLET PO (07:59)
[2024-06-14] MEDS: Celecoxib 100 MG CAPSULE PO ×2 (07:59→22:38)
[2024-06-14 08:00] VITALS: BP 166/81; PULSE 61; RESP 18; TEMP 37.2; O2SAT 100
--- NOTE | 2024-06-14 15:15 | HO.PSYCHPN ---
Subjective Subjective Date of Service: 06/14/24 Reason For Visit: F31.0 Bipolar Disorder, unspecified Subjective Notes: Conditional Voluntary Healthcare Proxy: No Guardianship: No Medical Problems Affecting Mental Status: No Interim History: Denies SI,HI, AH, VH No sx of acute psychosis or flaco Pt is preparing to interview for discharge follow up programs. Reports regime is intact,effective. Asks for no changes at this time. Medication Compliance: Yes Side effects from medications: No Attending Groups: Intermittent Review of Systems Acute medical concerns: No Review of Systems Review of Systems denies Mental Status Exam Mental Status Exam Patient Appearance: Appropriate Patient Orientation: Person, Place, Time and Situation Level of Consciousness: Alert Patient Behavior: Appropriate, Talkative, Cooperative and Good Eye Contact Mood Description: Appropriate and Constricted Affect Description: Constricted Patient Cognition Impaired: No Ability to Follow Directions: Good Speech Pattern: Spontaneous Speech Memory Description: Intact Hallucinations: None Delusions: Not Present Thought Process: Distracted Thought Content: positive for Circumstantial, positive for Goal Oriented and positive for Perseveration Judgement: Fair Diagnostics Vital Signs (24Hr): Vital Signs - 24 hr 06/13/24 20:00 06/14/24 08:00 Temperature 98.0 F 98.9 F Pulse Rate 63 61 Respiratory Rate 16 18 Blood Pressure 152/82 H 166/81 H Pulse Oximetry 95 100 Oxygen Delivery Method Room Air Room Air BMI result Body Mass Index 31.0 Labs 06/11/24 07:52 Labs: Laboratory Results - last 48 hr 06/13/24 21:24 POC Glucose 109 Medications Medications Current Medications Acetaminophen (Acetaminophen 325 Mg Tablet) 650 mg PO Q6H PRN PRN Reason: Headache/Pain Mild Scale (1-3) Last Admin: 06/11/24 18:22 Dose: 650 mg Al Hydroxide/Mg Hydroxide (Magnesium Hydrox/Alum Hydrox 30 Ml Oral.Susp) 30 ml PO Q6H PRN PRN Reason: Heartburn/Nausea Celecoxib (Celecoxib 100 Mg Capsule) 100 mg PO BID [facility] Last Admin: 06/14/24 07:59 Dose: 100 mg Gabapentin (Gabapentin 400 Mg Capsule) 800 mg PO TID [facility] Last Admin: 06/14/24 07:59 Dose: 800 mg Hydroxyzine HCl (Hydroxyzine Hcl 25 Mg Tablet) 25 mg PO Q6H PRN PRN Reason: Anxiety Last Admin: 01/19/25 18:21 Dose: 25 mg Lidocaine (Lidocaine 4 % Patch Adh..Patch) 2 patch TRANSDERMA DAILY [facility]; Protocol Last Admin: 06/14/24 07:59 Dose: 1 patch Lisinopril (Lisinopril 10 Mg Tablet) 10 mg PO DAILY [facility]; Protocol Last Admin: 06/14/24 07:59 Dose: 10 mg Magnesium Hydroxide (Milk Of Magnesia 30 Ml Oral.Susp) 30 ml PO DAILY PRN PRN Reason: Constipation Melatonin (Melatonin 3 Mg Tablet) 9 mg PO BEDTIME [facility] Last Admin: 06/13/24 21:56 Dose: 9 mg Mirtazapine (Mirtazapine 15 Mg Tablet) 15 mg PO BEDTIME [facility] Last Admin: 06/13/24 22:08 Dose: 15 mg Multi-Ingred Cream/Lotion/Oil/Oint (Mineral Oil/Petrolatum,White 106 Gm Tube) 1 appl TOPICAL BID [facility]; Protocol Last Admin: 06/14/24 08:34 Dose: Not Given Nicotine (Nicotine 21 Mg Patch.Td24) 21 mg TRANSDERMA DAILY PRN PRN Reason: Nicotine Cravings Nicotine Polacrilex (Nicotine Polacrilex 2 Mg Gum) 2 mg BUCCAL Q2H PRN PRN Reason: Nicotine Cravings Allergies Allergies Allergy/AdvReac Type Severity Reaction Status Date / Time bee pollen [BEE STINGS] Allergy Severe ANAPHYLAXIS Verified 02/24/24 02:51 trazodone AdvReac Unknown Verified 06/12/24 09:22 Assessment & Plan Assessment & Plan (1) Bipolar 1 disorder: Status: Acute Code(s): F31.9 - Bipolar disorder, unspecified (2) Cocaine use disorder: Status: Acute Code(s): F14.10 - Cocaine abuse, uncomplicated (3) Alcohol use disorder: Status: Acute Code(s): F19.90 - Other psychoactive substance use, unspecified, uncomplicated (4) Tobacco dependence: Status: Acute Code(s): F17.200 - Nicotine dependence, unspecified, uncomplicated Plan Pt is a 58-year-old male with a PMH significant for?HTN, chronic left hip and knee pain, insomnia, depression, and schizophrenia who is admitted to psychiatry unit for increasing depression and SI. Medical consult for admission H&P. Mood disorder Plan as per psychiatry Chronic left hip and knee pain At baseline Conservative treatment with p.o. analgesics Onychomyosis Pt reports began weeks-long treatment with both oral and topical agents at [facility] in [place] Seems very insistent to continue treatment even though do not have on formulary Would suggest getting records from [place] Consider getting medications from outside hospital if possible Thank you for allowing us to participate in the care of this patient. Signing off at this time. Please re-consult if any acute complaints or issues arise. 06/12/24: Mirtazapine 15 mg HS Melatonin 9 mg HS Dermacin cream prn for dry skin 06/13 continue tx. 06/14 Continue tx. Reason for continued inpatient stay Substantial Risk for: rapid decompensation Time Spent With Patient Time: Total time managing care of this patient today ____ minutes.
[2024-06-14 19:36] VITALS: BP 144/96; PULSE 70; TEMP 37.2; O2SAT 97
[2024-06-14] MEDS: Mirtazapine 15 MG TABLET PO (22:38)
[2024-06-14] MEDS: Melatonin 3 MG TABLET 9 MG PO (22:38)
[2024-06-14] MEDS: hydrOXYzine HCL 25 MG TABLET PO (22:40)
[2024-06-15 07:00] VITALS: BMI 31.5
[2024-06-15 08:00] VITALS: PULSE 63; RESP 16; TEMP 37.1; O2SAT 98
[2024-06-15] MEDS: Gabapentin 400 MG CAPSULE 800 MG PO ×3 (08:50→23:12)
[2024-06-15] MEDS: Celecoxib 100 MG CAPSULE PO ×2 (08:50→23:13)
[2024-06-15 08:54] VITALS: BP 146/84
[2024-06-15] MEDS: lisinopriL 10 MG TABLET PO (08:54)
--- NOTE | 2024-06-15 11:05 | HO.PSYCHPN ---
Subjective Subjective Date of Service: 06/15/24 Reason For Visit: F31.0 Bipolar Disorder, unspecified Subjective Notes: Conditional Voluntary Healthcare Proxy: No Guardianship: No Medical Problems Affecting Mental Status: No Interim History: Reports ongoing depressive and anxious symptoms, however, decreased. Pt participated in a phone interview on 06/14 for residential placement. He is visable in milieu, social with peers and without behavioral dyscontrol. Medication Compliance: Yes Side effects from medications: No Attending Groups: Intermittent Review of Systems Acute medical concerns: No Review of Systems Review of Systems Denies Mental Status Exam Mental Status Exam Patient Appearance: Appropriate Patient Orientation: Person, Place, Time and Situation Level of Consciousness: Alert Patient Behavior: Appropriate, Talkative, Cooperative and Good Eye Contact Mood Description: Appropriate and Constricted Affect Description: Constricted Patient Cognition Impaired: No Ability to Follow Directions: Good Speech Pattern: Spontaneous Speech Memory Description: Intact Hallucinations: None Delusions: Not Present Thought Process: Distracted Thought Content: positive for Circumstantial, positive for Goal Oriented and positive for Perseveration Judgement: Fair Diagnostics Vital Signs (24Hr): Vital Signs - 24 hr 06/14/24 19:36 06/15/24 08:00 06/15/24 08:54 Temperature 98.9 F 98.7 F Pulse Rate 70 63 Respiratory Rate 16 Blood Pressure 144/96 H 146/84 H Pulse Oximetry 97 98 Oxygen Delivery Method Room Air Room Air BMI result Body Mass Index 31.5 Labs 06/11/24 07:52 Labs: Laboratory Results - last 48 hr 06/13/24 21:24 POC Glucose 109 Medications Medications Current Medications Acetaminophen (Acetaminophen 325 Mg Tablet) 650 mg PO Q6H PRN PRN Reason: Headache/Pain Mild Scale (1-3) Last Admin: 06/11/24 18:22 Dose: 650 mg Al Hydroxide/Mg Hydroxide (Magnesium Hydrox/Alum Hydrox 30 Ml Oral.Susp) 30 ml PO Q6H PRN PRN Reason: Heartburn/Nausea Celecoxib (Celecoxib 100 Mg Capsule) 100 mg PO BID [facility] Last Admin: 06/15/24 08:50 Dose: 100 mg Gabapentin (Gabapentin 400 Mg Capsule) 800 mg PO TID [facility] Last Admin: 06/15/24 08:50 Dose: 800 mg Hydroxyzine HCl (Hydroxyzine Hcl 25 Mg Tablet) 25 mg PO Q6H PRN PRN Reason: Anxiety Last Admin: 06/14/24 22:40 Dose: 25 mg Lidocaine (Lidocaine 4 % Patch Adh..Patch) 2 patch TRANSDERMA DAILY [facility]; Protocol Last Admin: 06/15/24 09:01 Dose: Not Given Lisinopril (Lisinopril 10 Mg Tablet) 10 mg PO DAILY [facility]; Protocol Last Admin: 06/15/24 08:54 Dose: 10 mg Magnesium Hydroxide (Milk Of Magnesia 30 Ml Oral.Susp) 30 ml PO DAILY PRN PRN Reason: Constipation Melatonin (Melatonin 3 Mg Tablet) 9 mg PO BEDTIME [facility] Last Admin: 06/14/24 22:38 Dose: 9 mg Mirtazapine (Mirtazapine 15 Mg Tablet) 15 mg PO BEDTIME [facility] Last Admin: 06/14/24 22:38 Dose: 15 mg Multi-Ingred Cream/Lotion/Oil/Oint (Mineral Oil/Petrolatum,White 106 Gm Tube) 1 appl TOPICAL BID [facility]; Protocol Last Admin: 06/15/24 09:01 Dose: Not Given Nicotine (Nicotine 21 Mg Patch.Td24) 21 mg TRANSDERMA DAILY PRN PRN Reason: Nicotine Cravings Nicotine Polacrilex (Nicotine Polacrilex 2 Mg Gum) 2 mg BUCCAL Q2H PRN PRN Reason: Nicotine Cravings Allergies Allergies Allergy/AdvReac Type Severity Reaction Status Date / Time bee pollen [BEE STINGS] Allergy Severe ANAPHYLAXIS Verified 02/24/24 02:51 trazodone AdvReac Unknown Verified 06/12/24 09:22 Assessment & Plan Assessment & Plan (1) Bipolar 1 disorder: Status: Acute Code(s): F31.9 - Bipolar disorder, unspecified (2) Cocaine use disorder: Status: Acute Code(s): F14.10 - Cocaine abuse, uncomplicated (3) Alcohol use disorder: Status: Acute Code(s): F19.90 - Other psychoactive substance use, unspecified, uncomplicated (4) Tobacco dependence: Status: Acute Code(s): F17.200 - Nicotine dependence, unspecified, uncomplicated Plan Pt is a 58-year-old male with a PMH significant for?HTN, chronic left hip and knee pain, insomnia, depression, and schizophrenia who is admitted to psychiatry unit for increasing depression and SI. Medical consult for admission H&P. Mood disorder Plan as per psychiatry Chronic left hip and knee pain At baseline Conservative treatment with p.o. analgesics Onychomyosis Pt reports began weeks-long treatment with both oral and topical agents at [facility] in [place] Seems very insistent to continue treatment even though do not have on formulary Would suggest getting records from [place] Consider getting medications from outside hospital if possible Thank you for allowing us to participate in the care of this patient. Signing off at this time. Please re-consult if any acute complaints or issues arise. 06/12/24: Mirtazapine 15 mg HS Melatonin 9 mg HS Dermacin cream prn for dry skin 06/13 continue tx. 06/15 Discharge planning. Pt has applied to a transitional program Reason for continued inpatient stay Substantial Risk for: rapid decompensation Time Spent With Patient Time: Total time managing care of this patient today ____ minutes.
[2024-06-15 20:00] VITALS: BP 142/64; PULSE 64; RESP 16; TEMP 36.4; O2SAT 98
[2024-06-15] MEDS: Melatonin 3 MG TABLET 9 MG PO (23:12)
[2024-06-15] MEDS: Mirtazapine 15 MG TABLET PO (23:13)
[2024-06-16 08:00] VITALS: BP 158/75; PULSE 69; RESP 16; TEMP 36.9; O2SAT 98
[2024-06-16 10:21] VITALS: BP 152/80
[2024-06-16] MEDS: lisinopriL 10 MG TABLET PO (10:21)
[2024-06-16] MEDS: Gabapentin 400 MG CAPSULE 800 MG PO ×3 (10:21→22:24)
[2024-06-16] MEDS: Celecoxib 100 MG CAPSULE PO ×2 (10:21→22:23)
[2024-06-16] MEDS: Lidocaine 4 % Patch ADH..PATCH 2 PATCH TRANSDERMA (10:23)
[2024-06-16] MEDS: Ibuprofen 600 MG TABLET PO (14:13)
[2024-06-16] MEDS: Acetaminophen 325 MG TABLET 650 MG PO (14:14)
--- NOTE | 2024-06-16 16:13 | P.PNPSI_ITS ---
Subjective Subjective Date of Service: 06/16/24 Reason For Visit: F31.0 Bipolar Disorder, unspecified Subjective Notes: Conditional Voluntary Healthcare Proxy: No Guardianship: No Medical Problems Affecting Mental Status: No Interim History: Reports to team an increase of depressive sx with SI. Tells team he is better off . Continues to await an answer for [facility] [place] (2-3 week wait) or possibly Respite Met with pt this afternoon. He believes medications are in a good place. He is prepared to begin to use CPAP- will order tonight and will order upon discharge for pt Discussed years of significant snoring and how this eval here has been one he knows will improve his life. Plans discharge for 06/20- Denies SI to tw- I get down at times. Things are going good for me here. Medication Compliance: Yes Side effects from medications: No Attending Groups: Intermittent Review of Systems Acute medical concerns: No Review of Systems Review of Systems Denies Ready to trial CPAP for the remainder of his stay Mental Status Exam Mental Status Exam Patient Appearance: Appropriate Patient Orientation: Person, Place, Time and Situation Level of Consciousness: Alert Patient Behavior: Appropriate, Talkative, Cooperative and Good Eye Contact Mood Description: Appropriate and Constricted Affect Description: Constricted Patient Cognition Impaired: No Ability to Follow Directions: Good Speech Pattern: Spontaneous Speech Memory Description: Intact Hallucinations: None Delusions: Not Present Thought Process: Distracted Thought Content: positive for Circumstantial, positive for Goal Oriented, positive for Perseveration and positive for Suicidal Ideation (reported yes to team, tells tw he is not suicidal) Judgement: Fair Diagnostics Vital Signs (24Hr): Vital Signs - 24 hr 06/15/24 20:00 06/16/24 08:00 06/16/24 10:21 Temperature 97.6 F 98.5 F Pulse Rate 64 69 Respiratory Rate 16 16 Blood Pressure 142/64 H 158/75 H 152/80 H Pulse Oximetry 98 98 Oxygen Delivery Method Room Air BMI result Body Mass Index 31.5 Labs 06/11/24 07:52 Medications Medications Current Medications Acetaminophen (Acetaminophen 325 Mg Tablet) 650 mg PO Q6H PRN PRN Reason: Pain, Moderate(Pain Scale 4-6) Last Admin: 06/16/24 14:14 Dose: 650 mg Al Hydroxide/Mg Hydroxide (Magnesium Hydrox/Alum Hydrox 30 Ml Oral.Susp) 30 ml PO Q6H PRN PRN Reason: Heartburn/Nausea Celecoxib (Celecoxib 100 Mg Capsule) 100 mg PO BID [facility] Last Admin: 06/16/24 10:21 Dose: 100 mg Gabapentin (Gabapentin 400 Mg Capsule) 800 mg PO TID [facility] Last Admin: 06/16/24 14:13 Dose: 800 mg Hydroxyzine HCl (Hydroxyzine Hcl 25 Mg Tablet) 25 mg PO Q6H PRN PRN Reason: Anxiety Last Admin: 06/14/24 22:40 Dose: 25 mg Ibuprofen (Ibuprofen 600 Mg Tablet) 600 mg PO Q6H PRN PRN Reason: Pain, Severe (Pain Scale 7-10) Last Admin: 06/16/24 14:13 Dose: 600 mg Lidocaine (Lidocaine 4 % Patch Adh..Patch) 2 patch TRANSDERMA DAILY [facility]; Protocol Last Admin: 06/16/24 10:23 Dose: 2 patch Lisinopril (Lisinopril 10 Mg Tablet) 10 mg PO DAILY [facility]; Protocol Last Admin: 06/16/24 10:21 Dose: 10 mg Magnesium Hydroxide (Milk Of Magnesia 30 Ml Oral.Susp) 30 ml PO DAILY PRN PRN Reason: Constipation Melatonin (Melatonin 3 Mg Tablet) 9 mg PO BEDTIME [facility] Last Admin: 06/15/24 23:12 Dose: 9 mg Mirtazapine (Mirtazapine 15 Mg Tablet) 15 mg PO BEDTIME [facility] Last Admin: 06/15/24 23:13 Dose: 15 mg Multi-Ingred Cream/Lotion/Oil/Oint (Mineral Oil/Petrolatum,White 106 Gm Tube) 1 appl TOPICAL BID [facility]; Protocol Last Admin: 06/16/24 12:45 Dose: Not Given Nicotine (Nicotine 21 Mg Patch.Td24) 21 mg TRANSDERMA DAILY PRN PRN Reason: Nicotine Cravings Nicotine Polacrilex (Nicotine Polacrilex 2 Mg Gum) 2 mg BUCCAL Q2H PRN PRN Reason: Nicotine Cravings Allergies Allergies Allergy/AdvReac Type Severity Reaction Status Date / Time bee pollen [BEE STINGS] Allergy Severe ANAPHYLAXIS Verified 02/24/24 02:51 trazodone AdvReac Unknown Verified 06/12/24 09:22 Assessment & Plan Assessment & Plan (1) Bipolar 1 disorder: Status: Acute Code(s): F31.9 - Bipolar disorder, unspecified (2) Cocaine use disorder: Status: Acute Code(s): F14.10 - Cocaine abuse, uncomplicated (3) Alcohol use disorder: Status: Acute Code(s): F19.90 - Other psychoactive substance use, unspecified, uncomplicated (4) Tobacco dependence: Status: Acute Code(s): F17.200 - Nicotine dependence, unspecified, uncomplicated Plan Pt is a 58-year-old male with a PMH significant for?HTN, chronic left hip and knee pain, insomnia, depression, and schizophrenia who is admitted to [facility] psychiatry unit for increasing depression and SI. Medical consult for admission H&P. Mood disorder Plan as per psychiatry Chronic left hip and knee pain At baseline Conservative treatment with p.o. analgesics Onychomyosis Pt reports began weeks-long treatment with both oral and topical agents at [facility] in [place] Seems very insistent to continue treatment even though do not have on formulary Would suggest getting records from [place] Consider getting medications from outside hospital if possible Thank you for allowing us to participate in the care of this patient. Signing off at this time. Please re-consult if any acute complaints or issues arise. 06/12/24: Mirtazapine 15 mg HS Melatonin 9 mg HS Dermacin cream prn for dry skin 06/13 continue tx. 06/14 Continue tx. 06/16 CPAP ordered Reason for continued inpatient stay Substantial Risk for: rapid decompensation Time Spent With Patient Time: Total time managing care of this patient today ____ minutes.
[2024-06-16 20:00] VITALS: BP 143/60; PULSE 75; RESP 16; TEMP 36.7; O2SAT 97
[2024-06-16] MEDS: Mirtazapine 15 MG TABLET PO (22:24)
[2024-06-16] MEDS: Melatonin 3 MG TABLET 9 MG PO (22:24)
[2024-06-17 00:29] VITALS: RESP 16
--- NOTE | 2024-06-17 05:56 | P.PNPSI_ITS ---
Subjective Subjective Date of Service: 06/17/24 Reason For Visit: F31.0 Bipolar Disorder, unspecified Interim History: Pt seen, discussed with team. CPAP he finds tolerable, I did sleep better Denies current sx. No med changes today Hoping for DC to [facility] on 06/20. Medication Compliance: Yes Side effects from medications: No Attending Groups: Intermittent Review of Systems Acute medical concerns: No Medical Review of Systems: unchanged Review of Systems Review of Systems denies Mental Status Exam Mental Status Exam Patient Appearance: Appropriate Patient Orientation: Person, Place, Time and Situation Level of Consciousness: Alert Patient Behavior: Appropriate, Talkative, Cooperative and Good Eye Contact Mood Description: Appropriate and Constricted Affect Description: Constricted Patient Cognition Impaired: No Ability to Follow Directions: Good Speech Pattern: Spontaneous Speech Memory Description: Intact Hallucinations: None Delusions: Not Present Thought Process: Distracted Thought Content: positive for Circumstantial, positive for Goal Oriented, positive for Perseveration and positive for Suicidal Ideation (reported yes to team, tells tw he is not suicidal) Judgement: Fair Diagnostics Vital Signs (24Hr): Vital Signs - 24 hr 06/16/24 08:00 06/16/24 10:21 06/16/24 20:00 Temperature 98.5 F 98.0 F Pulse Rate 69 75 Respiratory Rate 16 16 Blood Pressure 158/75 H 152/80 H 143/60 H Pulse Oximetry 98 97 Oxygen Delivery Method Room Air 06/17/24 00:29 Temperature Pulse Rate Respiratory Rate 16 Blood Pressure Pulse Oximetry Oxygen Delivery Method BMI result Body Mass Index 31.5 Labs 06/11/24 07:52 Medications Medications Current Medications Acetaminophen (Acetaminophen 325 Mg Tablet) 650 mg PO Q6H PRN PRN Reason: Pain, Moderate(Pain Scale 4-6) Last Admin: 06/16/24 14:14 Dose: 650 mg Al Hydroxide/Mg Hydroxide (Magnesium Hydrox/Alum Hydrox 30 Ml Oral.Susp) 30 ml PO Q6H PRN PRN Reason: Heartburn/Nausea Celecoxib (Celecoxib 100 Mg Capsule) 100 mg PO BID [facility] Last Admin: 06/16/24 22:23 Dose: 100 mg Gabapentin (Gabapentin 400 Mg Capsule) 800 mg PO TID [facility] Last Admin: 06/16/24 22:24 Dose: 800 mg Hydroxyzine HCl (Hydroxyzine Hcl 25 Mg Tablet) 25 mg PO Q6H PRN PRN Reason: Anxiety Last Admin: 06/14/24 22:40 Dose: 25 mg Ibuprofen (Ibuprofen 600 Mg Tablet) 600 mg PO Q6H PRN PRN Reason: Pain, Severe (Pain Scale 7-10) Last Admin: 06/16/24 14:13 Dose: 600 mg Lidocaine (Lidocaine 4 % Patch Adh..Patch) 2 patch TRANSDERMA DAILY [facility]; Protocol Last Admin: 06/16/24 10:23 Dose: 2 patch Lisinopril (Lisinopril 10 Mg Tablet) 10 mg PO DAILY [facility]; Protocol Last Admin: 06/16/24 10:21 Dose: 10 mg Magnesium Hydroxide (Milk Of Magnesia 30 Ml Oral.Susp) 30 ml PO DAILY PRN PRN Reason: Constipation Melatonin (Melatonin 3 Mg Tablet) 9 mg PO BEDTIME [facility] Last Admin: 06/16/24 22:24 Dose: 9 mg Mirtazapine (Mirtazapine 15 Mg Tablet) 15 mg PO BEDTIME [facility] Last Admin: 06/16/24 22:24 Dose: 15 mg Multi-Ingred Cream/Lotion/Oil/Oint (Mineral Oil/Petrolatum,White 106 Gm Tube) 1 appl TOPICAL BID [facility]; Protocol Last Admin: 06/16/24 22:25 Dose: Not Given Nicotine (Nicotine 21 Mg Patch.Td24) 21 mg TRANSDERMA DAILY PRN PRN Reason: Nicotine Cravings Nicotine Polacrilex (Nicotine Polacrilex 2 Mg Gum) 2 mg BUCCAL Q2H PRN PRN Reason: Nicotine Cravings Allergies Allergies Allergy/AdvReac Type Severity Reaction Status Date / Time bee pollen [BEE STINGS] Allergy Severe ANAPHYLAXIS Verified 02/24/24 02:51 trazodone AdvReac Unknown Verified 06/12/24 09:22 Assessment & Plan Assessment & Plan (1) Bipolar 1 disorder: Status: Acute Code(s): F31.9 - Bipolar disorder, unspecified (2) Cocaine use disorder: Status: Acute Code(s): F14.10 - Cocaine abuse, uncomplicated (3) Alcohol use disorder: Status: Acute Code(s): F19.90 - Other psychoactive substance use, unspecified, uncomplicated (4) Tobacco dependence: Status: Acute Code(s): F17.200 - Nicotine dependence, unspecified, uncomplicated Plan Pt is a 58-year-old male with a PMH significant for?HTN, chronic left hip and knee pain, insomnia, depression, and schizophrenia who is admitted to [facility] psychiatry unit for increasing depression and SI. Medical consult for admission H&P. Mood disorder Plan as per psychiatry Chronic left hip and knee pain At baseline Conservative treatment with p.o. analgesics Onychomyosis Pt reports began weeks-long treatment with both oral and topical agents at [facility] in [place] Seems very insistent to continue treatment even though do not have on formulary Would suggest getting records from [place] Consider getting medications from outside hospital if possible Thank you for allowing us to participate in the care of this patient. Signing off at this time. Please re-consult if any acute complaints or issues arise. 06/12/24: Mirtazapine 15 mg HS Melatonin 9 mg HS Dermacin cream prn for dry skin 06/13 continue tx. 06/14 Continue tx. 06/16 CPAP ordered 06/17 continue tx Reason for continued inpatient stay Substantial Risk for: rapid decompensation Time Spent With Patient Time: Total time managing care of this patient today ____ minutes.
[2024-06-17 08:08] VITALS: BP 142/77; PULSE 51; RESP 16; TEMP 36.8; O2SAT 99
[2024-06-17] MEDS: Mineral Oil/Petrolatum,White 106 GM Tube 1 APPL TOPICAL (08:28)
[2024-06-17] MEDS: Gabapentin 400 MG CAPSULE 800 MG PO ×3 (08:28→22:29)
[2024-06-17] MEDS: lisinopriL 10 MG TABLET PO (08:28)
[2024-06-17] MEDS: Celecoxib 100 MG CAPSULE PO ×2 (08:29→22:29)
[2024-06-17] MEDS: Fluticasone Propionate Nasal 16 GM SPRAY 2 SPRAY NOSTRIL-B ×2 (15:50→22:47)
[2024-06-17 20:00] VITALS: BP 150/72; PULSE 64; RESP 16; TEMP 36.8; O2SAT 98
[2024-06-17] MEDS: Mirtazapine 15 MG TABLET PO (22:29)
[2024-06-17] MEDS: Ibuprofen 600 MG TABLET PO (22:30)
[2024-06-17] MEDS: Melatonin 3 MG TABLET 9 MG PO (22:31)
[2024-06-18 08:42] VITALS: BP 157/88; PULSE 68; RESP 16; TEMP 37.1; O2SAT 99
[2024-06-18] MEDS: lisinopriL 10 MG TABLET PO (08:43)
[2024-06-18] MEDS: Fluticasone Propionate Nasal 16 GM SPRAY 2 SPRAY NOSTRIL-B (08:43)
[2024-06-18] MEDS: Mineral Oil/Petrolatum,White 106 GM Tube 1 APPL TOPICAL (08:43)
[2024-06-18] MEDS: Celecoxib 100 MG CAPSULE PO ×2 (08:44→22:25)
[2024-06-18] MEDS: Gabapentin 400 MG CAPSULE 800 MG PO ×3 (08:44→22:25)
--- NOTE | 2024-06-18 08:46 | HO.PSYCHPN ---
Subjective Subjective Date of Service: 06/18/24 Reason For Visit: F31.0 Bipolar Disorder, unspecified Interim History: Pt seen, discussed with team Reports poor pain mgt strategies, review of plan Reports improved energy and feeling better revived and rested with CPAP Reports med regime effective, declines changes. Medication Compliance: Yes Side effects from medications: No Attending Groups: Intermittent Review of Systems Pain mgt Medical Review of Systems: unchanged Review of Systems Review of Systems pain mgt Mental Status Exam Mental Status Exam Patient Appearance: Appropriate Patient Orientation: Person, Place, Time and Situation Level of Consciousness: Alert Patient Behavior: Appropriate, Talkative, Cooperative and Good Eye Contact Mood Description: Appropriate and Constricted Affect Description: Constricted Patient Cognition Impaired: No Ability to Follow Directions: Good Speech Pattern: Spontaneous Speech Memory Description: Intact Hallucinations: None Delusions: Not Present Thought Process: Distracted Thought Content: positive for Circumstantial, positive for Goal Oriented, positive for Perseveration and positive for Suicidal Ideation (reported yes to team, tells tw he is not suicidal) Judgement: Fair Diagnostics Vital Signs (24Hr): Vital Signs - 24 hr 06/17/24 20:00 06/18/24 08:42 Temperature 98.2 F 98.7 F Pulse Rate 64 68 Respiratory Rate 16 16 Blood Pressure 150/72 H 157/88 H Pulse Oximetry 98 99 Oxygen Delivery Method Room Air Room Air BMI result Body Mass Index 31.5 Labs 06/11/24 07:52 Medications Medications Current Medications Acetaminophen (Acetaminophen 325 Mg Tablet) 650 mg PO Q6H PRN PRN Reason: Pain, Moderate(Pain Scale 4-6) Last Admin: 06/16/24 14:14 Dose: 650 mg Al Hydroxide/Mg Hydroxide (Magnesium Hydrox/Alum Hydrox 30 Ml Oral.Susp) 30 ml PO Q6H PRN PRN Reason: Heartburn/Nausea Celecoxib (Celecoxib 100 Mg Capsule) 100 mg PO BID [facility] Last Admin: 06/18/24 08:44 Dose: 100 mg Fluticasone Propionate (Fluticasone Propionate Nasal 16 Gm [place]) 2 spray NOSTRIL-B DAILY [facility] Last Admin: 06/18/24 08:43 Dose: 2 spray Gabapentin (Gabapentin 400 Mg Capsule) 800 mg PO TID [facility] Last Admin: 06/18/24 08:44 Dose: 800 mg Hydroxyzine HCl (Hydroxyzine Hcl 25 Mg Tablet) 25 mg PO Q6H PRN PRN Reason: Anxiety Last Admin: 06/14/24 22:40 Dose: 25 mg Ibuprofen (Ibuprofen 600 Mg Tablet) 600 mg PO Q6H PRN PRN Reason: Pain, Severe (Pain Scale 7-10) Last Admin: 06/17/24 22:30 Dose: 600 mg Lidocaine (Lidocaine 4 % Patch Adh..Patch) 2 patch TRANSDERMA DAILY [facility]; Protocol Last Admin: 06/17/24 08:30 Dose: Not Given Lisinopril (Lisinopril 10 Mg Tablet) 10 mg PO DAILY [facility]; Protocol Last Admin: 06/18/24 08:43 Dose: 10 mg Magnesium Hydroxide (Milk Of Magnesia 30 Ml Oral.Susp) 30 ml PO DAILY PRN PRN Reason: Constipation Melatonin (Melatonin 3 Mg Tablet) 9 mg PO BEDTIME [facility] Last Admin: 06/17/24 22:31 Dose: 9 mg Mirtazapine (Mirtazapine 15 Mg Tablet) 15 mg PO BEDTIME [facility] Last Admin: 06/17/24 22:29 Dose: 15 mg Multi-Ingred Cream/Lotion/Oil/Oint (Mineral Oil/Petrolatum,White 106 Gm Tube) 1 appl TOPICAL BID [facility]; Protocol Last Admin: 06/18/24 08:43 Dose: 1 appl Nicotine (Nicotine 21 Mg Patch.Td24) 21 mg TRANSDERMA DAILY PRN PRN Reason: Nicotine Cravings Nicotine Polacrilex (Nicotine Polacrilex 2 Mg Gum) 2 mg BUCCAL Q2H PRN PRN Reason: Nicotine Cravings Allergies Allergies Allergy/AdvReac Type Severity Reaction Status Date / Time bee pollen [BEE STINGS] Allergy Severe ANAPHYLAXIS Verified 02/24/24 02:51 trazodone AdvReac Unknown Verified 06/12/24 09:22 Assessment & Plan Assessment & Plan (1) Bipolar 1 disorder: Status: Acute Code(s): F31.9 - Bipolar disorder, unspecified (2) Cocaine use disorder: Status: Acute Code(s): F14.10 - Cocaine abuse, uncomplicated (3) Alcohol use disorder: Status: Acute Code(s): F19.90 - Other psychoactive substance use, unspecified, uncomplicated (4) Tobacco dependence: Status: Acute Code(s): F17.200 - Nicotine dependence, unspecified, uncomplicated Plan Pt is a 58-year-old male with a PMH significant for?HTN, chronic left hip and knee pain, insomnia, depression, and schizophrenia who is admitted to [facility] psychiatry unit for increasing depression and SI. Medical consult for admission H&P. Mood disorder Plan as per psychiatry Chronic left hip and knee pain At baseline Conservative treatment with p.o. analgesics Onychomyosis Pt reports began weeks-long treatment with both oral and topical agents at [facility] in [place] Seems very insistent to continue treatment even though do not have on formulary Would suggest getting records from [place] Consider getting medications from outside hospital if possible Thank you for allowing us to participate in the care of this patient. Signing off at this time. Please re-consult if any acute complaints or issues arise. 06/12/24: Mirtazapine 15 mg HS Melatonin 9 mg HS Dermacin cream prn for dry skin 06/13 continue tx. 06/14 Continue tx. 06/16 CPAP ordered 06/18 Tramadol prn for pain Reason for continued inpatient stay Substantial Risk for: rapid decompensation Time Spent With Patient Time: Total time managing care of this patient today ____ minutes.
[2024-06-18 19:50] VITALS: BP 131/76; PULSE 70; RESP 15; TEMP 36.9; O2SAT 99
[2024-06-18] MEDS: Mirtazapine 15 MG TABLET PO (22:25)
[2024-06-18] MEDS: Melatonin 3 MG TABLET 9 MG PO (22:25)
[2024-06-18] MEDS: Ibuprofen 600 MG TABLET PO (22:30)
[2024-06-19 08:34] VITALS: BP 175/65; PULSE 72; RESP 16; TEMP 36.6; O2SAT 93
[2024-06-19 08:57] VITALS: BP 140/70; PULSE 61; RESP 16; O2SAT 96
[2024-06-19] MEDS: Ibuprofen 600 MG TABLET PO (09:07)
[2024-06-19] MEDS: Celecoxib 100 MG CAPSULE PO (09:07)
[2024-06-19] MEDS: Gabapentin 400 MG CAPSULE 800 MG PO ×2 (09:07→15:30)
[2024-06-19] MEDS: Lidocaine 4 % Patch ADH..PATCH 2 PATCH TRANSDERMA (09:08)
[2024-06-19] MEDS: Fluticasone Propionate Nasal 16 GM SPRAY 2 SPRAY NOSTRIL-B (09:08)
[2024-06-19] MEDS: lisinopriL 10 MG TABLET PO (09:08)
--- NOTE | 2024-06-19 10:46 | P.PNPSI_ITS ---
Subjective Subjective Date of Service: 06/19/24 Reason For Visit: F31.0 Bipolar Disorder, unspecified Subjective Notes: Conditional Voluntary Healthcare Proxy: No Guardianship: No Medical Problems Affecting Mental Status: No Interim History: Preparing for discharge, pt informed he has a respite bed today, at the end of the day. Met with pt, reviewed meds, housing issues, plans for his future. Denies SI/HI/AH/VH Prepared for discharge. Medication Compliance: Yes Side effects from medications: No Attending Groups: No Review of Systems Acute medical concerns: No Review of Systems Review of Systems Denies Mental Status Exam Mental Status Exam Patient Appearance: Appropriate Patient Orientation: Person, Place, Time and Situation Level of Consciousness: Alert Patient Behavior: Appropriate, Talkative, Cooperative and Good Eye Contact Mood Description: Appropriate and Constricted Affect Description: Constricted Patient Cognition Impaired: No Ability to Follow Directions: Good Speech Pattern: Spontaneous Speech Memory Description: Intact Hallucinations: None Delusions: Not Present Thought Process: Intact Thought Content: positive for Intact, positive for Goal Oriented and positive for Suicidal Ideation (reported yes to team, tells tw he is not suicidal) Judgement: Good Diagnostics Vital Signs (24Hr): Vital Signs - 24 hr 06/18/24 19:50 06/19/24 08:34 06/19/24 08:57 Temperature 98.4 F 97.9 F Pulse Rate 70 72 61 Respiratory Rate 15 16 16 Blood Pressure 131/76 175/65 H 140/70 H Pulse Oximetry 99 93 96 Oxygen Delivery Method Room Air Room Air BMI result Body Mass Index 31.5 Labs 06/11/24 07:52 Medications Medications Current Medications Acetaminophen (Acetaminophen 325 Mg Tablet) 650 mg PO Q6H PRN PRN Reason: Pain, Moderate(Pain Scale 4-6) Last Admin: 06/16/24 14:14 Dose: 650 mg Al Hydroxide/Mg Hydroxide (Magnesium Hydrox/Alum Hydrox 30 Ml Oral.Susp) 30 ml PO Q6H PRN PRN Reason: Heartburn/Nausea Celecoxib (Celecoxib 100 Mg Capsule) 100 mg PO BID [facility] Last Admin: 06/19/24 09:07 Dose: 100 mg Fluticasone Propionate (Fluticasone Propionate Nasal 16 Gm [place]) 2 spray NOSTRIL-B DAILY [facility] Last Admin: 06/19/24 09:08 Dose: 2 spray Gabapentin (Gabapentin 400 Mg Capsule) 800 mg PO TID [facility] Last Admin: 06/19/24 09:07 Dose: 800 mg Hydroxyzine HCl (Hydroxyzine Hcl 25 Mg Tablet) 25 mg PO Q6H PRN PRN Reason: Anxiety Last Admin: 06/14/24 22:40 Dose: 25 mg Ibuprofen (Ibuprofen 600 Mg Tablet) 600 mg PO Q6H PRN PRN Reason: Pain, Severe (Pain Scale 7-10) Last Admin: 06/19/24 09:07 Dose: 600 mg Lidocaine (Lidocaine 4 % Patch Adh..Patch) 2 patch TRANSDERMA DAILY [facility]; Protocol Last Admin: 06/19/24 09:08 Dose: 1 patch Lisinopril (Lisinopril 10 Mg Tablet) 10 mg PO DAILY [facility]; Protocol Last Admin: 06/19/24 09:08 Dose: 10 mg Magnesium Hydroxide (Milk Of Magnesia 30 Ml Oral.Susp) 30 ml PO DAILY PRN PRN Reason: Constipation Melatonin (Melatonin 3 Mg Tablet) 9 mg PO BEDTIME [facility] Last Admin: 06/18/24 22:25 Dose: 9 mg Mirtazapine (Mirtazapine 15 Mg Tablet) 15 mg PO BEDTIME [facility] Last Admin: 06/18/24 22:25 Dose: 15 mg Multi-Ingred Cream/Lotion/Oil/Oint (Mineral Oil/Petrolatum,White 106 Gm Tube) 1 appl TOPICAL BID [facility]; Protocol Last Admin: 06/19/24 10:17 Dose: Not Given Nicotine (Nicotine 21 Mg Patch.Td24) 21 mg TRANSDERMA DAILY PRN PRN Reason: Nicotine Cravings Nicotine Polacrilex (Nicotine Polacrilex 2 Mg Gum) 2 mg BUCCAL Q2H PRN PRN Reason: Nicotine Cravings Tramadol HCl (Tramadol Hcl 50 Mg Tablet) 50 mg PO Q6H PRN PRN Reason: Pain, Severe (Pain Scale 7-10) Allergies Allergies Allergy/AdvReac Type Severity Reaction Status Date / Time bee pollen [BEE STINGS] Allergy Severe ANAPHYLAXIS Verified 02/24/24 02:51 trazodone AdvReac Unknown Verified 06/12/24 09:22 Assessment & Plan Assessment & Plan (1) Bipolar 1 disorder: Status: Acute Code(s): F31.9 - Bipolar disorder, unspecified (2) Cocaine use disorder: Status: Acute Code(s): F14.10 - Cocaine abuse, uncomplicated (3) Alcohol use disorder: Status: Acute Code(s): F19.90 - Other psychoactive substance use, unspecified, uncomplicated (4) Tobacco dependence: Status: Acute Code(s): F17.200 - Nicotine dependence, unspecified, uncomplicated Plan Pt is a 58-year-old male with a PMH significant for?HTN, chronic left hip and knee pain, insomnia, depression, and schizophrenia who is admitted to [facility] psychiatry unit for increasing depression and SI. Medical consult for admission H&P. Mood disorder Plan as per psychiatry Chronic left hip and knee pain At baseline Conservative treatment with p.o. analgesics Onychomyosis Pt reports began weeks-long treatment with both oral and topical agents at [facility] in [place] Seems very insistent to continue treatment even though do not have on formulary Would suggest getting records from [place] Consider getting medications from outside hospital if possible Thank you for allowing us to participate in the care of this patient. Signing off at this time. Please re-consult if any acute complaints or issues arise. 06/12/24: Mirtazapine 15 mg HS Melatonin 9 mg HS Dermacin cream prn for dry skin 06/13 continue tx. 06/14 Continue tx. 06/16 CPAP ordered 06/18 Tramadol prn for pain 06/19 Discharge Reason for continued inpatient stay Substantial Risk for: stable for discharge Time Spent With Patient Time: Total time managing care of this patient today ____ minutes.
--- NOTE | 2024-06-23 13:22 | P.DS_ITS ---
DS: Providers Provider Date of Service: 06/19/24 Date of admission: 06/10/24 19:33 Primary care physician: Unknown Physician Consults: 06/11/24 03:48 Consult to Hospitalist Routine Comment: Consulting Provider: [facility] [facility] Reason For Exam: Direct Admit from [facility] DS: Diagnosis Discharge Diagnosis (1) Bipolar 1 disorder: Status: Acute (2) Cocaine use disorder: Status: Acute (3) Alcohol use disorder: Status: Acute (4) Tobacco dependence: Status: Acute DS: Medications Discharge Medications Home Medications: Previous Rx's ?Medication ?Instructions ?Recorded CPAP (CPAP Machine/Device) #1 ea 06/19/24 acetaminophen 325 mg tablet 650 mg (2 x 325 mg) PO Q6H PRN 06/19/24 Pain, Moderate(Pain Scale 4-6) #0 tabs efinaconazole 10 % topical 1 appl topical BEDTIME #8 mL 06/19/24 solution with applicator (Jublia) fluticasone propionate 50 2 spray intranasal DAILY #1 inhaler 06/19/24 mcg/actuation nasal spray,suspension gabapentin 800 mg tablet 800 mg PO TID #90 tabs 06/19/24 ibuprofen 600 mg tablet 600 mg PO Q6H PRN Pain, Severe 06/19/24 (Pain Scale 7-10) #30 tabs lidocaine 4 % topical patch 2 patch transdermal DAILY #60 ea 06/19/24 (Lidocaine Pain Relief) lisinopril 10 mg tablet 10 mg PO DAILY #30 tabs 06/19/24 melatonin 3 mg tablet 9 mg (3 x 3 mg) PO BEDTIME #90 tabs 06/19/24 mirtazapine 15 mg tablet 15 mg PO BEDTIME #30 tabs 06/19/24 white petrolatum-mineral oil 1 appl topical BID #28 grams 06/19/24 topical cream (Dermacerin topical cream) DS: Summary Time Spent with Patient Time attestation: Total time managing care of this patient today ____ minutes. Discharge Plan Discharge Anticipated Discharge Date/Time: 06/19/24 16:00 Patient Disposition: Xfer Other Discharge Diagnosis: Bipolar Disorder Alcohol and Cocaine Use Disorder Referrals: Physician,Unknown J [Primary Care Provider] - 1 Week (pt instructed to follow - up w/ pcp upon discharge from respite ) Discharge Medications: New acetaminophen 325 mg Tablet 650 mg PO Q6H PRN (Reason: Pain, Moderate(Pain Scale 4-6)) Qty: 0 0RF lidocaine [Lidocaine Pain Relief] 4 % Adhesive Patch,Medicated 2 patch transdermal DAILY Qty: 60 0RF Protocol: Apply to: Apply to: L knee and hip melatonin 3 mg Tablet 9 mg PO BEDTIME Qty: 90 0RF lisinopril 10 mg Tablet 10 mg PO DAILY Qty: 30 0RF Protocol: Hold for SBP< HOLD for SBP < : 90 mirtazapine 15 mg Tablet 15 mg PO BEDTIME Qty: 30 0RF ibuprofen 600 mg Tablet 600 mg PO Q6H PRN (Reason: Pain, Severe (Pain Scale 7-10)) Qty: 30 0RF fluticasone propionate 50 mcg/actuation [place],Suspension 2 spray intranasal DAILY Qty: 1 0RF Dermacerin Cream 1 appl topical BID Qty: 28 0RF Protocol: Apply to: Apply to: affected areas gabapentin 800 mg tablet 800 mg PO TID Qty: 90 0RF (DME) CPAP Machine/Device Device See Rx Instructions .Route Qty: 1 0RF Rx Instructions: As directed Jublia 10 % solution with applicator 1 appl topical BEDTIME Qty: 8 0RF Discontinued gabapentin 400 mg capsule 800 mg PO TID Rx Instructions: Take 2 capsules (800 mg total) by mouth 3 times a day for 5 days. doxepin 100 mg capsule See Rx Instructions .ROUTE .COMPLEX Rx Instructions: Take 1 cap at bedtime for sleeplessness. melatonin 10 mg tablet 10 mg PO BEDTIME Rx Instructions: Take 1 capsule (10 mg total by mouth at bedtime for 15 days. tamsulosin 0.4 mg capsule 0.4 mg PO BEDTIME Patient Comments: Pt says not taking med Rx Instructions: Take 1 capsule by mouth at bedtime for BPH mirtazapine 15 mg tablet 15 mg PO BEDTIME Rx Instructions: Take 1 tab at bedtime for sleeplessness. Discharge Orders: Discharge Order (Routine); Ordered 06/19/24 Ordered By: Linda Montemayor Diet: Advance to usual diet Activity on Discharge: As tolerated Stand Alone Forms: Patient Portal Discharge page, Community Support Print Language: Pashto Care Plan Goals: Mood and Behavioral Stabilization Maintain sobriety Health Concerns: Mood and Behavioral Stabilization Maintain sobriety Plan of Treatment: Attend scheduled appointments Take medications as directed Assessment: No SI/HI/AH/VH No sx of acute flaco or psychosis Discharge Date/Time: 06/19/24 17:48
== END 2024-06-19 17:48 | disposition other institution (70) | DRG 753 ==
PROVIDERS: Admitting Provider Psychiatry & Neurology Psychiatry; Visit Provider Clinical Nurse Specialist Psychiatric/Mental Health, Adult
DX: F31.9 Bipolar disorder, unspecified (principal); B35.1 Tinea unguium; F17.210 Nicotine dependence, cigarettes, uncomplicated; F14.10 Cocaine abuse, uncomplicated; F10.90 Alcohol use, unspecified, uncomplicated; F19.90 Other psychoactive substance use, unspecified, uncomplicated; Z71.6 Tobacco abuse counseling; G89.29 Other chronic pain; M25.562 Pain in left knee; M25.552 Pain in left hip; Z79.51 Long term (current) use of inhaled steroids; Z79.899 Other long term (current) drug therapy
CPT/HCPCS: 36415; 80053; 80061; 82947; 94660; 95806

== ENCOUNTER → 2024-06-10 19:33 | Outpatient (BNV) | payer MEDICAID, SELFPAY | PROVIDERS: Admitting Provider Psychiatry & Neurology Psychiatry; Visit Provider Student in an Organized Health Care Education/Training Program | DX: Z00.8 Encounter for other general examination (principal) | CPT/HCPCS: 99222 ==

== ENCOUNTER → 2024-06-10 19:33 | Outpatient (BNV) | payer OTHER, SELFPAY | PROVIDERS: Admitting Provider Psychiatry & Neurology Psychiatry; Visit Provider Psychiatry & Neurology Psychiatry | DX: F31.9 Bipolar disorder, unspecified (principal); F14.10 Cocaine abuse, uncomplicated; F19.90 Other psychoactive substance use, unspecified, uncomplicated; F17.200 Nicotine dependence, unspecified, uncomplicated | CPT/HCPCS: 99231; 99232 ==

== ENCOUNTER 2024-06-26 23:44 | Inpatient (IN) | payer MEDICAID, SELFPAY ==
--- NOTE | ~2024-06-26 | US_ITS ---
CLINICAL HISTORY: elevated LFTs US abdomen limited Comparison: CT/REG/SR - CT ABDOMEN PELVIS WO CON - 08/14/21 09:[address] - CT ABDOMEN PELVIS W CON - 08/17/20 20:[address] - CT ABDOMEN PELVIS W CON - 08/17/20 20:01 EDT Findings: The visualized pancreas is normal. The aorta and inferior vena cava are normal caliber. Normal hepatic echogenicity. Echogenic lesion within the lateral left hepatic lobe measuring 2.3 x 1.5 x 2.2 cm, possibly a hemangioma. Right hepatic mass, echogenic, near the right hepatic vein measuring 1.3 x 0.7 x 1.1 cm. While subtle both lesions are identified on the CT abdomen and pelvis from July of 2020. There is no intrahepatic bile duct dilatation. The common duct is 5 mm in diameter. The gallbladder is normal. There is no sonographic Ngo sign. The main portal vein is antegrade. The right kidney is 11.5 cm in length. No ascites. IMPRESSION: 1. No acute findings. Normal hepatic echogenicity. 2. Two echogenic hepatic lesions suggestive of hemangioma within the lateral left hepatic lobe and within segment 7 of the liver. These appear relatively stable since July of 2020. If definitive characterization is clinically warranted, recommend MRI abdomen with and without contrast. This document has been electronically signed by: Darling Orozco MD on 06/27/2024 05:48:42
[2024-06-26 23:51] VITALS: BP 135/78; PULSE 94; RESP 20; TEMP 36.8; O2SAT 98; BMI 33.9
[2024-06-27] VITALS (10 sets, daily range): BP systolic 117–180; BP diastolic 63–92; PULSE 67–81; RESP 16–25; TEMP 36.5–37.6; O2SAT 92–100
[2024-06-27 00:14] LABS: MANUAL DIFF FLAG NO
[2024-06-27 00:30] LABS: Basophils Percent Auto 0.2 % (0-2); Eosinophils Absolute Auto 0.1 X10*3/uL (0.0-0.4); Eosinophils Percent Auto 0.6 % (0-4); Hematocrit 39.8 % (42.0-52.0); Imm Gran Abs Auto 0.05 X10*3/uL (0.00-0.03); Imm Gran Pct Auto 0.6 % (0.0-0.4); Lymphocytes Absolute Auto 2.9 X10*3/uL (1.2-4.9); Lymphocytes Percent Auto 33.8 % (20-40); Mean Corpuscular HGB Conc 35.2 g/dl (31.0-36.0); Mean Corpuscular Hemoglobin 28.9 pg (27.0-33.0); Mean Corpuscular Volume 82.2 fL (80.0-98.0); Monocytes Absolute Auto 0.7 X10*3/uL (0.1-1.2); Monocytes Percent Auto 8.2 % (2-11); Neutrophils Absolute Auto 4.9 x10*3/uL (2.0-8.3); Neutrophils Percent Auto 56.6 % (45-73); Platelet Count 259 X10*3/uL (160-400); Red Blood Count 4.84 X10*6/uL (4.60-5.80); Red Cell Distribution Width 14.1 % (11.0-16.0); White Blood Count 8.7 X10*3/uL (4.8-10.8)
[2024-06-27 00:31] LABS: Alanine Aminotransferase 458 U/L (0-40); Albumin Level 4.4 g/dL (3.5-5.0); Alkaline Phosphatase 67 U/L (39-117); Anion Gap 16 (12-20); Aspartate Amino Transferase 1588 U/L (5-37); Bilirubin Total 0.9 mg/dL (0.0-1.0); Blood Urea Nitrogen 36 mg/dL (9-16); Calcium 8.9 mg/dL (8.4-10.2); Carbon Dioxide 19 mmol/L (22-29); Chloride 103 mmol/L (96-108); Creatinine Clr Calc Pharmacy 65.8; Estimated Glomerular Filt Rate 45; Ethanol < 10 mg/dL; Glucose Random 94 mg/dL (60-115); Magnesium 2.8 mg/dL (1.6-2.6); Potassium 3.8 mmol/L (3.3-5.1); Sodium 134 mmol/L (135-145); Total Protein 8.7 g/dL (6.5-8.0)
[2024-06-27 00:35] LABS: Acetaminophen LAB < 3 mcg/mL (<30); Salicylate < 5.0 mg/dL (15-30)
[2024-06-27 00:54] LABS: Appearance Urine Cloudy; Color Urine Yellow; Glucose Urine UA Negative (Negative); Leukocyte Esterase Urine Trace (Negative); Nitrite Urine Negative (Negative); PH 5.5 (5.0-9.0); Specific Gravity - Urine >= 1.030 (1.005-1.025); UMIC TRIGGER UACC YES; Urine Blood Large (3+) (Negative); Urine Ketones 15 mg/dL (Negative); Urine Protein 100 (2+) mg/dL (Neg-Trace)
[2024-06-27 01:00] LABS: Bacteria Urine None Seen (None Seen); Calcium Oxalate Crystals Urine Present; Hyaline Casts Urine >20 /LPF (0-2); RBC Urine 0-2 /HPF (0-2); UACC Culture Trigger YES
--- NOTE | 2024-06-27 01:01 | PC.NURSE ---
Patient presents tonight endorsing SI/HI/ and AH. Also complains of right leg pain in addition to belly pain which he would rate a 4/10. made aware.
[2024-06-27 01:03] LABS: Amphetamine Screen Urine Not Detected (Not Detect); Barbiturates, Urine Not Detected (Not Detect); Benzodiazepines Screen Urine Not Detected (Not Detect); Buprenorphine Scr Not Detected (Not Detect); Cannabinoid Screen Urine POSITIVE (Not Detect); Cocaine Screen Urine POSITIVE (Not Detect); Fentanyl, urine Not Detected (Not Detect); Methadone Screen, Urine Not Detected (Not Detect); Opiate Screen Urine Not Detected (Not Detect); Oxycodone Screen Urine Not Detected (Not Detect); Phencyclidine Screen Urine Not Detected (Not Detect)
[2024-06-27] MEDS: LORazepam 1 MG TABLET 2 MG PO (01:08)
[2024-06-27 04:00] LABS: Influenza A PCR NEGATIVE (Negative); Influenza B PCR NEGATIVE (Negative); Resp Syncy Virus RNA Qual PCR NEGATIVE (Negative); SARS COV2 PCR INHOUSE NEGATIVE (Negative)
--- NOTE | 2024-06-27 04:05 | PC.NURSE ---
Dr. Juarez at bedside.
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
--- NOTE | 2024-06-27 04:23 | PC.NURSE ---
Report given to Hazel while patient transferred to room 12 in main ED for IV fluids
[2024-06-27 04:33] LABS: Bilirubin Direct 0.2 mg/dL (0.0-0.5); Lipase 16 U/L (8-78)
[2024-06-27] MEDS: 0.9 % Sodium Chloride 1,000 ML 999 ML IVCONT (04:34)
--- NOTE | 2024-06-27 04:40 | PC.NURSE ---
pt to u/s with kassandra from radiology and social security benefits interviewer.
[2024-06-27 04:49] LABS: Prothrombin Time 11.7 SEC (10.9-12.4)
[2024-06-27 04:50] LABS: Ammonia 47 umol/L (13-55)
[2024-06-27] MEDS: 0.9 % Sodium Chloride 1,000 ML 999 ML IV (06:10)
--- NOTE | 2024-06-27 06:24 | PC.NURSE ---
upon hanging 2nd ivf, MD Juarez and this rn at bedside, sats 100% but pt less responsive. awakes to speak 1 word then quick to fall back asleep. upon retrieving iv narcan and entering room pt is more awake and speaking full sentences. held off on narcan at this time, md varela. 1:1 sitter at bedside.
[2024-06-27 08:23] LABS: HBc Num1 0.13 S/CO (0.00-0.79); HBsAGNum1 0.31 S/CO (0.00-0.99); Hepatitis A Antibody IgM 0.17 Index (0-0.79); Hepatitis B Core Antibody Nonreactive (Nonreactive); Hepatitis B Surface Antigen Negative (Negative); ~HepC Num1 0.15 S/CO (0.00-0.79); ~Hepatitis A Antibody IgM Nonreactive (Nonreactive); ~Hepatitis B Surface Antibody REACTIVE (Nonreactive); ~Hepatitis C Antibody Nonreactive (Nonreactive)
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
[2024-06-27] MEDS: 0.9 % Sodium Chloride 1,000 ML 200 ML IVCONT ×2 (09:11→13:18)
--- NOTE | 2024-06-27 13:57 | PHA.MEDREC ---
Addendum entered by Travon Marshall RP 06/27/24 14:03: MED REC CHECKED BY [facility] Original Note: Pharmacy Consult ? Medication Reconciliation Pharmacy has completed the medication reconciliation. Spoke to patient to confirm med list. Patient was a little agitate about going to the forth floor. Patient states hes was recently discharged from [facility] and there are no changes. Utilized discharge packet from 06/19/24.
[2024-06-27 14:49] LABS: Anion Gap 11 (12-20); Blood Urea Nitrogen 25 mg/dL (9-16); Calcium 8.5 mg/dL (8.4-10.2); Carbon Dioxide 22 mmol/L (22-29); Chloride 108 mmol/L (96-108); Creatinine Clr Calc Pharmacy 89.4; Estimated Glomerular Filt Rate > 60; Glucose Random 90 mg/dL (60-115); Potassium 4.1 mmol/L (3.3-5.1); Sodium 137 mmol/L (135-145)
[2024-06-27] MEDS: oxyCODONE HCl Immed Release 5 MG TABLET PO ×2 (14:52→20:09)
[2024-06-27] MEDS: Gabapentin 600 MG TABLET PO ×2 (14:52→20:10)
[2024-06-27] MEDS: 0.9 % Sodium Chloride Flush 3 ML SYRINGE IVFLUSH ×2 (14:53→20:11)
[2024-06-27] MEDS: Mirtazapine 15 MG TABLET PO (20:10)
[2024-06-28] VITALS (7 sets, daily range): BP systolic 142–176; BP diastolic 80–92; PULSE 59–75; RESP 16–20; TEMP 36.8–37.3; O2SAT 95–98
[2024-06-28] MEDS: oxyCODONE HCl Immed Release 5 MG TABLET PO ×4 (02:02→20:18)
[2024-06-28] MEDS: Acetaminophen 325 MG TABLET 650 MG PO ×2 (04:58→14:42)
[2024-06-28] MEDS: Gabapentin 600 MG TABLET PO (07:43)
[2024-06-28] MEDS: 0.9 % Sodium Chloride Flush 3 ML SYRINGE IVFLUSH ×2 (07:45→10:48)
[2024-06-28 10:39] LABS: Alanine Aminotransferase 270 U/L (0-40); Albumin Level 3.5 g/dL (3.5-5.0); Alkaline Phosphatase 54 U/L (39-117); Anion Gap 10 (12-20); Aspartate Amino Transferase 578 U/L (5-37); Bilirubin Direct 0.1 mg/dL (0.0-0.5); Bilirubin Total 0.3 mg/dL (0.0-1.0); Blood Urea Nitrogen 13 mg/dL (9-16); Calcium 8.3 mg/dL (8.4-10.2); Carbon Dioxide 22 mmol/L (22-29); Chloride 108 mmol/L (96-108); Creatinine Clr Calc Pharmacy 112.5; Estimated Glomerular Filt Rate > 60; Glucose Random 99 mg/dL (60-115); Potassium 3.8 mmol/L (3.3-5.1); Sodium 136 mmol/L (135-145); Total Protein 7.1 g/dL (6.5-8.0)
[2024-06-28] MEDS: Lidocaine 4 % Patch ADH..PATCH 1 PATCH TRANSDERMA ×2 (10:41→17:28)
[2024-06-28] MEDS: amLODIPine Besylate 5 MG TABLET PO (10:41)
[2024-06-28] MEDS: Fluticasone Propionate Nasal 16 GM SPRAY 2 SPRAY NOSTRIL-B (10:47)
[2024-06-28] MEDS: 0.9 % Sodium Chloride 1,000 ML 150 ML IVCONT ×3 (10:48→22:41)
--- NOTE | 2024-06-28 11:05 | MHC.CM.PN ---
CM attempted to meet with Patient at bedside (Donovanter & LESLY were present); Patient was unable to be woken. From chart review, Patient is homeless and here with SI. Patient may benefit from a Care Team Consult to assist with disposition. CM has initiated and will follow for dc planning.There is no apparent PCP nor HCP noted. CM will follow.
--- NOTE | 2024-06-28 13:21 | MHC.RECOVRN ---
AUDIT-C Brief Intervention Pt had positive screen for unhealthy alcohol use on admission, subsequently met with t/w to discuss alcohol use and recovery supports/options. This procedure writer met with patient to discuss current alcohol use and concerns related to increased risk of alcohol related problems.? Pt reports 1 jacob montano over a couple days after dc from unit. Discussed how alcohol use has impacted health, including negative impact on mental health. Withdrawal History: denies history of seizures Treatment History: reports 10+ ATS/CSS/TSS admissions, reports he has been to the [facility], [facility], and a program in [place] Supports:?best friend Discussed risk reduction strategies including drinking below the recommended limit. Provided pt with written resources including information on inpatient and outpatient treatment, REY, harm reduction, and recovery coaching. Pt plans to speak with CARE Team when medically clear to discuss SI; goal is a recovery program. Pt provided with t/w contact information if questions or concerns arise. Denies other questions or concerns at this time.?
[2024-06-28] MEDS: Gabapentin 400 MG CAPSULE 800 MG PO ×2 (14:43→20:15)
--- NOTE | 2024-06-28 15:16 | P.PNIM_ITS ---
Subjective Subjective Date of Service: 06/28/24 Interval History: Being followed for MEAGHAN/rhabdo Complaining of back pain/falls back to sleep during conversation As per sitter tolerated diet, no acute events overnight Review of Systems Difficult to obtain due to somnolence Physical Exam 2 Vital Signs: Vital Signs: Last Vital Signs Temp 98.3 F 06/28/24 10:53 Pulse 61 06/28/24 10:53 Resp 16 06/28/24 10:53 BP 148/92 H 06/28/24 10:53 Pulse Ox 97 06/28/24 10:53 O2 Del Method Room Air 06/28/24 10:53 BMI result Body Mass Index 33.9 Const: Other: General somnolent easily arousable, in no acute distress. Neck no JVD. CVS regular rate rhythm, Respiratory lungs clear to auscultation, no respiratory distress, no wheeze, no rhonchi. Gastrointestinal abdomen soft, non tender, bowel sounds audible Extremities no edema. Neuro moving all 4 extremity, speech clear. Skin no rash Objective Data Active Medications Acetaminophen (Acetaminophen 325 Mg Tablet) 650 mg PO Q6H PRN PRN Reason: Pain, Mild 1-3,fever,headache Last Admin: 06/28/24 14:42 Dose: 650 mg Documented By: TRAMAINE Amlodipine Besylate (Amlodipine Besylate 5 Mg Tablet) 5 mg PO DAILY [facility]; Protocol Last Admin: 06/28/24 10:41 Dose: 5 mg Documented By: TRAMAINE Benzonatate (Benzonatate 100 Mg Capsule) 100 mg PO TID PRN PRN Reason: Cough Calcium Carbonate (Calcium Carbonate 750 Mg Tab.Chew) 750 mg PO Q4H PRN PRN Reason: Heartburn Fluticasone Propionate (Fluticasone Propionate Nasal 16 Gm [place]) 2 spray NOSTRIL-B DAILY [facility] Last Admin: 06/28/24 10:47 Dose: 2 spray Documented By: TRAMAINE Gabapentin (Gabapentin 400 Mg Capsule) 800 mg PO TID [facility] Last Admin: 06/28/24 14:43 Dose: 800 mg Documented By: TRAMAINE Sodium Chloride (Ns) 1,000 mls @ 150 mls/hr IVCONT .Q6H40M [facility] Last Admin: 06/28/24 10:48 Dose: 150 mls/hr Documented By: TRAMAINE Lidocaine (Lidocaine 4 % Patch Adh..Patch) 1 patch TRANSDERMA DAILY [facility]; Protocol Last Admin: 06/28/24 10:41 Dose: 1 patch Documented By: TRAMAINE Magnesium Hydroxide (Milk Of Magnesia 30 Ml Oral.Susp) 30 ml PO DAILY PRN PRN Reason: Constipation Melatonin (Melatonin 3 Mg Tablet) 6 mg PO BEDTIME PRN PRN Reason: Insomnia Mirtazapine (Mirtazapine 15 Mg Tablet) 15 mg PO BEDTIME [facility] Last Admin: 06/27/24 20:10 Dose: 15 mg Documented By: JACK-HELEN Nicotine (Nicotine 21 Mg Patch.Td24) 21 mg TRANSDERMA DAILY [facility] Last Admin: 06/28/24 07:53 Dose: Not Given Documented By: TRAMAINE Non-Admin Reason: Patient Refused Ondansetron HCl (Ondansetron Hcl 4 Mg/2 Ml Vial) 4 mg IVPUSH Q8H PRN PRN Reason: Nausea and Vomiting Oxycodone HCl (Oxycodone Hcl Immed Release 5 Mg Tablet) 5 mg PO Q4H PRN PRN Reason: Pain, Moderate(Pain Scale 4-6) Last Admin: 06/28/24 14:41 Dose: 5 mg Documented By: TRAMAINE Sodium Chloride (0.9 % Sodium Chloride Flush 3 Ml Syringe) 3 ml IVFLUSH QSHIFT [facility] Last Admin: 06/28/24 10:48 Dose: 3 ml Documented By: TRAMAINE Labs 06/27/24 00:09 06/28/24 09:39 Labs: Laboratory Results - last 24 hr 06/28/24 09:39 Anion Gap 10 L Estim Creat Clear Calc 112.5 Estimated GFR > 60 Random Glucose 99 Calcium 8.3 L Total Bilirubin 0.3 Direct Bilirubin 0.1 AST 578 H ALT 270 H Alkaline Phosphatase 54 Total Creatine Kinase 46257 H Total Protein 7.1 Albumin 3.5 Microbiology Microbiology Results: Microbiology 06/27/24 Unknown Urine Culture - Final Urine clean catch - Clean Catch Midstream Assessment and Plan (1) Elevated LFTs: Status: Acute (2) Suicidal ideation: Status: Acute (3) MEAGHAN (acute kidney injury): Status: Acute (4) Rhabdomyolysis: Status: Acute (5) HTN (hypertension): Status: Acute (6) Cocaine use disorder: Status: Acute (7) Alcohol use disorder: Status: Acute (8) Tobacco dependence: Status: Acute Plan 58 yo male with PMH significant for HTN, chronic left hip and knee pain, insomnia, depression, bipolar disorder, substance use disorder (ETOH, cocaine, and tobacco), and schizophrenia who presented to ED with complaints of ongoing SI. Pt. has recent hospital visits here for same/similar complaints. States last substance use was 4-5 days ago, endorses some fatigue, more so over the last 2 days, with an increase in the chronic pain to the lower extremity as well. 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 Elevated LFTs Likely due to rhabdo trending down, no abdominal pain tolerating diet Abdominal ultrasound showed no acute findings, to echogenic hepatic lesions suggestive of hemangioma, relatively stable since 08/10/2020 SI/mental health disorders/substance use disorder UTox + for cocaine, marijuana ethanol <10 Continue sitter 1:1, section 12 in ED addiction med consult Continue mirtazapine Care team consult once medically cleared Tobacco use disorder continue nicotine patch ETOH less than 10 monitor CIWA ,no symptoms of withdrawal noted HTN Lisinopril held due to MEAGHAN continue Norvasc Leg/hip pain, chronic, good range of motion both knee and hip, resume lidocaine patch and gabapentin sleep disorder continue melatonin In my clinical judgment patient requires continue inpatient hospitalization for management of acute rhabdomyolysis requiring aggressive IV hydration and care team evaluation for suicidal ideation. Quality Stroke Does the patient have a stroke diagnosis?: No VTE Prior VTE?: No VTE Risk Level:: Medical - moderate - high VTE Device Contraindication: Treatment Not Indicated VTE Drug Contraindication: N/A - Med Ordered
[2024-06-28] MEDS: Mirtazapine 15 MG TABLET PO (22:39)
[2024-06-29] VITALS: BP 169/88; PULSE 64; TEMP 37.2; O2SAT 94
[2024-06-29] MEDS: oxyCODONE HCl Immed Release 5 MG TABLET PO ×3 (02:15→15:42)
[2024-06-29 04:00] VITALS: BP 170/100; PULSE 62; RESP 16; TEMP 36.6; O2SAT 98
[2024-06-29] MEDS: 0.9 % Sodium Chloride 1,000 ML 150 ML IVCONT ×2 (05:57→12:27)
[2024-06-29 07:18] LABS: Alanine Aminotransferase 221 U/L (0-40); Albumin Level 3.5 g/dL (3.5-5.0); Alkaline Phosphatase 52 U/L (39-117); Anion Gap 10 (12-20); Aspartate Amino Transferase 368 U/L (5-37); Bilirubin Direct 0.1 mg/dL (0.0-0.5); Bilirubin Total 0.4 mg/dL (0.0-1.0); Blood Urea Nitrogen 10 mg/dL (9-16); Carbon Dioxide 24 mmol/L (22-29); Chloride 105 mmol/L (96-108); Creatinine Clr Calc Pharmacy 124.6; Estimated Glomerular Filt Rate > 60; Glucose Random 93 mg/dL (60-115); Potassium 3.8 mmol/L (3.3-5.1); Sodium 135 mmol/L (135-145); Total Protein 6.9 g/dL (6.5-8.0)
[2024-06-29 07:32] VITALS: BP 196/62; PULSE 60; RESP 18; TEMP 36.7; O2SAT 100
[2024-06-29] MEDS: Lidocaine 4 % Patch ADH..PATCH 1 PATCH TRANSDERMA (08:12)
[2024-06-29] MEDS: Gabapentin 400 MG CAPSULE 800 MG PO ×2 (08:12→15:42)
[2024-06-29] MEDS: amLODIPine Besylate 5 MG TABLET PO (08:13)
[2024-06-29] MEDS: Acetaminophen 325 MG TABLET 650 MG PO ×2 (08:13→15:42)
[2024-06-29] MEDS: 0.9 % Sodium Chloride Flush 3 ML SYRINGE IVFLUSH (08:14)
[2024-06-29] MEDS: lisinopriL 10 MG TABLET PO (10:28)
--- NOTE | 2024-06-29 10:59 | MHC.CARE ---
Pt meets the criteria for DUAL DX IPLOC. Section 12a in chart. Provider in agreement.
[2024-06-29 12:00] VITALS: BP 177/91; PULSE 67; RESP 16; TEMP 37.1; O2SAT 98
--- NOTE | 2024-06-29 12:32 | MHC.CARE ---
Pt was accepted to [facility] for today 06/29/24 by Courtney. The accepting provider is Dr. Pulliam and the address is [address] [place] [address]. He will be admitted to the [facility]. N2N# [phone] the nurses name is Annette. ETA is TBD during report. C RN and CARE team were notified of placement.
--- NOTE | 2024-06-29 12:57 | P.DS_ITS ---
DS: Providers Provider Date of Service: 06/29/24 Date of admission: 06/27/24 08:20 Date of discharge: 06/29/24 Primary care physician: Unknown Physician Consults: 06/27/24 08:22 Addiction Medicine Routine Consulting Provider: Addiction Covering Reason for consultation: cocaine/etoh Has provider been notified: No 06/27/24 08:23 Consult for Sitter Routine Reason for consultation: Suicidal ideation Has provider been notified: No 06/27/24 13:07 Addiction Medicine Routine Consulting Provider: Addiction Covering Reason for consultation: ETOH 06/29/24 10:13 Inpt CARE Team Crisis Consult Routine Comment: Reason for consultation: SI; on section 12 Attending physician on discharge: David Sanchez Discharging clinician: Annette Navarrete DS: Diagnosis Discharge Diagnosis (1) Elevated LFTs: Status: Acute (2) Suicidal ideation: Status: Acute (3) MEAGHAN (acute kidney injury): Status: Acute (4) Rhabdomyolysis: Status: Acute (5) HTN (hypertension): Status: Acute (6) Cocaine use disorder: Status: Acute (7) Alcohol use disorder: Status: Acute (8) Tobacco dependence: Status: Acute DS: Summary Hospital Course Hospital Course: From H&P on the day of admission 58 yo male with PMH significant for HTN, chron ic left hip and knee pain, insomnia, depression, bipolar disorder, substance use disorder (ETOH, cocaine, and tobacco), and schizophrenia who presented to ED with complaints of ongoing SI. Pt. has recent hospital stay here for similar complaints. Pt complains of chronic homelessness. Endorses med compliance, states last substance use was 4-5 days ago, and denies any current medical concerns, however is falling back to sleep frequently throughout this interview making it difficult to get full details of scenario. Does not share frequency or amounts of use of substances or for how long. Somnolent yet easily aroused. Denies any changes to po intake, changes to bowel/bladder, any bleeding, wounds, recent injuries or falls, difficulty with movement or ambulation or experiencing extended periods of downtime that he is aware of, palpitations, lightheaded or dizziness. Endorses some fatigue, more so over the last 2 days, with an increase in the chronic pain to the lower extremity as well. Acute rhabdomyolysis, with secondary MEAGHAN likely secondary to cocaine, etoh use and question fall. MEAGHAN resolved. CPK decreasing daily down from >42,670 on 06/27 to 9,942 today. UA showed large (3+) blood, and 100(2+) protein, without presence of bacteria. urine culture negative. Treated with IVF. MEAGHAN due to above. resolved with IVF Elevated LFTs Likely due to rhabdo. LFTs trending down. no abdominal pain tolerating diet Abdominal ultrasound showed no acute findings, two echogenic hepatic lesions suggestive of hemangioma, relatively stable since 08/10/2020 AST 1588 ALT 458 on 06/27, down to 368/221 on day of discharge SI/mental health disorders/substance use disorder UTox + for cocaine, marijuana. ethanol <10. was placed on section 12 in the ED due to suicidal statements. He was maintaind with 1:1 sitter. Seen by addiction Medicine team during hospitalization. Seen by care team, patient qualifies for dual diagnosis inpatient program. Has been accepted to [facility]. Tobacco use disorder. Smoking cessation advised continue nicotine patch ETOH less than 10 monitor CIWA ,no symptoms of withdrawal noted HTN Lisinopril initially held due to MEAGHAN. continue on Norvasc. Blood pressure uncontrolled, likely due to holding lisinopril and IV fluid. will resume lisinopril 10 mg daily, if blood pressure continues to be uncontrolled can increase lisinopril to 20 mg or increase Norvasc from 5 mg to 10 mg. Leg/hip pain, chronic, good range of motion both knee and hip, continue lidocaine patch and gabapentin. can resume motrin or celebrex if renal function remains stable after resolution of rhabdo. ambulating without difficulty Time Attestation Discharge Coordination Time (in mins): 36 Quality: Safe Use of Opioids Does Pt have an Active Cancer Diagnosis on the Problem List?: No Quality: Stroke Does the patient have a stroke diagnosis?: No Physical Exam Vital Signs: Vital Signs: Last Vital Signs Temp 98.7 F 06/29/24 12:00 Pulse 67 06/29/24 12:00 Resp 16 06/29/24 12:00 BP 177/91 H 06/29/24 12:00 Pulse Ox 98 06/29/24 12:00 O2 Del Method Room Air 06/29/24 12:00 BMI result Body Mass Index 33.9 Const: General: cooperative, comfortable, no acute distress, alert and awake Nutritional Appearance: overweight Orientation/consciousness: patient oriented x3 Resp: Effort & Inspection: normal respiratory effort, able to speak in complete sentences, no respiratory distress and no use of accessory muscles GI: Palpation (GI): Soft to palpation Neuro: General: patient oriented x3 and moves all extremities Cranial nerves: Yes CN's II-XII intact bilaterally DS: Data Data Completed and Pending Labs on day of discharge: Laboratory Results - last 24 hr 06/29/24 06:14 Sodium 135 Potassium 3.8 Chloride 105 Carbon Dioxide 24 Anion Gap 10 L BUN 10 Creatinine 0.84 Estim Creat Clear Calc 124.6 Estimated GFR > 60 Random Glucose 93 Calcium 9.0 D Total Bilirubin 0.4 Direct Bilirubin 0.1 AST 368 H ALT 221 H Alkaline Phosphatase 52 Total Creatine Kinase 9942 H Total Protein 6.9 Albumin 3.5 Discharge Plan Discharge Patient Disposition: Xfer Psychiatric Hosp Discharge Diagnosis: acute rhabdomyolysis elevated LFTs MEAGHAN tobacco dependence suicidal ideation Referrals: Physician,Unknown J [Primary Care Provider] - 1 Week Discharge Medications: New amlodipine 5 mg Tablet 5 mg PO DAILY 90 Days Qty: 90 0RF Protocol: Hold for SBP< HOLD for SBP < : 90 Continued acetaminophen 325 mg Tablet 650 mg PO Q6H PRN (Reason: Pain, Moderate(Pain Scale 4-6)) Qty: 0 0RF melatonin 3 mg Tablet 9 mg PO BEDTIME Qty: 90 0RF lisinopril 10 mg Tablet 10 mg PO DAILY Qty: 30 0RF Protocol: Hold for SBP< HOLD for SBP < : 90 mirtazapine 15 mg Tablet 15 mg PO BEDTIME Qty: 30 0RF fluticasone propionate 50 mcg/actuation [place],Suspension 2 spray intranasal DAILY Qty: 1 0RF Dermacerin Cream 1 appl topical BID Qty: 28 0RF Protocol: Apply to: Apply to: affected areas gabapentin 800 mg tablet 800 mg PO TID Qty: 90 0RF (DME) CPAP Machine/Device Device See Rx Instructions .Route Qty: 1 0RF Rx Instructions: As directed Jublia 10 % solution with applicator 1 appl topical BEDTIME Qty: 8 0RF nicotine 21 mg/24 hr patch 24 hour 21 mg transdermal DAILY PRN (Reason: nicotine cravings) lidocaine [Lidocaine Pain Relief] 4 % adhesive patch,medicated 2 patch transdermal DAILY PRN (Reason: Pain) Protocol: Apply to: Apply to: L knee and hip Held ibuprofen 600 mg Tablet 600 mg PO Q6H PRN (Reason: Pain, Severe (Pain Scale 7-10)) Qty: 30 0RF Hold Instructions: can resume if renal function remains stable fluconazole 150 mg tablet 150 mg PO QWEEK Hold Instructions: hold until improvement in LFTs, renal function remains stable Rx Instructions: TAKE 1 TAB EVERY 7 DAYS WEDNESDAY FOR ONYCHOMYCOSIS celecoxib 100 mg capsule 100 mg PO BID Hold Instructions: can resume wednesday if renal function remains stable Discharge Orders: Discharge Order (Routine); Ordered 06/29/24 Ordered By: Annette Navarrete Activity on Discharge: As tolerated Stand Alone Forms: Patient Portal Discharge page Print Language: Burundian Care Plan Goals: see below Health Concerns: rhabdomyolysis elevated LFTs MEAGHAN - resolved polysubstance use SI uncontrolled blood pressure Plan of Treatment: repeat CPK and LFTS (have been decreasing daily)
--- NOTE | 2024-06-29 13:34 | MHC.CM.PN ---
Patient will be dc'd to [facility] at [address] in [place] [id number] today at 3:30 PM, via [facility].
--- NOTE | 2024-06-29 13:54 | MHC.CM.PN ---
DC Summary has been sent to [facility] via [email or web address] and fax to [phone].
[2024-06-29 15:31] VITALS: BP 154/80; PULSE 63; RESP 16; TEMP 35.9; O2SAT 98
== END 2024-06-29 17:02 | DRG 816 ==
LOC: HO.ED 06-27 06:59 → HO.EDOVER 06-27 08:24 → HO.IMC 06-27 11:36
PROVIDERS: Admitting Provider Hospitalist; Emergency Provider Emergency Medicine; Visit Provider Physician Assistant Medical
DX: T40.5X1A Poisoning by cocaine, accidental (unintentional), initial encounter (principal); M62.82 Rhabdomyolysis; N17.9 Acute kidney failure, unspecified; R45.851 Suicidal ideations; Z59.02 Unsheltered homelessness; F10.90 Alcohol use, unspecified, uncomplicated; F14.90 Cocaine use, unspecified, uncomplicated; G47.9 Sleep disorder, unspecified; F17.210 Nicotine dependence, cigarettes, uncomplicated; Z20.822 Contact with and (suspected) exposure to COVID-19; Z71.6 Tobacco abuse counseling; Z79.51 Long term (current) use of inhaled steroids; Z79.899 Other long term (current) drug therapy
CPT/HCPCS: 0241U; 36415; 76705; 80048; 80053; 80076; 80143; 80179; 80307; 81001; 82140; 82248; 82550; 83690; 83735; 85025; 85610; 86704; 86706; 86709; 86803; 87086; 87340; 94660; 99285; S9485

== ENCOUNTER → 2024-06-27 04:26 | Outpatient (BNV) | payer MEDICAID, SELFPAY | PROVIDERS: Emergency Provider Emergency Medicine; Visit Provider Radiology Diagnostic Radiology | DX: R94.5 Abnormal results of liver function studies (principal) | CPT/HCPCS: 76705 ==

== ENCOUNTER → 2024-06-27 08:20 | Outpatient (BNV) | payer MEDICAID, SELFPAY | PROVIDERS: Admitting Provider Hospitalist; Emergency Provider Emergency Medicine; Visit Provider Hospitalist | DX: R79.89 Other specified abnormal findings of blood chemistry (principal); R45.851 Suicidal ideations; N17.9 Acute kidney failure, unspecified; M62.82 Rhabdomyolysis; I10 Essential (primary) hypertension; F14.10 Cocaine abuse, uncomplicated; F19.90 Other psychoactive substance use, unspecified, uncomplicated; F17.200 Nicotine dependence, unspecified, uncomplicated | CPT/HCPCS: 99239 ==

== ENCOUNTER 2024-12-21 11:56 | Inpatient (IN) | payer OTHER, SELFPAY ==
--- OUTSIDE RECORDS SUMMARY | 2024-12-20 14:00 | XMS_ITS | Continuity of Care Document ---
Author Organization [facility] Address [address] [place] [address]- Care Team Providers Care Operations Architect Name Role Phone Laith Ly MD Primary Care Physician Encounter [facility] NBR [id number] Date(s): 12/19/24 - 12/20/[address] [address]- Discharge Disposition: A-D/C Home Attending Physician: Maryellen Rivera DO Admitting Physician: Maryellen Rivera DO Referring Physician: Not on Staff, Referring MD Encounter Type: Disch ES Allergies, Adverse Reactions, Alerts Substance Criticality Severity Reaction Reaction Severity Status Bee Stings Active Pollen Active Lactose Active Immunizations Given and Recorded Vaccine Date Status Refusal Reason SARS-CoV-2 (COVID-19) Ad26 vaccine 08/22/20 Record ed tetanus/diphtheria/pertussis, acel(Tdap) 04/20/14 Given hepatitis B adult vaccine 04/20/14 Given hepatitis B adult vaccine 1 02/17/07 Given hepatitis B adult vaccine 2 01/17/07 Given influenza virus vaccine, inactivated 3 04/05/13 Gi jenni influenza virus vaccine, inactivated 02/03/12 Give n tetanus-diphtheria toxoids (Td) 4 05/05/10 Given Influenza Vaccine (oldterm) 5 05/05/10 Given pneumococcal 23-valent vaccine 04/29/10 Given Hepatitis A Adult Vaccine 6 02/25/09 Given Hepatitis A Adult Vaccine 7 02/17/07 Given 1Admin Note: [facility] 2Admin Note: [facility] 3Admin Note: [facility] 4Admin Note: vis 10/31/93 5Admin Note: at alf 6Admin Note: [facility] 7Admin Note: [facility] Medications amLODIPine 5 mg oral tablet 1 tablet = 5 mg, By Mouth, Daily, # 30 tablet, 0 Refills, Maintenance, 07/29/21 3:13:00 PM EST, Tablet, [facility], Partial fill upon patient request if the prescription is for a scheduleII opioid drug., 188, cm, 07/29/21 14:26:00 EST, Height, 102.7, kg, 07/26/21 23:19:00 EST, Dry Weight Start Date: 07/29/21 Status: Ordered Quantity: 30.0 Unit: tablet Repeat number: 1 amlodipine-benazepril 2.5 mg-10 mg oral capsule 1 capsule, By Mouth, Daily, # 30 capsule, 0 Refills, Maintenance, 10/28/24 11:23:00 AM EDT, Capsule, Partial fill upon patient request if the prescription is for a schedule II opioid drug. Start Date: 10/28/24 Status: Ordered Quantity: 30.0 Unit: capsule Repeat number: 1 finasteride 5 mg oral tablet 1 tablet = 5 mg, 0 Refills, Maintenance, 03/21/23 9:43:00 AM EDT, Partial fill upon patient requestif the prescription is for a schedule II opioid drug. Start Date: 03/21/23 Status: Ordered Repeat number: 1 Flomax 0.4 mg oral capsule 0.8 mg, 2, capsule, By Mouth, Daily at bedtime, # 60 capsule, Refills 0, Tot. Refills 0, Maintenance, 07/29/21 3:25:00 PM EST, Route to Pharmacy Electronically, [facility], Partial fill upon patient request if the prescription is for a schedule II opioid drug., 188, cm, 07/29/21 14:26:00 EST, Height, 102.7, kg, 07/26/21 23:19:00 EST, Dry Weight Start Date: 07/29/21 Stop Date: 08/28/21 Status: Ordered Quantity: 60.0 Unit: capsule Repeat number: 1 folic acid 1 mg oral tablet 1 mg, 1, tablet, By Mouth, Daily, # 30 tablet, Refills 0, Tot. Refills 0, Maintenance, 07/29/21 3:14:00 PM EST, Route to Pharmacy Electronically, [facility], Partial fill upon patient request if the prescription is for a schedule II opioid drug., 188, cm, 07/29/21 14:26:00 EST, Height, 102.7, kg, 07/26/21 23:19:00 EST, Dry Weight Start Date: 07/29/21 Status: Ordered Quantity: 30.0 Unit: tablet Repeat number: 1 gabapentin 400 mg oral capsule 400 mg, 1, capsule, By Mouth, 3 times a day, # 90 capsule, Refills 0, Tot. Refills 0, Maintenance, 07/30/21 4:04:00 PM EST, [id number], Partial fill upon patient request if the prescription is for a schedule II opioid drug., 188, cm, 07/30/21 2:39:00 EST, Height, 102.7, kg, 07/26/21 23:19:00 EST, Dry Weight Start Date: 07/30/21 Stop Date: 08/29/21 Status: Ordered Quantity: 90.0 Unit: capsule Repeat number: 1 gabapentin 400 mg oral capsule 800 mg, 2, capsule, By Mouth, 3 times a day, # 180 capsule, Refills 0, Tot. Refills 0, Maintenance,07/30/21 9:59:00 AM EST, Route to Pharmacy Electronically, [facility], Partial fill upon patient request if the prescription is for a schedule II opioid drug., 188, cm, 07/30/21 2:39:00 EST, Height, 102.7, kg, 07/26/21 23:19:00 EST, Dry Weight Start Date: 07/30/21 Stop Date: 08/29/21 Status: Ordered Quantity: 180.0 Unit: capsule Repeat number: 1 hydrochlorothiazide 25 mg oral tablet 25 mg, 1, tablet, By Mouth, Daily, Refills 0, Maintenance, 10/28/24 11:23:00 AM EDT, Partial fill upon patient request if the prescription is for a schedule II opioid drug. Start Date: 10/28/24 Status: Ordered Repeat number: 1 Latuda 40 mg oral tablet 1 tablet = 40 mg, By Mouth, Daily, # 30 tablet, 0 Refills, Maintenance, 07/29/21 3:13:00 PM EST, Tablet, [facility], Partial fill upon patient request if the prescription is for a schedule II opioid drug., 188, cm, 07/29/21 14:26:00 EST, Height, 102.7, kg, 07/26/21 23:19:00 EST, Dry Weight Start Date: 07/29/21 Stop Date: 08/28/21 Status: Ordered Quantity: 30.0 Unit: tablet Repeat number: 1 mirtazapine 15 mg oral tablet 1 tablet = 15 mg, By Mouth, Daily at bedtime, # 30 tablet, 0 Refills, Maintenance, 07/29/21 3:13:00 PM EST, Tablet, [facility], Partial fill upon patient request if the prescription is for a schedule II opioid drug., 188, cm, 07/29/21 14:26:00 EST, Height, 102.7, kg, 07/26/21 23:19:00 EST, Dry Weight Start Date: 07/29/21 Status: Ordered Quantity: 30.0 Unit: tablet Repeat number: 1 multivitamin Multiple Vitamins oral tablet 1 tablet, By Mouth, Daily, # 30 tablet, 0 Refills, Maintenance, 07/29/21 3:14:00 PM EST, Tablet, [facility], Partial fill upon patient request if the prescription is for a schedule II opioid drug., 1 tablet By Mouth Daily,x30 days, 188, cm, 07/29/21 14:26:00 EST, Height, 102.7, kg, 07/26/21 23:19:00 EST, Dry Weight Start Date: 07/29/21 Stop Date: 08/28/21 Status: Ordered Quantity: 30.0 Unit: tablet Repeat number: 1 pantoprazole 40 mg oral delayed release tablet 1 tablet = 40 mg, By Mouth, Daily, # 60 tablet, 0 Refills, Maintenance, 04/19/20 8:27:00 PM EST, CRTablet Start Date: 04/19/20 Status: Ordered Quantity: 60.0 Unit: tablet Repeat number: 1 prazosin 1 mg oral capsule 1 mg, 1, capsule, By Mouth, Daily at bedtime, # 30 capsule, Refills 0, Tot. Refills 0, Maintenance,07/29/21 3:25:00 PM EST, [facility], Partial fill upon patient request if the prescription is for a schedule II opioid drug., 188, cm, 07/29/21 14:26:00 EST, Height, 102.7, kg, 07/26/21 23:19:00 EST, Dry Weight Start Date: 07/29/21 Status: Ordered Quantity: 30.0 Unit: capsule Repeat number: 1 Viagra 100 mg oral tablet 1 tablet = 100 mg, By Mouth, Daily, PRN activity, 1 hour before sexual activity; braun pay, # 10 tablet, 0 Refills, Maintenance, 04/16/23 1:36:00 PM EST, [facility] fill upon patient request if the prescription is for a schedule II opioid drug., 183, cm, 03/20/23 20:27:00 EDT, Height, 88, kg, 03/20/23 20:27:00 EDT, Dry Weight Start Date: 04/16/23 Stop Date: 05/16/23 Status: Ordered Quantity: 10.0 Unit: tablet Repeat number: 1 Problem List Condition Confirmation Course Effective Dates Status H ealth Status Informant Callus right 1st plantar metatarsal area Confirmed Active GERD without esophagitis Confirmed Active Hepatic hemangioma 1 Confirmed Active Hyperglycemia Confirmed Active HTN (hypertension) Confirmed Active Obese class I Confirmed Active Tobacco user Confirmed Active 1see multiple scans )MRI) from incarceration system Social History Social History Type Response Smoking Status 10 or more cigarette s (1/2 pack or more)/day in last 30 days entered on: 12/17/18 Sex Male Sex Representation Male (finding) EKG study * Event Display: EKG Authored Date: [id number] * Event Display: ECG 12-Lead Authored Date: [id number] Please click on pdf link to open report * Event Display: ECG 12-Lead Authored Date: [id number] Ventricular Rate: 65 BPM Atrial Rate: 65 BPM P-R Interval: 178 ms QRS Duration: 112 ms Q-T Interval: 436 ms QTC Calculation(Bazett): 453 ms P [place]: 30 degrees R [place]: 57 degrees T [place]: 54 degrees Normal sinus rhythm Moderate voltage criteria for LVH, may be normal variant ( Sokolow-Parson , [place] product ) Nonspecific T wave abnormality Abnormal ECG When compared with ECG of 19-Dec-2024 18:45, No significant change was found Confirmed by MADELEINE CALDWELL MD ([id number]) on 12/20/2024 8:20:03 PM [place]: MADELEINE CALDWELL MD Note * Maryellen Rivera DO: PERFORM Event Display: Patient Education Leaflets Authored Date: [id number] Outpatient Psychiatric and Social Resources ?? 263 Outpatient Psychiatric and Social Resources Help Lines ?? [place] Behavioral Health Help Line (BHHL): ??Call or text [phone] for free, confidential support 14/12. The BHHL can provide clinical assessment, guidance, and connection to treatment. ?? Suicide and Crisis Lifeline: ??Call, text, or chat 920 14/12. Veterans can press 1, and the Indonesian line is available by pressing 2. ?? [facility] Helpline: ??Call or text for emotional support from trained volunteers. ?? [facility] [employer]: for information for members. National Welches on Mental Illness (RADHA): [place] Substance Use Helpline: Parental Stress Line: for 24-hour support ? Emergency Services Mobile Crisis Team: [facility] on [phone] ? National Suicide Prevention Lifeline: Indonesian Language: Deaf and Hard of Hearin1-128.802.4601 Veterans: Disaster Distress: ? Healing Abuse Working for Change: 7-069-351-893 24-Hour Hotline The [employer] Project (LGBTQ): SafeLink(Domestic Violence): ?Community Behavioral Centers ?? [facility] Human Development???s [facility] ([facility]) ??Core Clinic and Crisis Services (Available ) [address] [place] [address] ?? [facility] ([facility]) ??? [place] ??Core Clinic and Crisis Services (Available ) [address] [place] [address] ?? [facility] ([facility]) ??? [place] ??Core Clinic and Crisis Services(Available ) [address] [place] [address] ?? Clinical Support Options [facility] ??[address] [place] [address] ?? Clinical Support Options [facility] ??? [place] ??Core Clinic and Crisis Services (Available ) [address] [place] [address] ?? [facility] ([facility]) ??Core Clinic and Crisis Services (Available ) [address] [place] [address] ?? Community Mental Health Centers ?? [facility] ??Several clinics for children with virtual therapy available. Once patients are established with therapy, they can be referred to psychiatry at the clinic. Parents can refer their child by calling [phone]. Adults can call for outpatient mental health. ? HYDROPONICS WORKER ??HYDROPONICS WORKER has clinics in [place] and [place], [place]. Once patients are established with therapy they can be referred to psychiatry at the clinic. Referrals can be made for patients by calling [phone]. Children/adults coming from the hospital will be given priority. ?? Service[facility] ??Clinics in [facility], [place], [place], and [place]. All ages can be referred by calling [phone] ext [phone]. Psychiatry services are available once established with a therapist. ?? CHD ??[facility] has locations in [facility]. They have individual therapy services and once you are established with therapy you can be referred to psychiatry at the clinic. Referrals can be made by calling [phone] ?? [facility] ??Clinics in [facility] and [place] with therapy services for adults and kids, with psychiatry once someone has been established in therapy. Referrals can be madeby phone at [phone]. ?? [facility] ??[facility] has two urgent outpatient clinics ??? [address] and [address] [facility] in [facility]. They are open for walk ins 9-4 Wednesday-Wednesday. You will be assigned a therapist and after 4 sessions they will assign a psychiatric provider. ?? [facility] ??[facility] has affiliated with ???The [place] Program?? and many of their lines now say ???[facility] [facility]. The [place] office is located at - [address], [place] [address] but you have to call the Intake Line for [place] and get on their waiting list first. Intake line # is ??? . ?? Partial Hospitalization Programs (PHP) (walk in) ?? [facility] ??[address] [place] [address] Phone: (referral lines) ?? [facility] ??[address] [place] [address] Phone: ?? Homeless Resources ?? [facility] ??[address], Middle Floor, [place] [address] [facility], Phone: , ?? [facility] - [place] ??[address] [place] [address] Phone: ?? [facility] ([place], [place], & [place]) [address] [place] [address] Phone: ?? Clinical & Support Options [address], [address], [place] [address] Phone: ?? [place] [facility] ??[address] [place] [address] Phone: ?? [facility] [address] [place] [address] Phone: ?? [place] [facility] ??[address] [address]), [place], [place] Phone: ?? [facility] (women) ?? Homelessness Services ??[address] [place] [address] ?? Domestic Violence ?? [facility] ?? Domestic Violence Correction Services & 24 Hour Hotline Program Office [address] [place] [address] Hotline Espa??ol ?? [facility]CA ?? Community Domestic Violence Services ??[address] [place] [address] ?? YWCA ?? Young Parent Programs ??[place] ?? [facility] ??[address], [place] [address] Phone: [phone] (9 AM to 5 PM, Wednesday to Wednesday ?? Substance Use - Detox Centers ?? Detoxes Not all of these detoxes may take your insurance. Please call ahead to check. You can also call your insurance company directly to see which detox centers would be covered. ?? [facility] [address] [place], [place] ?[facility] [address] [place], [place] [phone]?[facility] [address] [place], [place] ? [facility] [address] [place] [address] ?[facility] [address] [place], [place] [phone]?[facility] [address] [place], [place] ?[facility] [address] [place], [place] ?[facility] [address] [place], [place] [phone]?[facility] [address] [place], [place] [phone]?[facility] [address] [place], [place] ?Community [address] [phone]?[facility] [address] [place], [place] [phone]?[address] ?[place] [facility] [place] [address] [place], [place] ?[facility] [place] [facility] [address] [place], [place] ?[facility] [address] [place], [place] [phone]?[facility] [address] [place], [place] [phone] ?[facility] [address] [place], [place] ?[facility] [address] [place], [place] [phone]?[facility] ([facility]) [address] [place], [place] [phone] ??[facility] ATS and CSS [address] [place], [place] [phone]? * Maryellen Rivera DO: PERFORM Event Display: Patient Education Leaflets Authored Date: [id number] Homelessness Resources ?? 748 Housing and Homelessness Resources ?? Case Management and Housing Stabilization ?? [facility] Pant[facility]???s [facility] [address] (Middle Floor) [place] [address] Ph: / Fax: [facility] program provides case management, housing search assistance, and substance use treatment referrals for people experiencing homelessness including those living in area shelters, on the streets, or temporarily staying with friends or relatives. [facility] case management includes assisting people in meeting basic needs, accessing entitlement benefits, recovery coaching services, including substance use disorder groups, connecting with vocational rehabilitation and employment programs, filling out forms, and requesting vital documents including certificates and IDs. Referrals are made so people can obtain alf, permanent housing,as well as primary and behavioral health care. ?? Clinical Support Options - HYDROPONICS WORKER ([facility] Homeless) An [facility] resource center is open daily at each site where guests can gain information to obtain work,housing, or healthcare - or simply to stay warm or cool. ?? Locations: [address] ?? [address] or [phone] ?? [address] ?? The [facility] Resource Center in [place] provides access to a fully-licensed, on- site health clinic, a resource room with computer availability and training, and field nurse case manager working with clients daily to remove barriers to permanent housing and employment. Our Resource Center is handicap-accessibleand is conveniently located on a PVTA line ([place] [address] bus stop). jboss developer assigned to alf clients only ?? [facility] ([facility] and [facility]) Walk-ins and in-person appointments are welcomed. A variety of programs offered: ??? Help for renters -help with overdue rent or utility bills, apply for subsidized housing, concerns for housing discrimination, have a current housing subsidy but want to save for a home purchase or other financial milestone. ??? Foreclosure prevention - if you are behind on your mortgage payments or have utilities in arrears, you may qualify for emergency assistance from the RAFT program. ??? Experiencing homelessness - supports those who are experiencing homelessness with brief counseling, housing search support and assistance with applying for RAFT for move-in costs. [facility] does not directly alf homeless individuals but offers alf information. [facility] does manage family shelters but requires a referral from the Executive [employer] of Housing and Livable Communities ([facility]). Emergency Assistance (EA) Correction - [facility] [address] [facility] Wednesday through Wednesday 8AM-5PM If you are a landlord, tenant or homeowner with housing related questions, visit a housing center. Office Hours: Wednesday through Wednesday 8:30am - 4:00pm, ph: [phone] or [phone], TDD [phone] ?? [facility] [address] [place] [address] [facility] [address] [facility] [address], [place] [address] [facility] [address] [place] [address] ?? [facility] [address] [place] [address] Please call to schedule an appointment: [phone] Hours of Operation: Wednesday-Wednesday 9AM-4:30PM (Wednesday summer hours 9AM-2PM) Office of [facility]: Services are offered to individuals and families in need of assistance. Each person is given individual attention at the intake process. Evaluation, assistance, and case management are available in the following services areas: ??? Rental assistance/housing assistance - prevention, diversion, and rapid rehousing ??? Utility assistance/fuel assistance ??? Financial literacy classes ??? Housing counseling ??? Assistance and referrals for: food stamps, [facility], employment resources, food pantries, housing ??? Other seasonal assistance: assistance for families during holiday seasons and back to school ?? [facility] Resource Center [address] [facility] [phone] The Resource Center is staffed and open Wednesday through Wednesday 8:30AM-4:30PM. Clothing donations andother survival gear such as tents, tarps and sleeping bags pending availability. A place to come hang out during the day and meet with staff to help address individual needs. In addition to a safe space to hang out, there are computers available for use. Breakfast is served on Wednesdays. ?? [facility] [address] [place] [address] or [phone] How we help - People can go to the centers during the day to fruit picker a bag lunch or cup of coffee, and to use the computers and phones for their job and housing searches. We offer one-to-one support and guidance to individuals who wish to set and attain a??variety of goals - from securing employment, to achieving sobriety, finding a mental health counselor, signing up for food stamps or social security benefits, or renewing ID???s. We also provide a fixed address which people can use to receivetheir mail. In addition, our comprehensive housing search services address issues which may preventpeople from finding a home. Through our follow up program, we help individuals keep their housing af ter they have moved out of the shelters. ? Medical and Dental ?? [facility] the Homeless [address] [place] [address] , to schedule an appointment at one of seven locations nearest you, Wednesday through Wednesday 8:30AM-4:30PM *Providing primary care, dental, mental health & substance abuse services. ?? Health Care for the Homeless - [facility] The [facility] for the Homeless ([facility]) program has been a steadfast advocate for the health and well-being of homeless individuals in [facility] for over four decades. Our program offers a wide range of services including: ??? On-site primary care provided at shelters, soup elías, job placement sites, and transitionalprograms throughout [facility]. ??? Specialized Services: our team includes nurses, nurse practitioners, a certified medical technician, field nurse case manager, administrative staff, physicia ns, psychiatrists and an nursing executive. ??? The Street Outreach team extends our services to the most vulnerable homeless individuals. For more information call [phone] ?? [facility] Access to compassionate, accurate, high-quality healthcare should be available to everyone regardless of income, age, race, gender, sexual orientation or immigration status. Services include harm reduction, sexual and reproductive health, as well as food access and family nutrition. Syringes and sharps disposal available by calling [phone]. Locations throughout [place], [place], [place], [place], [place], [place], [place], and [place]. or [phone] [email or web address] Schedule online at [email or web address] ?? [facility] Provides comprehensive and high-quality primary care services to people in need, regardless of their ability to pay. At the [facility] you will NOT be turned away even if you don???t have health insurance. Enrollment Navigators available to help you access health insurance. Healthcare services available as well to newly incoming refugees who might not otherwise have access to healthcare. Clinical and virtual services include adult and pediatric medical care, dental and behavioral health services. Call [phone] to schedule an appointment. Locations: ??? [address] [place] [address] ??? [address] [place] [address] ??? [address] [place] [address] ??? [address] [facility] [address] ? Meals ?? [facility] ([facility]) [address] [place], [place] ??? Breakfast: 8:00-9:00 am??Lunch: 12:00-1:00 pm Dinner: 4:30-5:30 pm ?? [place] [facility] [address] [place] [address] Meals are available to anyone in need - men, women and children. No prerequisites required. ??? Public Breakfast and Lunch Program: Services a well-balanced full meal for up to 100 hungry men, women, and children six days per week. o Breakfast 7AM- 7:30AM o Lunch 12:30PM-1PM ??? Holiday Meals: special holiday meals are available for Abhay, Arie, and Jacqueline. Call [phone] for holiday mealtimes. ??? Operation [employer]: A mobile feeding ministry that delivers an average of 100 meals each day of operation to the homeless and residents in [facility]???s low-income neighborhoods. ?? Loaves and Fishes Kitchen - Open Door Quarter Lining Smoother Weekdays and Weekends: [facility] [address] [place] [address] 12PM Lunch/5PM Dinner The Holiday Meals are a traditional holiday meal for anyone in need of a meal or for those who wishto spend Thanksgiving, [place] and Easter with others. The holiday meals are served at the [employer] [address] [place] [address]. Meals are served at 12PM. Enter through the (west) side door of the school. ? Clothing ?? [facility] [address] [place] [address] The [facility] distributes gently used clothing, shoes, coats, bedding items, towels, small household goods and essential hygiene products to men, women, and children. Bags of non-perishable groceries are also given out when available. The [facility] operates by appointment. To schedule an appointment, call [phone], ext. [phone]. ?? [place] [address] Provides women with what they need for an interview - from clothing to confidence - and can return once they find employment for additional apparel and accessories. Call [phone] ? Advocacy and Support Centers ?? [place] Website: http://[email or web address]/ Formerly known as the [facility] ([facility]), [employer] supports healing and empowerment for our broader communities and people who have been impacted by psychiatricdiagnosis, trauma, extreme states, homelessness, problems with substances and other life interrupting challenges. We do this through peer to peer support, alternative healing practices, learning opportunities, and advocacy. Peer Support Line [phone], please do not leave a voicemail. Locations: ??? [place] ???[place]?? [place], [address] [facility], ph: [phone], Wednesday through Wednesday 10AM-1PM o Amenities: computers, printer, and fax, gym equipment, space to connect withothers, chess, art room, kitchenette, clothing pantry, shower (limited lottery based). ??? [facility], [address] [place] [address], ph: [phone], Tuesdays, 1PM- 4PM and [id number] o Amenities: space to hang out and connect with others, projector screen, kitchenette, computers, printer and fax, food and clothing donations. *Not fully ADA compliant*. ??? [place], [facility], ph: [phone], Mondays, Wednesdays and Fridays 12:30PM-4PM o Amenities: computers, printer and fax, space to hang out, art and music supplies, full kitchen, projector and screen. ??? [facility], [address] [place] [address], ph: [phone] or toll free [phone], Mondays, Tuesdays, Wednesdays and 12PM-4PM o Amenities: Common area to connect with others, large library, art and music supplies, computers, printer and fax, side group room, kitchenette. Light snacks are often available and hot coffeeis always brewing! ??? [facility], ph: [phone] o Quick facts: regular house with 3 private bedrooms that lock from the inside, stays are up to 7 nights, open to those 18+ with an address in [place] or [place], [place], come and go as you please, 14/12 Peer Support available,no curfew, meetings or other restrictions, minimal paperwork, no cost program. ? General Information available by visiting [address] [place], [place] [email or web address]. Find help for: ??? Programs and Services: Food, Housing/Correction, Mental Health, Substance Use, Legal, Reentry, Digital and Mentoring. ??? Holiday Resources in [place], [place] ??? Warming and Cooling Centers ??? Resource Networks ?? * Maryellen Rivera DO: PERFORM Event Display: Patient Education Leaflets Authored Date: Alcohol and Substance Abuse Disorder Resources ?? 703 Alcohol & Substance Use Disorder Resources ?? Short-term Detox Programs ?? - you can call these facilities directly to see if a bed is available ??? however, you may be told to call back every 2 hours ??? if you are told this, PLEASE follow those instructions! Bed availability can change very quickly! ? [facility] ??? ([place] ??? provides transportation) ??? [facility] ??? [phone] ([place]) ??? [facility] (Veterans only) ??? [phone] ([place] ??? [facility] ??? [phone] ([place]) ??? [facility] ??? [facility]- ([place]) ??? [facility] ??? / [phone] ([place]) ??? [facility] -?? [phone] ([place]) ??? [facility] ??? / ([place]) ??? [facility] - [phone] ([place]) ??? [facility] - [phone] ([place]) ??? [facility] - [phone] ([place]) ??? [facility] - [phone] ([place]) ??? [facility] - [phone] ??([place]) ??? [facility] - [phone] ([place]) ??? [facility] - [id number] ([place]) ???[facility] - [phone] ([place]) ??? [facility] - [phone] ([place]) ??? [facility] - [phone] - ([place]) ??? [place] [facility] - [phone] ([place]) ??? [facility] - [phone] ([place]) ??? [facility] - [phone] ([place]) ??? [facility] [place] [facility] - [phone] ([place]) ??? [facility] - [phone] ([place]) ??? [facility] [place] - [phone] ([place]) ??? [facility] - [phone] ([place]) ??? [facility] - [phone] ([place]) ??? [facility] [place] ??? [phone] Intensive Outpatient / Day Treatment Programs ??? some programs offer mornings, some evenings, someboth. Call for more information. Can usually call directly for an intake appointment. Some insurances may require a referral from your doctor. ? [facility] ??? IOP ??? [phone] ([place]) ??? [facility] ??? IOP ??? [phone] ([place]) ??? [facility] ??? IOP ??? [phone] ([place]) ??? [facility] ??? [facility] ??? IOP ??? [phone] ([place]) ??? [facility] -IOP- [phone] or [phone] ?? Outpatient Clinics Specializing in Substance Use Disorder Treatment ??? call directly for information or an intake appointment ??? [facility] - [phone] ([place]) ??? [facility] - [phone] ([place]) ??? [facility] - [phone] ??? [facility] - [phone] ([place]) ??? Andrea - [phone] ([place]) ??? [facility] - [phone] ([place]), ([place]), ([place]) ??? [facility] ([place])- [phone] ([place]) ??? [facility] - [phone] ([place]) ??? [facility] - [phone] ([place]) ??? [facility] - [phone] ([place]) ??? Clinical [facility] Support Options - [phone] ([place]) ??? [facility] - [phone] ([place]) ??? [facility] - [phone] ([place]) ??? Clinical and Support Options - [phone] ([place]) ??? [facility] - [phone] ([place]) ??? [facility] - [phone] ([place]) ??? [facility] - [phone] ([place]) ??? [facility] - [phone] ([place]) Counseling [facility] Clinic - [phone] ([place]) ??? [facility] - [phone] ([place]) ?? Medication Assisted Treatment Programs ??? Call directly for information or for intake ?? Methadone ??? [facility] ([place]) - [phone] ([place]) ??? [facility] - ??[phone] ([place]) ??? Health Care Resource Centers?? Multiple Locations ??? Call Main # ??for intake at any site ??? [phone] ??? [facility] Clinic ??? [phone] ??? [place] (methadone, suboxone & vivitrol) Suboxone, Vivitrol, Sublocade (Call for information) ??? [facility] ??? [phone] ([place]) ??? [facility] ??? [phone] ([place]) ??? [facility] ([place]) - [phone] ([place]) ??? [facility] ??? [phone] ([facility], Main #) ??? [facility] - [phone] ([facility] Main #) ??? [facility] ??? ([place] ) [phone] ?? CSS & Long-Term Residential Programs Typically require a referral from a detox or other interim residential program ??? call for information ??? [facility] ??? men ??? [phone] ([place]) ??? [facility] ??? women ??? [phone] ([place]) ??? [facility] ??? men - ([place]) ??? [facility] ??? men/women ??? 1- ([place]) ??? [facility] ??? men/women [phone] ([place]) ??? [facility] ??? women ??? Intake: [phone]; ([place]) ??? [facility] ??? Men - [phone] ([place]) ??? [facility] ??? women ??? [phone] ([place]) ??? [facility] - [phone] ([place]) ??? Connections ??? Promise ([facility]) - ([facility]) ??? [facility] ??? woman w/ children ??? [phone] ??? ([place]) ??? [facility] ??? men/women [phone] ([place]) ??? [facility] ??? men ??? [phone] ([place]) ??? [facility] ??? women ??? [phone] ([place]) ??? [facility] ??? men/women - [phone] ([place]) ??? [facility] ??? men/women - [phone] ext. [phone] ([place]) ??? [facility] CSS - men/women - [phone] - ([place]) ??? Spectrum?? - men/women - Intake - ??? ([place]) ??? [facility] CSS - men/women - [phone] ([place]) ??? [address] ??? Promise ([facility]) - (intake) ?? Hotlines ??? To find a meeting or for peer support ??? Alcoholics Anonymous ??? [phone] ??? Narcotics Anonymous ? Gamblers Anonymous ? Support for Families & Friends To find a meeting or for peer support Al-Anon [phone], ??? Ney-Anon ??? [phone] ??? Al-A-Teen ??? [phone] ??? Learn to [place] ??? [phone] www.kqncs1aywp.org For Additional Resources Statewide call: ?? [place] Substance Abuse Information Hotline ? (14/12) To search online for JORGE ALBERTO services and possible bed availability (local & statewide): https://www.[employer] ?? Click on ???substance use search?? and ??use the drop-down box to choose type of facility (ATS = detox) ? Patient Care team information Care Team Personnel Name: Laith Ly MD Position: [facility] Physician - Primary Care Member Role: PCP Address: [address] [place] [address] Telecom: Name: Sada Arias RN Position: [facility] RN Member Role: Primary Care Nurse Name: Ariella Alva Position: [facility] RN Supv Member Role: Primary Care Nurse Name: Leonard Leal RN Position: [facility] SN RN Member Role: Primary Care Nurse Name: Evelyn Robertson [place] Position: [facility] Amb Office Staff Member Role: Primary Care Nurse Name: Pam Macdonald RN Position: [facility] RN Member Role: Primary Care Nurse Name: Rhonda Covarrubias RN Position: [facility] AMB Nurse Member Role: Primary Care Nurse Name: Yoselyn Amaya RN Position: [facility] Onco RN Member Role: Primary Care Nurse Name: Darlene La RN Position: [facility] hotel maintenance worker Member Role: Primary Care Nurse Name: Kirti Jimenez RN Position: [facility] Hospital Customer Care Professional Member Role: Primary Care Nurse Care Team Related Persons Name: ALLISON PRICE Name: SHON ALONSO Name: SHON COLE Insurance Providers Guarantor name: RANDY [facility] Information #: 1 Payer: [employer] CUSTOMER SERVICE Payer Identifier: MAVERICK Member Number: [id number] Group Number: [id number] Subscriber Identifier: [id number] Relationship to Subscriber: self Coverage Type: MEDICAID Coverage Verification Date: NA Telecom: NA Address: NA
--- OUTSIDE RECORDS SUMMARY | 2024-12-20 18:44 | XMS_ITS | Encounter Summary ---
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 and Recently Administered Medications Times are shown in EDT. Scheduled Medication Order 12/19/2024 12/20/2024 12/21/2024 acetaminophen (TYLENOL) tablet 1,000 mg (COMPLETED) 1,000 mg, oral, Once, On Wed12/20/24 at 1954, For 1 dose 2012 (Given - Provider: Cassandra Owens RN) lidocaine 4 % patch 1 patch (COMPLETED) 1 patch, Topical, Administer over 12 Hours, Once, On Wed12/20/24 at 1954, For 1 dose, Apply to left hip. 2014 (Patch Applied - Provider: Cassandra Owens RN) 814 (Due: Patch Removed - Provider: Cassandra Owens, RN) naproxen (NAPROSYN) tablet 500 mg (COMPLETED) 500 mg, oral, Once, On Wed12/20/24 at 1954, For 1 dose 2011 (Given - Provider: Cassandra Owens RN) documented in this encounter Orders Diet Count Last Ordered Date First Orde red Date ADULT DIET 1 12/20/2024 Consult Count Last Ordered Date First Orde red Date IP CONSULT TO PRODUCT CONSULTANT 1 12/20/2024 Precaution Count Last Ordered Date First Orde red Date SUICIDE PRECAUTIONS 1 12/20/2024 Privilege Level Count Last Ordered Date First O rdered Date PATIENT CRIMINAL PROFILER 1 12/20/2024 documented in this encounter Care Teams Retail Reset Merchandiser Relationship Specialty Start Date End Date Laith Ly MD [facility] [place] PCP - General Internal Medicine 03/20/20 documented as of this encounter
--- OUTSIDE RECORDS SUMMARY | 2024-12-21 12:31 | XMS_ITS | Clinical Summary ---
Author Organization [facility] Daphne Ron Address [address] [place] [address] Care Team Providers Care 7Th Grade Social Studies Teacher Name Role Phone Laith Ly Primary Care Provider [phone] Allergies Active Allergy Reactions Criticality Noted Date Comments Bee Pollen Swelling High 06/14/2017 Bee Venom Protein (Honey Bee) Unknown Low 2017 Trazodone Abdominal Pain Low 06/29/2024 Medications * This document contains information received from the source organization and may not represent a complete record from that organization. gabapentin (NEURONTIN) 800 mg tablet Take 1 tablet (800 mg total) by mouth 3 times a day. 45 tablet 1 07/06/2024 Active mirtazapine (REMERON) 15 mg tablet Take 1 tablet (15 mg total) by mouth nightly. 15 tablet 1 07/06/2024 Active omeprazole (PriLOSEC) 20 mg capsule Take 1 capsule (20 mg total) by mouth once a day. 15 capsule 1 07/06/2024 Active QUEtiapine (SEROquel) 25 mg tablet Take 1 tablet (25 mg total) by mouth 3 times a day as needed (Anxiety). 45 tablet 1 07/06/2024 Active amLODIPine (NORVASC) 5 mg tablet Take 1 tablet (5 mg total) by mouth once a day. 15 tablet 1 07/07/2024 Active lisinopriL (PRINIVIL,ZESTR IL) 20 mg tablet Take 1 tablet (20 mg total) by mouth once a day. 15 tablet 1 07/07/2024 Active Active Problems Problem Noted Date Diagnosed Date Alcohol use disorder 07/06/2024 Depression 06/29/2024 Acid reflux 09/20/2015 Family History Medical History Relation Name Comments Other Father Family History of diabetes mellitus Relation Name Status Comments Father Social History Tobacco Use Types Packs/Day Years Used Date Smoking Tobacco: Former Smokeless Tobacco: Former Comments:: Alcohol Use Standard Drinks/Week Comments Yes 0 (1 standard drink = 0.6 oz pur e alcohol) daily, 1 liter Sex and Gender Information Value Date Recorded Sex Assigned at Male 11/27/2017 7:27 PM EDT Legal Sex Male 6:57 PM EDT Gender Identity Male 11/27/2017 7:27 PM EDT Sexual Orientation Not on file Last Filed Vital Signs Vital Sign Reading Time Taken Comments Blood Pressure 175/82 07/06/2024 7:00 AM EST Pulse 69 07/06/2024 7:00 AM EST Temperature 36.8 C (98.3 F) 07/06/2024 7:00 AM EST Respiratory Rate 18 07/06/2024 7:00 AM EST Oxygen Saturation 98% 07/06/2024 7:00 AM EST Inhaled Oxygen Concentration - - Weight 113.4 kg (250 lb) 06/29/2024 5:00 PM EST Height 182.9 cm (6') 06/29/2024 5:00 PM EST Body Mass Index 33.91 06/29/2024 5:00 PM EST Plan of Treatment Health Maintenance Due Date Last Done Comments Cologuard 1965 Colon Cancer Screening 1965 Colonoscopy 1965 FOBT / Fit Test 1965 HIV Screening 1965 Sigmoidoscopy 1965 Hepatitis B Vaccines (1 of 3 - 19+ 3-dose series) 1984 CT Lung Cancer Screening (Baseline) 08/29/2015 Pneumococcal Vaccine: 50+ Ye ars (2 of 2 - PCV) 08/29/2015 11/04/2010 Zoster Vaccines (1 of 2) 08/29/2015 DTaP,Tdap,and Td Vaccines (2 - Tdap) 06/24/2023 06/24/2013 Alcohol/Substance Use Screening 05/24/2024 Depression Screening and Follow-Up 05/24/2024 Social Drivers of Health Narcisa ual Screening 05/24/2024 Influenza Vaccine (#1) 2025 , 04/22/2021, 04/23/2013, Additional history exists Basic Metabolic Panel 06/10/2025 06/10/2024 , 05/15/2024, 11/27/2017, Additional history exists RSV Vaccine (60+ years old a nd patients) (1 - 1-dose 75+ series) 2040 Hepatitis C Screening Completed 07/18/2013 Procedures * Due to [place] [employer] law, this organization might not be sharing negative HIV tests. Procedure Name Priority Date/Time Associated Diagnosis Comments COMPREHENSIVE METABOLIC PANEL STAT 11/27/2017 8:07 PM EDT from Last 3 Months or Most Recently Relevant to Health Maintenance Results * Due to [place] [employer] law, this organization might not be sharing negative HIV tests. * (ABNORMAL) Comprehensive Metabolic Panel (11/27/2017 8:07 PM EDT) NA 138 135 - 145 mmol/L 11/27/2017 9:12 PM EDT [facility] K 3.8 3.5 - 5.3 mmol/L 11/27/2017 9:12 PM EDT [facility] Cl 101 97 - 110 mmol/L 11/27/2017 9:12 PM EDT [facility] CO2 27 24 - 32 mmol/L 11/27/2017 9:12 PM EDT [facility] Anion Gap 10 5 - 15 11/27/2017 9:12 PM EDT [facility] Glucose 77 70 - 99 mg/dL 11/27/2017 9:12 PM EDT [facility] Creatinine 1.17 0.60 - 1.30 mg/dL 11/27/2017 9:12 PM EDT [facility] eGFR Non- 71(L) >=90 mL/min/BSA 11/27/2017 9:12 PM EDT [facility] Comment: Units = mL/min/1.73 m2 Glomerular Filtration Rate (GFR) is estimated based on the CKD-EPI Creatinine Equation (2009). For Americans multiply results by 1.159. Stage Description GFR 1 Normal >=90 mL/min/BSA 2 Mildly decreased GFR 60-89 mL/min/BSA 3 Moderately decreased GFR 30-59 mL/min/BSA 4 Severely decreased GFR 15-29 mL/min/BSA 5 Kidney Failure <15 mL/min/BSA Calcium 9.5 8.7 - 10.7 mg/dL 11/27/2017 9:12 PM EDT [facility] Total Protein 7.9 6.0 - 8.0 g/dL 11/27/2017 9:12 PM EDT [facility] Albumin 4.3 3.5 - 4.8 g/dL 11/27/2017 9:12 PM EDT [facility] Bilirubin, Total 1.4(H) 0.3 - 1.2 mg/dL 11/27/2017 9:12 PM EDT [facility] Alkaline Phosphatase 66 30 - 115 U/L 11/27/2017 9:12 PM EDT [facility] AST 99(H) 10 - 40 U/L 11/27/2017 9:12 PM EDT [facility] ALT 36 10 - 40 U/L 11/27/2017 9:12 PM EDT [facility] BUN 14 7 - 23 mg/dL 11/27/2017 9:12 PM EDT [facility] Blood specimen (specimen) Structure of peripheral vein / Unknown Venipuncture / Unknown 11/27/2017 8:07 PM EDT 11/27/2017 8:22 PM EDT Sarah Mckinney MD LAB BLOOD ORDERABLES Alondra l Result [facility] [address] [place] [address] from Last 3 Months or Most Recently Relevant to Health Maintenance Insurance [address] [address] Advance Directives * Full Code (Latest Code Status on File) Date Activated Date Inactivated Comments 06/29/2024 7:31 PM 07/06/2024 1:43 PM Care Teams 7Th Grade Social Studies Teacher Relationship Specialty Start Date End Date Laith Ly [address] [place] [address] PCP - General Internal Medicine 06/30/24
[2024-12-21 12:42] VITALS: BP 176/102; PULSE 92; RESP 22; TEMP 36.1; O2SAT 95
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
[2024-12-21 15:02] VITALS: BP 148/98
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
[2024-12-21 19:50] VITALS: BP 134/76; PULSE 78; O2SAT 100
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
[2024-12-22 09:30] VITALS: BP 144/74; PULSE 66; RESP 18; TEMP 36.1; O2SAT 98
[2024-12-22 09:37] VITALS: BP 144/74
[2024-12-22 09:38] VITALS: BP 144/74
[2024-12-22 20:00] VITALS: BP 124/58; PULSE 67; RESP 15; TEMP 36.6; O2SAT 97
[2024-12-23 08:00] VITALS: BP 151/72; PULSE 60; RESP 18; TEMP 36.8; O2SAT 98
[2024-12-23 20:00] VITALS: BP 138/73; PULSE 82; RESP 15; TEMP 36.8; O2SAT 98
[2024-12-24 08:00] VITALS: BP 137/72; PULSE 67; RESP 16; TEMP 36.7; O2SAT 99
--- NOTE | 2024-12-24 10:42 | P.PNPSI_ITS ---
Subjective Subjective Date of Service: 12/23/24 Reason For Visit: psychosis Subjective Notes: 3 Day Healthcare Proxy: No Guardianship: No Medical Problems Affecting Mental Status: No Interim History: 59 yo reports he is fine , nursing reports he refused labs today- believes someone told him he is being dced tomorrow- nursing thinks it is Wednesday- pt denying psychiatric symptoms at this time, Medication Compliance: Yes Side effects from medications: No Attending Groups: No Review of Systems Acute medical concerns: No Medical Review of Systems: unchanged Mental Status Exam Mental Status Exam Patient Appearance: Appropriate Patient Orientation: Person, Place, Time and Situation Level of Consciousness: Awake and Alert Patient Behavior: Guarded, Isolative and Poor Eye Contact Mood Description: Constricted Patient Cognition Impaired: No Ability to Follow Directions: Fair Speech Pattern: Clear Hallucinations: None Delusions: Not Present and Paranoid Ideation (appears mildly so - but denies all) Thought Process: Intact and Goal Oriented Thought Content: positive for Evasive Depressive Symptoms: Sleeping More Than Usual Judgement: Fair Diagnostics Vital Signs (24Hr): Vital Signs - 24 hr 12/23/24 20:00 12/24/24 08:00 Temperature 98.3 F 98.0 F Pulse Rate 82 67 Respiratory Rate 15 16 Blood Pressure 138/73 137/72 Pulse Oximetry 98 99 Oxygen Delivery Method Room Air Medications Medications Current Medications Acetaminophen (Acetaminophen 325 Mg Tablet) 650 mg PO Q6H PRN PRN Reason: Headache/Pain, Scale 1-10 Last Admin: 12/24/24 07:15 Dose: 650 mg Al Hydroxide/Mg Hydroxide (Magnesium Hydrox/Alum Hydrox 30 Ml Oral.Susp) 30 ml PO Q6H PRN PRN Reason: Heartburn/Nausea Amlodipine Besylate (Amlodipine Besylate 2.5 Mg Tablet) 2.5 mg PO DAILY [facility]; Protocol Last Admin: 12/24/24 08:22 Dose: 2.5 mg Folic Acid (Folic Acid 1 Mg Tablet) 1 mg PO DAILY [facility] Last Admin: 12/24/24 08:22 Dose: 1 mg Gabapentin (Gabapentin 400 Mg Capsule) 800 mg PO TID [facility] Last Admin: 12/24/24 08:22 Dose: 800 mg Hydroxyzine HCl (Hydroxyzine Hcl 25 Mg Tablet) 25 mg PO Q6H PRN PRN Reason: mild anxiety Last Admin: 12/23/24 21:16 Dose: 25 mg Lisinopril (Lisinopril 10 Mg Tablet) 10 mg PO DAILY [facility]; Protocol Last Admin: 12/24/24 08:22 Dose: 10 mg Lorazepam (Lorazepam 1 Mg Tablet) 1 mg PO TID [facility] Last Admin: 12/24/24 08:22 Dose: 1 mg Magnesium Hydroxide (Milk Of Magnesia 30 Ml Oral.Susp) 30 ml PO DAILY PRN PRN Reason: Constipation Mirtazapine (Mirtazapine 15 Mg Tablet) 15 mg PO BEDTIME [facility] Last Admin: 12/23/24 21:15 Dose: 15 mg Nicotine (Nicotine 21 Mg Patch.Td24) 21 mg TRANSDERMA DAILY PRN PRN Reason: smoking cessation Nicotine Polacrilex (Nicotine Polacrilex 2 Mg Gum) 4 mg BUCCAL Q2H PRN PRN Reason: Nicotine Cravings Olanzapine (Olanzapine 5 Mg Tablet) 5 mg PO TID PRN PRN Reason: agitation Last Admin: 12/23/24 21:15 Dose: 5 mg Omeprazole (Omeprazole 20 Mg Capsule.Dr) 20 mg PO BID@0630,1630 [facility] Stop: 12/28/24 16:29 Last Admin: 12/24/24 07:11 Dose: 20 mg Thiamine HCl (Thiamine Hcl 100 Mg Tablet) 100 mg PO DAILY [facility] Last Admin: 12/24/24 08:22 Dose: 100 mg Trazodone HCl (Trazodone Hcl 50 Mg Tablet) 50 mg PO BEDTIME MRX1 PRN PRN Reason: Insomnia Allergies Allergies Allergy/AdvReac Type Severity Reaction Status Date / Time bee pollen (BEE STINGS) Allergy Severe ANAPHYLAXIS Verified 06/26/24 23:55 trazodone AdvReac Unknown Verified 06/26/24 23:55 Assessment & Plan Assessment & Plan (1) MDD (major depressive disorder), recurrent severe, without psychosis: Status: Acute Code(s): F33.2 - Major depressive disorder, recurrent severe without psychotic features (2) Alcohol use disorder: Status: Acute Code(s): F19.90 - Other psychoactive substance use, unspecified, uncomplicated (3) Cocaine use disorder: Status: Acute Code(s): F14.10 - Cocaine abuse, uncomplicated Plan 59 yo male with hx of depression, alcohol, cocaine use disorder, who presents for SI/HI in face of relapse, off medication and upsetting event. Pt reports all SI/HI fully resolved. formulation/clinical reasoning: pt depressed but says all SI/HI resolved and that he's back to baseline. Will restart home medications and start CIWA for detox. Will monitor Plan: CV q15 restart Mirtazapine 15mg qhs restart Gabapentin 800mg TID restart Amlodpine/omeprazole/lisinopril Ativan 1mg TID; will taper and dc CIWA w/ prn ativan Reason for continued inpatient stay Substantial Risk for: rapid decompensation Time Spent With Patient Time: Total time managing care of this patient today ____ minutes.
[2024-12-24 20:00] VITALS: BP 143/72; PULSE 80; RESP 15; TEMP 36.6; O2SAT 97
--- NOTE | 2024-12-24 21:31 | P.PNPSI_ITS ---
Subjective Subjective Date of Service: 12/24/24 Reason For Visit: psychosis Subjective Notes: 3 Day Healthcare Proxy: No Guardianship: No Medical Problems Affecting Mental Status: No Interim History: 59 yo not engaged in treatment much here isolates to room refused labs- taking meds- denying any complaints looking for dc Wednesday- says someone told him that- told him to speak to team Wednesday- denies si/hi/psychosis Medication Compliance: Yes Side effects from medications: No Attending Groups: No Review of Systems Acute medical concerns: No Medical Review of Systems: unchanged Mental Status Exam Mental Status Exam Narrative: lying in bed, minimally engageable with provider Patient Appearance: Unkempt Patient Orientation: Person, Place and Situation Level of Consciousness: Awake and Alert Patient Behavior: Guarded, Passive and Isolative Mood Description: Apathetic Affect Description: Blunted Patient Cognition Impaired: No Ability to Follow Directions: Fair Speech Pattern: Clear and Impoverished (or not sharing his thoughts/feelings) Hallucinations: None Delusions: Not Present (though he denies he appears guarded) Thought Process: Intact and Goal Oriented Thought Content: positive for Perseveration (on dc ) Depressive Symptoms: Sleeping More Than Usual Judgement: Fair Diagnostics Vital Signs (24Hr): Vital Signs - 24 hr 12/24/24 08:00 12/24/24 20:00 Temperature 98.0 F 98 F Pulse Rate 67 80 Respiratory Rate 16 15 Blood Pressure 137/72 143/72 H Pulse Oximetry 99 97 Oxygen Delivery Method Room Air Medications Medications Current Medications Acetaminophen (Acetaminophen 325 Mg Tablet) 650 mg PO Q6H PRN PRN Reason: Headache/Pain, Scale 1-10 Last Admin: 12/24/24 20:15 Dose: 650 mg Al Hydroxide/Mg Hydroxide (Magnesium Hydrox/Alum Hydrox 30 Ml Oral.Susp) 30 ml PO Q6H PRN PRN Reason: Heartburn/Nausea Amlodipine Besylate (Amlodipine Besylate 2.5 Mg Tablet) 2.5 mg PO DAILY [facility]; Protocol Last Admin: 12/24/24 08:22 Dose: 2.5 mg Folic Acid (Folic Acid 1 Mg Tablet) 1 mg PO DAILY [facility] Last Admin: 12/24/24 08:22 Dose: 1 mg Gabapentin (Gabapentin 400 Mg Capsule) 800 mg PO TID [facility] Last Admin: 12/24/24 20:16 Dose: 800 mg Hydroxyzine HCl (Hydroxyzine Hcl 25 Mg Tablet) 25 mg PO Q6H PRN PRN Reason: mild anxiety Last Admin: 12/24/24 20:16 Dose: 25 mg Lisinopril (Lisinopril 10 Mg Tablet) 10 mg PO DAILY [facility]; Protocol Last Admin: 12/24/24 08:22 Dose: 10 mg Lorazepam (Lorazepam 1 Mg Tablet) 1 mg PO TID [facility] Last Admin: 12/24/24 20:16 Dose: 1 mg Magnesium Hydroxide (Milk Of Magnesia 30 Ml Oral.Susp) 30 ml PO DAILY PRN PRN Reason: Constipation Mirtazapine (Mirtazapine 15 Mg Tablet) 15 mg PO BEDTIME [facility] Last Admin: 12/24/24 20:16 Dose: 15 mg Nicotine (Nicotine 21 Mg Patch.Td24) 21 mg TRANSDERMA DAILY PRN PRN Reason: smoking cessation Nicotine Polacrilex (Nicotine Polacrilex 2 Mg Gum) 4 mg BUCCAL Q2H PRN PRN Reason: Nicotine Cravings Olanzapine (Olanzapine 5 Mg Tablet) 5 mg PO TID PRN PRN Reason: agitation Last Admin: 12/24/24 20:16 Dose: 5 mg Omeprazole (Omeprazole 20 Mg Capsule.Dr) 20 mg PO BID@0630,1630 [facility] Stop: 12/28/24 16:29 Last Admin: 12/24/24 17:01 Dose: 20 mg Thiamine HCl (Thiamine Hcl 100 Mg Tablet) 100 mg PO DAILY [facility] Last Admin: 12/24/24 08:22 Dose: 100 mg Trazodone HCl (Trazodone Hcl 50 Mg Tablet) 50 mg PO BEDTIME MRX1 PRN PRN Reason: Insomnia Allergies Allergies Allergy/AdvReac Type Severity Reaction Status Date / Time bee pollen (BEE STINGS) Allergy Severe ANAPHYLAXIS Verified 06/26/24 23:55 trazodone AdvReac Unknown Verified 06/26/24 23:55 Assessment & Plan Assessment & Plan (1) MDD (major depressive disorder), recurrent severe, without psychosis: Status: Acute Code(s): F33.2 - Major depressive disorder, recurrent severe without psychotic features (2) Alcohol use disorder: Status: Acute Code(s): F19.90 - Other psychoactive substance use, unspecified, uncomplicated (3) Cocaine use disorder: Status: Acute Code(s): F14.10 - Cocaine abuse, uncomplicated Plan 59 yo male with hx of depression, alcohol, cocaine use disorder, who presents for SI/HI in face of relapse, off medication and upsetting event. Pt reports all SI/HI fully resolved. formulation/clinical reasoning: pt depressed but says all SI/HI resolved and that he's back to baseline. Will restart home medications and start CIWA for detox. Will monitor Plan: CV q15 restart Mirtazapine 15mg qhs restart Gabapentin 800mg TID restart Amlodpine/omeprazole/lisinopril Ativan 1mg TID; will taper and dc CIWA w/ prn ativan 12/24/24 not engaged in treatment on 3d - Reason for continued inpatient stay Substantial Risk for: rapid decompensation Time Spent With Patient Time: Total time managing care of this patient today ____ minutes.
[2024-12-25 08:00] VITALS: BP 135/59; PULSE 76; RESP 18; TEMP 36.1; O2SAT 97
[2024-12-25 08:21] VITALS: BP 135/59
[2024-12-25 08:22] VITALS: BP 135/59
--- NOTE | 2024-12-25 12:01 | P.DS_ITS ---
DS: Providers Provider Date of Service: 12/25/24 Date of admission: 12/21/24 11:56 Date of discharge: 12/25/24 Primary care physician: Unknown Physician Attending physician on admission: Byron Wilkisnon Consults: 12/21/24 13:35 Consult to Hospitalist Routine Comment: Consulting Provider: [facility] Reason For Exam: admission physical Attending physician on discharge: Byron Wilkinson DS: Diagnosis Discharge Diagnosis (1) MDD (major depressive disorder), recurrent severe, without psychosis: Status: Acute (2) Alcohol use disorder: Status: Acute (3) Cocaine use disorder: Status: Acute DS: Medications Discharge Medications Home Medications: Home Medications ?Medication ?Instructions ?Recorded ?Confirmed celecoxib 100 mg capsule 100 mg PO BID 06/27/2406/27 lidocaine 4 % topical patch 2 patch transdermal DAILY PRN Pain 06/27/24 06/27/24 (Lidocaine Pain Relief) Previous Rx's ?Medication ?Instructions ?Recorded fluticasone propionate 50 2 spray intranasal DAILY #1 inhaler 06/19/24 mcg/actuation nasal spray,suspension melatonin 3 mg tablet 9 mg (3 x 3 mg) PO BEDTIME # 90 tabs 06/19/24 white petrolatum-mineral oil 1 appl topical BID #28 gr ams 06/19/24 topical cream (Dermacerin topical cream) amlodipine 2.5 mg-benazepril 10 mg 1 cap PO DAILY 30 d ays #30 caps 12/25/24 capsule gabapentin 800 mg tablet 800 mg PO TID 30 days #90 ta bs 12/25/24 mirtazapine 15 mg tablet 15 mg PO BEDTIME 30 days #30 tabs 12/25/24 omeprazole 20 mg capsule,delayed 20 mg PO BID@0630,163 0 30 days #60 12/25/24 release caps DS: Summary Hospital Course Hospital Course: denied; remained w/out and at baseline; no hx of talked w/ friend stiuff in tent knows risks of gabapentin w/ alcohol; gets 1 month script, mobility issues and not having it trigger to relapse; already has script w/ left over tabs Time Spent with Patient Time attestation: Total time managing care of this patient today ____ minutes. Discharge Plan Discharge Anticipated Discharge Date/Time: 12/25/24 12:30 Patient Disposition: Skilled Nursing Discharge Diagnosis: MDD, recurrent, severe without psychosis in full remission Referrals: [facility] [Other] - 1 Day Referral Note: This is a same day walk in intake for psychiatry and therapy. Walk-in Hours: M-F 8am - 8pm Sat 9am - 5pm The first appointment is an intake only. It is recommended you get your intake in as soon as possible as there will likely be a wait time between your intake and your first psychiatry and therapy appointments. [facility] ([facility]) Crisis Service [Other] - 1 Day Referral Note: Crisis stabilization for youth and adults. Our [facility] program delivers services as an alternative to hospital emergency departments and psychiatric hospitalization. It also offers respite, outreach, medication management, and peer-level support to ensure that your family member is taken care of on every level. [facility] [Other] - 1 Day [facility] [Other] - 1 Day Referral Note: Open Hours Tuesdays 9:00am ? 1:00pm Wednesdays 9:00am ? 1:00pm 9:00am ? 1:00pm Fridays 9:00am ? 1:00pm Saturdays 10:00am ? 1:00pm [facility] [Other] - 1 Day [facility] [Other] - [address] [facility] Outreach Team [Other] - 1 Day Referral Note: Office Hours: 9am-3pm [facility] [Other] - 1 Day Referral Note: Social work called per pt's request. There was only an option to leave a message. Please follow up upon discharge. [facility] [Other] - 1 Day Referral Note: Call to self refer. Stays are up to 7 nights Physician,Unknown J [Primary Care Provider, Medical] - 1 Week Discharge Medications: New omeprazole 20 mg Capsule,Delayed Release(Dr/Ec) 20 mg PO BID@0630,1630 30 Days Qty: 60 0RF Continued melatonin 3 mg Tablet 9 mg PO BEDTIME Qty: 90 0RF fluticasone propionate 50 mcg/actuation [place],Suspension 2 spray intranasal DAILY Qty: 1 0RF Dermacerin Cream 1 appl topical BID Qty: 28 0RF Protocol: Apply to: Apply to: affected areas celecoxib 100 mg capsule 100 mg PO BID lidocaine [Lidocaine Pain Relief] 4 % adhesive patch,medicated 2 patch transdermal DAILY PRN (Reason: Pain) Protocol: Apply to: Apply to: L knee and hip amlodipine-benazepril 2.5-10 mg capsule 1 cap PO DAILY 30 Days Qty: 30 0RF gabapentin 800 mg tablet 800 mg PO TID 30 Days Qty: 90 0RF mirtazapine 15 mg Tablet 15 mg PO BEDTIME 30 Days Qty: 30 0RF Discontinued acetaminophen 325 mg Tablet 650 mg PO Q6H PRN (Reason: Pain, Moderate(Pain Scale 4-6)) Qty: 0 0RF ibuprofen 600 mg Tablet 600 mg PO Q6H PRN (Reason: Pain, Severe (Pain Scale 7-10)) Qty: 30 0RF (DME) CPAP Machine/Device Device See Rx Instructions .Route Qty: 1 0RF Rx Instructions: As directed Jublia 10 % solution with applicator 1 appl topical BEDTIME Qty: 8 0RF fluconazole 150 mg tablet 150 mg PO QWEEK Rx Instructions: TAKE 1 TAB EVERY 7 DAYS WEDNESDAY FOR ONYCHOMYCOSIS nicotine 21 mg/24 hr patch 24 hour 21 mg transdermal DAILY PRN (Reason: nicotine cravings) Discharge Orders: Discharge Order (Routine); Ordered 12/25/24 Ordered By: Byron Wilkinson Diet: Low salt diet Activity on Discharge: As tolerated Stand Alone Forms: Patient Portal Discharge page, Community Support Print Language: Unable To Collect Care Plan Goals: Maintain mood and safe behaviors Take medications as prescribed Continue to pursue sobriety Practice coping skills Continue with outpatient providers and reach out to them as needed Health Concerns: Mood stability and behaviors Sobriety Hypertension Chronic Leg/hip pain Plan of Treatment: Follow up with your PCP, psychiatric provider and other outpatient providers regarding above concerns Take medications as prescribed Assessment: Risk assessment at time of discharge:? Patient was interviewed prior to discharge and found to be fully oriented and without any SI or HI. Patient has improved insight and judgment and wants to continue treatment. Patient is not in imminent risk of harm to self or others and has a safety plan that includes presenting to the closest ER or calling 911 if feeling unsafe.? Patient has been observed closely by nursing and unit staff throughout admission; patient has not engaged in any behaviors that suggest dangerousness to self or others and has demonstrated appropriate behaviors and impulse control Discharge Date/Time: 12/25/24 12:30
[2024-12-25] MEDS: Naloxone HCl Nasal TAKE HOME 4 MG SPRAY 8 MG NOSTRILALT (12:18)
== END 2024-12-25 12:30 | disposition home or self-care (01) | DRG 751 ==
PROVIDERS: Admitting Provider Psychiatry & Neurology Psychiatry; Visit Provider Psychiatry & Neurology Psychiatry
DX: F33.2 Major depressive disorder, recurrent severe without psychotic features (principal); R45.850 Homicidal ideations; R45.851 Suicidal ideations; F14.10 Cocaine abuse, uncomplicated; F19.90 Other psychoactive substance use, unspecified, uncomplicated; I10 Essential (primary) hypertension; F17.210 Nicotine dependence, cigarettes, uncomplicated; Z79.51 Long term (current) use of inhaled steroids; Z79.899 Other long term (current) drug therapy

== ENCOUNTER → 2024-12-21 11:56 | Outpatient (BNV) | payer OTHER, SELFPAY | PROVIDERS: Admitting Provider Psychiatry & Neurology Psychiatry; Visit Provider Psychiatry & Neurology Psychiatry | DX: F33.2 Major depressive disorder, recurrent severe without psychotic features (principal); F14.10 Cocaine abuse, uncomplicated; F19.90 Other psychoactive substance use, unspecified, uncomplicated | CPT/HCPCS: 99231 ==

== ENCOUNTER → 2024-12-21 11:56 | Outpatient (BNV) | payer MEDICAID, SELFPAY | PROVIDERS: Admitting Provider Psychiatry & Neurology Psychiatry; Visit Provider Nurse Practitioner Family | DX: I10 Essential (primary) hypertension (principal) | CPT/HCPCS: 99221 ==

== ENCOUNTER → 2025-05-20 20:23 | Outpatient (BNV) | payer SELFPAY | PROVIDERS: Admitting Provider Psychiatry & Neurology Psychiatry; Emergency Provider Emergency Medicine; Visit Provider Internal Medicine | DX: R00.1 Bradycardia, unspecified (principal) | CPT/HCPCS: 93010 ==

== ENCOUNTER → 2025-05-21 13:16 | Outpatient (BNV) | payer OTHER, SELFPAY | PROVIDERS: Admitting Provider Psychiatry & Neurology Psychiatry; Emergency Provider Emergency Medicine; Visit Provider Psychiatry & Neurology Psychiatry | DX: F33.2 Major depressive disorder, recurrent severe without psychotic features (principal); F14.10 Cocaine abuse, uncomplicated; F19.90 Other psychoactive substance use, unspecified, uncomplicated; F43.11 Post-traumatic stress disorder, acute; I10 Essential (primary) hypertension; R79.89 Other specified abnormal findings of blood chemistry; G47.33 Obstructive sleep apnea (adult) (pediatric) | CPT/HCPCS: 99222; 99232 ==

== ENCOUNTER → 2025-05-21 13:16 | Outpatient (BNV) | payer SELFPAY | PROVIDERS: Admitting Provider Psychiatry & Neurology Psychiatry; Emergency Provider Emergency Medicine; Visit Provider Nurse Practitioner Family | DX: I10 Essential (primary) hypertension (principal) | CPT/HCPCS: 99221 ==